=== PATIENT | female | born 1960 | race Caucasian/White ===

== ENCOUNTER → 2016-12-02 | Outpatient (CLI) | payer BC ==
[~2016-12-02] MED LIST: FRS/40 PO; GLC5 PO; INSDGI SC; LEVO100T7 PO; METF-384 PO; SIMV20TA2 PO
--- NOTE | 2016-12-02 16:11 | MAMMOGRAPHY REPORT ---
BILATERAL DIGITAL SCREENING MAMMOGRAM TOMOSYNTHESIS WITH CAD: 12/02/2016 CLINICAL HISTORY: Routine screening. Patient has no complaints. TECHNIQUE: Breast tomosynthesis in addition to standard 2D mammography was performed. Current study was also evaluated with a Computer Aided Detection (CAD) system. COMPARISON: Comparison is made to exams dated: 11/18/2015 mammogram, 10/11/2012 mammogram - [facility], and 01/15/2008. BREAST COMPOSITION: There are scattered areas of fibroglandular density in both breasts. FINDINGS: No suspicious masses, calcifications, or areas of architectural distortion are noted in e ither breast. There has been no significant interval change compared to prior exams. There are stab le post surgical changes from bilateral reduction mammoplasty. Scattered bilateral benign-appearing calcifications are not significantly changed. IMPRESSION: ACR BI-RADS CATEGORY 2: BENIGN There is no mammographic evidence of malignancy. A 1 year screening mammogram is recommended. The p atient will receive written notification of the results. Approximately 10% of breast cancers are not detected with mammography. A negative mammographic repor t should not delay biopsy if a clinically suggestive mass is present. Rhiannon Gabriel M.D. /:12/02/2016 14:45:56 [employer] Helper: Jennifer Hunt, [facility] letter sent: Normal 1/2 BI-RADS Code: ACR BI-RADS Category 2: Benign
== END | disposition home or self-care (01) ==
LOC: C.MAMM 12:57
PROVIDERS: ATTEND Family Medicine
DX: Z12.31 Encounter for screening mammogram for malignant neoplasm of breast (principal)

== ENCOUNTER → 2017-02-11 | Day surgery (SDC) | payer BC ==
[2017-01-04 08:32] VITALS: Ht 160 cm; Wt 127.3 kg
[~2017-02-11] VITALS: Ht 160 cm; Wt 127.3 kg
[~2017-02-11] MED LIST changes: +LIDOCAINE HCL 2% 2 ML VIAL (20MG/ML) ONE; +ONDANSETRON INJ 2 MG/ML 2 ML VIAL ONE; +PROPOFOL IV EMULSION 10 MG/ML 20 ML VIAL IV ONE
--- NOTE | 2017-02-11 13:49 | Endo History and Physical ---
History & Physical Date of Service: Feb 11, 2017. Chief Complaint: screening Referring Physician: Dr. Alvin Londono History of Present Illness For colonoscopy Past Surgical History Hx Cardiac Surgery: No Hx Internal Defibrillator: No Hx Pacemaker: No Hx Abdominal Surgery: Yes (SERGIO) Hx of Implantable Prosthesis: No Hx Post-Op Nausea and Vomiting: No Hx Cancer Surgery: No Hx Thoracic Surgery: No Hx Orthopedic: No Hx Urinary Tract Surgery: No Family History None Social History Smoking Status: Former Smoker Hx Substance Use: No Hx Alcohol Use: No Allergies Coded Allergies: No Known Allergies (Verified , 01/04/17) Current Medications Reported Home Medications Medications Dose Route/Sig Max Daily Dose Days Date Category Lasix (Furosemide) 40 Mg Tab 40 Mg PO DAILY PRN 01/04/17 Reported Lantus (Insulin Glargine) 100 Unit/Ml Inj 50 Units SC BID 01/04/17 Reported Levothyroxine Sodium 100 Mcg Tab 1 Tab PO QAM 01/04/17 Reported Zocor (Simvastatin) 20 Mg Tab 20 Mg PO QPM 01/04/17 Reported Glipizide 5 Mg Tab 1 Tab PO BID 01/04/17 Reported Glucophage (Metformin Hcl) 1,000 Mg Tab 1,000 Mg PO BID 01/04/17 Reported Vital Signs Weight (Kilograms): 127.27 Height (Feet): 5 Height (Inches): 3 Date Time Temp Pulse Resp B/P Pulse Ox O2 Delivery O2 Flow Rate FiO2 02/11/17 13:15 36.8 88 16 173/83 98 Room Air Physical Exam General Appearance: + obese Respiratory/Chest: Respiratory effort: no dyspnea Cardiovascular: Heart Auscultation: RRR Abdomen: Inspection & Palpation: soft Assessment and Plan For screening colonoscopy
--- NOTE | 2017-02-11 14:12 | Discharge Instructions ---
Endoscopy Patient Instructions Date / Procedure(s) Performed Feb 11, 2017. Colonoscopy Allergy Information Coded Allergies: No Known Allergies (Verified , 01/04/17) Discharge Date / Findings Feb 11, 2017. Polyps Medication Instructions Stopped Medication(s): Last dose Metformin Tuesday am Restart Stopped Medication(s): resume meds Reported Home Medications Medications Dose Route/Sig Max Daily Dose Days Date Category Lasix (Furosemide) 40 Mg Tab 40 Mg PO DAILY PRN 01/04/17 Reported Lantus (Insulin Glargine) 100 Unit/Ml Inj 50 Units SC BID 01/04/17 Reported Levothyroxine Sodium 100 Mcg Tab 1 Tab PO QAM 01/04/17 Reported Zocor (Simvastatin) 20 Mg Tab 20 Mg PO QPM 01/04/17 Reported Glipizide 5 Mg Tab 1 Tab PO BID 01/04/17 Reported Glucophage (Metformin Hcl) 1,000 Mg Tab 1,000 Mg PO BID 01/04/17 Reported Provider Instructions Activity Restrictions - No exercising or heavy lifting for 24 hours. - Do not drink alcohol the day of the procedure. - Do not drive a car or operate machinery until the day after the procedure. - Do not make any important decisions or sign important papers in 24 hours after the procedure. Following Day: - Return to full activity which may include returning to work/school. Diet Start your diet with liquids and light foods (jello, soup, juice, toast). Then eat your usual diet if not nauseated. Treatment For Common After Affects For mild abdominal pain, bloating, or excessive gas: - Rest - Eat lightly - Lie on right side Follow-Up Information Follow-up with Dr. Alvin Londono as scheduled Anesthesia Information What You Should Know You have had a procedure that required some medicine to reduce anxiety and discomfort. This treatment is called moderate sedation. After receiving the treatment, you may be sleepy, but you will be able to breathe on your own. The effects of the treatment may last for several hours. Follow these instructions along with Activity/Diet recommendations noted above: * Do NOT do anything where dizziness or clumsiness would be dangerous. * Rest quietly at home today, then you can be up and about tomorrow. * Have a responsible person stay with you the rest of today. * You may have had an I.V. today. If so, you may take the dressing off later today. Recommendations Call your doctor if: * Trouble breathing * Continuous vomiting for more than 24 hours * Temperature above 101 degrees * Severe abdominal pain or bloating * Pain not relieved by pain medicine ordered * There is increased drainage or redness from any incision * A large amount of rectal bleeding greater than 2-3 tablespoons. (If you had a polyp/s removed or have hemorrhoids, a small amount of blood - from the rectum is to be expected.) * You have any unanswered questions or concerns. IN THE EVENT OF A SERIOUS EMERGENCY, GO TO THE NEAREST EMERGENCY ROOM Your discharge instructions were prepared by provider Mauricio Cheatham. Patient Instructions Signature Page Isadora Wells Patient (or Guardian) Signature/Date: I have read and understand the instructions given to me by my caregivers. Caregiver/RN/Doctor Signature/Date: The above-named patient and/or guardian has received patient instructions on this date. + Original Patient Signature Page (only) stays with chart. Please make copy for patient.
--- NOTE | 2017-02-11 14:16 | GI REPORT ---
Procedure Date: 02/11/2017 1:48 PM Procedure: Colonoscopy Indications: Screening for colorectal malignant neoplasm Medicines: Midazolam 2 mg IV, Propofol total dose 300 mg IV, Zofran 4 mg IV, Lidocaine 60 mg IV Complications: No immediate complications. Estimated Blood Loss: Estimated blood loss was minimal. Procedure: Pre-Anesthesia Assessment: - Prior to the procedure, a History and Physical was performed, and patient medications, allergies and sensitivities were reviewed. The patient's tolerance of previous anesthesia was reviewed. - The risks and benefits of the procedure and the sedation options and risks were discussed with the patient. All questions were answered and informed consent was obtained. After I obtained informed consent, the scope was passed under direct vision. Throughout the procedure, the patient's blood pressure, pulse, and oxygen saturations were monitored continuously. The scope was introduced through the anus and advanced to the cecum, identified by appendiceal orifice and ileocecal valve. The colonoscopy was somewhat difficult due to significant looping. Successful completion of the procedure was aided by applying abdominal pressure. The patient tolerated the procedure well. The quality of the bowel preparation was good. Findings: A 6 mm polyp was found in the proximal ascending colon. The polyp was sessile. The polyp was removed with a cold snare. Resection and retrieval were complete. Estimated blood loss was minimal. A 4 mm polyp was found in the cecum. The polyp was sessile. The polyp was removed with a cold snare. Resection and retrieval were complete. Estimated blood loss was minimal. A 3 mm polyp was found at the hepatic flexure. The polyp was sessile. The polyp was removed with a cold snare. Resection and retrieval were complete. Estimated blood loss was minimal. Impression: - One 6 mm polyp in the proximal ascending colon, removed with a cold snare. Resected and retrieved. - One 4 mm polyp in the cecum, removed with a cold snare. Resected and retrieved. - One 3 mm polyp at the hepatic flexure, removed with a cold snare. Resected and retrieved. Recommendation: - Discharge patient to home (ambulatory). - Continue present medications. - Await pathology results. - Return to primary care physician PRN. Mauricio Cheatham M.D. Mauricio Cheatham MD 02/11/2017 2:16:10 PM This report has been signed electronically. Note Initiated On: 02/11/2017 1:48 PM I attest to the content of the Intraoperative Record and orders documented therein, exceptions below
[2017-02-11 14:49] VITALS: BP 120/61; PULSE 77; O2SAT 99
--- NOTE | 2017-02-11 15:08 | Anesthesiology Progress Note ---
Anesthesia Post Op Note Date & Time Feb 11, 2017 at 15:08 Vital Signs Pain Intensity: 0 Vital Signs Past 12 Hours Date Time Temp Pulse Resp B/P Pulse Ox O2 Delivery O2 Flow Rate FiO2 02/11/17 14:49 77 18 120/61 99 Room Air 02/11/17 14:31 81 16 145/80 96 Room Air 02/11/17 14:24 91 16 130/76 98 Room Air 02/11/17 14:19 91 16 130/76 91 Room Air 2 02/11/17 13:15 36.8 88 16 173/83 98 Room Air Notes Mental Status: alert / awake / arousable, participated in evaluation Pt Amnestic to Procedure: Yes Nausea / Vomiting: adequately controlled Pain: adequately controlled Airway Patency, RR, SpO2: stable & adequate BP & HR: stable & adequate Hydration State: stable & adequate Anesthetic Complications: no major complications apparent
== END | disposition home or self-care (01) ==
LOC: C.GI 12:54
PROVIDERS: ATTEND Internal Medicine Gastroenterology
DX: Z12.11 Encounter for screening for malignant neoplasm of colon (principal); D12.0 Benign neoplasm of cecum; D12.2 Benign neoplasm of ascending colon; D12.3 Benign neoplasm of transverse colon; Z98.890 Other specified postprocedural states; Z87.891 Personal history of nicotine dependence; Z79.4 Long term (current) use of insulin

== ENCOUNTER → 2017-12-05 | Outpatient (CLI) | payer BC ==
[~2017-12-05] MED LIST changes: -LIDOCAINE HCL 2% 2 ML VIAL (20MG/ML) ONE; -ONDANSETRON INJ 2 MG/ML 2 ML VIAL ONE; -PROPOFOL IV EMULSION 10 MG/ML 20 ML VIAL IV ONE
--- NOTE | 2017-12-05 14:47 | MAMMOGRAPHY REPORT ---
BILATERAL DIGITAL SCREENING MAMMOGRAM TOMOSYNTHESIS WITH CAD: 12/05/2017 CLINICAL HISTORY: Routine screening. Patient has no complaints. TECHNIQUE: Breast tomosynthesis in addition to standard 2D mammography was performed. Current study was also evaluated with a Computer Aided Detection (CAD) system. COMPARISON: Comparison is made to exams dated: 12/02/2016 mammogram, 11/18/2015 mammogram, 10/11/2012 mammogram - [facility], 01/15/2008, and 01/11/2007. BREAST COMPOSITION: The tissue of both breasts is almost entirely fatty. FINDINGS: There is evidence of prior reduction mammoplasty. Mild to moderate vascular calcifications in the breasts. No suspicious mass, architectural distortion or cluster of suspicious microcalcific ations is seen. IMPRESSION: ACR BI-RADS CATEGORY 1: NEGATIVE There is no mammographic evidence of malignancy. A 1 year screening mammogram is recommended. The pa tient will receive written notification of the results. Approximately 10% of breast cancers are not detected with mammography. A negative mammographic report should not delay biopsy if a clinically suggestive mass is present. Flaca Eden M.D. ay/:12/05/2017 13:42:18 [employer]er Feeder: Jennifer Hunt, [facility] letter sent: Normal 1/2 BI-RADS Code: ACR BI-RADS Category 1: Negative
== END | disposition home or self-care (01) ==
LOC: C.MAMM 12:17
PROVIDERS: ATTEND Family Medicine
DX: Z12.31 Encounter for screening mammogram for malignant neoplasm of breast (principal)

== ENCOUNTER 2022-09-24 10:06 | Inpatient (IN) ==
[2022-09-24] MEDS ORDERED: SODIUM CHLORIDE 0.9% 1000ML 1,000 ML IV ONE (11:08)
[2022-09-24] MEDS ORDERED: ONDANSETRON INJ 2 MG/ML 2 ML VIAL IV STA (11:08)
[2022-09-24] MEDS ORDERED: FAMOTIDINE 20MG IV PUSH 20 MG/5 ML SYR IV STA (11:08)
[2022-09-24 11:27] LABS: Basophils # (auto) 0.12 K/uL (0-0.2); Basophils % (auto) 0.8 %; Eosinophils % (auto) 0.7 %; Hematocrit (blood only) 45.9 % (34.1-44.9); Hemoglobin 15.3 g/dl (12.0-16.0); Immature Granulocytes # (auto) 0.07 K/uL (0.00-0.02); Immature Granulocytes % (auto) 0.5 %; Lymphocytes # (auto) 2.46 K/uL (1.2-3.4); Lymphocytes % (auto) 17.2 %; Mean Corpuscular Hemoglobin 27.6 pg (25.0-34.0); Mean Corpuscular Hgb Conc 33.3 g/dL (32.0-36.0); Mean Corpuscular Volume 82.9 fL (80.0-100.0); Mean Platelet Volume 10.9 fL (9.4-12.3); Monocytes % (auto) 6.3 %; Neutrophils # (auto) 10.67 K/uL (1.4-6.5); Neutrophils % (auto) 74.5 %; Platelet Count 414 K/uL (130-400); RDW Coefficient of Variation 13.6 % (11.5-14.5); RDW Standard Deviation 40.7 fL (36.4-46.3); Red Blood Count 5.54 M/uL (3.93-5.22); White Blood Count 14.32 K/ul (4.8-10.8)
[2022-09-24 11:32] LABS: Appearance Urine Clear (Clear); Bacteria Urine Automated Negative (Negative); Bilirubin Urine Negative (Negative); Blood Urine Negative (Negative); Color Urine Yellow; Epithelial Cell Urine Auto >30 /lpf (0-5); Glucose Urine UA 3+ (Negative); Ketones Urine 1+ (Negative); Leukocyte Esterase Urine Trace (Negative); Nitrite Urine Negative (Negative); Protein Urine 1+ (Negative); RBC Urine Automated 0-4 /hpf (0-4); Specific Gravity Urine 1.022 (1.000-1.030); Urobilinogen Urine Negative (Negative); pH Urine 6.5 (4.5-7.5)
--- NOTE | 2022-09-24 11:52 | XRay Report ---
XR chest 1V portable CLINICAL HISTORY: sob TECHNIQUE: Single frontal radiograph of the chest was obtained. Comparison: None available at the time of this dictation. FINDINGS: No lines and tubes are seen. The cardiomediastinal silhouette is normal. The lungs are clear. No evid ence of pleural effusion or pneumothorax. IMPRESSION: No acute chest disease. ACT 112: Negative or not required by law. Electronically signed by: Luiz Santos M.D. 09/24/2022 11:51 AM
[2022-09-24 11:57] LABS: BUN Creatinine Ratio 7.7 (10-20); Bilirubin,Total 0.8 mg/dl (0.2-1.0); Creatinine Clr Calc Pharmacy 58.1 ml/min; Est GFR (African American) 58.7 ml/min; Est GFR (Non-African American) 50.6 ml/min; Magnesium 1.1 mg/dl (1.7-2.4); Potassium 3.3 mmol/L (3.5-5.1); Troponin I High Sensitivity 11.2 pg/ml (0-14)
--- NOTE | 2022-09-24 11:59 | Emergency Department Note ---
History of Present Illness General Chief complaint: Dehydration Stated complaint: DEHYDRATION; TESTING REQUESTED Time Seen by Provider: 09/24/22 10:52 Source: patient Mode of arrival: ambulatory Limitations: no limitations History of Present Illness Provider complaint: Nausea, vomiting, abdominal pain This is a 62-year-old female presents emergency department due to concern for nausea and vomiting that she states was going on for 1 week. Patient attributed her symptoms to stress that she had recently lost her job. She denies fevers or chills. She states she does have upper abdominal pain that feels like "a knot" in her stomach. She denies any coming diarrhea. She denies noting any blood in the emesis. She denies any history of stomach problems. She states she is a diabetic and has not been eating much due to the nausea and vomiting. She has also not been taking all of her medications as prescribed due to not feeling well. She denies any known sick contacts. Home Medications Medication Instructions Recorded Confirmed Type bupropion HCl 150 mg 24 hr tablet, 150 mg PO DAILY 09/24/22 09/24/22 History extended release glipizide 5 mg tablet 5 mg PO .UNSURE 09/24/22 09/24/22 History levothyroxine 100 mcg tablet 100 mcg PO DAILY 09/24/22 09/24/22 History lisinopril 30 mg tablet 30 mg PO DAILY 09/24/22 09/24/22 History metformin 1,000 mg tablet 1,000 mg PO BID 09/24/22 09/24/22 History simvastatin 20 mg tablet 20 mg PO DAILY 09/24/22 09/24/22 History insulin detemir U-100 100 unit/mL 80 unit subcut BID 09/25/22 09/25/22 History (3 mL) subcutaneous pen (Levemir FlexTouch U-100 Insulin) Allergies Allergy/AdvReac Type Severity Reaction Status Date / Time No Known Allergies Allergy Unknown Verified 09/24/22 16:36 Past Med/Surg History Social History Smoking Status: Never smoker Hx Alcohol Use: No Hx Substance Use: No Preferred Language: Liberian Communication Ability: Effective 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 Required: No Beliefs That Will Affect Care: None Current Living Situation: Alone Other Information That Helps Us Care for You: No Feels Safe at Home: Yes Safety Concerns: Feels Safe At This Time Review of Systems A total of 10 systems reviewed and were otherwise negative All systems reviewed & are unremarkable except as noted in HPI & below Physical Exam Vital Signs Vital Signs - 24 hr 09/24/22 10:14 Temperature 36.7 C Temperature Source Temporal Artery Scan Pulse Rate 98 H Respiratory Rate 18 Respiratory Effort / Characteristics Non-Labored Spontaneous Respiratory Depth Normal Respiratory Pattern Regular Blood Pressure 159/95 H Blood Pressure Mean 116 Blood Pressure Position Sitting Pulse Oximetry 97 Oxygen Delivery Method Room Air Sepsis Recent Fever Within 48 Hours No Sepsis New/Unexplained Change in Mental Status N/A Sepsis Action Taken by Nursing No Action Required GENERAL: alert, unwell appearing, well nourished, mild distress, non-toxic, BMI>39 EYE EXAM: normal conjunctiva, PERRL and EOM's grossly intact OROPHARYNX: no exudate, no erythema, lips, buccal mucosa, and tongue normal and mucous membranes are dry NECK: supple, no nuchal rigidity, no adenopathy, non-tender LUNGS: Clear to auscultation. Normal chest wall mechanics, no w/r/r HEART: no murmurs, S1 normal and S2 normal ABDOMEN: abdomen soft, non-tender, normo-active bowel sounds, no masses, no rebound or guarding. BACK: Back is symmetrical on inspection and there is no deformity, no midline tenderness, no CVA tenderness. SKIN: no rashes and no bruising UPPER EXTREMITIES: upper extremities are grossly normal. FROM, nml pulses b/l. LOWER EXTREMITIES: No pitting edema. FROM, nml pulses b/l. NEURO EXAM: Normal sensorium, cranial nerves II-XII grossly intact, normal speech, no gross weakness of arms, no gross weakness of legs. Gross sensation intact. Course Administered Medications Dextrose (Dextrose 50% 50 Ml Syringe) 25 - 50 ml IV UD PRN; Protocol PRN Reason: Hypoglycemia Protocol Stop: 10/24/22 11:59 Last Admin: 09/24/22 19:17 Dose: 25 ml Documented By: YESI Insulin Aspart (Insulin Aspart Per Unit) 0 units SC ACHS ROLAND Stop: 10/24/22 22:29 Last Admin: 09/25/22 13:24 Dose: 17 units Documented By: DUSTIN Co-signed By: GRISELDA Admin: 09/25/22 08:55 Dose: 6 units Documented By: DUSTIN Co-signed By: GRISELDA Admin: 09/25/22 00:00 Dose: 9 units Documented By: MEREDITH Co-signed By: FLOR Levothyroxine Sodium (Levothyroxine Sodium 100 Mcg Tablet) 100 mcg PO DAILYBB ROLAND Stop: 10/25/22 06:29 Last Admin: 09/25/22 06:19 Dose: 100 mcg Documented By: MEREDITH Discontinued Medications Heparin Sodium (Porcine) (Heparin Sod 5,000 Unit/0.5 Ml Vial) 5,000 units SQ Q12 ROLAND Stop: 10/25/22 08:59 Last Admin: 09/25/22 08:54 Dose: 5,000 units Documented By: DUSTIN Famotidine (Pepcid 20mg Iv Push) 20 mg in 5 mls @ 2.5 mls/min IV NOW STA Stop: 09/24/22 11:09 Last Admin: 09/24/22 11:15 Dose: 2.5 mls/min Documented By: SARITA Sodium Chloride (Nss 1000ml) 1,000 mls @ 999 mls/hr IV .Q1H1M ONE Stop: 09/24/22 12:08 Last Infusion: 09/24/22 12:16 Dose: 0 mls/hr Documented By: Admin: 09/24/22 11:15 Dose: 999 mls/hr Documented By: SARITA Magnesium Sulfate/Dextrose (Magnesium Sulfate / D5w) 1 gm in 100 mls @ 100 mls/hr IV Q1H ROLAND Stop: 09/24/22 13:59 Last Infusion: 09/24/22 14:32 Dose: 0 mls/hr Documented By: Admin: 09/24/22 13:32 Dose: 100 mls/hr Documented By: Infusion: 09/24/22 13:19 Dose: 100 mls/hr Documented By: Admin: 09/24/22 12:19 Dose: 100 mls/hr Documented By: BLAYNE Insulin Human Regular 250 (units/ Sodium Chloride) 250 mls @ 2.3 mls/hr IV .Q24H ROLAND; Protocol Stop: 09/25/22 01:00 Last Titration: 09/25/22 07:02 Dose: 0 units/hr, 0 mls/hr Documented By: DUSTIN Co-signed By: EGS Titration: 09/24/22 22:40 Dose: 2.3 units/hr, 2.3 mls/hr Documented By: MEREDITH Co-signed By: EGS Admin: 09/24/22 22:40 Dose: 2.3 units/hr, 2.3 mls/hr Documented By: MEREDITH Co-signed By: EGS Admin: 09/24/22 21:23 Dose: 2.3 units/hr, 2.3 mls/hr Documented By: MEREDITH Co-signed By: EGS Titration: 09/24/22 21:23 Dose: 2.9 units/hr, 2.9 mls/hr Documented By: MEREDITH Co-signed By: EGS Admin: 09/24/22 20:00 Dose: 2.9 units/hr, 2.9 mls/hr Documented By: MEREDITH Co-signed By: EGS Titration: 09/24/22 20:00 Dose: 0 units/hr, 0 mls/hr Documented By: MEREDITH Co-signed By: EGS Titration: 09/24/22 19:03 Dose: 0 units/hr, 0 mls/hr Documented By: BS Co-signed By: SARITA Titration: 09/24/22 18:00 Dose: 4.8 units/hr, 4.8 mls/hr Documented By: SARITA Co-signed By: HNB Titration: 09/24/22 16:56 Dose: 6 units/hr, 6 mls/hr Documented By: SARITA Co-signed By: SM Titration: 09/24/22 16:10 Dose: 0 units/hr, 0 mls/hr Documented By: SARITA Co-signed By: ES(2) Admin: 09/24/22 14:03 Dose: 10 units/hr, 10 mls/hr Documented By: SARITA Co-signed By: BLAYNE Parenteral Electrolytes (Normosol-R) 1,000 mls @ 999 mls/hr IV .Q1H1M ONE Stop: 09/24/22 13:00 Last Infusion: 09/24/22 13:20 Dose: 0 mls/hr Documented By: Admin: 09/24/22 12:19 Dose: 999 mls/hr Documented By: BLAYNE Potassium Chloride (K Mike / Wtr) 10 meq in 100 mls @ 100 mls/hr IV Q1H ROLAND Stop: 09/24/22 17:44 Last Admin: 09/24/22 15:10 Dose: Not Given Documented By: SARITA Potassium Chloride/Sodium Chloride (Normal Saline W/20 Meq Kcl) 20 meq in 1,000 mls @ 250 mls/hr IV .Q4H ROLAND; Protocol Stop: 10/24/22 13:59 Last Admin: 09/24/22 22:16 Dose: Not Given Documented By: Infusion: 09/24/22 22:14 Dose: 250 mls/hr Documented By: Admin: 09/24/22 15:10 Dose: 250 mls/hr Documented By: SARITA Potassium Chloride/Dextrose/Sod Cl (D5w And 1/2nss + 20meq Kcl) 20 meq in 1,000 mls @ 250 mls/hr IV .Q4H ROLAND; Protocol Stop: 10/24/22 21:14 Last Infusion: 09/25/22 01:31 Dose: 250 mls/hr Documented By: Admin: 09/24/22 21:25 Dose: 250 mls/hr Documented By: MEREDITH Potassium Chloride/Sodium Chloride (1/2 Nss + 20meq Kcl 1000ml) 20 meq in 1,000 mls @ 200 mls/hr IV .Q5H ROLAND; Protocol Stop: 09/25/22 13:59 Last Admin: 09/25/22 10:51 Dose: 200 mls/hr Documented By: Infusion: 09/25/22 10:48 Dose: 200 mls/hr Documented By: Admin: 09/25/22 05:48 Dose: 200 mls/hr Documented By: Infusion: 09/25/22 05:48 Dose: 200 mls/hr Documented By: Admin: 09/25/22 00:52 Dose: 200 mls/hr Documented By: MEREDITH Insulin Aspart (Insulin Aspart Per Unit) 0 units SC ACHS ROLAND Stop: 10/24/22 16:29 Last Admin: 09/25/22 01:30 Dose: Not Given Documented By: Admin: 09/25/22 01:29 Dose: Not Given Documented By: MEREDITH Insulin Aspart (Insulin Aspart Per Unit) 0 units SC TODAY@0200 ONE Stop: 09/25/22 02:01 Last Admin: 09/25/22 02:18 Dose: 3 units Documented By: MEREDITH Co-signed By: EGFloyd Insulin Glargine (Lantus Per Unit Charge) 35 units SQ NOW STA Stop: 09/24/22 22:22 Last Admin: 09/25/22 00:00 Dose: 35 units Documented By: MEREDITH Co-signed By: FLOR Insulin Glargine (Lantus Per Unit Charge) 25 units SQ ONE ONE Stop: 09/25/22 12:16 Last Admin: 09/25/22 13:24 Dose: 25 units Documented By: DUSTIN Co-signed By: GRISELDA Ioversol (Optiray 350 100ml) 94 ml IV ONCE ONE Stop: 09/24/22 12:48 Last Admin: 09/24/22 12:48 Dose: 94 ml Documented By: SAEID Labetalol HCl (Labetalol Hcl Iv 5 Mg/Ml 20ml) 10 mg IV NOW STA Stop: 09/24/22 13:26 Last Admin: 09/24/22 13:36 Dose: 10 mg Documented By: SARITA Co-signed By: NAVDEEP Ybarra (Stat Insulin Drip) 1 each N/A NOW STA Stop: 09/24/22 12:01 Last Admin: 09/24/22 14:04 Dose: 1 each Documented By: SARITA Ybarra (Dka Goal Range 150-250 Mg/Dl) 1 each N/A ONE ONE Stop: 09/24/22 12:01 Last Admin: 09/24/22 14:04 Dose: 1 each Documented By: SARITA Ybarra (Stop Order: Dc Iv Insulin Drip) 1 each N/A NOW ONE Stop: 09/25/22 00:16 Last Admin: 09/25/22 00:52 Dose: 1 each Documented By: MEREDITH Ondansetron HCl (Ondansetron Inj 2 Mg/Ml 2 Ml Vial) 4 mg IV NOW STA Stop: 09/24/22 11:09 Last Admin: 09/24/22 11:15 Dose: 4 mg Documented By: SARITA Potassium Chloride (Potassium Chloride Crtab 20 Meq Tabcr) 40 meq PO NOW STA Stop: 09/24/22 12:25 Last Admin: 09/24/22 12:31 Dose: 40 meq Documented By: BLAYNE Potassium Chloride (Potassium Chloride 10 Meq / 100ml Wtr) 10 meq IV 1500 [facility] Stop: 09/24/22 16:00 Last Admin: 09/24/22 15:40 Dose: 10 meq Documented By: SARITA Potassium Chloride (Potassium Chloride Crtab 20 Meq Tabcr) 40 meq PO TODAY@0850 [facility] Stop: 09/25/22 13:00 Last Admin: 09/25/22 13:25 Dose: 40 meq Documented By: ACP Critical Care Time Critical Care Time: Yes Total Critical Care Time: 39 Critical care of 39 min performed to assess and manage high likelihood of life-threatening DKA, involving labs and imaging performed with assessment to evaluate DKA diagnosis with frequent reassessment. This time includes bedside time, treatment discussions with patient/family/consultants, documentation time and excludes procedure time. Medical Decision Making Differential Diagnosis Differential: Gastroenteritis, Food Borne, Esophageal Perforation, , Electrolyte Abnormality, Dehydration, Intraabdominal Infection, UTI/Pyelonephritis, Bowel Obstruction, Biliary Pathology, amongst other pathology entertained. Medical Records Attestation: I reviewed the patient's medical records. Home Medications Current Medication List: was personally reviewed by me Laboratory Data Attestation: I reviewed the patient's lab results. Result diagrams: 09/24/22 10:48 09/25/22 09:42 Lab Results 09/24/22 09/24/22 09/24/22 Range/Units 10:27 10:28 10:48 WBC 14.32 H (4.8-10.8) K/ul RBC 5.54 H (3.93-5.22) M/uL Hgb 15.3 (12.0-16.0) g/dl Hct 45.9 H (34.1-44.9) % MCV 82.9 (80.0-100.0) fL MCH 27.6 (25.0-34.0) pg MCHC 33.3 (32.0-36.0) g/dL RDW Std Deviation 40.7 (36.4-46.3) fL RDW Coeff of Nanda 13.6 (11.5-14.5) % Plt Count 414 H (130-400) K/uL MPV 10.9 (9.4-12.3) fL Immature Gran % (Auto) 0.5 % Neut % (Auto) 74.5 % Lymph % (Auto) 17.2 % [place] % (Auto) 6.3 % Eos % (Auto) 0.7 % Baso % (Auto) 0.8 % Neut # (Auto) 10.67 H (1.4-6.5) K/uL Lymph # (Auto) 2.46 (1.2-3.4) K/uL [place] # (Auto) 0.90 H (0.24-0.82) K/uL Eos # (Auto) 0.10 (0-0.50) K/uL Baso # (Auto) 0.12 (0-0.2) K/uL Immature Gran # (Auto) 0.07 H (0.00-0.02) K/uL Sodium (136-145) mmol/L Potassium (3.5-5.1) mmol/L Chloride (98-107) mmol/L Carbon Dioxide (21-32) mmol/L Anion Gap (3-11) BUN (6-23) mg/dl Creatinine (0.6-1.2) mg/dl Est Cr Clr Drug Dosing ml/min Est GFR ( Amer) ml/min Est GFR (Non-Af Amer) ml/min BUN/Creatinine Ratio (10-20) Glucose (70-99(Fasting)) mg/dl POC Glucose 448 H* 412 H* (70-99) mg/dl Calcium (8.5-10.1) mg/dl Magnesium (1.7-2.4) mg/dl Total Bilirubin (0.2-1.0) mg/dl AST (13-39) U/L ALT (7-52) U/L Alkaline Phosphatase (34-104) U/L Troponin I High Sens (0-14) pg/ml Total Protein (6.0-8.3) gm/dl Albumin (3.4-5.0) gm/dl Globulin (2.5-4.0) gm/dl Albumin/Globulin Ratio (0.9-2) Lipase (11-82) U/L TSH (0.300-4.500) uIu/ml Urine Color Urine Appearance (Clear) Urine pH (4.5-7.5) Ur Specific [place] (1.000-1.030) Urine Protein (Negative) Urine Glucose (UA) (Negative) Urine Ketones (Negative) Urine Blood (Negative) Urine Nitrite (Negative) Urine Bilirubin (Negative) Urine Urobilinogen (Negative) Ur Leukocyte Esterase (Negative) Urine WBC (Auto) (0-5) /hpf Urine RBC (Auto) (0-4) /hpf U Hyaline Cast (Auto) (0-5) /lpf U Epithel Cells (Auto) (0-5) /lpf Urine Bacteria (Auto) (Negative) Ur Renal Epithelial Cell SARS-CoV-2 (PCR) (Negative) Influenza Type A (PCR) (Neg) Influenza Type B (PCR) (Neg) RSV (RT-PCR) (Neg) 09/24/22 09/24/22 09/24/22 Range/Units 10:48 10:48 10:48 WBC (4.8-10.8) K/ul RBC (3.93-5.22) M/uL Hgb (12.0-16.0) g/dl Hct (34.1-44.9) % MCV (80.0-100.0) fL MCH (25.0-34.0) pg MCHC (32.0-36.0) g/dL RDW Std Deviation (36.4-46.3) fL RDW Coeff of Nanda (11.5-14.5) % Plt Count (130-400) K/uL MPV (9.4-12.3) fL Immature Gran % (Auto) % Neut % (Auto) % Lymph % (Auto) % [place] % (Auto) % Eos % (Auto) % Baso % (Auto) % Neut # (Auto) (1.4-6.5) K/uL Lymph # (Auto) (1.2-3.4) K/uL [place] # (Auto) (0.24-0.82) K/uL Eos # (Auto) (0-0.50) K/uL Baso # (Auto) (0-0.2) K/uL Immature Gran # (Auto) (0.00-0.02) K/uL Sodium 135 L (136-145) mmol/L Potassium 3.3 L (3.5-5.1) mmol/L Chloride 95 L (98-107) mmol/L Carbon Dioxide 23 (21-32) mmol/L Anion Gap 17 H (3-11) BUN 9 (6-23) mg/dl Creatinine 1.17 (0.6-1.2) mg/dl Est Cr Clr Drug Dosing 58.1 ml/min Est GFR ( Amer) 58.7 ml/min Est GFR (Non-Af Amer) 50.6 ml/min BUN/Creatinine Ratio 7.7 L (10-20) Glucose 468 H* (70-99(Fasting)) mg/dl POC Glucose (70-99) mg/dl Calcium 9.0 (8.5-10.1) mg/dl Magnesium 1.1 L (1.7-2.4) mg/dl Total Bilirubin 0.8 (0.2-1.0) mg/dl AST 31 (13-39) U/L ALT 25 (7-52) U/L Alkaline Phosphatase 85 (34-104) U/L Troponin I High Sens 11.2 (0-14) pg/ml Total Protein 8.0 (6.0-8.3) gm/dl Albumin 4.0 (3.4-5.0) gm/dl Globulin 4.0 (2.5-4.0) gm/dl Albumin/Globulin Ratio 1.0 (0.9-2) Lipase 20 (11-82) U/L TSH 1.844 (0.300-4.500) uIu/ml Urine Color Yellow Urine Appearance Clear (Clear) Urine pH 6.5 (4.5-7.5) Ur Specific [place] 1.022 (1.000-1.030) Urine Protein 1+ H (Negative) Urine Glucose (UA) 3+ H (Negative) Urine Ketones 1+ H (Negative) Urine Blood Negative (Negative) Urine Nitrite Negative (Negative) Urine Bilirubin Negative (Negative) Urine Urobilinogen Negative (Negative) Ur Leukocyte Esterase Trace H (Negative) Urine WBC (Auto) 5-10 H (0-5) /hpf Urine RBC (Auto) 0-4 (0-4) /hpf U Hyaline Cast (Auto) 5-10 H (0-5) /lpf U Epithel Cells (Auto) >30 H (0-5) /lpf Urine Bacteria (Auto) Negative (Negative) Ur Renal Epithelial Cell Not Reportable SARS-CoV-2 (PCR) (Negative) Influenza Type A (PCR) (Neg) Influenza Type B (PCR) (Neg) RSV (RT-PCR) (Neg) 09/24/22 09/24/22 Range/Units 12:26 13:30 WBC (4.8-10.8) K/ul RBC (3.93-5.22) M/uL Hgb (12.0-16.0) g/dl Hct (34.1-44.9) % MCV (80.0-100.0) fL MCH (25.0-34.0) pg MCHC (32.0-36.0) g/dL RDW Std Deviation (36.4-46.3) fL RDW Coeff of Nanda (11.5-14.5) % Plt Count (130-400) K/uL MPV (9.4-12.3) fL Immature Gran % (Auto) % Neut % (Auto) % Lymph % (Auto) % [place] % (Auto) % Eos % (Auto) % Baso % (Auto) % Neut # (Auto) (1.4-6.5) K/uL Lymph # (Auto) (1.2-3.4) K/uL [place] # (Auto) (0.24-0.82) K/uL Eos # (Auto) (0-0.50) K/uL Baso # (Auto) (0-0.2) K/uL Immature Gran # (Auto) (0.00-0.02) K/uL Sodium (136-145) mmol/L Potassium (3.5-5.1) mmol/L Chloride (98-107) mmol/L Carbon Dioxide (21-32) mmol/L Anion Gap (3-11) BUN (6-23) mg/dl Creatinine (0.6-1.2) mg/dl Est Cr Clr Drug Dosing ml/min Est GFR ( Amer) ml/min Est GFR (Non-Af Amer) ml/min BUN/Creatinine Ratio (10-20) Glucose (70-99(Fasting)) mg/dl POC Glucose 385 H* (70-99) mg/dl Calcium (8.5-10.1) mg/dl Magnesium (1.7-2.4) mg/dl Total Bilirubin (0.2-1.0) mg/dl AST (13-39) U/L ALT (7-52) U/L Alkaline Phosphatase (34-104) U/L Troponin I High Sens (0-14) pg/ml Total Protein (6.0-8.3) gm/dl Albumin (3.4-5.0) gm/dl Globulin (2.5-4.0) gm/dl Albumin/Globulin Ratio (0.9-2) Lipase (11-82) U/L TSH (0.300-4.500) uIu/ml Urine Color Urine Appearance (Clear) Urine pH (4.5-7.5) Ur Specific [place] (1.000-1.030) Urine Protein (Negative) Urine Glucose (UA) (Negative) Urine Ketones (Negative) Urine Blood (Negative) Urine Nitrite (Negative) Urine Bilirubin (Negative) Urine Urobilinogen (Negative) Ur Leukocyte Esterase (Negative) Urine WBC (Auto) (0-5) /hpf Urine RBC (Auto) (0-4) /hpf U Hyaline Cast (Auto) (0-5) /lpf U Epithel Cells (Auto) (0-5) /lpf Urine Bacteria (Auto) (Negative) Ur Renal Epithelial Cell SARS-CoV-2 (PCR) NEGATIVE (Negative) Influenza Type A (PCR) Negative (Neg) Influenza Type B (PCR) Negative (Neg) RSV (RT-PCR) Negative (Neg) Imaging Data Radiologist's Impression: Chest X-Ray 09/24/22 11:08 XR chest 1V portable CLINICAL HISTORY: sob TECHNIQUE: Single frontal radiograph of the chest was obtained. Comparison: None available at the time of this dictation. FINDINGS: No lines and tubes are seen. The cardiomediastinal silhouette is normal. The lungs are clear. No evidence of pleural effusion or pneumothorax. IMPRESSION: No acute chest disease. ACT 112: Negative or not required by law. Electronically signed by: Luiz Santos M.D. 09/24/2022 11:[address] OF THE ABDOMEN AND PELVIS WITH CONTRAST CLINICAL HISTORY: Epigastric pain, nausea and vomiting. COMPARISON STUDY: CT of the abdomen and pelvis February 12, 2014. KUB February 25, 2014. TECHNIQUE: Following IV administration of 94 mL of Optiray, axial images of the abdomen and pelvis were obtained from the lung bases to the proximal femurs. Images were reviewed in the axial, sagittal, and coronal planes. IV contrast was administered without complication. Automated exposure control was utilized for the study. A dose lowering technique was utilized adhering to the principles of ALARA. CT DOSE: 1291.53 mGy.cm FINDINGS: Lung bases are unremarkable. No pneumatosis, free air or portal venous gas is present. There is hepatic steatosis. Spleen, adrenal glands, left kidney and pancreas are unremarkable. There is moderate right renal atrophy with cortical thinning. Several subcentimeter right renal lesions are too small to characterize. There are no ureteral calculi. There is no hydronephrosis. There is possible urothelial thickening of the right collecting system and right ureter. Caliber and wall thickness of small and large bowel are normal. The appendix is normal. There is no evidence for a bowel obstruction. No ascites or lymphadenopathy is present. There is moderate vascular calcification. Caliber of the abdominal aorta is normal. No acute fracture or suspicious lesion is identified within the visualized skeletal structures. IMPRESSION: 1. No definite acute process within the abdomen or pelvis. No bowel obstruction. No bowel wall thickening. Normal appendix. 2. Possible mild urothelial thickening of the right collecting system and ureter which could be correlated with urinalysis. No hydronephrosis. No ureteral calculi. 3. Moderate right renal atrophy. 4. Hepatic steatosis. ACT 112: Negative or not required by law. Electronically signed by: Zander Mallory M.D. 09/24/2022 1:08 PM ECG Data Attestation: I personally reviewed and interpreted this ECG as follows: Indication: + nausea and + vomiting Rate (beats per minute): 78 Rhythm: + normal sinus ECG Intervals/blocks: + Normal QRS and + Normal QT ECG [place]: + Normal ECG ST segments: + T-wave inversions (II, III, avf) MDM Narrative An order was placed for continuous cardiac monitoring. The monitor shows a rate of _98__ with __normal sinus__ rhythm. This is a 62 yo female who presents with 1 week of n/v, noncompliance with medications, and concern for dehydration. Patient attributes symptoms to stress and not taking her medications correctly due to symptoms. Patient ill appearing although VS stable. Labs drawn and sent and pt started on IVF and given meds for nausea. Labs revealed DKA although I do not suspect other acute pathology, likely her dehydration. CT a/p pelvis reassuring. DKA order set started with additional IVF and insulin drip. Oral potassium given and IV magnesium started for repletion. Patient updated on all results, verbalized understanding, and was in agreement with the plan. Impression & Plan Nausea & vomiting, DKA (diabetic ketoacidosis), Anxiety, HTN (hypertension), Dehydration Discharge Plan Visit Data Chief Complaint: Dehydration Stated Complaint: DEHYDRATION; TESTING REQUESTED ED Provider: Jaelyn Robert Discharge Problem: Nausea & vomiting, DKA (diabetic ketoacidosis), Anxiety, HTN (hypertension), Dehydration Patient Disposition: Admitted As Inpatient Discharge Instructions Interventions: ED Discharge Assessment Last Done: 09/24/22 20:36
[2022-09-24] MEDS ORDERED: GLUCOSE 40% GEL 15 GM TUBE PO PRN (12:00)
[2022-09-24] MEDS ORDERED: CARBOHYDRATES FOR HYPOGLYCEMIA PO PRN (12:00)
[2022-09-24] MEDS ORDERED: GLUCAGON FOR INJ 1 MG VIAL SQ PRN (12:00)
[2022-09-24] MEDS ORDERED: NORMOSOL-R 1,000 ML IV ONE (12:00)
[2022-09-24] MEDS ORDERED: DEXTROSE 50% 50 ML SYRINGE IV PRN (12:00)
[2022-09-24] MEDS ORDERED: DKA GOAL RANGE 150-250 mg/dl ONE ×2 (12:00→13:55)
[2022-09-24] MEDS ORDERED: STAT INSULIN DRIP STA (12:00)
[2022-09-24] MEDS ORDERED: GLUCOSE 10 TAB/TUBE PO PRN (12:00)
[2022-09-24] MEDS: MAGNESIUM SULFATE / D5W 1 GM/100 ML BAG IV SCH ×2 (12:19→13:32)
[2022-09-24] MEDS ORDERED: POTASSIUM CHLORIDE CRTAB 20 MEQ TABCR PO STA (12:24)
[2022-09-24] MEDS ORDERED: OPTIRAY 350 100ml IV ONE (12:47)
--- NOTE | 2022-09-24 13:11 | CT Scan Report ---
CT OF THE ABDOMEN AND PELVIS WITH CONTRAST CLINICAL HISTORY: Epigastric pain, nausea and vomiting. COMPARISON STUDY: CT of the abdomen and pelvis February 12, 2014. KUB February 25, 2014. TECHNIQUE: Following IV administration of 94 mL of Optiray, axial images of the abdomen and pelvis we re obtained from the lung bases to the proximal femurs. Images were reviewed in the axial, sagittal, and coronal planes. IV contrast was administered without complication. Automated exposure control wa s utilized for the study. A dose lowering technique was utilized adhering to the principles of ALARA . CT DOSE: 1291.53 mGy.cm FINDINGS: Lung bases are unremarkable. No pneumatosis, free air or portal venous gas is present. Ther e is hepatic steatosis. Spleen, adrenal glands, left kidney and pancreas are unremarkable. There is m oderate right renal atrophy with cortical thinning. Several subcentimeter right renal lesions are too small to characterize. There are no ureteral calculi. There is no hydronephrosis. There is possible urothelial thickening of the right collecting system and right ureter. Caliber and wall thickness of small and large bowel are normal. The appendix is normal. There is no evidence for a bowel obstructio n. No ascites or lymphadenopathy is present. There is moderate vascular calcification. Caliber of the abdominal aorta is normal. No acute fracture or suspicious lesion is identified within the visualize d skeletal structures. IMPRESSION: 1. No definite acute process within the abdomen or pelvis. No bowel obstruction. No bowel wall thicke torrey. Normal appendix. 2. Possible mild urothelial thickening of the right collecting system and ureter which could be corre lated with urinalysis. No hydronephrosis. No ureteral calculi. 3. Moderate right renal atrophy. 4. Hepatic steatosis. ACT 112: Negative or not required by law. Electronically signed by: Zander Mallory M.D. 09/24/2022 1:08 PM
[2022-09-24] MEDS ORDERED: LABETALOL HCL IV 5 MG/ML 20ML IV STA (13:25)
[2022-09-24] MEDS ORDERED: POTASSIUM CHLORIDE / WTR 10 MEQ/100 ML PLCT IV SCH (13:45)
[2022-09-24] MEDS ORDERED: PHARMACY GLYCEMIC MGMT CONSULT PRN (13:54)
[2022-09-24] MEDS ORDERED: STAT IV Infusion **Titration per Protocol STA (13:55)
[2022-09-24] MEDS ORDERED: INSULIN REGULAR 250 UNITS in SODIUM CHLORIDE 0.9% 247.5 ML IV SCH (14:00)
[2022-09-24] MEDS ORDERED: PENDING D5 1/2NS+20mEq KCL IVF SCH (14:00)
[2022-09-24] MEDS ORDERED: SODIUM CHLORIDE 0.9% 1000ML 1,000 ML IV SCH (14:00)
[2022-09-24] MEDS: INSULIN REGULAR 250 UNITS in SODIUM CHLORIDE 0.9% 247.5 ML IV SCH ×4 (14:03→22:40)
--- NOTE | 2022-09-24 14:14 | History & Physical Report ---
Date of Service September 24, 2022 Assessment & Plan (1) Diabetic ketoacidosis: Plan: DKA in a 62 yo female with hyperglycemia and an elevayed anion gap. DKA protocol started. Placed on IV insulin. monitor electrolytes closely. replenish potassium NPO. will bridge once anion gapcloses. (2) Anxiety: Plan: continue bupropion. (3) Hypothyroidism: Plan: continue levothyroxine History of Present Illness Chief Complaint: nausea Primary Care Provider: MARTI Sweeney 62 [facility], poor appetite. Patient states she recently lost her job on September 17. She has been feeling ill since, and has had poor appetite, nausea, vomiting. She sattes the past 2 days she has not been able to keep anything down. Allergies Allergy/AdvReac Type Severity Reaction Status Date / Time No Known Allergies Allergy Unknown Verified 09/24/22 16:36 Home Medications Medication Instructions Recorded Confirmed Type bupropion HCl 150 mg 24 hr tablet, 150 mg PO DAILY 09/24/22 09/24/22 History extended release glipizide 5 mg tablet 5 mg PO .UNSURE 09/24/22 09/24/22 History levothyroxine 100 mcg tablet 100 mcg PO DAILY 09/24/22 09/24/22 History lisinopril 30 mg tablet 30 mg PO DAILY 09/24/22 09/24/22 History metformin 1,000 mg tablet 1,000 mg PO BID 09/24/22 09/24/22 History simvastatin 20 mg tablet 20 mg PO DAILY 09/24/22 09/24/22 History Past Med/Surg History Social History Smoking Status: Never smoker Hx Alcohol Use: No Hx Substance Use: No Preferred Language: American Communication Ability: Effective [employer] Hand Required: No Beliefs That Will Affect Care: None Current Living Situation: Alone Other Information That Helps Us Care for You: No Feels Safe at Home: Yes Safety Concerns: Feels Safe At This Time Review of Systems Constitutional: no fever and no body aches Eyes: no blind spots Ear, Nose, Mouth, Throat: no ear pain Respiratory: no cough Cardiovascular: no chest pain Gastrointestinal: + abdominal pain Genitourinary: no dysuria Musculoskeletal: no back pain Integumentary: no acne Neurologic: no gait abnormality Psychiatric: no behavioral changes Endocrine: no fatigue Hematologic / Lymphatic: no easy bleeding Allergy / Immunological: no wheezing Physical Exam Constitutional: WD/WN, vitals as above Eyes: PERRL, conjunctivae normal, anicteric sclerae ENMT: external ear and nose normal, oropharynx normal Respiratory: normal respiratory effort, lungs clear to auscultation Cardiovascular: RRR, no murmur, no edema Gastrointestinal (Abdomen): normal bowel sounds, soft, nontender, no hepatosplenomegaly Musculoskeletal: no cyanosis or clubbing, extremities motor strength 5/5 Skin: no rashes, warm and dry Neurologic: PERRL, EOMI, accommodation nl, no face palsy, no dysarthria Psychiatric: A+Ox3, euthymic affect Lymphatic: no cervical or axillary lymphadenopathy Results & Data Results & Data ([facility]) Vital Signs (Past 12 Hours) Vital Signs Temp Pulse Pulse Resp BP BP Pulse Ox 09/24/22 13:03 199/124 H 09/24/22 13:03 83 20 97 09/24/22 12:05 220/118 H 09/24/22 12:05 85 19 95 09/24/22 12:06 76 18 220/118 H 98 09/24/22 10:14 36.7 C 98 H 18 159/95 H 97 O2 Del Method 09/24/22 13:03 09/24/22 13:03 09/24/22 12:05 09/24/22 12:05 09/24/22 12:06 09/24/22 10:14 Room Air Critical Care Time Critical Care Time: Yes Total Critical Care Time: 35 This is a life threatening event. PG Care Time/CCT Total # of Minutes Spent Total Time Spent with Patient: Total time spent is greater than 50% in coordination of care (as documented) at patient's floor/unit and/or counseling patient: Critical Care Time: Yes Total Critical Care Time: 35 Coding Level of Care Code 63070 Initial Inpt Care Lvl 3 (25 - SIGNIFICANT, SEPARATELY IDENTIFIABLE ) Diagnoses Diabetic ketoacidosis E11.10 Anxiety F41.9 Hypothyroidism E03.9 Additional Codes Critical Care Time - Critical Care Time: Yes ([id number])
[2022-09-24 14:20] LABS: Influenza A virus by PCR Negative (Neg); Influenza B virus by PCR Negative (Neg); RSV by PCR Negative (Neg); SARS CoV2 RNA(COVID-19)Cepheid NEGATIVE (Negative)
[2022-09-24] MEDS ORDERED: POTASSIUM CHLORIDE 10 MEQ / 100ML WTR IV SCH (15:00)
--- NOTE | 2022-09-24 15:09 | Electrocardiogram Report ---
Test Reason : Blood Pressure : / mmHG Vent. Rate : 078 BPM Atrial Rate : 078 BPM P-R Int : 128 ms QRS Dur : 096 ms QT Int : 422 ms P-R-T Axes : 026 015 -04 degrees QTc Int : 481 ms Normal sinus rhythm T wave abnormality, consider inferior ischemia Abnormal ECG When compared with ECG of 15-DEC-2015 18:16, T wave inversion now evident in Inferior leads Confirmed by Jim Barba ([id number]) on 09/24/2022 3:08:59 PM Referred By: Confirmed By:Josue Barba
[2022-09-24] MEDS: NSS + 20MEQ KCL 20 MEQ/1,000 ML BAG IV SCH ×2 (15:10→22:16)
--- NOTE | 2022-09-24 15:15 | Pharmacy Report ---
Pharmacy Glycemic Short Note 2 - Date of Service September 24, 2022 - Glycemic Short BSG Results (Last 24 hours): 09/24/22 09/24/22 09/24/22 10:27 10:28 10:48 Glucose 468 H* POC Glucose 448 H* 412 H* 09/24/22 12:26 Glucose POC Glucose 385 H* OUTPATIENT ANTIDIABETIC REGIMEN: * Glipizide 5 mg PO BID * Metformin 1000 mg PO BID * Lantus 50 units SQ BID ASSESSMENT: * 62 y/o F admitted for hyperglycemia, questionable DKA. Patient had been experiencing nausea/vomiting, not eating anything or taking her meds prior to admission. * PO KCL 40 meq was given since K level = 3.3 this morning. Fluids getting repleted. * IV insulin drip was started per DKA protocol. * IV KCL requested and ordered 10 meq IV per provider. * Repeat labs currently pending. PLAN FOR INPATIENT GLYCEMIC CONTROL: * Hold outpatient oral diabetes medications * IV insulin drip started per DKA protocol
[2022-09-24 15:17] LABS: BUN Creatinine Ratio 7.8 (10-20); Calcium 7.9 mg/dl (8.5-10.1); Creatinine Clr Calc Pharmacy 66.7 ml/min; Est GFR (African American) 69.2 ml/min; Est GFR (Non-African American) 59.7 ml/min; Magnesium 1.8 mg/dl (1.7-2.4); Phosphorus 2.5 mg/dl (2.5-4.9)
[2022-09-24] MEDS ORDERED: INSULIN ASPART PER UNIT SC SCH (16:30)
[2022-09-24 19:16] LABS: Potassium 3.6 mmol/L (3.5-5.1)
[2022-09-24 19:23] LABS: BUN Creatinine Ratio 7.8 (10-20); Calcium 8.2 mg/dl (8.5-10.1); Creatinine Clr Calc Pharmacy 75.6 ml/min; Est GFR (African American) 80.5 ml/min; Est GFR (Non-African American) 69.5 ml/min; Magnesium 1.8 mg/dl (1.7-2.4); Phosphorus 1.8 mg/dl (2.5-4.9)
[2022-09-24] MEDS ORDERED: D5W AND 1/2NSS + 20MEQ KCL 20 MEQ/1,000 ML BAG IV SCH (21:15)
[2022-09-24] MEDS ORDERED: LANTUS PER UNIT CHARGE SQ STA (22:21)
[2022-09-24 23:11] LABS: BUN Creatinine Ratio 6.6 (10-20); Calcium 7.8 mg/dl (8.5-10.1); Creatinine Clr Calc Pharmacy 74.7 ml/min; Est GFR (African American) 79.5 ml/min; Est GFR (Non-African American) 68.6 ml/min; Magnesium 1.7 mg/dl (1.7-2.4); Potassium 3.3 mmol/L (3.5-5.1)
[2022-09-25] MEDS ORDERED: [UNRECOGNIZED DRUG - REMARK] ONE (00:15)
[2022-09-25] MEDS: SODIUM CHLOR 0.45% + 20MEQ KCL 20 MEQ/1,000 ML BAG IV SCH ×3 (00:52→10:51)
[2022-09-25] MEDS ORDERED: [UNRECOGNIZED DRUG - REMARK] ONE (01:00)
[2022-09-25] MEDS: INSULIN ASPART PER UNIT SC SCH ×7 (01:29→21:28)
[2022-09-25] MEDS ORDERED: INSULIN ASPART PER UNIT SC ONE (02:00)
[2022-09-25 02:42] LABS: BUN Creatinine Ratio 6.5 (10-20); Calcium 7.9 mg/dl (8.5-10.1); Creatinine Clr Calc Pharmacy 73.9 ml/min; Est GFR (African American) 78.4 ml/min; Est GFR (Non-African American) 67.7 ml/min; Magnesium 1.7 mg/dl (1.7-2.4); Phosphorus 2.9 mg/dl (2.5-4.9); Potassium 3.5 mmol/L (3.5-5.1)
[2022-09-25] MEDS: LEVOTHYROXINE SODIUM 100 MCG TABLET PO SCH (06:19)
[2022-09-25 07:34] LABS: BUN Creatinine Ratio 7.2 (10-20); Calcium 7.8 mg/dl (8.5-10.1); Creatinine Clr Calc Pharmacy 70.1 ml/min; Est GFR (African American) 73.6 ml/min; Est GFR (Non-African American) 63.5 ml/min; Magnesium 1.6 mg/dl (1.7-2.4); Phosphorus 3.3 mg/dl (2.5-4.9); Potassium 3.4 mmol/L (3.5-5.1)
[2022-09-25] MEDS ORDERED: POTASSIUM CHLORIDE CRTAB 20 MEQ TABCR PO STA (08:50)
[2022-09-25] MEDS ORDERED: POTASSIUM CHLORIDE CRTAB 20 MEQ TABCR PO SCH (08:50)
[2022-09-25] MEDS ORDERED: HEPARIN SOD 5,000 UNIT/0.5 ML VIAL SQ SCH (09:00)
[2022-09-25 10:24] LABS: Calcium 8.1 mg/dl (8.5-10.1); Est GFR (African American) 70.9 ml/min; Est GFR (Non-African American) 61.2 ml/min; Magnesium 1.5 mg/dl (1.7-2.4); Phosphorus 3.2 mg/dl (2.5-4.9)
[2022-09-25] MEDS ORDERED: LANTUS PER UNIT CHARGE SQ ONE (12:15)
--- NOTE | 2022-09-25 14:33 | Hospitalist Progress Note ---
Date of Service September 25, 2022 Assessment & Plan (1) Diabetic ketoacidosis: Plan: DKA in a 62 yo female with hyperglycemia and an elevayed anion gap.likely mild viral gastroenteritis- self resolved some days ago. Anion gap is closed blood sugars around 240s, resume home Lantus at half the dose tonight. May need to be discharged on some NovoLog in addition. Metformin home dose resumed (2) HTN (hypertension): Plan: Persistently high blood pressure. Gave lisinopril starting now. On home 30 mg but not resumed on admission. renal function nomal (3) Anxiety: Plan: continue bupropion. (4) Hypothyroidism: Plan: continue levothyroxine Plan Stop heparin, stopped IV fluids. Encourage ambulation and anticipate discharge tomorrow morning Admission and Anticipated Discharge Date Admission Date: September 24, 2022 Subjective Feels well today. Was seen around noon today. Had a knot in her epigastrium for about a week and was not eating well. Had stopped taking her medications and was taking Lantus insulin only intermittently. Had had nausea and vomiting for 2 days but not for the last 5 days. Appetite has been poor. He is recovered this morning. Urine output good per nursing. No shortness of breath breath/chest pain drinks alcohol occasionally and no history of excessive alcohol use. Does not smoke and denies illicit drug use Physical Exam Physical Exam: Pleasant and well looking, good historian, walking back from the bathroom on her own T-max 37.1 Head and neck moist oral mucosa Chest clear to auscultation CVS S1-S2 Abdomen nontender Extremities no edema Psych good insight, normal affect Results & Data Results & Data ([facility]) Vital Signs (Past 12 Hours) Vital Signs Temp Pulse Resp BP Pulse Ox O2 Del Method 09/25/22 08:21 36.8 C 81 18 166/88 H 96 Room Air PG Care Time/CCT Total # of Minutes Spent Total Time Spent with Patient: Total time spent is greater than 50% in coordination of care (as documented) at patient's floor/unit and/or counseling patient: Coding Level of Care Code 80464 Subseq Hosp Care Lvl 2 Diagnoses Diabetic ketoacidosis E11.10 HTN (hypertension) I10 Anxiety F41.9 Hypothyroidism E03.9
--- NOTE | 2022-09-25 14:45 | Pharmacy Report ---
Pharmacy Glycemic Short Note 2 - Date of Service September 25, 2022 - Glycemic Short BSG Results (Last 24 hours): 09/24/22 09/24/22 09/24/22 14:20 15:06 16:06 Glucose 404 H* POC Glucose 316 H* 183 H 09/24/22 09/24/22 09/24/22 18:01 18:35 18:58 Glucose 118 H POC Glucose 122 H 94 09/24/22 09/24/22 09/24/22 19:34 21:04 22:32 Glucose POC Glucose 158 H 130 H 159 H 09/24/22 09/24/22 09/25/22 22:33 23:40 02:11 Glucose 172 H 199 H POC Glucose 153 H 09/25/22 09/25/22 09/25/22 02:12 06:37 08:19 Glucose 160 H POC Glucose 183 H 207 H 09/25/22 09/25/22 09:42 11:53 Glucose 286 H POC Glucose 248 H OUTPATIENT ANTIDIABETIC REGIMEN: * Glipizide 5 mg PO BID * Metformin 1000 mg PO BID * Lantus 50 units SQ BID ASSESSMENT: 09/25 * Patient transitioned off insulin drip overnight - received 35 units of basal * Fasting BSG 207 mg/dL, will titrate up basal for today with stress of 2/3 dosing * Patient likely eating more, therefore BSGs rising, will tighten novolog with lunch 09/24 * 62 y/o F admitted for hyperglycemia, questionable DKA. Patient had been experiencing nausea/vomiting, not eating anything or taking her meds prior to admission. * PO KCL 40 meq was given since K level = 3.3 this morning. Fluids getting repleted. * IV insulin drip was started per DKA protocol. * IV KCL requested and ordered 10 meq IV per provider. * Repeat labs currently pending. PLAN FOR INPATIENT GLYCEMIC CONTROL: * Basal: Lantus 25 units x 1 this AM, then Lantus 20-25 units BID * Novolo-140 ; CF 15 ; CR 5
[2022-09-25] MEDS ORDERED: LEVOTHYROXINE SODIUM 100 MCG TABLET PO SCH (14:46)
[2022-09-25] MEDS: lisinopril 10 MG TAB PO SCH (18:19)
[2022-09-25] MEDS ORDERED: LANTUS PER UNIT CHARGE SQ SCH (21:00)
[2022-09-26] MEDS: INSULIN ASPART PER UNIT SC SCH ×5 (00:04→18:20)
[2022-09-26] MEDS: LEVOTHYROXINE SODIUM 100 MCG TABLET PO SCH (04:14)
[2022-09-26] MEDS: lisinopril 10 MG TAB PO SCH (08:59)
[2022-09-26] MEDS ORDERED: LANTUS PER UNIT CHARGE SQ SCH (09:00)
[2022-09-26] MEDS ORDERED: buPROPion XL 150 MG TABCR PO SCH (09:00)
[2022-09-26] MEDS ORDERED: SIMVASTATIN 20 MG TAB PO SCH (09:00)
--- NOTE | 2022-09-26 15:24 | Discharge Summary ---
Date of Service September 26, 2022 Admission HPI Per Admitting Provider 62 yo female presents to the hospital with nausea vomiting, poor appetite last week pr so. Patient states she recently lost her job on September 17 and is under stress. She has been feeling ill since, and has had poor appetite,also nausea, vomiting but the latter two resolved some days ago. She described a know in her epigastrium Not taking any diabetes meds as not eating much, Admission Exam Per Admitting Provider Constitutional: WD/WN, vitals as above Eyes: PERRL, conjunctivae normal, anicteric sclerae ENMT: external ear and nose normal, oropharynx normal Respiratory: normal respiratory effort, lungs clear to auscultation Cardiovascular: RRR, no murmur, no edema Gastrointestinal (Abdomen): normal bowel sounds, soft, nontender, no hepatosp lenomegaly Musculoskeletal: no cyanosis or clubbing, extremities motor strength 5/5 Skin: no rashes, warm and dry Neurologic: PERRL, EOMI, accommodation nl, no face palsy, no dysarthria Psychiatric: A+Ox3, euthymic affect Lymphatic: no cervical or axillary lymphadenopathy Principal Diagnosis Poorly controlled DM2, depression with poor medical follow ups, poorly controlled blood pressure Discharge Exam Pleasant and well looking, good historian, walking around room T-max 37.1 Head and neck moist oral mucosa Chest clear to auscultation CVS S1-S2 Abdomen nontender Extremities no edema Psych good insight, anxious affect ( when discharge plan explained for today) Discharge Data Allergies Allergy/AdvReac Type Severity Reaction Status Date / Time No Known Allergies Allergy Unknown Verified 09/24/22 16:36 Consultations 09/24/22 13:46 ED Decision to Admit Stat Ordered Studies Abdomen/Pelvis CT 09/24/22 11:08 CT OF THE ABDOMEN AND PELVIS WITH CONTRAST CLINICAL HISTORY: Epigastric pain, nausea and vomiting. COMPARISON STUDY: CT of the abdomen and pelvis February 12, 2014. KUB February 25, 2014. TECHNIQUE: Following IV administration of 94 mL of Optiray, axial images of the abdomen and pelvis were obtained from the lung bases to the proximal femurs. Images were reviewed in the axial, sagittal, and coronal planes. IV contrast was administered without complication. Automated exposure control was utilized for the study. A dose lowering technique was utilized adhering to the principles of ALARA. CT DOSE: 1291.53 mGy.cm FINDINGS: Lung bases are unremarkable. No pneumatosis, free air or portal venous gas is present. There is hepatic steatosis. Spleen, adrenal glands, left kidney and pancreas are unremarkable. There is moderate right renal atrophy with cortical thinning. Several subcentimeter right renal lesions are too small to characterize. There are no ureteral calculi. There is no hydronephrosis. There is possible urothelial thickening of the right collecting system and right ureter. Caliber and wall thickness of small and large bowel are normal. The appendix is normal. There is no evidence for a bowel obstruction. No ascites or lymphadenopathy is present. There is moderate vascular calcification. Caliber of the abdominal aorta is normal. No acute fracture or suspicious lesion is identified within the visualized skeletal structures. IMPRESSION: 1. No definite acute process within the abdomen or pelvis. No bowel obstruction. No bowel wall thickening. Normal appendix. 2. Possible mild urothelial thickening of the right collecting system and ureter which could be correlated with urinalysis. No hydronephrosis. No ureteral calculi. 3. Moderate right renal atrophy. 4. Hepatic steatosis. ACT 112: Negative or not required by law. Electronically signed by: Zander Mallory M.D. 09/24/2022 1:08 PM Chest X-Ray 09/24/22 11:08 XR chest 1V portable CLINICAL HISTORY: sob TECHNIQUE: Single frontal radiograph of the chest was obtained. Comparison: None available at the time of this dictation. FINDINGS: No lines and tubes are seen. The cardiomediastinal silhouette is normal. The lungs are clear. No evidence of pleural effusion or pneumothorax. IMPRESSION: No acute chest disease. ACT 112: Negative or not required by law. Electronically signed by: Luiz Santos M.D. 09/24/2022 11:51 AM Diabetes Follow up Needs to start Levemir 35 units twice a day, not take Glipizide, keep metformin 1000 mg bid, nd take blood sugar log to PCP who she hs been seeing " as needed." I spent several minuets explaining to her a PCP needs to be seen regularly. Her DM 2, depression and Htn all need optmising treatment get Hb a1c as outpatient. Hospital Course (1) Diabetic ketoacidosis: due to not taking diabetic meds: resolved with sc Novolog - switched to home levemir lower dose at discharge- was on 48 units bid at home- began 35 units bid. (2) HTN (hypertension): Persistently high blood pressure. Started metoprolol 25 mg daily at home , lisinopril raised on discharge to 30 mg daily. (3) Anxiety: see depression below (4) Hypothyroidism: continue levothyroxine (5) Depression: treatment w Wellbutrin 150 mg started three months ago by PCP - patient never followed up. Under stress due to recent job loss and loss of health insurance. Denied suicidal ideation on interview day of discharge. Counseled to follow regualrly w PCP starting coming week. Plan discharged. Son to warehouse picker. Total Time Total Time Spent Total Time Spent (In Minutes): 45 Discharge Plan Discharge Items Patient Disposition: Home - Self-Care Reason For Visit: DIABETIC KETOACIDOSIS Discharge Diagnosis: Uncontrolled hypertension, poorly controlled diabetes mellitus, depression Condition on Discharge: Good Activity: Resume your previous activity Bathing: No limitations Sexual Activity: When tolerated Exercise/Sports: As tolerated Exercise Comment: Daily exercise is imperative to reducing cardiovascular risk factors. Non-emergency contact: Primary Care Provider Call non-emergency contact if: you have any medication questions, your symptoms worsen, your pain is concerning for you and you have a fever Follow-up/Referrals: Jamila Wood CRNP [Primary Care Provider] - (within one week with blood sugar log. ) Diet: Carb Consistent or DM2 Addtl Attending Provider Instructions: Please check your blood sugars and maintain a log. Fasting blood sugar every day and rotate mealtimes as explained. Also here depression needs to be treated and you must see your primary care provider frequently. I have raised your Wellbutrin dose to 300 mg daily. Your glipizide has been stopped since it is a very small dose and you are already on insulin and metformin. Your lisinopril has been raised to 40 mg daily. Also metoprolol 25 mg has been added. Your blood pressure control is suboptimal. Pending Studies at Discharge: No Stand-Alone Forms: [facility] Medications and DC Order Prescriptions: New metoprolol succinate 25 mg capsule,sprinkle,ER 24hr 25 mg PO DAILY Qty: 14 0RF Continued levothyroxine 100 mcg tablet 100 mcg PO DAILY simvastatin 20 mg tablet 20 mg PO DAILY metformin 1,000 mg tablet 1,000 mg PO BID Changed bupropion HCl 150 mg tablet extended release 24 hr 300 mg PO DAILY Qty: 10 0RF Levemir FlexTouch U-100 Insuln 100 unit/mL (3 mL) insulin pen 35 unit SUBCUT BID Qty: 3 0RF lisinopril 30 mg tablet 40 mg PO DAILY Qty: 20 0RF Discontinued glipizide 5 mg tablet 5 mg PO .UNSURE Rx Instructions: ON 08/18/22 GOT 180 TABS FILLED FOR 60 DAY SUPPLY. Patient can not remember how she takes it. Discharge Orders: Discharge Order (Routine); Ordered 09/26/22 Ordered By: Pankaj Donato/Other Patient Handouts: High Blood Sugar (Hyperglycemia), Managing Type 2 Diabetes, Diabetes: Sick-Day Plan Admission Data Admit Date/Time: 09/24/22 13:51 Attending Provider: Pankaj Mariano Admit Provider: Neville Osborne Primary Care Provider: Jamila Wood Other Providers: Neville Osborne Other Interventions: Discharge Summary Assessment (RN) Last Done: 09/26/22 17:13 Coding Level of Care Code D/C DAY MANAGEMENT >30 MINS Diagnoses Diabetic ketoacidosis E11.10 HTN (hypertension) I10 Anxiety F41.9 Hypothyroidism E03.9 Depression F32.A
[2022-09-27] MEDS ORDERED: metFORMIN HCL 500 MG TAB PO SCH (08:00)
== END 2022-09-26 19:39 | disposition home or self-care (01) | DRG 639 ==
LOC: ED 10:06 → SUATTDRO 13:51 → 3E 13:51

== ENCOUNTER 2022-10-30 11:06 | Inpatient (IN) ==
--- NOTE | 2022-10-30 11:21 | Emergency Department Note ---
Impression & Plan Ataxia, Recurrent falls, Depression, Hypomagnesemia, Hypokalemia ED Provider Note NAME: BHAVANI CAMPOS AGE: 62 SEX: F : 1960 ARRIVES VIA: Walk-In INFORMANT: Patient, ED PROVIDER(S): Moncho Herrmann MD Chief Complaint: Concern for mental wellness, balance issues HPI: Patient presents with sister at bedside due to concern for mental wellness issues. Per a note written by the sister prior to evaluating the patient states that the patient stated she does not know how long she is going to live and having more apathetic thoughts of "not being around." Patient in the room denies any SI HI or AVH. Patient did have an increase in her antidepressant about a month ago to where it was doubled. The patient did have an inpatient admission several weeks ago due to concern for DKA. The patient states that she has been compliant with her medications and is currently taking her insulin twice a day as well as her oral antihyperglycemic medications. Patient Nuys any chest pains or shortness of breath. The patient has had ongoing balance issues and increasing frequency of falls and states that the symptoms been ongoing for approximate 6 months in duration. The patient states that she did bring it to the attention of her primary care doctor but there is been no further testing. Per review of the patient's most recent inpatient stay there was no testing completed with regard to balance issues at that time. Patient denies any history of autoimmune disease or strokelike symptoms i.e. facial droop slurred speech numbness tingling or focal weakness. The patient states that her legs have felt slightly weak in general. Patient denies any known family history of Parkinson's. ROS: See HPI for pertinent positives and negatives. A total of 10 systems were reviewed and otherwise negative. Past medical history: See below Surgical history: See below Social history: See below Physical Exam: GENERAL: NAD, wearing a mask, non-toxic. EYE EXAM: Normal conjunctiva. PERRL, no anisocoria and EOM's grossly intact w/o pain. NECK: Supple, no nuchal rigidity, no adenopathy, non-tender. No signs of m eningismus. FROM of the neck with good chin to chest and neck extension. No stridor. LUNGS: Clear to auscultation. Normal chest wall mechanics. HEART: NSR, no MRG. ABDOMEN: Abdomen soft, non-tender, normo-active bowel sounds, no masses, no rebound or guarding. BACK: No CVA TTP. SKIN: No rashes and no bruising. UPPER EXTREMITIES: Upper extremities are grossly normal. LOWER EXTREMITIES: Grossly normal, no edema. NEURO EXAM: A&O x3, cranial nerves II-XII grossly intact, normal speech, moves all 4 extremities. Short shuffling gait, no sensory deficits, good [id number], negative Romberg. Psych: Negative SI, HI or AVH. Differential diagnoses: Infection, dehydration, metabolic abnormality, h ypo/hyperglycemia, electrolyte disturbance, anemia, hypoxia, cardiac sources, intracerebral event, toxicologic, neurologic, as well as other pathologies. Course: Patient was seen and evaluated the bedside. Full history physical exam was performed. EKG interpreted by me Normal sinus rhythm, rate of 76, normal intervals normal axis T wave inversion in lead III and aVF not in lead II and no ST elevations. No significant change in comparison EKG September 24, 2022 Imaging Studies: See Below Cardiac monitoring: An order was placed for continuous cardiac monitoring. The monitor shows a rate of 77 with rhythm. MDM: Patient was seen due to concern for ambulatory dysfunction. Blood work was obtained along with an EKG CT head CT angiography of the head and neck. The patient was ordered folic acid and B12 studies. Patient is a normal white count H&H and platelet count. The patient's kidney function is unremarkable. Mild hypokalemia and more significant hypomagnesemia. These were ordered for replacement. The patient's B12 and folate levels are not low. Urinalysis without obvious infection. Negative salicylate Tylenol and alcohol. COVID-negative. CT head shows mild to moderate dilatation of the ventricular system which is likely thought to be due to atrophy. Patient does n ot complain of any incontinence but unsure as well that the patient could have a component of normal pressure hydrocephalus. Patient does have gait and balance. The patient is also had some mental wellness issues. I did speak with the on- call hospitalist and the patient was admitted by Dr. Winslow. 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 Required: No Beliefs That Will Affect Care: None Current Living Situation: Alone Feels Safe at Home: No Is there a partner from a previous relationship who is making you feel unsafe now?: No Allergies Allergies Allergy/AdvReac Type Severity Reaction Status Date / Time No Known Allergies Allergy Unknown Verified 10/30/22 15:05 Home Meds Home Medications Medication Instructions Recorded Confirmed levothyroxine 100 mcg tablet 100 mcg PO DAILY 09/24/22 10/30/22 metformin 1,000 mg tablet 1,000 mg PO BID 09/24/22 10/30/22 simvastatin 20 mg tablet 20 mg PO DAILY 09/24/22 10/30/22 lisinopril 30 mg tablet 0 mg PO DAILY 10/30/22 10/30/22 Previous Rx's Medication Instructions Recorded bupropion HCl 150 mg 24 hr tablet, 300 mg PO DAILY #10 tabs 09/26/22 extended release insulin detemir U-100 100 unit/mL 35 unit (0.35 mL) subcut BID #3 mL 09/26/22 (3 mL) subcutaneous pen (Levemir FlexTouch U-100 Insulin) metoprolol succinate 25 mg capsule 25 mg PO DAILY #14 ea 09/26/22 sprinkle, ext. release 24 hr Results & Data (ED) Vital Signs Vital Signs - 24 hr 10/30/22 11:08 10/30/22 15:03 10/30/22 15:17 Temperature 36.8 C Temperature Source Temporal Artery Scan Pulse Rate 84 Pulse Rate [Apical] 76 Respiratory Rate 18 18 Respiratory Effort / Characteristics Non-Labored Spontaneous Respiratory Depth Normal Blood Pressure 183/81 H Blood Pressure [Left Arm] 202/93 H Blood Pressure Mean 115 Blood Pressure Mean [Left Arm] 129 Pulse Oximetry 98 95 Oxygen Delivery Method Room Air Room Air Room Air Sepsis Recent Fever Within 48 Hours No Sepsis New/Unexplained Change in Mental Status No Sepsis Action Taken by Nursing No Action Required Home Medications Current Medication List: was personally reviewed by me Laboratory Data Attestation: I reviewed the patient's lab results. Result diagrams: 10/30/22 12:04 10/30/22 12:04 Lab Results 10/30/22 10/30/22 10/30/22 Range/Units 12:04 12: 12:04 WBC (4.8-10.8) K/ul RBC (3.93-5.22) M/uL Hgb (12.0-16.0) g/dl Hct (34.1-44.9) % MCV (80.0-100.0) fL MCH (25.0-34.0) pg MCHC (32.0-36.0) g/dL RDW Std Deviation (36.4-46.3) fL RDW Coeff of Nanda (11.5-14.5) % Plt Count (130-400) K/uL MPV (9.4-12.3) fL Immature Gran % (Auto) % Neut % (Auto) % Lymph % (Auto) % Clay % (Auto) % Eos % (Auto) % Baso % (Auto) % Neut # (Auto) (1.4-6.5) K/uL Lymph # (Auto) (1.2-3.4) K/uL Clay # (Auto) (0.24-0.82) K/uL Eos # (Auto) (0-0.50) K/uL Baso # (Auto) (0-0.2) K/uL Immature Gran # (Auto) (0.00-0.02) K/uL PT 10.8 (9.0-12.0) Seconds INR 1.0 (0.9-1.1) Sodium 138 (136-145) mmol/L Potassium 3.3 L (3.5-5.1) mmol/L Chloride 102 (98-107) mmol/L Carbon Dioxide 26 (21-32) mmol/L Anion Gap 10 (3-11) BUN 13 (6-23) mg/dl Creatinine 0.92 (0.6-1.2) mg/dl Est Cr Clr Drug Dosing 77.4 ml/min Est GFR ( Amer) 78.4 ml/min Est GFR (Non-Af Amer) 67.7 ml/min BUN/Creatinine Ratio 14.1 (10-20) Glucose 260 H (70-99(Fasting)) mg/dl Calcium 8.5 (8.5-10.1) mg/dl Magnesium 1.0 L (1.7-2.4) mg/dl Total Bilirubin 0.5 (0.2-1.0) mg/dl AST 15 (13-39) U/L ALT 18 (7-52) U/L Alkaline Phosphatase 70 (34-104) U/L Total Protein 6.5 (6.0-8.3) gm/dl Albumin 3.5 (3.4-5.0) gm/dl Globulin 3.0 (2.5-4.0) gm/dl Albumin/Globulin Ratio 1.2 (0.9-2) Vitamin B12 256 (180-914) pg/ml Folate 6.27 (>5.38) ng/ml TSH (0.300-4.500) uIu/ml Urine Color Urine Appearance (Clear) Urine pH (4.5-7.5) Ur Specific [place] (1.000-1.030) Urine Protein (Negative) Urine Glucose (UA) (Negative) Urine Ketones (Negative) Urine Blood (Negative) Urine Nitrite (Negative) Urine Bilirubin (Negative) Urine Urobilinogen (Negative) Ur Leukocyte Esterase (Negative) Urine WBC (Auto) (0-5) /hpf Urine RBC (Auto) (0-4) /hpf U Hyaline Cast (Auto) (0-5) /lpf U Epithel Cells (Auto) (0-5) /lpf Urine Bacteria (Auto) (Negative) Salicylates (3.0-30) mg/dl Urine Opiates Screen (Neg) Ur Methadone, Qual (Neg) Acetaminophen (10-30) ug/ml Urine Barbiturates (Neg) Ur Phencyclidine (PCP) (Neg) U Amphetamin/Meth Scrn (Neg) MDMA (Ecstasy) Screen (Neg) U Benzodiazepines Scrn (Neg) Ur Cocaine Metabolite (Neg) U Marijuana (THC) Screen (Neg) Ethyl Alcohol mg/dL (<10.0) mg/dl SARS-CoV-2, RNA, NAAT (NEGATIVE) 10/30/22 10/30/22 10/30/22 Range/Units 12:04 12:04 12:04 WBC 9.61 (4.8-10.8) K/ul RBC 4.79 (3.93-5.22) M/uL Hgb 13.4 (12.0-16.0) g/dl Hct 40.8 (34.1-44.9) % MCV 85.2 (80.0-100.0) fL MCH 28.0 (25.0-34.0) pg MCHC 32.8 (32.0-36.0) g/dL RDW Std Deviation 43.8 (36.4-46.3) fL RDW Coeff of Nanda 14.0 (11.5-14.5) % Plt Count 296 (130-400) K/uL MPV 11.1 (9.4-12.3) fL Immature Gran % (Auto) 0.6 % Neut % (Auto) 60.0 % Lymph % (Auto) 29.3 % Clay % (Auto) 6.7 % Eos % (Auto) 2.0 % Baso % (Auto) 1.4 % Neut # (Auto) 5.77 (1.4-6.5) K/uL Lymph # (Auto) 2.82 (1.2-3.4) K/uL Clay # (Auto) 0.64 (0.24-0.82) K/uL Eos # (Auto) 0.19 (0-0.50) K/uL Baso # (Auto) 0.13 (0-0.2) K/uL Immature Gran # (Auto) 0.06 H (0.00-0.02) K/uL PT (9.0-12.0) Seconds INR (0.9-1.1) Sodium (136-145) mmol/L Potassium (3.5-5.1) mmol/L Chloride (98-107) mmol/L Carbon Dioxide (21-32) mmol/L Anion Gap (3-11) BUN (6-23) mg/dl Creatinine (0.6-1.2) mg/dl Est Cr Clr Drug Dosing ml/min Est GFR ( Amer) ml/min Est GFR (Non-Af Amer) ml/min BUN/Creatinine Ratio (10-20) Glucose (70-99(Fasting)) mg/dl Calcium (8.5-10.1) mg/dl Magnesium (1.7-2.4) mg/dl Total Bilirubin (0.2-1.0) mg/dl AST (13-39) U/L ALT (7-52) U/L Alkaline Phosphatase (34-104) U/L Total Protein (6.0-8.3) gm/dl Albumin (3.4-5.0) gm/dl Globulin (2.5-4.0) gm/dl Albumin/Globulin Ratio (0.9-2) Vitamin B12 (180-914) pg/ml Folate (>5.38) ng/ml TSH (0.300-4.500) uIu/ml Urine Color Urine Appearance (Clear) Urine pH (4.5-7.5) Ur Specific [place] (1.000-1.030) Urine Protein (Negative) Urine Glucose (UA) (Negative) Urine Ketones (Negative) Urine Blood (Negative) Urine Nitrite (Negative) Urine Bilirubin (Negative) Urine Urobilinogen (Negative) Ur Leukocyte Esterase (Negative) Urine WBC (Auto) (0-5) /hpf Urine RBC (Auto) (0-4) /hpf U Hyaline Cast (Auto) (0-5) /lpf U Epithel Cells (Auto) (0-5) /lpf Urine Bacteria (Auto) (Negative) Salicylates < 3.0 L (3.0-30) mg/dl Urine Opiates Screen (Neg) Ur Methadone, Qual (Neg) Acetaminophen < 3 L (10-30) ug/ml Urine Barbiturates (Neg) Ur Phencyclidine (PCP) (Neg) U Amphetamin/Meth Scrn (Neg) MDMA (Ecstasy) Screen (Neg) U Benzodiazepines Scrn (Neg) Ur Cocaine Metabolite (Neg) U Marijuana (THC) Screen (Neg) Ethyl Alcohol mg/dL < 10.0 (<10.0) mg/dl SARS-CoV-2, RNA, NAAT (NEGATIVE) 10/30/22 10/30/22 10/30/22 Range/Units 12:04 12:04 12:14 WBC (4.8-10.8) K/ul RBC (3.93-5.22) M/uL Hgb (12.0-16.0) g/dl Hct (34.1-44.9) % MCV (80.0-100.0) fL MCH (25.0-34.0) pg MCHC (32.0-36.0) g/dL RDW Std Deviation (36.4-46.3) fL RDW Coeff of Nanda (11.5-14.5) % Plt Count (130-400) K/uL MPV (9.4-12.3) fL Immature Gran % (Auto) % Neut % (Auto) % Lymph % (Auto) % Clay % (Auto) % Eos % (Auto) % Baso % (Auto) % Neut # (Auto) (1.4-6.5) K/uL Lymph # (Auto) (1.2-3.4) K/uL Clay # (Auto) (0.24-0.82) K/uL Eos # (Auto) (0-0.50) K/uL Baso # (Auto) (0-0.2) K/uL Immature Gran # (Auto) (0.00-0.02) K/uL PT (9.0-12.0) Seconds INR (0.9-1.1) Sodium (136-145) mmol/L Potassium (3.5-5.1) mmol/L Chloride (98-107) mmol/L Carbon Dioxide (21-32) mmol/L Anion Gap (3-11) BUN (6-23) mg/dl Creatinine (0.6-1.2) mg/dl Est Cr Clr Drug Dosing ml/min Est GFR ( Amer) ml/min Est GFR (Non-Af Amer) ml/min BUN/Creatinine Ratio (10-20) Glucose (70-99(Fasting)) mg/dl Calcium (8.5-10.1) mg/dl Magnesium (1.7-2.4) mg/dl Total Bilirubin (0.2-1.0) mg/dl AST (13-39) U/L ALT (7-52) U/L Alkaline Phosphatase (34-104) U/L Total Protein (6.0-8.3) gm/dl Albumin (3.4-5.0) gm/dl Globulin (2.5-4.0) gm/dl Albumin/Globulin Ratio (0.9-2) Vitamin B12 (180-914) pg/ml Folate (>5.38) ng/ml TSH 1.806 (0.300-4.500) uIu/ml Urine Color Yellow Urine Appearance Clear (Clear) Urine pH 5.5 (4.5-7.5) Ur Specific [place] 1.011 (1.000-1.030) Urine Protein Negative (Negative) Urine Glucose (UA) 1+ H (Negative) Urine Ketones Negative (Negative) Urine Blood Negative (Negative) Urine Nitrite Negative (Negative) Urine Bilirubin Negative (Negative) Urine Urobilinogen Negative (Negative) Ur Leukocyte Esterase 1+ H (Negative) Urine WBC (Auto) 1-5 (0-5) /hpf Urine RBC (Auto) 0-4 (0-4) /hpf U Hyaline Cast (Auto) 0 (0-5) /lpf U Epithel Cells (Auto) >30 H (0-5) /lpf Urine Bacteria (Auto) Negative (Negative) Salicylates (3.0-30) mg/dl Urine Opiates Screen (Neg) Ur Methadone, Qual (Neg) Acetaminophen (10-30) ug/ml Urine Barbiturates (Neg) Ur Phencyclidine (PCP) (Neg) U Amphetamin/Meth Scrn (Neg) MDMA (Ecstasy) Screen (Neg) U Benzodiazepines Scrn (Neg) Ur Cocaine Metabolite (Neg) U Marijuana (THC) Screen (Neg) Ethyl Alcohol mg/dL (<10.0) mg/dl SARS-CoV-2, RNA, NAAT NEGATIVE (NEGATIVE) 10/30/22 Range/Units 12:14 WBC (4.8-10.8) K/ul RBC (3.93-5.22) M/uL Hgb (12.0-16.0) g/dl Hct (34.1-44.9) % MCV (80.0-100.0) fL MCH (25.0-34.0) pg MCHC (32.0-36.0) g/dL RDW Std Deviation (36.4-46.3) fL RDW Coeff of Nanda (11.5-14.5) % Plt Count (130-400) K/uL MPV (9.4-12.3) fL Immature Gran % (Auto) % Neut % (Auto) % Lymph % (Auto) % Clay % (Auto) % Eos % (Auto) % Baso % (Auto) % Neut # (Auto) (1.4-6.5) K/uL Lymph # (Auto) (1.2-3.4) K/uL Clay # (Auto) (0.24-0.82) K/uL Eos # (Auto) (0-0.50) K/uL Baso # (Auto) (0-0.2) K/uL Immature Gran # (Auto) (0.00-0.02) K/uL PT (9.0-12.0) Seconds INR (0.9-1.1) Sodium (136-145) mmol/L Potassium (3.5-5.1) mmol/L Chloride (98-107) mmol/L Carbon Dioxide (21-32) mmol/L Anion Gap (3-11) BUN (6-23) mg/dl Creatinine (0.6-1.2) mg/dl Est Cr Clr Drug Dosing ml/min Est GFR ( Amer) ml/min Est GFR (Non-Af Amer) ml/min BUN/Creatinine Ratio (10-20) Glucose (70-99(Fasting)) mg/dl Calcium (8.5-10.1) mg/dl Magnesium (1.7-2.4) mg/dl Total Bilirubin (0.2-1.0) mg/dl AST (13-39) U/L ALT (7-52) U/L Alkaline Phosphatase (34-104) U/L Total Protein (6.0-8.3) gm/dl Albumin (3.4-5.0) gm/dl Globulin (2.5-4.0) gm/dl Albumin/Globulin Ratio (0.9-2) Vitamin B12 (180-914) pg/ml Folate (>5.38) ng/ml TSH (0.300-4.500) uIu/ml Urine Color Urine Appearance (Clear) Urine pH (4.5-7.5) Ur Specific [place] (1.000-1.030) Urine Protein (Negative) Urine Glucose (UA) (Negative) Urine Ketones (Negative) Urine Blood (Negative) Urine Nitrite (Negative) Urine Bilirubin (Negative) Urine Urobilinogen (Negative) Ur Leukocyte Esterase (Negative) Urine WBC (Auto) (0-5) /hpf Urine RBC (Auto) (0-4) /hpf U Hyaline Cast (Auto) (0-5) /lpf U Epithel Cells (Auto) (0-5) /lpf Urine Bacteria (Auto) (Negative) Salicylates (3.0-30) mg/dl Urine Opiates Screen Neg (Neg) Ur Methadone, Qual Neg (Neg) Acetaminophen (10-30) ug/ml Urine Barbiturates Neg (Neg) Ur Phencyclidine (PCP) Neg (Neg) U Amphetamin/Meth Scrn Neg (Neg) MDMA (Ecstasy) Screen Pos H (Neg) U Benzodiazepines Scrn Neg (Neg) Ur Cocaine Metabolite Neg (Neg) U Marijuana (THC) Screen Neg (Neg) Ethyl Alcohol mg/dL (<10.0) mg/dl SARS-CoV-2, RNA, NAAT (NEGATIVE) Administered Medications Magnesium Sulfate/Dextrose (Magnesium Sulfate / D5w) 1 gm in 100 mls @ 50 mls/hr IV Q2H ROLAND Stop: 10/30/22 17:59 Last Admin: 10/30/22 14:40 Dose: 50 mls/hr Documented By: JERSON Discontinued Medications Ioversol (Optiray 320 500ml) 115 ml IV ONCE ONE Stop: 10/30/22 13:14 Last Admin: 10/30/22 13:13 Dose: 115 ml Documented By: MIRIAM Potassium Chloride (Potassium Chloride Crtab 20 Meq Tabcr) 40 meq PO NOW STA Stop: 10/30/22 13:57 Last Admin: 10/30/22 14:39 Dose: 40 meq Documented By: JERSON Imaging Data Radiologist's Impression: Head CT 10/30/22 11:46 CT OF THE HEAD WITHOUT CONTRAST CLINICAL HISTORY: balance issues, shuffling gait, falls COMPARISON STUDY: No previous studies for comparison. TECHNIQUE: Helical axial images of the head were obtained without IV contrast. Automated exposure control was utilized for the study. A dose lowering technique was utilized adhering to the principles of ALARA. FINDINGS: No acute intracranial hemorrhage, midline shift or mass effect is present. There is mild to moderate ventricular dilatation of the ventricular system. This may be slightly out of proportion to sulcal enlargement. Periventricular white matter hypodensities are noted. A hypodensity within the right internal capsule is likely chronic. There are no findings to suggest acute dural sinus thrombosis or acute territorial infarct. There are no significant calvarial abnormalities. There is mild right maxillary sinus mucosal thickening. IMPRESSION: 1. No acute intracranial hemorrhage or mass effect. 2. Mild to moderate dilatation of the ventricular system. This is probably due to atrophy. Although less likely, normal pressure hydrocephalus could appear similar. Periventricular hypodensities favor small vessel disease. Transependymal flow is considered less likely. ACT 112: Negative or not required by law. Electronically signed by: Zander Mallory M.D. 10/30/2022 1:20 PM Head CTA 10/30/22 11:46 CTA ANGIOGRAPHY OF THE HEAD CLINICAL HISTORY: balance issues, shuffling gait, falls COMPARISON STUDY: No previous studies for comparison. TECHNIQUE: Helical axial images of the head were obtained following uneventful intravenous administration of 115 cc of Optiray. Sagittal and coronal sara nstructions were viewed as well as maximal intensity projections on an independent 3-D workstation. Automated exposure control was utilized for the study. A dose lowering technique was utilized adhering to the principles of ALARA FINDINGS: Please note that the head CT will be reported separately. The bilateral M1, M2, A1 and A2 segments are patent. There is moderate plaque within the bilateral cavernous carotids without significant stenosis. There is a large left posterior communicating artery. There is no intracranial aneurysm or central vessel occlusion. There is no dissection within the intracranial vessels. Intracranial portions of the bilateral vertebral arteries are patent. The bilateral posterior inferior cerebellar, anterior-inferior cerebellar and superior cerebellar arteries are patent as are the bilateral posterior cerebral arteries. Mild to moderate ventricular dilatation is noted. IMPRESSION: 1. No central vessel occlusion. No intracranial aneurysm. 2. Moderate calcified plaque within bilateral cavernous carotids without significant stenosis. 3. Mild to moderate ventricular dilatation. This is likely due to central atrophy although normal pressure hydrocephalus could appear similar. ACT 112: Negative or not required by law. Electronically signed by: Zander Mallory M.D. 10/30/2022 1:35 PM Neck CTA 10/30/22 11:46 CT ANGIOGRAPHY OF THE NECK WITH CONTRAST CLINICAL HISTORY: balance issues, shuffling gait, falls COMPARISON STUDY: No previous studies for comparison. Technique: CT angiography of the carotid and vertebral arteries was obtained using Optiray and 3D reconstruction on an independent workstation. NASCET criteria was utilized. Automated exposure control was utilized for the study. A dose lowering technique was utilized adhering to the principles of ALARA. CT DOSE: 1403.08 mGy.cm Findings: Visualized portions of the lung apices are unremarkable. There is no cervical lymphadenopathy or cervical spine fracture. There is mild calcified plaque within the proximal left internal carotid artery without stenosis. There is extensive plaque within the right carotid bifurcation. This results in approximate 70% stenosis of the proximal right external carotid artery. There is mild stenosis of the proximal right internal carotid artery of approximately 30%. Vessel measures 3.4 mm at site of narrowing and 4.4 mm distally. No additional stenoses are identified within the major vessels of the neck. The vertebral arteries are patent. There is no dissection or aneurysm. IMPRESSION: 1. Mild stenosis (30%) of the proximal right internal carotid artery due to calcified plaque. 2. Approximate 70% stenosis of the proximal right external carotid artery. 3. No additional stenoses within neck. No dissection or aneurysm. ACT 112: Negative or not required by law. Electronically signed by: Zander Mallory M.D. 10/30/2022 1:32 PM Chest X-Ray 10/30/22 11:47 XR chest 1V portable CLINICAL HISTORY: weakness COMPARISON STUDY: Chest radiograph September 24, 2022. FINDINGS: Lung volumes are normal. Lungs are clear. There is no pneumothorax or pleural effusion. Cardiac size is normal. Mediastinal contours are normal. There is no evidence for pulmonary edema. IMPRESSION: No acute cardiopulmonary findings. ACT 112: Negative or not required by law. Electronically signed by: Zander Mallory M.D. 10/30/2022 12:44 PM Discharge Plan Visit Data Chief Complaint: Mental Health Evaluation Stated Complaint: MENTAL HEALTH EVAL ED Provider: Moncho Herrmann Discharge Problem: Ataxia, Recurrent falls, Depression, Hypomagnesemia, Hypokalemia Forms Stand Alone Forms: [facility], Suicide Prevention Resources Prescriptions Prescriptions: No Action lisinopril 30 mg tablet 0 mg PO DAILY Rx Instructions: PT UNSURE OF STRENGTH, UNABLE TO VERIFY DOSE. levothyroxine 100 mcg tablet 100 mcg PO DAILY simvastatin 20 mg tablet 20 mg PO DAILY metformin 1,000 mg tablet 1,000 mg PO BID bupropion HCl 150 mg tablet extended release 24 hr 300 mg PO DAILY Qty: 10 0RF Levemir FlexTouch U-100 Insuln 100 unit/mL (3 mL) insulin pen 35 unit SUBCUT BID Qty: 3 0RF metoprolol succinate 25 mg capsule,sprinkle,ER 24hr 25 mg PO DAILY Qty: 14 0RF Referrals Referrals: Jamila Wood CRNP [Primary Care Provider] -
[2022-10-30 12:15] LABS: Basophils # (auto) 0.13 K/uL (0-0.2); Basophils % (auto) 1.4 %; Eosinophils # (auto) 0.19 K/uL (0-0.50); Hematocrit (blood only) 40.8 % (34.1-44.9); Hemoglobin 13.4 g/dl (12.0-16.0); Immature Granulocytes # (auto) 0.06 K/uL (0.00-0.02); Immature Granulocytes % (auto) 0.6 %; Lymphocytes # (auto) 2.82 K/uL (1.2-3.4); Lymphocytes % (auto) 29.3 %; Mean Corpuscular Hgb Conc 32.8 g/dL (32.0-36.0); Mean Corpuscular Volume 85.2 fL (80.0-100.0); Mean Platelet Volume 11.1 fL (9.4-12.3); Monocytes # (auto) 0.64 K/uL (0.24-0.82); Monocytes % (auto) 6.7 %; Neutrophils # (auto) 5.77 K/uL (1.4-6.5); Platelet Count 296 K/uL (130-400); RDW Standard Deviation 43.8 fL (36.4-46.3); Red Blood Count 4.79 M/uL (3.93-5.22); White Blood Count 9.61 K/ul (4.8-10.8)
[2022-10-30 12:27] LABS: Prothrombin Time 10.8 Seconds (9.0-12.0)
[2022-10-30 12:34] LABS: Acetaminophen < 3 ug/ml (10-30); Salicylate < 3.0 mg/dl (3.0-30)
[2022-10-30 12:35] LABS: Appearance Urine Clear (Clear); Bacteria Urine Automated Negative (Negative); Bilirubin Urine Negative (Negative); Blood Urine Negative (Negative); Cast Urine Automated 0 /lpf (0-5); Color Urine Yellow; Epithelial Cell Urine Auto >30 /lpf (0-5); Glucose Urine UA 1+ (Negative); Ketones Urine Negative (Negative); Leukocyte Esterase Urine 1+ (Negative); Nitrite Urine Negative (Negative); Protein Urine Negative (Negative); RBC Urine Automated 0-4 /hpf (0-4); Specific Gravity Urine 1.011 (1.000-1.030); Urobilinogen Urine Negative (Negative); pH Urine 5.5 (4.5-7.5)
[2022-10-30 12:35] LABS: Albumin Globulin Ratio 1.2 (0.9-2); Albumin Level 3.5 gm/dl (3.4-5.0); BUN Creatinine Ratio 14.1 (10-20); Bilirubin,Total 0.5 mg/dl (0.2-1.0); Calcium 8.5 mg/dl (8.5-10.1); Creatinine Clr Calc Pharmacy 77.4 ml/min; Est GFR (African American) 78.4 ml/min; Est GFR (Non-African American) 67.7 ml/min; Potassium 3.3 mmol/L (3.5-5.1); Total Protein 6.5 gm/dl (6.0-8.3)
--- NOTE | 2022-10-30 12:45 | XRay Report ---
XR chest 1V portable CLINICAL HISTORY: weakness COMPARISON STUDY: Chest radiograph September 24, 2022. FINDINGS: Lung volumes are normal. Lungs are clear. There is no pneumothorax or pleural effusion. Car diac size is normal. Mediastinal contours are normal. There is no evidence for pulmonary edema. IMPRESSION: No acute cardiopulmonary findings. ACT 112: Negative or not required by law. Electronically signed by: Zander Mallory M.D. 10/30/2022 12:44 PM
[2022-10-30 13:01] LABS: Amphetamines+Metham, Urine Neg (Neg); Barbiturates, Urine Neg (Neg); Benzodiazepine, Urine Neg (Neg); Cocaine, Urine Neg (Neg); MDMA (Ecstacy), Urine Pos (Neg); Methadone, Urine Neg (Neg); Opiate, Urine Neg (Neg); Phencyclidine, Urine Neg (Neg)
[2022-10-30] MEDS ORDERED: OPTIRAY 320 500ml IV ONE (13:13)
--- NOTE | 2022-10-30 13:22 | CT Scan Report ---
CT OF THE HEAD WITHOUT CONTRAST CLINICAL HISTORY: balance issues, shuffling gait, falls COMPARISON STUDY: No previous studies for comparison. TECHNIQUE: Helical axial images of the head were obtained without IV contrast. Automated exposure con trol was utilized for the study. A dose lowering technique was utilized adhering to the principles o f ALARA. FINDINGS: No acute intracranial hemorrhage, midline shift or mass effect is present. There is mild to moderate ventricular dilatation of the ventricular system. This may be slightly out of proportion to sulcal enlargement. Periventricular white matter hypodensities are noted. A hypodensity within the r ight internal capsule is likely chronic. There are no findings to suggest acute dural sinus thrombosi s or acute territorial infarct. There are no significant calvarial abnormalities. There is mild right maxillary sinus mucosal thickening. IMPRESSION: 1. No acute intracranial hemorrhage or mass effect. 2. Mild to moderate dilatation of the ventricular system. This is probably due to atrophy. Although l ess likely, normal pressure hydrocephalus could appear similar. Periventricular hypodensities favor s mall vessel disease. Transependymal flow is considered less likely. ACT 112: Negative or not required by law. Electronically signed by: Zander Mallory M.D. 10/30/2022 1:20 PM
--- NOTE | 2022-10-30 13:34 | CT Scan Report ---
CT ANGIOGRAPHY OF THE NECK WITH CONTRAST CLINICAL HISTORY: balance issues, shuffling gait, falls COMPARISON STUDY: No previous studies for comparison. Technique: CT angiography of the carotid and vertebral arteries was obtained using Optiray and 3D rec onstruction on an independent workstation. NASCET criteria was utilized. Automated exposure control was utilized for the study. A dose lowering technique was utilized adhering to the principles of ALA RA. CT DOSE: 1403.08 mGy.cm Findings: Visualized portions of the lung apices are unremarkable. There is no cervical lymphadenopat hy or cervical spine fracture. There is mild calcified plaque within the proximal left internal carot id artery without stenosis. There is extensive plaque within the right carotid bifurcation. This resu lts in approximate 70% stenosis of the proximal right external carotid artery. There is mild stenosis of the proximal right internal carotid artery of approximately 30%. Vessel measures 3.4 mm at site o f narrowing and 4.4 mm distally. No additional stenoses are identified within the major vessels of th e neck. The vertebral arteries are patent. There is no dissection or aneurysm. IMPRESSION: 1. Mild stenosis (30%) of the proximal right internal carotid artery due to calcified plaque. 2. Approximate 70% stenosis of the proximal right external carotid artery. 3. No additional stenoses within neck. No dissection or aneurysm. ACT 112: Negative or not required by law. Electronically signed by: Zander Mallory M.D. 10/30/2022 1:32 PM
--- NOTE | 2022-10-30 13:36 | CT Scan Report ---
CTA ANGIOGRAPHY OF THE HEAD CLINICAL HISTORY: balance issues, shuffling gait, falls COMPARISON STUDY: No previous studies for comparison. TECHNIQUE: Helical axial images of the head were obtained following uneventful intravenous administr ation of 115 cc of Optiray. Sagittal and coronal reconstructions were viewed as well as maximal inten sity projections on an independent 3-D workstation. Automated exposure control was utilized for the study. A dose lowering technique was utilized adhering to the principles of ALARA FINDINGS: Please note that the head CT will be reported separately. The bilateral M1, M2, A1 and A2 s egments are patent. There is moderate plaque within the bilateral cavernous carotids without signific ant stenosis. There is a large left posterior communicating artery. There is no intracranial aneurysm or central vessel occlusion. There is no dissection within the intracranial vessels. Intracranial po rtions of the bilateral vertebral arteries are patent. The bilateral posterior inferior cerebellar, a nterior-inferior cerebellar and superior cerebellar arteries are patent as are the bilateral posterio r cerebral arteries. Mild to moderate ventricular dilatation is noted. IMPRESSION: 1. No central vessel occlusion. No intracranial aneurysm. 2. Moderate calcified plaque within bilateral cavernous carotids without significant stenosis. 3. Mild to moderate ventricular dilatation. This is likely due to central atrophy although normal pre ssure hydrocephalus could appear similar. ACT 112: Negative or not required by law. Electronically signed by: Zander Mallory M.D. 10/30/2022 1:35 PM
[2022-10-30] MEDS ORDERED: POTASSIUM CHLORIDE CRTAB 20 MEQ TABCR PO STA (13:56)
--- NOTE | 2022-10-30 14:01 | History & Physical Report ---
Date of Service October 30, 2022 Assessment & Plan (1) Short-term memory loss: Plan: Main concern from her sister. Feels she is not safe at home. Will have PT/OT evals assess and case management. Recommend dementia workup as outpatient B12 level < 400, will replace RPR with AM labs TSH WNL CXR/UA negative for infection Urine toxicology positive for MDMA however suspect this is due to her bupropion, confirmation testing pending (2) Hypomagnesemia: Plan: Mg level 1.0 on admission. 4g IV given today. Repeat level tomorrow and replace as needed. (3) HTN (hypertension): Plan: Reports taking her medication but significantly hypertensive in ER Continue lisinopril 40mg PO daily and metoprolol succinate 25mg PO daily Hydralazine 5mg IV q4h PRN for sBP > 180 (4) Hypothyroidism: Plan: TSH WNL Continue levothyroxine 100 mcg PO daily (5) Anxiety: Plan: Consult psychiatry for mental health eval per sisters request (6) Depression: (7) Type 2 diabetes mellitus: Plan: Hemoglobin A1C with AM labs Hold metformin and home Levemir Lantus 25 units BID (based on last admission) Novolog (based on last admission): --Goal BSG Range: Low 110 mg/dL, High 140 mg/dL --Correction Factor: 15 mg/dL/unit --Carbohydrate ratio = 5 g/unit --BSGs ACHS if eating, q6h if npo (8) Ataxia: Plan: B12 level as above. Consider consulting neurology regarding normal pressure hydrocephalus (9) Recurrent falls: Plan: PT/OT - likely need for rehab (10) Brain fog: Plan VTE Prophylaxis - no acute pathology, low risk, will also avoid SCDs due to risk of falls Diet - T2DM Disposition - admit to med/surg History of Present Illness Chief Complaint: Mental health evaluation Primary Care Provider: MARTI Sweeney Isadora Wells is a 62 year old female who presents to the ER accompanied by her sister for a mental health evaluation. Her sister reports she has a grandson on the way and she made some comments that she might not live till January to see them born. This is on a background of progressively worse brain fog, difficulty focusing, recurrent falls and short term memory loss. Symptoms much worse and progressive over the last 6 months although establishing a time line due to the patients memory loss is difficult She reports taking all her medications although there was some concern she was not taking them before last admission. She reports taking lisinopril this morning however unable to find this on external medication list. She was hospitalized recently hospitalized from September 24 - 2021 due to diabetic ketoacidosis secondary to gastroenteritis and her not taking her insulin correctly. She does report taking her Levemir this morning which is on her external medication list. She reports not being able to get an appointment with Jamila Wood until November and didn't want to follow up with any other [facility] providers therefore was not seen on hospital follow up. In the ER she was noted to have a magnesium level of 1.0 mg/dL. No acute concerns on CT head and head/neck angio. Mild to moderate ventricular dilatation - likely due to central atrophy although normal pressure hydrocephalus could appear similar. Allergies Allergy/AdvReac Type Severity Reaction Status Date / Time No Known Allergies Allergy Unknown Verified 10/30/22 15:05 Home Medications Medication Instructions Recorded Confirmed Type levothyroxine 100 mcg tablet 100 mcg PO DAILY 09/24/22 10/30/22 History metformin 1,000 mg tablet 1,000 mg PO BID 09/24/22 10/30/22 History simvastatin 20 mg tablet 20 mg PO DAILY 09/24/22 10/30/22 History bupropion HCl 150 mg 24 hr tablet, 300 mg PO DAILY #10 tabs 09/26/22 10/30/22 Rx extended release insulin detemir U-100 100 unit/mL 35 unit (0.35 mL) subcut BID #3 mL 09/26/22 10/30/22 Rx (3 mL) subcutaneous pen (Levemir FlexTouch U-100 Insulin) metoprolol succinate 25 mg capsule 25 mg PO DAILY #14 ea 09/26/22 10/30/22 Rx sprinkle, ext. 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 Beliefs That Will Affect Care: None Current Living Situation: Alone Other Information That Helps Us Care for You: No Feels Safe at Home: Yes Safety Concerns: Feels Safe At This Time Assistive Devices: Cane Review of Systems Review of Systems: All systems reviewed & are unremarkable except as noted in Subjective Physical Exam Constitutional: WD/WN, vitals as above Eyes: PERRL, conjunctivae normal, anicteric sclerae Respiratory: normal respiratory effort, lungs clear to auscultation Gastrointestinal (Abdomen): normal bowel sounds, soft, nontender, no hepatosplenomegaly Musculoskeletal: no cyanosis or clubbing, extremities motor strength 5/5 Skin: no rashes, warm and dry Neurologic: awake; not confused Psychiatric: Orientation: alert, oriented to person and oriented to place; + not oriented to time Eye Contact: + fair eye contact Speech: normal rate/rhythm/volume of speech Affect: euthymic affect Suicidal Thoughts: denies suicidal thoughts and denies suicidal plan Homicidal Thoughts: denies homicidal thoughts and denies homicidal plan Results & Data Results & [facility] ([facility]) Vital Signs (Past 12 Hours) Vital Signs Temp Pulse Resp BP Pulse Ox O2 Del Method 10/30/22 11:08 36.8 C 84 18 183/81 H 98 Room Air Laboratory Results Abnormal lab results 10/30/22 10/30/22 10/30/22 Range/Units 12:04 12:04 12:04 Immature Gran # (Auto) 0.06 H (0.00-0.02) K/uL Potassium 3.3 L (3.5-5.1) mmol/L Glucose 260 H (70-99(Fasting)) mg/dl POC Glucose (70-99) mg/dl Magnesium 1.0 L (1.7-2.4) mg/dl Urine Glucose (UA) (Negative) Ur Leukocyte Esterase (Negative) U Epithel Cells (Auto) (0-5) /lpf Salicylates < 3.0 L (3.0-30) mg/dl Acetaminophen < 3 L (10-30) ug/ml MDMA (Ecstasy) Screen (Neg) 10/30/22 10/30/22 10/30/22 Range/Units 12:14 12:14 16:58 Immature Gran # (Auto) (0.00-0.02) K/uL Potassium (3.5-5.1) mmol/L Glucose (70-99(Fasting)) mg/dl POC Glucose 184 H (70-99) mg/dl Magnesium (1.7-2.4) mg/dl Urine Glucose (UA) 1+ H (Negative) Ur Leukocyte Esterase 1+ H (Negative) U Epithel Cells (Auto) >30 H (0-5) /lpf Salicylates (3.0-30) mg/dl Acetaminophen (10-30) ug/ml MDMA (Ecstasy) Screen Pos H (Neg) 10/30/22 Range/Units 20:29 Immature Gran # (Auto) (0.00-0.02) K/uL Potassium (3.5-5.1) mmol/L Glucose (70-99(Fasting)) mg/dl POC Glucose 172 H (70-99) mg/dl Magnesium (1.7-2.4) mg/dl Urine Glucose (UA) (Negative) Ur Leukocyte Esterase (Negative) U Epithel Cells (Auto) (0-5) /lpf Salicylates (3.0-30) mg/dl Acetaminophen (10-30) ug/ml MDMA (Ecstasy) Screen (Neg) Diagnostic Findings XR chest 1V portable CLINICAL HISTORY: weakness COMPARISON STUDY: Chest radiograph September 24, 2022. FINDINGS: Lung volumes are normal. Lungs are clear. There is no pneumothorax or pleural effusion. Cardiac size is normal. Mediastinal contours are normal. There is no evidence for pulmonary edema. IMPRESSION: No acute cardiopulmonary findings. Medications Administered ER Medications Given: Mg sulfate 2g IV KCl 40 meq PO ECG Indication: altered mental status Rate (beats per minute): 76 Rhythm: normal sinus Findings: no acute ischemic change Comparison ECG Date: no prior available (September 24, 2022) Change: no significant change Code Status & VTE Plan Code Status Full VTE Prophylaxis Plan VTE Prophylaxis will be ordered: No Reason for no VTE drug order: Treatment not indicated Reason for no VTE mechanical prophylaxis: Treatment not tolerated PG Care Time/CCT Total # of Minutes Spent Total Time Spent with Patient: Total time spent is greater than 50% in coordination of care (as documented) at patient's floor/unit and/or counseling patient: Coding Level of Care Code 79263 Initial Inpt Care Lvl 3 Diagnoses Short-term memory loss R41.3 Hypomagnesemia E83.42 HTN (hypertension) I10 Hypothyroidism E03.9 Anxiety F41.9 Depression F32.A Type 2 diabetes mellitus E11.9 Ataxia R27.0 Recurrent falls R29.6 Brain fog R41.89
[2022-10-30] MEDS: MAGNESIUM SULFATE / D5W 1 GM/100 ML BAG IV SCH ×4 (14:40→20:17)
[2022-10-30] MEDS ORDERED: hydrALAZINE HCL 20 MG/ML VIAL IV STA (15:28)
[2022-10-30] MEDS ORDERED: GLUCAGON FOR INJ 1 MG VIAL SQ PRN (16:34)
[2022-10-30] MEDS ORDERED: GLUCOSE 40% GEL 15 GM TUBE PO PRN (16:34)
[2022-10-30] MEDS ORDERED: DEXTROSE 50% 50 ML SYRINGE IV PRN (16:34)
[2022-10-30] MEDS ORDERED: ACETAMINOPHEN 325 MG TAB PO PRN (16:34)
[2022-10-30] MEDS ORDERED: CARBOHYDRATES FOR HYPOGLYCEMIA PO PRN (16:34)
[2022-10-30] MEDS ORDERED: GLUCOSE 10 TAB/TUBE PO PRN (16:34)
[2022-10-30] MEDS ORDERED: hydrALAZINE HCL 20 MG/ML VIAL IV PRN (17:08)
[2022-10-30] MEDS: INSULIN ASPART PER UNIT SC SCH ×2 (18:07→21:52)
[2022-10-30] MEDS: LANTUS PER UNIT CHARGE SQ SCH (21:51)
[2022-10-31 07:23] LABS: BUN Creatinine Ratio 12.3 (10-20); Est GFR (African American) 91.5 ml/min; Est GFR (Non-African American) 78.9 ml/min; Magnesium 1.8 mg/dl (1.7-2.4); Potassium 3.4 mmol/L (3.5-5.1)
--- NOTE | 2022-10-31 08:13 | Hospitalist Progress Note ---
Date of Service October 31, 2022 Assessment & Plan (1) Short-term memory loss: Plan: Main concern from her sister. Feels she is not safe at home. Will have PT/OT evals assess and case management. Recommend dementia workup as outpatient B12 level < 400, will replace RPR with AM labs TSH WNL CXR/UA negative for infection Urine toxicology positive for MDMA however suspect this is due to her bupropion, confirmation testing pending Psych consult: No evidence of anxiety or depression to explain pseudodementia from depression. Plan to contact sister for collateral. MRI brain ordered Neurology consulted. Appreciate recs (2) Hypomagnesemia: Plan: Mg level 1.0 on admission. 4g IV given today. Repeat level tomorrow and replace as needed. (3) HTN (hypertension): Plan: Reports taking her medication but significantly hypertensive in ER Continue lisinopril 40mg PO daily and metoprolol succinate 25mg PO daily Hydralazine 5mg IV q4h PRN for sBP > 180 (4) Hypothyroidism: Plan: TSH WNL Continue levothyroxine 100 mcg PO daily (5) Anxiety: Plan: Psych consulted. No evidence of anxiety/depression Continue Wellbutrin 20 mg p.o. daily (6) Depression: (7) Type 2 diabetes mellitus: Plan: Hemoglobin A1C with AM labs Hold metformin and home Levemir Lantus 25 units BID (based on last admission) Novolog (based on last admission): --Goal BSG Range: Low 110 mg/dL, High 140 mg/dL --Correction Factor: 15 mg/dL/unit --Carbohydrate ratio = 5 g/unit --BSGs ACHS if eating, q6h if npo (8) Ataxia: Plan: B12 level as above. Consider consulting neurology regarding normal pressure hydrocephalus (9) Recurrent falls: Plan: PT/OT - likely need for rehab (10) Brain fog: Plan VTE Prophylaxis - no acute pathology, low risk, will also avoid SCDs due to risk of falls Diet - T2DM Disposition - admit to med/surg Admission and Anticipated Discharge Date Admission Date: October 30, 2022 Subjective No acute events overnight. Patient resting bed comfortably on arrival. She is able to corroborate the HPI, detailing 6 months of sudden lower extremity weakness, memory loss, "brain fog." She has no acute complaints at this time. Sister is not at bedside to corroborate. Review of Systems Review of Systems: All systems reviewed & are unremarkable except as noted in HPI & below Physical Exam Physical Exam: General: No acute distress HEENT: PERRLA. Normal conjunctiva, anicteric sclera. Oropharynx normal. Respiratory: Normal respiratory effort, CTA BL. Cardiovascular: RRR without murmurs, gallops, or rubs. No edema. GI: Soft abdomen with normal bowel sounds heard on auscultation. Nontender x4 quadrants Neuro: Alert and oriented x3. Results & Data Results & Data ([facility]) Vital Signs (Past 12 Hours) Vital Signs Temp Pulse Resp BP Pulse Ox O2 Del Method 10/31/22 08:04 36.7 C 75 16 154/80 H 96 Room Air 10/30/22 23:08 36.7 C 82 18 156/79 H 95 Room Air Resident Activity Tracking Resident Involvement: Resident Care Provided Care Provided: Adult Hospital Medicine
[2022-10-31] MEDS: SIMVASTATIN 20 MG TAB PO SCH (08:19)
[2022-10-31] MEDS: buPROPion XL 300 MG TABCR PO SCH (08:19)
[2022-10-31] MEDS: lisinopril 40 MG TAB PO SCH (08:19)
[2022-10-31] MEDS: LEVOTHYROXINE SODIUM 100 MCG TABLET PO SCH (08:20)
[2022-10-31] MEDS: METOPROLOL SUCC 25MG EXT REL TAB PO SCH (08:20)
[2022-10-31] MEDS: CYANOCOBALAMIN 1000 MCG/ML VIAL IM SCH (08:21)
[2022-10-31] MEDS: INSULIN ASPART PER UNIT SC SCH ×4 (09:10→21:35)
[2022-10-31] MEDS: LANTUS PER UNIT CHARGE SQ SCH ×2 (09:11→21:35)
--- NOTE | 2022-10-31 10:51 | Psychiatric Consultation ---
Date of Consultation October 31, 2022 Impression / Recommendations Impression 62 yo woman with recent falls, lower extremity weakness and memory/cognitive difficulties. Diagnostically no evidence from interview or PHQ-9 and CLAUDIA that anxiety or depression are contributing to her memory issues or leading to a pseudo-dementia type presentation. No clear stressors nor history to suggest functional neurological syndrome contributing to weakness though this is a diagnosis of exclusion so would consider head MRI and further muscle strength testing and workup along with memory workup. Would continue Wellbutrin as this can help with concentration and focus and no evidence it's causing any side effects. Dose could be increased to 450mg qd if other causes of memory/concentration are ruled out to further help with dopaminergic effects. (1) Ataxia: (2) Short-term memory loss: (3) Brain fog: Plan -Consider further weakness/cognition workup, agree with B12 supplementation -Continue Wellbutrin -psych liason to get further collateral from pt's sister Psych History Identifying Data 62 yo woman with history of depression admitted medically for weakness, frequent falls and confusion/memory difficulty. Psychiatry consulted for "request of patient's sister for psychiatric evaluation". Chief Complaint "I'm concerned about my recall". History of Present Illness Isadora describes starting to fall intermittently since about March 2022 and in recent months more difficulty with mental clarity and recall. She feels she falls due to her lower body strength "giving out" and not due to weakness nor visual changes. She struggles to identify any particular scenarios that have been impacted by recall or mental clarity challenges but with more specific queries did feel like she was having more concentration difficulties switching between topics/duties when she was working (her job at a local [employer] was eliminated at the end of August) and sometimes can't recall specific memories from the previous week. Denies any issues forgetting to lock her door, forgettin g directions/getting lost driving, leaving the stove or water on, forgetting what she was doing when in the middle of an activity and has been able to focus and remember books or TV shows she watches. Recalls having some stress in March when the weakness started as her son was getting but this was exciting stress. She endorses increased stress during the last two months due to financial pressure from her job being eliminated but feels she is coping with this well. Denies any symptoms of depression nor anxiety. CLAUDIA-7 with score of 0, PHQ-9 with score of 4 and 0 for Q9. She describes history of depression following her mother's in 2018 and was started on Wellbutrin at that time. She's not sure if this helps at all but also doesn't feel she any significant psychiatric symptoms for which additional medication is needed. Reviewed statements she made recently to her sister about not sure if she will live to see her first grandchild's in January. She identifies possibly th inking or making such a statement due to her medical issues lately but adamantly denies any current or past SI and her affect brightens as she discusses the excitement about the of this grandchild. Allergies Allergy/AdvReac Type Severity Reaction Status Date / Time No Known Allergies Allergy Unknown Verified 10/30/22 15:05 Home Medications Medication Instructions Recorded Confirmed Type levothyroxine 100 mcg tablet 100 mcg PO DAILY 09/24/22 10/30/22 History metformin 1,000 mg tablet 1,000 mg PO BID 09/24/22 10/30/22 History simvastatin 20 mg tablet 20 mg PO DAILY 09/24/22 10/30/22 History bupropion HCl 150 mg 24 hr tablet, 300 mg PO DAILY #10 tabs 09/26/22 10/30/22 Rx extended release insulin detemir U-100 100 unit/mL 35 unit (0.35 mL) subcut BID #3 mL 09/26/22 10/30/22 Rx (3 mL) subcutaneous pen (Levemir FlexTouch U-100 Insulin) metoprolol succinate 25 mg capsule 25 mg PO DAILY #14 ea 09/26/22 10/30/22 Rx sprinkle, ext. release 24 hr lisinopril 30 mg tablet 0 mg PO DAILY 10/30/22 10/30/22 History Personal History Living Arrangements: Home Employment Status: Unemployed Number Of Children: 2 sons Beliefs That Will Affect Care: None Patient History Medical History Dehydration Diabetic ketoacidosis DKA (diabetic ketoacidosis) Nausea & vomiting Surgical History No pertinent past surgical history Social History Smoking Status: Former smoker Second Hand Exposure: No; Do You Dip or Chew Tobacco: No; Hx Alcohol Use: Yes Hx Substance Use: No Preferred Language: American Communication Ability: Effective Trimming Cutter Machine Required: No Beliefs That Will Affect Care: None Current Living Situation: Alone Other Information That Helps Us Care for You: No Feels Safe at Home: Yes Safety Concerns: Feels Safe At This Time Assistive Devices: None Physical Exam Psychiatric: Orientation: alert and oriented x 3 Apperance: appropriately dressed and appropriately groomed Eye Contact: good eye contact Motor Behavior: no abnormal motor movements Speech: normal rate/rhythm/volume of speech Affect: euthymic affect Mood: no depressed mood and no anxious mood Thought Process: linear/logical thought process Thought Content: reality based without delusions Suicidal Thoughts: denies suicidal thoughts Homicidal Thoughts: denies homicidal thoughts Hallucinations: no auditory hallucinations and no visual hallucinations Cognition: recent memory grossly intact (based on information shared, not formally assessed), remote memory grossly intact, attention grossly intact and language grossly intact Estimated Intelligence: consistent with education level Insight: + fair insight Judgement: + fair judgement Vital Signs (Past 24 Hours): Last Vital Signs Temp 36.7 C 10/31/22 08:04 Pulse 75 10/31/22 08:04 Resp 16 10/31/22 08:04 BP 154/80 H 10/31/22 08:04 Pulse Ox 96 10/31/22 08:04 O2 Del Method 10/31/22 08:04 Review of Systems All systems reviewed & are unremarkable except as noted in HPI & below Results & Data ([facility]) Medications Administered Bupropion HCl (Bupropion Xl 300 Mg Tabcr) 300 mg PO DAILY [facility] Stop: 11/30/22 08:59 Last Admin: 10/31/22 08:19 Dose: 300 mg Documented By: DUSTIN Cyanocobalamin (Cyanocobalamin 1000 Mcg/Ml Vial) 1,000 mcg IM QAM ROLAND Stop: 11/02/22 09:01 Last Admin: 10/31/22 08:21 Dose: 1,000 mcg Documented By: DUSTIN Insulin Aspart (Insulin Aspart Per Unit) 0 units SC ACHS ROLAND Stop: 11/29/22 16:33 Last Admin: 10/31/22 09:10 Dose: 12 units Documented By: DUSTIN Co-signed By: SHARIFA Admin: 10/30/22 21:52 Dose: 3 units Documented By: LORA Co-signed By: HENRY Admin: 10/30/22 18:07 Dose: 13 units Documented By: GERRI Co-signed By: WALTER Insulin Glargine (Lantus Per Unit Charge) 25 units SQ BID ROLAND Stop: 11/29/22 20:59 Last Admin: 10/31/22 09:11 Dose: 25 units Documented By: DUSTIN Co-signed By: SHARIFA Admin: 10/30/22 21:51 Dose: 25 units Documented By: LORA Co-signed By: HENRY Levothyroxine Sodium (Levothyroxine Sodium 100 Mcg Tablet) 100 mcg PO DAILY ROLAND Stop: 11/30/22 08:59 Last Admin: 10/31/22 08:20 Dose: 100 mcg Documented By: DUSTIN Lisinopril (Lisinopril 40 Mg Tab) 40 mg PO DAILY ROLAND Stop: 11/30/22 08:59 Last Admin: 10/31/22 08:19 Dose: 40 mg Documented By: DUSTIN Metoprolol Succinate (Metoprolol Succ 25mg Ext Rel Tab) 25 mg PO DAILY ROLAND Stop: 11/30/22 08:59 Last Admin: 10/31/22 08:20 Dose: 25 mg Documented By: DUSTIN Simvastatin (Simvastatin 20 Mg Tab) 20 mg PO DAILY ROLAND Stop: 11/30/22 08:59 Last Admin: 10/31/22 08:19 Dose: 20 mg Documented By: DUSTIN Coding Level of Care Code 21918 Inpt Consult Level 3 Diagnoses Ataxia R27.0 Short-term memory loss R41.3 Brain fog R41.89
--- NOTE | 2022-10-31 15:21 | Communication Note ---
Date of Service: October 31, 2022 The patient was seen and examined by me. Case discussed with resident physician. Agree with assessment and plan. Lungs are clear and heart rhythm is regular. We will proceed with brain MRI scan and neurological consultation
[2022-10-31] MEDS ORDERED: GADOBUTROL 65ML VIAL IV ONE (17:49)
--- NOTE | 2022-10-31 18:06 | Magnetic Resonance Report ---
MR brain wo/w con HISTORY: 62 years-old Female unexplained falls, memory loss acute memory loss with fall and imbalanc e COMPARISON: Head CT 10/30/2022 TECHNIQUE: Multiplanar multisequence MRI of the brain was obtained both with and without the use of 1 1 mL Gadavist FINDINGS: Chart fractures appear unremarkable. Study is mildly motion degraded. Degenerative changes of the alex ged cervical spine. No restricted diffusion to suggest acute or subacute infarct. No acute intracrani al hemorrhage, midline shift, abnormal extra-axial collection or intracranial mass. Involutional bolton ges of the brain parenchyma. Moderate confluent T2/FLAIR prolongation is noted throughout the subcort ical, deep and periventricular white matter. There is dilation of the ventricular system with transve rse dimension of the lateral ventricles measuring up to 4.8 cm. Chronic lacunar infarcts of the basal ganglia. Cerebral venous sinuses and major arterial flow voids appear patent. Skull, orbits and soft tissues a re unremarkable. The mastoid air cells are clear. Minimal mucosal thickening of the right maxillary s inus. There is no abnormal enhancement identified. IMPRESSION: 1. No acute intracranial abnormality identified. No abnormal enhancement. 2. No acute or subacute infarct. 3. Involutional changes with mild to moderate dilation of the ventricular system again noted. Finding s may be on an ex vacuo basis or secondary to normal pressure hydrocephalus. 4. White matter hypodensities likely represent chronic microvascular ischemic disease. Transependymal flow considered less likely. 5. Chronic lacunar infarcts of the basal ganglia. ACT 112: Negative or not required by law. The above report was generated using voice recognition software. It may contain grammatical, syntax o r spelling errors. Electronically signed by: Efrain Gant M.D. 10/31/2022 6:03 PM
--- NOTE | 2022-10-31 23:10 | Electrocardiogram Report ---
Test Reason : Blood Pressure : / mmHG Vent. Rate : 076 BPM Atrial Rate : 076 BPM P-R Int : 138 ms QRS Dur : 086 ms QT Int : 394 ms P-R-T Axes : 042 010 -04 degrees QTc Int : 443 ms Poor data quality, interpretation may be adversely affected Normal sinus rhythm Minimal voltage criteria for LVH, may be normal variant Borderline ECG When compared with ECG of 24-SEP-2022 11:42, No significant change was found Confirmed by Mohamud Lopez ([id number]) on 10/31/2022 11:10:40 PM Referred By: REFERRED SELF Confirmed By:Mohamud Lopez
[2022-11-01 06:33] LABS: BUN Creatinine Ratio 10.6 (10-20); Calcium 8.1 mg/dl (8.5-10.1); Creatinine Clr Calc Pharmacy 57.9 ml/min; Est GFR (African American) 55.2 ml/min; Est GFR (Non-African American) 47.6 ml/min; Magnesium 1.5 mg/dl (1.7-2.4); Potassium 3.8 mmol/L (3.5-5.1)
[2022-11-01 07:38] LABS: Estimated Average Glucose 275 mg/dl; Hemoglobin A1C 11.2 % (4.5-5.6)
[2022-11-01] MEDS: lisinopril 40 MG TAB PO SCH (07:48)
[2022-11-01] MEDS: LEVOTHYROXINE SODIUM 100 MCG TABLET PO SCH (07:48)
[2022-11-01] MEDS: METOPROLOL SUCC 25MG EXT REL TAB PO SCH (07:49)
[2022-11-01] MEDS: SIMVASTATIN 20 MG TAB PO SCH (07:49)
[2022-11-01] MEDS: buPROPion XL 300 MG TABCR PO SCH (07:50)
[2022-11-01] MEDS: CYANOCOBALAMIN 1000 MCG/ML VIAL IM SCH (07:52)
[2022-11-01] MEDS: INSULIN ASPART PER UNIT SC SCH ×4 (08:41→21:21)
[2022-11-01] MEDS: LANTUS PER UNIT CHARGE SQ SCH ×2 (08:41→21:21)
[2022-11-01] MEDS: MAGNESIUM SULFATE / D5W 1 GM/100 ML BAG IV SCH ×4 (09:40→16:01)
--- NOTE | 2022-11-01 09:47 | Neurology Consultation ---
Date of Consultation November 01, 2022 Assessment & Plan (1) NPH (normal pressure hydrocephalus): (2) Diabetic peripheral neuropathy: Plan 62-year-old female with probable normal pressure hydrocephalus based on history, examination findings, and MRI findings. However, patient may also have an element of sensory ataxia due to diabetic peripheral neuropathy. Her diabetes mellitus is not well controlled. I would recommend outpatient neurosurgical assessment for suspected normal pressure hydrocephalus. She would need a high-volume lumbar puncture and observation for clinical improvement in gait, and possibly urinary symptoms as well. If patient does exhibit improvement after this procedure, then she would be considered a good candidate for a C WEB DEVELOPER shunt or possibly third ventriculostomy. These assessment should be done by a neurosurgeon, again, expedited outpatient evaluation. Further, this patient also has an element of sensory ataxia likely due to diabetic peripheral neuropathy. Her diabetes mellitus is poorly controlled, recent hemoglobin A1c was 11.2. She will need ongoing management of her diabetes mellitus. However, I do not think the presence of a diabetic peripheral neuropathy and sensory ataxia would preclude the need for the above neurosurgical assessment, especially in the context of the observed hydrocephalus on MRI. Case discussed with attending hospitalist physician. History of Present Illness Reason for Consultation: Gait dysfunction, memory loss Requesting Physician: Bobo Pugh MD Attending Physician: Patricia Hopkins MD History of Present Illness The patient is a 62-year-old female with progressive gait dysfunction, recurrent falls, associated urinary urgency, and mild confusion, memory loss. Patient's family has expressed concern regarding her declining cognitive symptoms recently. Patient does endorse ongoing difficulty with gait and balance and associated falls. She denies headache, vision change, nausea, emesis, dysarthria, hemiparesis, or tremor. A CT of the head was negative for hemorrha ge but did reveal moderate ventricular dilatation as well as an element of atrophy. CT angiography of the head and neck negative for significant vascular lesion. Follow-up brain MRI negative for acute process but does reveal moderate dilatation of the ventricular system consistent with either normal pressure hydrocephalus or hydrocephalus ex vacuo. I did independently review these images and believe the degree of hydrocephalus is out of proportion to the observed generalized atrophy. There is significant associated confluent periventricular white matter hyperintensity on FLAIR sequences as well that may suggest transependymal CSF flow. I do note that she has a history of type 2 diabetes mellitus and hypertension as well. An element of chronic cerebrovascular disease not completely excluded. Allergies Allergy/AdvReac Type Severity Reaction Status Date / Time No Known Allergies Allergy Unknown Verified 10/30/22 15:05 Home Medications Medication Instructions Recorded Confirmed Type levothyroxine 100 mcg tablet 100 mcg PO DAILY 09/24/22 10/30/22 History metformin 1,000 mg tablet 1,000 mg PO BID 09/24/22 10/30/22 History simvastatin 20 mg tablet 20 mg PO DAILY 09/24/22 10/30/22 History bupropion HCl 150 mg 24 hr tablet, 300 mg PO DAILY #10 tabs 09/26/22 10/30/22 Rx extended release insulin detemir U-100 100 unit/mL 35 unit (0.35 mL) subcut BID #3 mL 09/26/22 10/30/22 Rx (3 mL) subcutaneous pen (Levemir FlexTouch U-100 Insulin) metoprolol succinate 25 mg capsule 25 mg PO DAILY #14 ea 09/26/22 10/30/22 Rx sprinkle, ext. release 24 hr lisinopril 30 mg tablet 0 mg PO DAILY 10/30/22 10/30/22 History Patient History Medical History Dehydration Diabetic ketoacidosis DKA (diabetic ketoacidosis) Nausea & vomiting Surgical History No pertinent past surgical history Social History Smoking Status: Former smoker Second Hand Exposure: No; Do You Dip or Chew Tobacco: No; Hx Alcohol Use: Yes Hx Substance Use: No Preferred Language: Kazakh Communication Ability: Effective Front End Java Developer Required: No Beliefs That Will Affect Care: None Current Living Situation: Alone Other Information That Helps Us Care for You: No Feels Safe at Home: Yes Safety Concerns: Feels Safe At This Time Assistive Devices: None Review of Systems Review of Systems: All systems reviewed & are unremarkable except as noted in Subjective Exam (Neuro) Constitutional: well developed and well nourished; no acute distress Eyes: normal visual smith by confrontation, PERRL, normal accommodation and EOM intact bilaterally; no fundoscopic abnormality, no nystagmus and no papilledema Cardiovascular: Vessels: normal carotid upstroke; no carotid bruit Neurologic: Oriented to:: Person, Place and Time Memory: Remote Intact; negative Short Term Intact Attention: Span Intact; negative Concentration Intact Language: Naming Objects and Repeating Phrases Speech Fluency: negative Dysarthria Speech Aphasia: negative Aphasia Fund of Knowledge: Past History and Vocabulary; negative Current Events Cranial Nerves: Normal II (Visual smith full to confrontation, visual acuity normal), III, IV, (Pupils equal round reactive to light and accommodation, eye movements normal), V (Facial sensation intact), VII (There is no facial droop or weakness), VIII (Hearing intact), IX, X (Palate elevates to midline), XI (Shoulder shrug intact) and XII (Tongue protrudes to midline) Motor Strength: Normal Lower Extremities and Normal Upper Extremities; negative Pronator Drift Motor Tone: Normal Lower Extremities and Normal Upper Extremities Muscle Bulk/Involuntary Movements: No Involuntary Movements; negative Muscle Atrophy Sensation: Light Touch Intact and Pain/Temperature Intact; negative Vibration Intact or Proprioception Intact Coordination: Limited Balance; negative Dysdiadochokinesia, Finger-Nose Abnormal or Heel-Reynoso Abnormal Deep Tendon Reflexes: Rt Triceps: 1+, Lt Triceps: 1+, Rt Biceps: 1+, Lt Biceps: 1+, Rt Brachioradialis: 1+, Lt Brachioradialis: 1+, Rt Patellar: 1+, Lt Patellar: 1+, Rt Ankle: 0 and Lt Ankle: 0 Special Tests: negative Babinski Present Gait: Apractic and Ataxic Results & Data ([facility]) Vital Signs (Past 12 Hours) Vital Signs Temp Pulse Pulse Resp BP Pulse Ox O2 Del Method 11/01/22 07:38 36.6 C 68 18 156/80 H 96 Room Air 11/01/22 07:01 36.5 C 69 18 153/78 H 98 Room Air 10/31/22 23:00 37.2 C 71 16 159/80 H 98 Room Air Laboratory Results WBC 9.61, hemoglobin 13.4, hematocrit 40.8, platelet count 296, sodium 139, potassium 3.8, BUN 13, creatinine 1.23, glucose 236, hemoglobin A1c 11.2, magnesium 1.5 Coding Level of Care Code 33574 Initial Inpt Care Lvl 3 Diagnoses NPH (normal pressure hydrocephalus) G91.2 Diabetic peripheral neuropathy E11.42
--- NOTE | 2022-11-01 19:51 | Hospitalist Progress Note ---
Date of Service November 01, 2022 Assessment & Plan (1) Short-term memory loss: Plan: 62-year-old female with history of diabetes with recent history of DKA, as well as a family history of early dementia through paternal lineage, who presented to the emergency room with her sister for mental health evaluation following 6 months of memory loss, episodes of brain fog, sudden lower extremity weakness and falls. Now stable following admission, evaluation with suspected normal pressure hydrocephalus. Currently awaiting placement to personal care facility, outpatient neurosurgery follow-up. Short-term memory loss/NPH -Main concern from her sister. Feels she is not safe at home. Will have PT/OT evals assess and case management. -Notable labs on admission: Magnesium 1.0, vitamin B12 <400, normal folate. UA, CXR negative for acute infectious process. Urine drug screen positive for MDMA, though suspect secondary to bupropion use. Confirmatory tests, RPR labs pending. -Psych consult: No evidence of anxiety or depression to explain pseudodementia from depression. Plan to contact sister for collateral. -Brain MRI: Involutional changes with mild to moderate dilatation of the ventricular system noted. Findings secondary to NPH or an ex vacuo basis. -Neurology consult: Suspect NPH. Recommended urgent (but not emergent) outpatient evaluation by neurosurgery. Patient evaluated by OT (determined that patient cannot be safely discharged home). Patient awaiting placement to personal care facility. Outpatient neurosurgery appointment scheduled through case management. Electrolyte derangement -Magnesium of 1.0 on admission. Now status post repletion. * Trend magnesium. Replete as needed. Hypertension Found to be hypertensive in the ER, despite patient reporting she takes her medication. * Home lisinopril 40 mg p.o. daily, metoprolol succinate 25 mg p.o. daily. IV hydralazine 5 mg every 4 hours as needed for systolic blood pressure >180. Hypothyroidism -TSH normal on admission. * Home levothyroxine Anxiety/depression -Psych consulted: Found no evidence of uncontrolled anxiety or depression. Low suspicion for depression induced dementia * Home Wellbutrin DM2 -Hemoglobin A1C 11.2. Hold metformin and home Levemir * Lantus 25 units BID (based on last admission) * Novolog (based on last admission): --Goal BSG Range: Low 110 mg/dL, High 140 mg/dL --Correction Factor: 15 mg/dL/unit --Carbohydrate ratio = 5 g/unit --BSGs ACHS if eating, q6h if npo Morbid obesity, BMI 43.0 kg/m*m -will need aggressive weight management. to consider outpatient wt mx referral. Code: Full code Dispo: Med-Surg FEN/GI: Diabetic diet DVT Prophylaxis: Heparin 5000 mg every 12 hours PT/OT: Yes Consults: Psych, neurology (2) Hypomagnesemia: (3) HTN (hypertension): (4) Hypothyroidism: (5) Anxiety: (6) Depression: (7) Type 2 diabetes mellitus: (8) Ataxia: (9) Recurrent falls: (10) Brain fog: Admission and Anticipated Discharge Date Admission Date: October 30, 2022 Supervising Physician Co-Signing Physician Notes Resident Physician Supervision Note: I independently interviewed and examined the patient and verified the barraza history and physical, reviewed labs and image studies and agree with resident findings and care plan. Subjective No acute events overnight. Patient standing at bedside on arrival. She has no acute complaints at present. Review of Systems Review of Systems: All systems reviewed & are unremarkable except as noted in HPI & below Physical Exam Physical Exam: General: No acute distress HEENT: PERRLA. Normal conjunctiva, anicteric sclera. Oropharynx normal. Respiratory: Normal respiratory effort, CTA BL. Cardiovascular: RRR without murmurs, gallops, or rubs. No edema. GI: Soft abdomen with normal bowel sounds heard on auscultation. Nontender x4 quadrants Neuro: Alert and oriented x3. Results & Data Results & Data ([facility]) Vital Signs (Past 12 Hours) Vital Signs Temp Pulse Pulse Resp BP Pulse Ox O2 Del Method 11/01/22 14:55 36.6 C 68 18 173/94 H 98 Room Air 11/01/22 11:55 36.5 C 67 16 154/84 H 95 Room Air Resident Activity Tracking Resident Involvement: Resident Care Provided Care Provided: Adult Hospital Medicine
[2022-11-01] MEDS: HEPARIN SOD 5,000 UNIT/0.5 ML VIAL SQ SCH (21:21)
[2022-11-02 07:44] LABS: BUN Creatinine Ratio 12.2 (10-20); Calcium 8.5 mg/dl (8.5-10.1); Est GFR (African American) 59.9 ml/min; Est GFR (Non-African American) 51.7 ml/min; Magnesium 1.9 mg/dl (1.7-2.4); Potassium 4.2 mmol/L (3.5-5.1)
[2022-11-02] MEDS: METOPROLOL SUCC 25MG EXT REL TAB PO SCH (08:10)
[2022-11-02] MEDS: LEVOTHYROXINE SODIUM 100 MCG TABLET PO SCH (08:10)
[2022-11-02] MEDS: SIMVASTATIN 20 MG TAB PO SCH (08:10)
[2022-11-02] MEDS: lisinopril 40 MG TAB PO SCH (08:10)
[2022-11-02] MEDS: CYANOCOBALAMIN 1000 MCG/ML VIAL IM SCH (08:10)
[2022-11-02] MEDS: HEPARIN SOD 5,000 UNIT/0.5 ML VIAL SQ SCH ×2 (08:11→20:27)
[2022-11-02] MEDS: LANTUS PER UNIT CHARGE SQ SCH ×2 (09:17→20:26)
[2022-11-02] MEDS: INSULIN ASPART PER UNIT SC SCH ×4 (09:17→20:26)
[2022-11-02] MEDS: buPROPion XL 300 MG TABCR PO SCH (09:20)
--- NOTE | 2022-11-02 18:51 | Hospitalist Progress Note ---
Date of Service November 02, 2022 Assessment & Plan (1) Short-term memory loss: Plan: 62-year-old female with history of diabetes with recent history of DKA, as well as a family history of early dementia through paternal lineage, who presented to the emergency room with her sister for mental health evaluation following 6 months of memory loss, episodes of brain fog, sudden lower extremity weakness and falls. Now stable following admission, evaluation with suspected normal pressure hydrocephalus. Currently awaiting placement to personal care facility, outpatient neurosurgery follow-up. Short-term memory loss/NPH -Main concern from her sister. Feels she is not safe at home. Will have PT/OT evals assess and case management. -Notable labs on admission: Magnesium 1.0, vitamin B12 <400, normal folate. UA, CXR negative for acute infectious process. Urine drug screen positive for MDMA, though suspect secondary to bupropion use. Confirmatory tests, RPR labs pending. -Psych consult: No evidence of anxiety or depression to explain pseudodementia from depression. Plan to contact sister for collateral. -Brain MRI: Involutional changes with mild to moderate dilatation of the ventricular system noted. Findings secondary to NPH or an ex vacuo basis. -Neurology consult: Suspect NPH. Recommended urgent (but not emergent) outpatient evaluation by neurosurgery. Patient evaluated by OT (determined that patient cannot be safely discharged home). Patient awaiting placement to personal care facility. Outpatient neurosurgery appointment scheduled through case management. Electrolyte derangement -Magnesium of 1.0 on admission. Now status post repletion. * Trend magnesium. Replete as needed. Hypertension Found to be hypertensive in the ER, despite patient reporting she takes her medication. * Home lisinopril 40 mg p.o. daily, metoprolol succinate 25 mg p.o. daily. IV hydralazine 5 mg every 4 hours as needed for systolic blood pressure >180. Hypothyroidism -TSH normal on admission. * Home levothyroxine Anxiety/depression -Psych consulted: Found no evidence of uncontrolled anxiety or depression. Low suspicion for depression induced dementia * Home Wellbutrin DM2 -Hemoglobin A1C 11.2. Hold metformin and home Levemir * Lantus 25 units BID (based on last admission) * Novolog (based on last admission): --Goal BSG Range: Low 110 mg/dL, High 140 mg/dL --Correction Factor: 15 mg/dL/unit --Carbohydrate ratio = 5 g/unit --BSGs ACHS if eating, q6h if npo Morbid obesity, BMI 43.0 kg/m*m -will need aggressive weight management. to consider outpatient wt mx referral. Code: Full code Dispo: Med-Surg FEN/GI: Diabetic diet DVT Prophylaxis: Heparin 5000 mg every 12 hours PT/OT: Yes Consults: Psych, neurology (2) Hypomagnesemia: (3) HTN (hypertension): (4) Hypothyroidism: (5) Anxiety: (6) Depression: (7) Type 2 diabetes mellitus: (8) Ataxia: (9) Recurrent falls: (10) Brain fog: Admission and Anticipated Discharge Date Admission Date: October 30, 2022 Supervising Physician Co-Signing Physician Notes Resident Physician Supervision Note: I independently interviewed and examined the patient and verified the barraza history and physical, reviewed labs and image studies and agree with resident findings and care plan. Subjective No acute events overnight. Patient had no acute complaints. She did, however wanted no of the results of the brain MRI from yesterday, which were relayed. She expressed awareness and understanding of the results. She is ambulating comfortably with a walker. Review of Systems Review of Systems: All systems reviewed & are unremarkable except as noted in HPI & below Physical Exam Physical Exam: General: No acute distress HEENT: PERRLA. Normal conjunctiva, anicteric sclera. Oropharynx normal. Respiratory: Normal respiratory effort, CTABL. Cardiovascular: RRR without murmurs, gallops, or rubs. No edema. GI: Soft abdomen with normal bowel sounds heard on auscultation. Nontender x4 quadrants Neuro: Alert and oriented x3. Results & Data Results & Data ([facility]) Vital Signs (Past 12 Hours) Vital Signs Temp Pulse Resp BP Pulse Ox O2 Del Method 11/02/22 15:30 36.7 C 74 18 129/78 97 Room Air 11/02/22 07:06 36.5 C 69 18 160/84 H 95 Room Air Resident Activity Tracking Resident Involvement: Resident Care Provided Care Provided: Adult Hospital Medicine
[2022-11-03] MEDS: METOPROLOL SUCC 25MG EXT REL TAB PO SCH (08:22)
[2022-11-03] MEDS: SIMVASTATIN 20 MG TAB PO SCH (08:22)
[2022-11-03] MEDS: LEVOTHYROXINE SODIUM 100 MCG TABLET PO SCH (08:22)
[2022-11-03] MEDS: HEPARIN SOD 5,000 UNIT/0.5 ML VIAL SQ SCH (08:22)
[2022-11-03] MEDS: buPROPion XL 300 MG TABCR PO SCH (08:22)
[2022-11-03] MEDS: lisinopril 40 MG TAB PO SCH (08:22)
[2022-11-03] MEDS ORDERED: CYANOCOBALAMIN (B-12) 500 MCG TABLET PO SCH (09:00)
[2022-11-03] MEDS: INSULIN ASPART PER UNIT SC SCH ×2 (09:05→13:12)
[2022-11-03] MEDS: LANTUS PER UNIT CHARGE SQ SCH (09:06)
--- NOTE | 2022-11-03 13:10 | Hospitalist Progress Note ---
Date of Service November 03, 2022 Assessment & Plan (1) Short-term memory loss: Plan: 62-year-old female with history of diabetes with recent history of DKA, as well as a family history of early dementia through paternal lineage, who presented to the emergency room with her sister for mental health evaluation following 6 months of memory loss, episodes of brain fog, sudden lower extremity weakness and falls. Now stable following admission, evaluation with suspected normal pressure hydrocephalus. Currently awaiting placement to personal care facility, outpatient neurosurgery follow-up. Short-term memory loss/NPH -Main concern from her sister. Feels she is not safe at home. Will have PT/OT evals assess and case management. -Notable labs on admission: Magnesium 1.0, vitamin B12 <400, normal folate. UA, CXR negative for acute infectious process. Urine drug screen positive for MDMA, though suspect secondary to bupropion use. Confirmatory tests, RPR labs pending. -Psych consult: No evidence of anxiety or depression to explain pseudodementia from depression. Plan to contact sister for collateral. -Brain MRI: Involutional changes with mild to moderate dilatation of the ventricular system noted. Findings secondary to NPH or an ex vacuo basis. -Neurology consult: Suspect NPH. Recommended urgent (but not emergent) outpatient evaluation by neurosurgery. Patient evaluated by OT (determined that patient cannot be safely discharged home). Patient awaiting placement to personal care facility. Outpatient neurosurgery appointment scheduled through case management. Electrolyte derangement -Magnesium of 1.0 on admission. Now status post repletion. * Trend magnesium. Replete as needed. Hypertension Found to be hypertensive in the ER, despite patient reporting she takes her medication. * Home lisinopril 40 mg p.o. daily, metoprolol succinate 25 mg p.o. daily. IV hydralazine 5 mg every 4 hours as needed for systolic blood pressure >180. Hypothyroidism -TSH normal on admission. * Home levothyroxine Anxiety/depression -Psych consulted: Found no evidence of uncontrolled anxiety or depression. Low suspicion for depression induced dementia * Home Wellbutrin DM2 -Hemoglobin A1C 11.2. Hold metformin and home Levemir * Lantus 25 units BID (based on last admission) * Novolog (based on last admission): --Goal BSG Range: Low 110 mg/dL, High 140 mg/dL --Correction Factor: 15 mg/dL/unit --Carbohydrate ratio = 5 g/unit --BSGs ACHS if eating, q6h if npo Morbid obesity, BMI 43.0 kg/m*m -will need aggressive weight management. to consider outpatient wt mx referral. Code: Full code Dispo: Med-Surg FEN/GI: Diabetic diet DVT Prophylaxis: Heparin 5000 mg every 12 hours PT/OT: Yes Consults: Psych, neurology (2) Hypomagnesemia: (3) HTN (hypertension): (4) Hypothyroidism: (5) Anxiety: (6) Depression: (7) Type 2 diabetes mellitus: (8) Ataxia: (9) Recurrent falls: (10) Brain fog: Admission and Anticipated Discharge Date Admission Date: October 30, 2022 Results & Data Results & Data ([facility]) Vital Signs (Past 12 Hours) Vital Signs Temp Pulse Pulse Resp BP BP Pulse Ox 11/03/22 11:24 36.9 C 71 17 154/82 H 98 11/03/22 07:36 36.6 C 74 16 152/80 H 98 11/03/22 07:24 36.6 C 71 16 145/82 H 97 O2 Del Method 11/03/22 11:24 Room Air 11/03/22 07:36 Room Air 11/03/22 07:24 Room Air
--- NOTE | 2022-11-03 14:27 | Discharge Summary ---
Date of Service November 03, 2022 Admission HPI Per Admitting Provider Isadora Wells is a 62 year old female who presents to the ER accompanied by her sister for a mental health evaluation. Her sister reports she has a grandson on the way and she made some comments that she might not live till January to see them born. This is on a background of progressively worse brain fog, difficulty focusing, recurrent falls and short term memory loss. Symptoms much worse and progressive over the last 6 months although establishing a time line due to the patients memory loss is difficult She reports taking all her medications although there was some concern she was not taking them before last admission. She reports taking lisinopril this morning however unable to find this on external medication list. She was hospitalized recently hospitalized from September 24 - 2021 due to diabetic ketoacidosis secondary to gastroenteritis and her not taking her insulin correctly. She does report taking her Levemir this morning which is on her external medication list. She reports not being able to get an appointment with Jamila Wood until November and didn't want to follow up with any other [facility] providers therefore was not seen on hospital follow up. In the ER she was noted to have a magnesium level of 1.0 mg/dL. No acute concerns on CT head and head/neck angio. Mild to moderate ventricular dilatation - likely due to central atrophy although normal pressure hydrocephalus could appear similar. Principal Diagnosis Normal pressure hydrocephalus Discharge Data Allergies Allergy/AdvReac Type Severity Reaction Status Date / Time No Known Allergies Allergy Unknown Verified 10/30/22 15:05 Consultations 10/30/22 13:44 ED Decision to Admit Stat 10/30/22 23:09 Consult Psychiatry Routine 10/31/22 14:51 Consult Neurology Routine Ordered Studies 10/30/22 11:46 CT angio head w con Stat CT angio neck with con Stat CT head/brain wo con Stat 10/31/22 14:49 MRI Brain [MR brain wo/w con] Routine Hospital Course (1) Short-term memory loss: 62-year-old female with history of diabetes with recent history of DKA, as well as a family history of early dementia through paternal lineage, who presented to the emergency room with her sister for mental health evaluation following 6 months of memory loss, episodes of brain fog, sudden lower extremity weakness and falls. Now stable following admission, evaluation with suspected normal pressure hydrocephalus. Currently awaiting placement to personal care facility, outpatient neurosurgery follow-up. Short-term memory loss/NPH -Main concern from her sister. Feels she is not safe at home. Will have PT/OT evals assess and case management. -Notable labs on admission: Magnesium 1.0, vitamin B12 <400, normal folate. UA, CXR negative for acute infectious process. Urine drug screen positive for MDMA, though suspect secondary to bupropion use. Confirmatory tests, RPR labs pending. -Psych consult: No evidence of anxiety or depression to explain pseudodementia from depression. Plan to contact sister for collateral. -Brain MRI: Involutional changes with mild to moderate dilatation of the ventricular system noted. Findings secondary to NPH or an ex vacuo basis. -Neurology consult: Suspect NPH. Recommended urgent (but not emergent) outpatient evaluation by neurosurgery. Patient evaluated by OT (determined that patient cannot be safely discharged home). Patient awaiting placement to personal care facility. Outpatient neurosurgery appointment scheduled through case management. Electrolyte derangement -Magnesium of 1.0 on admission. Now status post repletion. * Trend magnesium. Replete as needed. Hypertension Found to be hypertensive in the ER, despite patient reporting she takes her medication. * Home lisinopril 40 mg p.o. daily, metoprolol succinate 25 mg p.o. daily. IV hydralazine 5 mg every 4 hours as needed for systolic blood pressure >180. Hypothyroidism -TSH normal on admission. * Home levothyroxine Anxiety/depression -Psych consulted: Found no evidence of uncontrolled anxiety or depression. Low suspicion for depression-induced dementia * Home Wellbutrin DM2 -Hemoglobin A1C 11.2. Hold metformin and home Levemir * Lantus 25 units BID (based on last admission) * Novolog (based on last admission): --Goal BSG Range: Low 110 mg/dL, High 140 mg/dL --Correction Factor: 15 mg/dL/unit --Carbohydrate ratio = 5 g/unit --BSGs ACHS if eating, q6h if npo -- Will likely require tighter glucose control outpatient. Morbid obesity, BMI 43.0 kg/m*m -will need aggressive weight management. to consider outpatient wt mx referral. (2) Hypomagnesemia: (3) HTN (hypertension): (4) Hypothyroidism: (5) Anxiety: (6) Depression: (7) Type 2 diabetes mellitus: (8) Ataxia: (9) Recurrent falls: (10) Brain fog: Total Time Total Time Spent Total Time Spent (In Minutes): See attending attestation Discharge Plan Discharge Items Patient Disposition: Transfer Inpatient Rehab Fac Reason For Visit: Hypomagnesemia Discharge Diagnosis: Normal pressure hydrocephalus Activity: Per Instructions section Non-emergency contact: Primary Care Provider and Specialist Call non-emergency contact if: your symptoms worsen Follow-up/Referrals: Jamila Wood CRNP [Primary Care Provider] - Diet: Regular Addtl Attending Provider Instructions: Dear Isadora, You were brought to the hospital by your sister for a mental health evaluation after months of brain fog, memory problems, and recurring falls. You are admitted for further evaluation and, after assessment by our neurologist as well as an MRI of your brain, it was discovered that you have a condition known as normal pressure hydrocephalus (NPH). This condition is caused by a buildup of cerebrospinal fluid in the ventricles of your brain. Consequently, the increased pressure results in symptoms similar to what you experienced unsteady gait, odd behavior, memory problems. Fortunately, this condition is treatable via a procedure known as a ventriculoperitoneal (FIELD MECHANIC/SITE LEAD) shunt. This should relieve the extra fluid buildup in your brain and relieve the symptoms you have been experiencing. Our caser up have already been at work securing an appointment with neurosurgery at [facility] [place]. In the meantime, you are medically stable enough to be discharged. Our occupational therapist assessed you and felt that you should be discharged to an acute rehab facility, seeing as you live alone and would be at risk of further falls at home by herself. Once again, her caser up were able to locate an inpatient rehab facility at [facility]. Therefore, you are ready to be discharged to their facility. * We made no changes to your medication list. Please continue to take your medicines as instructed, unless otherwise directed by your rehab physician. * An appointment has been made for you with the neurosurgery service at [facility]. Their clinic should be in touch with you to confirm the date and time of your appointment. If you do not hear from them in 2-3 days, you may call their office at [phone]. It has been a pleasure to care for you here at [facility]. If you have any questions or concerns about your stay you may call us at [phone]. We wish you all the best with your recovery. Pending Studies at Discharge: No Stand-Alone Forms: My [facility] Skilled Items Patient informed of condition?: Yes DNR: No Discharge Level of Care: Acute rehab Communicable Disease: No Discharge Prognosis: Stable Lines: None Urinary Catheter: No Medications and DC Order Prescriptions: Continued lisinopril 30 mg tablet 0 mg PO DAILY Rx Instructions: PT UNSURE OF STRENGTH, UNABLE TO VERIFY DOSE. levothyroxine 100 mcg tablet 100 mcg PO DAILY simvastatin 20 mg tablet 20 mg PO DAILY metformin 1,000 mg tablet 1,000 mg PO BID bupropion HCl 150 mg tablet extended release 24 hr 300 mg PO DAILY Qty: 10 0RF Levemir FlexTouch U-100 Insuln 100 unit/mL (3 mL) insulin pen 35 unit SUBCUT BID Qty: 3 0RF metoprolol succinate 25 mg capsule,sprinkle,ER 24hr 25 mg PO DAILY Qty: 14 0RF Discharge Orders: Discharge Order (Routine); Ordered 11/03/22 Ordered By: Bobo Pugh Admission Data Admit Date/Time: 10/30/22 14:23 Attending Provider: Patricia Hopkins Admit Provider: Anderson Winslow Primary Care Provider: Jamila Wood Other Providers: Anderson Winslow ; Ariella Gimenez ; Dilcia Mendes ; Melvin Calvillo ; Terrell Peña ; Leeann Newsome ; Elizabeth Rios ; Jose L Velasco ; Elizabeth Thompson ; Oj Cano ; Laura Hernandez ; Roberto Vasquez ; Klaudia Whittaker ; Iliana Ross ; Jose L Jc ; [facility] ; [place] Other Interventions: Discharge Summary Assessment (RN) Last Done: 11/03/22 14:21 Supervising Physician Co-Signing Physician Notes Resident Physician Supervision Note: I independently interviewed and examined the patient and verified the barraza history and physical, reviewed labs and image studies and agree with resident findings and care plan. Resident Activity Tracking Resident Involvement: Resident Care Provided Care Provided: Adult Hospital Medicine
[2022-11-06 12:41] LABS: MDA negative; MDEA negative; MDMA (Ecstasy) Urine, Confirm negative
== END 2022-11-03 16:06 | DRG 57 ==
LOC: ED 11:06 → 3W 14:23 → SUATTDRO 14:23 → 3W 16:10
DX: E53.8 Deficiency of other specified B group vitamins; E03.9 Hypothyroidism, unspecified; Z68.41 Body mass index [BMI] 40.0-44.9, adult; E83.42 Hypomagnesemia; Z79.899 Other long term (current) drug therapy; F32.9 Major depressive disorder, single episode, unspecified; Z79.84 Long term (current) use of oral hypoglycemic drugs; Z79.4 Long term (current) use of insulin; F41.9 Anxiety disorder, unspecified; Z79.890 Hormone replacement therapy; E66.01 Morbid (severe) obesity due to excess calories; Z87.891 Personal history of nicotine dependence; E11.42 Type 2 diabetes mellitus with diabetic polyneuropathy; I10 Essential (primary) hypertension; G91.2 (Idiopathic) normal pressure hydrocephalus

== ENCOUNTER 2023-05-23 14:10 | Inpatient (IN) ==
--- NOTE | 2023-05-23 14:30 | ED Triage Note ---
Date of Service May 23, 2023 History of Present Illness This patient was briefly evaluated while in triage. An abbreviated physical exam was performed. This patient is a 63-year-old Female who presents to the ED for evaluation of several recent falls, having tailbone pain. Fell a couple weeks ago and again last night. Feels that she is losing her balance. Denies hitting head, LOC. Denies taking blood thinners. Sister made her come today to get checked. Denies chest pain, SOB, dizziness, palpitations, or syncope. Physical Exam CONSTITUTIONAL: No acute distress. Well appearing. HEENT: Atraumatic NECK: No midline tenderness. RESPIRATORY: Clear to auscultation bilaterally. Equal expansion bilaterally. CARDIOVASCULAR: Regular rate and rhythm with no murmurs, rubs or gallops. GASTROINTESTINAL: Soft, nontender. MUSCULOSKELETAL: Midline tenderness in the lumbar and sacral region. No bruising or swelling noted. NEUROLOGIC: Alert and oriented X 4 with normal affect. Initial orders for labs and / or imaging were placed and patient was placed in the waiting area until a bed is available. Please see further documentation for the full ED course.
--- NOTE | 2023-05-23 16:21 | CT Scan Report ---
CT lumbar spine wo con CLINICAL HISTORY: fall, tailbone and lower back pain TECHNIQUE: Multidetector row helical CT of the lumbar spine was performed without administration of i ntravenous contrast. Coronal and sagittal reformations were obtained. Automated dose lowering techniq ues and/or adjustment according to patient size were utilized for this exam. CT DOSE: 1110.82 mGy.cm Comparison: None available at the time of this dictation. FINDINGS: For counting purposes, the last complete intervertebral disc space is considered L5-S1. No acute fractures are identified. Vertebral body heights and disk spaces are well maintained. Verteb ral body alignment is within normal limits. Atherosclerotic calcifications are seen. IMPRESSION: No evidence of acute bony injury. ACT 112: Negative or not required by law. Electronically signed by: Luiz Santos M.D. 05/23/2023 4:20 PM
[2023-05-23 17:08] LABS: Basophils # (auto) 0.12 K/uL (0-0.2); Basophils % (auto) 0.9 %; Eosinophils # (auto) 0.02 K/uL (0-0.50); Eosinophils % (auto) 0.1 %; Hematocrit (blood only) 45.1 % (37.0-47.0); Hemoglobin 15.5 g/dl (12.0-16.0); Immature Granulocytes # (auto) 0.08 K/uL (0.01-0.20); Immature Granulocytes % (auto) 0.6 %; Lymphocytes # (auto) 2.93 K/uL (1.2-3.4); Lymphocytes % (auto) 21.8 %; Mean Corpuscular Hemoglobin 28.5 pg (25.0-34.0); Mean Corpuscular Hgb Conc 34.4 g/dL (32.0-36.0); Mean Corpuscular Volume 83.1 fL (80.0-100.0); Mean Platelet Volume 11.4 fL (9.4-12.4); Monocytes # (auto) 0.79 K/uL (0.11-0.59); Monocytes % (auto) 5.9 %; Neutrophils # (auto) 9.47 K/uL (1.40-6.50); Neutrophils % (auto) 70.7 %; Platelet Count 302 K/uL (130-400); RDW Coefficient of Variation 13.9 % (11.5-14.5); RDW Standard Deviation 41.8 fL (36.4-46.3); Red Blood Count 5.43 M/uL (4.20-5.40); White Blood Count 13.41 K/ul (4.8-10.8)
[2023-05-23] MEDS ORDERED: ACETAMINOPHEN 500 MG TAB PO STA (17:29)
[2023-05-23] MEDS ORDERED: NovoLIN-R INSULIN PER UNIT CHARGE IV STA ×2 (17:32→20:33)
[2023-05-23 17:33] LABS: Alanine Aminotransferase 14 U/L (7-52); Alkaline Phosphatase 94 U/L (34-104); Anion Gap 12 (3-11); Aspartate Aminotransferase 19 U/L (13-39); BUN Creatinine Ratio 15.2 (10-20); Bilirubin,Total 0.8 mg/dl (0.2-1.0); Blood Urea Nitrogen 15 mg/dl (6-23); Calcium 9.8 mg/dl (8.6-10.3); Carbon Dioxide 23 mmol/L (21-32); Chloride 96 mmol/L (98-107); Creatine Kinase 156 U/L (26-192); Est GFR (African American) 71.3 ml/min; Est GFR (Non-African American) 61.5 ml/min; Globulin 4.1 gm/dl (2.5-4.0); Glucose 519 mg/dl (70-99(Fasting)); Potassium 3.6 mmol/L (3.5-5.1); Sodium 131 mmol/L (136-145); Total Protein 8.1 gm/dl (6.0-8.3)
--- NOTE | 2023-05-23 17:36 | Emergency Department Note ---
Impression & Plan Fall, Closed fracture of sacrum, Acute hyperglycemia ED Provider Note NAME: BHAVANI CAMPOS AGE: 63 SEX: F : 1960 ARRIVES VIA: Walk-In INFORMANT: Patient, ED PROVIDER(S): Nathan Frye DO CHIEF COMPLAINT: Weakness HPI: The patient is a 63-year-old female who presented to the emergency department after a fall. The patient has been having frequent falls ever since the beginning of the year. The patient denies having any headache or neck pain. Her friend came with her and give some of the history. Apparently the patient has had problems with weakness and difficulty ambulating. She is also had noncompliance with her medications. She does take insulin for diabetes. There is been no chest pain or difficulty breathing. The patient denies having any nausea or vomiting. The patient is often seen by her family doctor for the symptoms. She was evaluated by the hand stonecutter last evening. She was not transported to the emergency department at that time. ROS: See above HPI for pertinent positives & negatives. A total of 10 systems reviewed and were otherwise negative. PAST MEDICAL HISTORY: See Below PAST SURGICAL HISTORY: See Below FAMILY HISTORY: See Below SOCIAL HISTORY: See Below HOME MEDICATIONS: See Below ALLERGIES: See Below VITALS: See Below PHYSICAL EXAMINATION: GENERAL: Patient is awake alert in no acute distress patient is resting comfortably and showing no signs of anxiety EYES: The conjunctivae are clear. The pupils are round and reactive. EARS, NOSE, MOUTH AND THROAT: The nose is without any evidence of any deformity. Mucous membranes are moist. Tongue is midline. NECK: The neck is nontender and supple. RESPIRATORY: Normal respiratory effort is noted there is no evidence of wheezing rhonchi or rales CARDIOVASCULAR: Regular rate and rhythm noted there no murmurs rubs or gallops normal S1 normal S2. GASTROINTESTINAL: The abdomen is soft. Abdomen is nontender. BACK: No lumbar or thoracic tenderness was noted to palpation. Range of motion appears intact. There is significant coccyx tenderness to palpation.. MUSCULOSKELETAL/EXTREMITIES: There is no evidence of gross deformity full range of motion is noted in the hips and shoulders. SKIN: There is no obvious evidence of any rash. There are no petechiae, pallor or cyanosis noted. NEUROLOGIC: Patient is awake alert and oriented x3. Strength was symmetric but diminished. MEDICAL DECISION MAKING: The patient is a 63-year-old female who presented to the emergency department with family. The patient has had frequent falls recently. She appeared to be confused. Her family member was very concerned because the patient's had frequent falls. She was evaluated by EMS last evening. She was not transported to the emergency department. She presents today now with her family member. The patient was awake and alert but appeared to be somewhat slow answering questions and confused at times. It appears the patient has not been caring for herself. Her house was not well taken care of. It is clear that she has not been compliant with her outpatient medications. She was treated with IV fluids. She was also treated with IV insulin. I discussed the patient's laboratory and radiographic studies with her. I discussed her condition with the on-call [facility] hospitalist. The patient was also evaluated by the emergency department case management coordinator. She was felt to be a good candidate for inpatient treatment given that her outpatient situation is so poor. Triage Nursing notes reviewed. Prior medical records reviewed Vital Signs: reviewed and remarkable for elevated blood pressure. Differential diagnosis: Infection, dehydration, metabolic abnormality, hypo/hyperglycemia, electrolyte disturbance, anemia, hypoxia, cardiac sources, intracerebral event, toxicologic, neurologic, as well as other pathologies. ER treatment provided: See below Diagnostics interpreted by me: ECG: EKG was obtained in the emergency department. My interpretation is normal sinus rhythm at 77 bpm. There was no ectopy. There is no acute ST segment abnormalities noted. This was compared to a tracing from April 25, 2023. No changes were noted. Cardiac Monitoring: An order was placed for continuous cardiac monitoring. The monitor shows a rate of 69 bpm with sinus rhythm. Laboratory studies: As stated above and show below. Imaging studies: See below. Radiographic imaging was reviewed by myself Consultation(s): I discussed this case with Dr. Winslow who is on-call for the [facility] group. Past Med/Surg History Medical History Dehydration Diabetic ketoacidosis DKA (diabetic ketoacidosis) Nausea & vomiting Surgical History No pertinent past surgical history Social History Smoking Status: Former smoker Second Hand Exposure: No; Do You Dip or Chew Tobacco: No; Hx Alcohol Use: Yes Hx Substance Use: No Preferred Language: Portuguese Communication Ability: Effective Talent Engineer Required: No Beliefs That Will Affect Care: None Current Living Situation: Alone Feels Safe at Home: No Is there a partner from a previous relationship who is making you feel unsafe now?: No Assistive Devices: None Allergies Allergies Allergy/AdvReac Type Severity Reaction Status Date / Time No Known Allergies Allergy Unknown Verified 05/23/23 20:51 Home Meds Home Medications Medication Instructions Recorded Confirmed levothyroxine 100 mcg tablet 100 mcg PO DAILYBB 09/24/22 05/23/23 simvastatin 20 mg tablet 20 mg PO HS 09/24/22 05/23/23 citalopram 10 mg tablet 10 mg PO QAM 05/23/23 05/23/23 insulin detemir U-100 100 unit/mL 35 unit subcut BID 05/23/23 05/23/23 (3 mL) subcutaneous pen metformin 500 mg tablet 500 mg PO QDL 05/23/23 05/23/23 tolterodine 2 mg capsule,extended 2 mg PO DAILY 05/23/23 05/23/23 release 24 hr Previous Rx's Medication Instructions Recorded metoprolol succinate 25 mg capsule 25 mg PO DAILY #14 ea 09/26/22 sprinkle, ext. release 24 hr Results & Data (ED) Vital Signs Vital Signs - 24 hr 05/23/23 14:25 05/23/23 17:36 05/23/23 18:43 Temperature 36.7 C Temperature Source Temporal Artery Scan Pulse Rate 97 H 80 Pulse Rate [Apical] 77 Respiratory Rate 18 19 Respiratory Effort / Characteristics Non-Labored Spontaneous Respiratory Depth Normal Blood Pressure 172/106 H Blood Pressure [Right Arm] 225/140 H Blood Pressure Mean 128 Blood Pressure Mean [Right Arm] 168 Blood Pressure Position [Right Arm] Lying Pulse Oximetry 96 98 Oxygen Delivery Method Room Air Room Air Sepsis Recent Fever Within 48 Hours No Sepsis New/Unexplained Change in Mental Status N/A Sepsis Action Taken by Nursing No Action Required Home Medications Current Medication List: was personally reviewed by me Laboratory Data Attestation: I reviewed the patient's lab results. 05/23/23 16:34 05/23/23 16:34 Lab Results 05/23/23 05/23/23 05/23/23 Range/Units 16:34 16:34 16:34 WBC 13.41 H (4.8-10.8) K/ul RBC 5.43 H (4.20-5.40) M/uL Hgb 15.5 (12.0-16.0) g/dl Hct 45.1 (37.0-47.0) % MCV 83.1 (80.0-100.0) fL MCH 28.5 (25.0-34.0) pg MCHC 34.4 (32.0-36.0) g/dL RDW Std Deviation 41.8 (36.4-46.3) fL RDW Coeff of Nanda 13.9 (11.5-14.5) % Plt Count 302 (130-400) K/uL MPV 11.4 (9.4-12.4) fL Immature Gran % (Auto) 0.6 % Neut % (Auto) 70.7 % Lymph % (Auto) 21.8 % [place] % (Auto) 5.9 % Eos % (Auto) 0.1 % Baso % (Auto) 0.9 % Neut # (Auto) 9.47 H (1.40-6.50) K/uL Lymph # (Auto) 2.93 (1.2-3.4) K/uL [place] # (Auto) 0.79 H (0.11-0.59) K/uL Eos # (Auto) 0.02 (0-0.50) K/uL Baso # (Auto) 0.12 (0-0.2) K/uL Immature Gran # (Auto) 0.08 (0.01-0.20) K/uL Sodium 131 L (136-145) mmol/L Potassium 3.6 (3.5-5.1) mmol/L Chloride 96 L (98-107) mmol/L Carbon Dioxide 23 (21-32) mmol/L Anion Gap 12 H (3-11) BUN 15 (6-23) mg/dl Creatinine 0.99 (0.6-1.2) mg/dl Est Cr Clr Drug Dosing Not Reportable Est GFR ( Amer) 71.3 ml/min Est GFR (Non-Af Amer) 61.5 ml/min BUN/Creatinine Ratio 15.2 (10-20) Glucose 519 H* (70-99(Fasting)) mg/dl POC Glucose (70-99) mg/dl Calcium 9.8 (8.6-10.3) mg/dl Magnesium 1.4 L (1.7-2.4) mg/dl Total Bilirubin 0.8 (0.2-1.0) mg/dl AST 19 (13-39) U/L ALT 14 (7-52) U/L Alkaline Phosphatase 94 (34-104) U/L Total Creatine Kinase 156 (26-192) U/L Troponin I High Sens 32.5 H (0-14) pg/ml Total Protein 8.1 (6.0-8.3) gm/dl Albumin 4.0 (3.4-5.0) gm/dl Globulin 4.1 H (2.5-4.0) gm/dl Albumin/Globulin Ratio 1.0 (0.9-2) TSH 4.159 (0.300-4.500) uIu/ml SARS-CoV-2, RNA, NAAT (NEGATIVE) 05/23/23 05/23/23 05/23/23 Range/Units 17:31 18:40 18:40 WBC (4.8-10.8) K/ul RBC (4.20-5.40) M/uL Hgb (12.0-16.0) g/dl Hct (37.0-47.0) % MCV (80.0-100.0) fL MCH (25.0-34.0) pg MCHC (32.0-36.0) g/dL RDW Std Deviation (36.4-46.3) fL RDW Coeff of Nanda (11.5-14.5) % Plt Count (130-400) K/uL MPV (9.4-12.4) fL Immature Gran % (Auto) % Neut % (Auto) % Lymph % (Auto) % [place] % (Auto) % Eos % (Auto) % Baso % (Auto) % Neut # (Auto) (1.40-6.50) K/uL Lymph # (Auto) (1.2-3.4) K/uL [place] # (Auto) (0.11-0.59) K/uL Eos # (Auto) (0-0.50) K/uL Baso # (Auto) (0-0.2) K/uL Immature Gran # (Auto) (0.01-0.20) K/uL Sodium (136-145) mmol/L Potassium (3.5-5.1) mmol/L Chloride (98-107) mmol/L Carbon Dioxide (21-32) mmol/L Anion Gap (3-11) BUN (6-23) mg/dl Creatinine (0.6-1.2) mg/dl Est Cr Clr Drug Dosing Est GFR ( Amer) ml/min Est GFR (Non-Af Amer) ml/min BUN/Creatinine Ratio (10-20) Glucose (70-99(Fasting)) mg/dl POC Glucose 495 H* 343 H* (70-99) mg/dl Calcium (8.6-10.3) mg/dl Magnesium (1.7-2.4) mg/dl Total Bilirubin (0.2-1.0) mg/dl AST (13-39) U/L ALT (7-52) U/L Alkaline Phosphatase (34-104) U/L Total Creatine Kinase (26-192) U/L Troponin I High Sens (0-14) pg/ml Total Protein (6.0-8.3) gm/dl Albumin (3.4-5.0) gm/dl Globulin (2.5-4.0) gm/dl Albumin/Globulin Ratio (0.9-2) TSH (0.300-4.500) uIu/ml SARS-CoV-2, RNA, NAAT NEGATIVE (NEGATIVE) Administered Medications Discontinued Medications Acetaminophen (Acetaminophen 500 Mg Tab) 1,000 mg PO NOW STA Stop: 05/23/23 17:30 Last Admin: 05/23/23 17:49 Dose: 1,000 mg Documented By: FINN Insulin Human Regular (Novolin-R Insulin Per Unit Charge) 6 units IV NOW STA Stop: 05/23/23 17:33 Last Admin: 05/23/23 17:48 Dose: 6 units Documented By: FINN Co-signed By: ALYSE Insulin Human Regular (Novolin-R Insulin Per Unit Charge) 5 units IV NOW STA Stop: 05/23/23 20:34 Last Admin: 05/23/23 20:59 Dose: 5 units Documented By: RON Co-signed By: KIARA Imaging Data Attestation: I personally reviewed and interpreted this imaging study as follows: My Impression: CT of the lumbar spine was obtained in the emergency department. There is no malalignment or fracture, final report below. CT of the brain was obtained in the emergency department. My interpretation is no intracranial hemorrhage or mass effect, final report below. Radiologist's Impression: Lumbar Spine CT 05/23/23 14:31 CT lumbar spine wo con CLINICAL HISTORY: fall, tailbone and lower back pain TECHNIQUE: Multidetector row helical CT of the lumbar spine was performed without administration of intravenous contrast. Coronal and sagittal reformations were obtained. Automated dose lowering techniques and/or adjustment according to patient size were utilized for this exam. CT DOSE: 1110.82 mGy.cm Comparison: None available at the time of this dictation. FINDINGS: For counting purposes, the last complete intervertebral disc space is considered L5-S1. No acute fractures are identified. Vertebral body heights and disk spaces are well maintained. Vertebral body alignment is within normal limits. Ath erosclerotic calcifications are seen. IMPRESSION: No evidence of acute bony injury. ACT 112: Negative or not required by law. Electronically signed by: Luiz Santos M.D. 05/23/2023 4:[address] 05/23/23 17:31 Exam(s): CT C SPINE EXAM: CT Cervical Spine Without Intravenous Contrast CLINICAL HISTORY: Reason for exam: fall. TECHNIQUE: Axial computed tomography images of the cervical spine without intravenous contrast. CTDI is . 25.17 mGy and DLP is 557.09 mGy-cm. Automated exposure control was utilized for the study. A dose lowering technique was utilized adhering to the principles of ALARA. COMPARISON: No relevant prior studies available. FINDINGS: Limitations: Exam slightly limited secondary to patient motion artifact. Vertebrae: Unremarkable. No acute fracture. Discs/spinal canal/neural foramina: No acute findings. No spinal canal stenosis. Soft tissues: Unremarkable. IMPRESSION: No acute findings in the cervical spine. Electronically signed by: Saw Sanchez MD 05/23/23 20:[address] 05/23/23 17:31 Exam(s): CT HEAD Without Contrast EXAM: CT Head Without Intravenous Contrast CLINICAL HISTORY: Reason for exam: fall. TECHNIQUE: Axial computed tomography images of the head/brain without intravenous contrast. CTDI is 38.49 mGy and DLP is 624.41 mGy-cm. Automated exposure control was utilized for the study. A dose lowering technique was utilized adhering to the principles of ALARA. COMPARISON: 04/25/2023 FINDINGS: Brain: Mild cerebral volume loss. The degree of ventricular enlargement is disproportionate to the amount of cerebral parenchymal thinning. No midline shift. No hemorrhage. No significant white matter disease. Ventricles: See above. Bones/joints: Unremarkable. No acute fracture. Soft tissues: Unremarkable. Sinuses: Unremarkable as visualized. No acute sinusitis. Mastoid air cells: Unremarkable as visualized. No mastoid effusion. IMPRESSION: 1. Findings suggestive of normal pressure hydrocephalus in the appropriate clinical setting 2. Head CT negative for acute intracranial abnormality Electronically signed by: Saw Sanchez MD 05/23/23 19:54 PM Discharge Plan Visit Data Chief Complaint: Fall Stated Complaint: FALL, TAILBONE PAIN, CONFUSION ED Provider: Nathan Frye Discharge Problem: Fall, Closed fracture of sacrum, Acute hyperglycemia Patient Disposition: Being Evaluated by Hospitalist Discharge Instructions Interventions: ED Discharge Assessment Last Done: 05/23/23 22:16
[2023-05-23 18:01] LABS: Appearance Urine Clear (Clear); Bacteria Urine Automated Negative (Negative); Bilirubin Urine Negative (Negative); Blood Urine Negative (Negative); Color Urine Yellow; Epithelial Cell Urine Auto >30 /lpf (0-5); Glucose Urine UA 3+ (Negative); Ketones Urine 1+ (Negative); Leukocyte Esterase Urine Negative (Negative); Nitrite Urine Negative (Negative); Protein Urine 1+ (Negative); RBC Urine Automated 0-4 /hpf (0-4); Specific Gravity Urine 1.041 (1.000-1.030); Urobilinogen Urine Negative (Negative); pH Urine 5.5 (4.5-7.5)
--- NOTE | 2023-05-23 18:52 | History & Physical Report ---
Date of Service May 23, 2023 Assessment & Plan (1) Diabetic peripheral neuropathy: (2) NPH (normal pressure hydrocephalus): (3) Hypomagnesemia: (4) Type 2 diabetes mellitus: (5) Depression: (6) HTN (hypertension): (7) Hypothyroidism: (8) Anxiety: Plan Isadora Wells is a 63 year-old female with a past medical history of diabetes mellitus type 2, HTN, hypothyroidism, anxiety, and depression. She presented to the ED after recent falls at home and noncompliance of home medications. Generalized Weakness | Cognitive Decline -CT head: findings suggestive of normal pressure hydrocephalus -Differential includes NPH vs dementia. No signs of current infectious process. -Outpatient workup in progress, Neuro eval in mid May -Given repeated falls and noncompliance with medication, patient likely not safe to return home -Coccyx/Sacrum XR pending, CT c-spine without acute findings. Patient able to move all extremities without pain. -PT/OT, fall precautions -CM consulted Diabetes Mellitus, Type 2 -Home medications: Metformin, Levemir. Will hold during admission. -Blood glucose at admission 519. Received 6u and 5u insulin in ED. -Hemoglobin A1C with AM labs -Lantus 25 units BID (based on last admission) -Novolog (based on last admission): --Goal BSG Range: Low 140 mg/dL, High 180 mg/dL --Correction Factor: 15 mg/dL/unit --Carbohydrate ratio = 5 g/unit --BSGs ACHS if eating, q6h if npo Hypomagnesemia -Mg 1.4 on admission, ordered 2g replacement -Recheck in a.m. Hypertension -Hypertensive since arrival, noncompliant with medications at home -Continue home Lisinopril, Metoprolol Incontinence -Continue home Tolterodine -Recent UTI, no current dysuria but does report increased urinary frequency -UA not indicative of current infection Hypothyroidism -TSH 4.159 -Continue Levothyroxine 100mcg Anxiety, Depression -Continue home Citalopram 10mg Hyperlipidemia -Continue home simvastatin FENa: Heart Healthy, Carb Consistent VTE Prophylaxis: Lovenox Code Status: Full Code Dispo: Med/Surg History of Present Illness Primary Care Provider: MARTI Sweeney Isadora Wells is a 63 year-old female with a past medical history of diabetes mellitus type 2, HTN, hypothyroidism, anxiety, and depression. She presented to the ED with her sister after repeated falls at home. Last night she fell on the ceramic floor of her bathroom (hitting her tailbone) and was unable to stand up- she eventually crawled to the phone and called EMS who helped her stand up but she declined being taken to the ED. She notes that she also had a fall at home about 3 weeks ago and again landed on her tailbone. States that she falls because she loses balance and her legs feel very weak but denies dizziness or lightheadedness. Isadora notes that she was treated for a UTI recently, states that things never fully improved. She is incontinent of urine and has had to urinate more frequently but denies dysuria. She denies chest pain, shortness of breath, fever, body aches, chills, headache, visual changes. Her sister (her POA) is at bedside and provides additional information. She notes that the patient lives alone in a two story house, but primarily lives in her bedroom and her bathroom due to the steps required to reach other rooms/the front door, etc. She previously had Meals on Wheels but cancelled that recently. The patient also notes that she has not taken her medications in the past 3 weeks, primarily because they are in the kitchen. Her sister lives in [place] and she has a son who lives locally but he has not visited her in several weeks. The patient's sister states that in her prior admission there was concern of normal pressure hydrocephalus. She had an outpatient LP which her sister reports that it indicated that "a shunt would not be beneficial." She has a referral to [facility] with an initial appointment scheduled for mid-May. Her sister notes that Isadora has been gradually declining for the past year. She reports that Isadora is cognitively "not there" and also has been getting progressively weaker. Family is concerned that she should not be returning to live by herself. Allergies Allergy/AdvReac Type Severity Reaction Status Date / Time No Known Allergies Allergy Unknown Verified 05/23/23 20:51 Home Medications Medication Instructions Recorded Confirmed Type levothyroxine 100 mcg tablet 100 mcg PO DAILYBB 09/24/22 05/23/23 History simvastatin 20 mg tablet 20 mg PO HS 09/24/22 05/23/23 History metoprolol succinate 25 mg capsule 25 mg PO DAILY #14 ea 09/26/22 05/23/23 Rx sprinkle, ext. release 24 hr citalopram 10 mg tablet 10 mg PO QAM 05/23/23 05/23/23 History insulin detemir U-100 100 unit/mL 35 unit subcut BID 05/23/23 05/23/23 History (3 mL) subcutaneous pen metformin 500 mg tablet 500 mg PO QDL 05/23/23 05/23/23 History tolterodine 2 mg capsule,extended 2 mg PO DAILY 05/23/23 05/23/23 History release 24 hr Past Med/Surg History Medical History Dehydration Diabetic ketoacidosis DKA (diabetic ketoacidosis) Nausea & vomiting Surgical History No pertinent past surgical history Social History Smoking Status: Never smoker Second Hand Exposure: No; Do You Dip or Chew Tobacco: No; Hx Alcohol Use: Yes Hx Substance Use: No Preferred Language: Slovak Communication Ability: Effective 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 Beliefs That Will Affect Care: Taoist Taoist Beliefs: Methedist Current Living Situation: Alone Other Information That Helps Us Care for You: No Feels Safe at Home: Yes Safety Concerns: Feels Safe At This Time Assistive Devices: Walker Review of Systems Review of Systems: As per above Physical Exam Eyes: PERRL, conjunctivae normal, anicteric sclerae ENMT: external ear and nose normal, oropharynx normal Neck: trachea midline, no thyromegaly Respiratory: normal respiratory effort, lungs clear to auscultation Cardiovascular: Rate/Rhythm: regular rate and regular rhythm +1 edema of bilateral lower extremities Gastrointestinal (Abdomen): normal bowel sounds, soft, nontender, no hepatosplenomegaly Skin: no rashes, warm and dry Neurologic: CN's II-XI intact bilaterally and moves all extremities Psychiatric: Orientation: alert, oriented to person, oriented to place and oriented to time Results & Data Results & Data Vital Signs (Past 12 Hours) Vital Signs Temp Pulse Pulse Resp BP BP Pulse Ox 05/23/23 18:43 77 19 225/140 H 98 05/23/23 17:36 80 05/23/23 14:25 36.7 C 97 H 18 172/106 H 96 O2 Del Method 05/23/23 18:43 Room Air 05/23/23 17:36 05/23/23 14:25 Room Air Diagnostic Findings Lumbar Spine CT 05/23/23 14:31 CT lumbar spine wo con CLINICAL HISTORY: fall, tailbone and lower back pain TECHNIQUE: Multidetector row helical CT of the lumbar spine was performed without administration of intravenous contrast. Coronal and sagittal reformations were obtained. Automated dose lowering techniques and/or adjustment according to patient size were utilized for this exam. CT DOSE: 1110.82 mGy.cm Comparison: None available at the time of this dictation. FINDINGS: For counting purposes, the last complete intervertebral disc space is considered L5-S1. No acute fractures are identified. Vertebral body heights and disk spaces are well maintained. Vertebral body alignment is within normal limits. Atherosclerotic calcifications are seen. IMPRESSION: No evidence of acute bony injury. ACT 112: Negative or not required by law. Electronically signed by: Luiz Santos M.D. 05/23/2023 4:[address] 05/23/23 17:31 Exam(s): CT C SPINE EXAM: CT Cervical Spine Without Intravenous Contrast CLINICAL HISTORY: Reason for exam: fall. TECHNIQUE: Axial computed tomography images of the cervical spine without intravenous contrast. CTDI is . 25.17 mGy and DLP is 557.09 mGy-cm. Automated exposure control was utilized for the study. A dose lowering technique was utilized adhering to the principles of ALARA. COMPARISON: No relevant prior studies available. FINDINGS: Limitations: Exam slightly limited secondary to patient motion artifact. Vertebrae: Unremarkable. No acute fracture. Discs/spinal canal/neural foramina: No acute findings. No spinal canal stenosis. Soft tissues: Unremarkable. IMPRESSION: No acute findings in the cervical spine. Electronically signed by: Saw Sanchez MD 05/23/23 20:[address] 05/23/23 17:31 Exam(s): CT HEAD Without Contrast EXAM: CT Head Without Intravenous Contrast CLINICAL HISTORY: Reason for exam: fall. TECHNIQUE: Axial computed tomography images of the head/brain without intravenous contrast. CTDI is 38.49 mGy and DLP is 624.41 mGy-cm. Automated exposure control was utilized for the study. A dose lowering technique was utilized adhering to the principles of ALARA. COMPARISON: 04/25/2023 FINDINGS: Brain: Mild cerebral volume loss. The degree of ventricular enlargement is disproportionate to the amount of cerebral parenchymal thinning. No midline shift. No hemorrhage. No significant white matter disease. Ventricles: See above. Bones/joints: Unremarkable. No acute fracture. Soft tissues: Unremarkable. Sinuses: Unremarkable as visualized. No acute sinusitis. Mastoid air cells: Unremarkable as visualized. No mastoid effusion. IMPRESSION: 1. Findings suggestive of normal pressure hydrocephalus in the appropriate clinical setting 2. Head CT negative for acute intracranial abnormality Electronically signed by: Saw Sanchez MD 05/23/23 19:54 PM Supervising Physician Co-Signing Physician Notes I personally saw and examined the patient. I verified all barraza points and agree with resident physician Dr Mable Spaulding, with the following exceptions and/or additions: 63 year old female presents to the ER with failure to thrive. Multiple admission for similar. Known NPH, T2DM and HTN all of which she is not actively treating. O/E A&Ox3 (to year only), HS RRR, no murmurs, Chest CTAB, Abdo SNT, no focal neurology deficit, CN 2-> 12 intact A/P Recurrent falls - due to untreated chronic medical conditions. No acute concerns but appears to be unsafe to return home a this time. T2DM - restart on insulin dosing from last admission. HbA1C with AM labs. HTN - given one dose of amlodipine, will defer ongoing management to providers tomorrow, previously on ACEi NPH - follow upw ith neurology as outpatient Resident Activity Tracking Resident Involvement: Resident Care Provided Care Provided: Adult [facility]
[2023-05-23 19:30] LABS: Magnesium 1.4 mg/dl (1.7-2.4)
[2023-05-23 19:38] LABS: Troponin I High Sensitivity 32.5 pg/ml (0-14)
--- NOTE | 2023-05-23 19:54 | CT Scan Report ---
Exam(s): CT HEAD Without Contrast EXAM: CT Head Without Intravenous Contrast CLINICAL HISTORY: Reason for exam: fall. TECHNIQUE: Axial computed tomography images of the head/brain without intravenous contrast. CTDI is 38.49 mGy and DLP is 624.41 mGy-cm. Automated exposure control was utilized for the study. A dose lowering technique was utilized adhering to the principles of ALARA. COMPARISON: 04/25/2023 FINDINGS: Brain: Mild cerebral volume loss. The degree of ventricular enlargement is disproportionate to the amount of cerebral parenchymal thinning. No midline shift. No hemorrhage. No significant white matter disease. Ventricles: See above. Bones/joints: Unremarkable. No acute fracture. Soft tissues: Unremarkable. Sinuses: Unremarkable as visualized. No acute sinusitis. Mastoid air cells: Unremarkable as visualized. No mastoid effusion. IMPRESSION: 1. Findings suggestive of normal pressure hydrocephalus in the appropriate clinical setting 2. Head CT negative for acute intracranial abnormality Electronically signed by: Saw Sanchez MD 05/23/23 19:54 PM
--- NOTE | 2023-05-23 20:01 | CT Scan Report ---
Exam(s): CT C SPINE EXAM: CT Cervical Spine Without Intravenous Contrast CLINICAL HISTORY: Reason for exam: fall. TECHNIQUE: Axial computed tomography images of the cervical spine without intravenous contrast. CTDI is . 25.17 mGy and DLP is 557.09 mGy-cm. Automated exposure control was utilized for the study. A dose lowering technique was utilized adhering to the principles of ALARA. COMPARISON: No relevant prior studies available. FINDINGS: Limitations: Exam slightly limited secondary to patient motion artifact. Vertebrae: Unremarkable. No acute fracture. Discs/spinal canal/neural foramina: No acute findings. No spinal canal stenosis. Soft tissues: Unremarkable. IMPRESSION: No acute findings in the cervical spine. Electronically signed by: Saw Sanchez MD 05/23/23 20:00 PM
[2023-05-23] MEDS ORDERED: INSULIN ASPART PER UNIT CHARGE SC ONE (20:34)
[2023-05-23] MEDS ORDERED: CARBOHYDRATES FOR HYPOGLYCEMIA PO PRN ×2 (20:45→23:01)
[2023-05-23] MEDS ORDERED: GLUCAGON FOR INJ 1 MG VIAL IM PRN (20:45)
[2023-05-23] MEDS ORDERED: GLUCOSE 40% GEL 15 GM TUBE PO PRN ×2 (20:45→23:01)
[2023-05-23] MEDS ORDERED: GLUCOSE 10 TAB/TUBE PO PRN ×2 (20:45→23:01)
[2023-05-23] MEDS ORDERED: DEXTROSE 50% 50 ML SYRINGE IV PRN ×2 (20:45→23:01)
[2023-05-23] MEDS ORDERED: Patient's HEIGHT &/or WEIGHT Needed STA (22:55)
[2023-05-23] MEDS ORDERED: GLUCAGON FOR INJ 1 MG VIAL SQ PRN (23:01)
[2023-05-23] MEDS: MAGNESIUM SULFATE / D5W 1 GM/100 ML BAG IV SCH (23:05)
[2023-05-23] MEDS ORDERED: amLODIPine BESYLATE 5 MG TAB PO ONE (23:06)
[2023-05-23 23:34] LABS: BUN Creatinine Ratio 17.4 (10-20); Calcium 9.4 mg/dl (8.6-10.3); Creatinine Clr Calc Pharmacy 73.3 ml/min; Est GFR (African American) 77.9 ml/min; Est GFR (Non-African American) 67.2 ml/min; Potassium 3.1 mmol/L (3.5-5.1)
[2023-05-23] MEDS: INSULIN ASPART PER UNIT CHARGE SC SCH (23:37)
[2023-05-23] MEDS: LANTUS PER UNIT CHARGE SQ SCH (23:39)
[2023-05-23] MEDS: SIMVASTATIN 20 MG TAB PO SCH (23:42)
[2023-05-24] MEDS: MAGNESIUM SULFATE / D5W 1 GM/100 ML BAG IV SCH (01:06)
[2023-05-24] MEDS: ENOXAPARIN INJ 40 MG/0.4 ML SYR SQ SCH ×3 (01:07→23:05)
[2023-05-24] MEDS ORDERED: INSULIN ASPART PER UNIT CHARGE SC ONE (04:00)
[2023-05-24] MEDS: LEVOTHYROXINE SODIUM 100 MCG TABLET PO SCH (05:54)
[2023-05-24 06:00] LABS: Basophils # (auto) 0.12 K/uL (0-0.2); Basophils % (auto) 1.1 %; Eosinophils # (auto) 0.27 K/uL (0-0.50); Eosinophils % (auto) 2.4 %; Hematocrit (blood only) 42.4 % (37.0-47.0); Hemoglobin 14.7 g/dl (12.0-16.0); Immature Granulocytes # (auto) 0.06 K/uL (0.01-0.20); Immature Granulocytes % (auto) 0.5 %; Lymphocytes # (auto) 4.39 K/uL (1.2-3.4); Mean Corpuscular Hemoglobin 28.4 pg (25.0-34.0); Mean Corpuscular Hgb Conc 34.7 g/dL (32.0-36.0); Mean Platelet Volume 11.2 fL (9.4-12.4); Monocytes # (auto) 0.96 K/uL (0.11-0.59); Monocytes % (auto) 8.5 %; Neutrophils # (auto) 5.45 K/uL (1.40-6.50); Neutrophils % (auto) 48.5 %; Platelet Count 288 K/uL (130-400); RDW Coefficient of Variation 13.8 % (11.5-14.5); RDW Standard Deviation 40.9 fL (36.4-46.3); Red Blood Count 5.17 M/uL (4.20-5.40); White Blood Count 11.25 K/ul (4.8-10.8)
[2023-05-24 06:17] LABS: BUN Creatinine Ratio 14.9 (10-20); Calcium 9.4 mg/dl (8.6-10.3); Creatinine Clr Calc Pharmacy 71.7 ml/min; Est GFR (African American) 75.9 ml/min; Est GFR (Non-African American) 65.5 ml/min; Potassium 3.3 mmol/L (3.5-5.1)
--- NOTE | 2023-05-24 07:03 | XRay Report ---
SINGLE VIEW CHEST CLINICAL HISTORY: Fall. FINDINGS: An AP, portable, upright chest radiograph is compared to study dated 04/25/2023. The cardiome diastinal silhouette is unremarkable. There are low lung volumes with bibasilar atelectasis. The lung s and pleural spaces are otherwise clear. No pneumothorax is seen. The bony thorax is grossly intact. IMPRESSION: Low lung volumes with no active disease in the chest. ACT 112: Negative or not required by law. Electronically signed by: Louie Sneed M.D. 05/24/2023 7:02 AM
--- NOTE | 2023-05-24 07:22 | Billing Data ---
Date of Service May 23, 2023 Coding Level of Care Code 34399 INT INP/OBS CARE
--- NOTE | 2023-05-24 07:29 | XRay Report ---
SACRUM AND COCCYX 3 VIEWS CLINICAL HISTORY: Fall. Tailbone pain. FINDINGS: 3 views the sacrum and coccyx are compared to study dated 05/14/2010 and correlated with pel dhruv CT dated 09/24/2022. The skeletal structures are osteopenic. There is a mildly displaced fracture at the sacrococcygeal junction. No additional fracture is seen. Mild degenerative sclerosis is noted in the sacroiliac joints. Vascular calcifications are seen in the pelvis. IMPRESSION: Nondisplaced fracture at the sacrococcygeal junction. Electronically signed by: Louie Sneed M.D. 05/24/2023 7:28 AM
[2023-05-24] MEDS: METOPROLOL SUCC 25MG EXT REL TAB PO SCH (07:50)
[2023-05-24] MEDS: CITALOPRAM 20 MG TAB PO SCH (07:50)
[2023-05-24] MEDS: OXYBUTYNIN CHLORIDE XL 5 MG TABCR PO SCH (07:50)
[2023-05-24] MEDS: INSULIN ASPART PER UNIT CHARGE SC SCH ×4 (08:40→23:05)
[2023-05-24] MEDS: LANTUS PER UNIT CHARGE SQ SCH ×2 (08:40→23:06)
--- NOTE | 2023-05-24 13:28 | Hospitalist Progress Note ---
Date of Service May 24, 2023 Assessment & Plan (1) Fall: Plan: Isadora Wells is a 63 year-old female with a past medical history of diabetes mellitus type 2, HTN, hypothyroidism, anxiety, and depression. She presented to the ED after recent falls at home and noncompliance of home medications. According to the patient, her legs usually give and she falls Denies dizziness Given repeated falls and noncompliance with medication, patient likely not safe to return home Will get PT/OT (2) NPH (normal pressure hydrocephalus): Plan: -CT head: findings suggestive of normal pressure hydrocephalus -Outpatient workup in progress, Neuro eval in mid May (3) Closed fracture of sacrum: Plan: Nondisplaced fracture at the sacrococcygeal junction following a fall conservative mgt continue pain control (4) Type 2 diabetes mellitus: Plan: Diabetes Mellitus, Type 2 -Home medications: Metformin, Levemir. Will hold during admission. -Poorly controlled DM at home, blood glucose was around 500 on admission, no DKA -Hemoglobin A1C still pending -Lantus 25 units BID (based on last admission) -Novolog (based on last admission): --Goal BSG Range: Low 140 mg/dL, High 180 mg/dL --Correction Factor: 15 mg/dL/unit --Carbohydrate ratio = 5 g/unit --BSGs ACHS if eating, q6h if npo (5) HTN (hypertension): Plan: Poorly controlled, due to non compliance with meds at home continue Lisinopril, will add another med if BP still not under good control, (6) Diabetic peripheral neuropathy: Plan: Could be contributing to frequent falls (7) Hypomagnesemia: Plan: replace (8) Depression: Plan: continue home mediactions (9) Hypothyroidism: (10) Anxiety: Plan patient will likely need placement, has been falling frequently at home and not taking her meds PT to evaluate and SW on consult Admission and Anticipated Discharge Date Admission Date: May 23, 2023 Subjective patient seen and examined, still sore on her tail bone Review of Systems Review of Systems: All systems reviewed are negative, apart from the ones contained in the history. Physical Exam Physical Exam: The patient is awake, alert and oriented 3, well developed and well nourished, normocephalic and atraumatic, lying in bed and in no acute distress. HEENT--PERRL, EOMI, mucous membranes and oropharynx mildly dry Neck--supple. No JVD. No bruits. Thyroid normal, trachea midline, no adenopathy. Heart--normal S1 and S2. No murmurs, rubs or gallops. Lungs--clear bilaterally, no respiratory distress, no accessory muscle use. Abdomen--normal bowel sounds and soft. Mild epigastric and left sided abdominal pain Extremities--no cyanosis or clubbing. No edema. Dermatologic--normal skin turgor, normal color, no abnormal lymph nodes, no rash. Neurologic--cranial nerves II through XII grossly intact. Rheumatologic--normal range of motion. Psychiatric--normal affect. Results & Data Results & Data Vital Signs (Past 12 Hours) Vital Signs Temp Pulse Resp BP Pulse Ox O2 Del Method 05/24/23 08:00 Room Air 05/24/23 07:36 97.7 F 78 16 163/78 H 96 Room Air PG Care Time/CCT Total # of Minutes Spent Total Time Spent with Patient: Total time spent is greater than 50% in coordination of care (as documented) at patient's floor/unit and/or counseling patient: Coding Level of Care Code 39609 SUB INP/OBS CARE 2/35MIN Diagnoses Fall W19.XXXA Encounter type: initial encounter NPH (normal pressure hydrocephalus) G91.2 Closed fracture of sacrum S32.10XA Encounter type: initial encounter Zone of sacrum fracture: unspecified portion of sacrum Type 2 diabetes mellitus E11.9 HTN (hypertension) I10 Diabetic peripheral neuropathy E11.42 Hypomagnesemia E83.42 Depression F32.A Hypothyroidism E03.9 Anxiety F41.9 Time Spent (min) 35 (1) Fall Encounter type: initial encounter Qualified Code(s): W19.XXXA - Unspecified fall, initial encounter (3) Closed fracture of sacrum Encounter type: initial encounter Zone of sacrum fracture: unspecified portion of sacrum Qualified Code(s): S32.10XA - Unspecified fracture of sacrum, initial encounter for closed fracture
[2023-05-24] MEDS: LISINOPRIL/HCTZ 20/25MG 1 TAB PO SCH (14:53)
[2023-05-24] MEDS ORDERED: ACETAMINOPHEN 325 MG TAB PO PRN (20:14)
[2023-05-24] MEDS: SIMVASTATIN 20 MG TAB PO SCH (20:36)
[2023-05-25] MEDS: LEVOTHYROXINE SODIUM 100 MCG TABLET PO SCH (05:32)
[2023-05-25 06:57] LABS: Basophils # (auto) 0.12 K/uL (0-0.2); Basophils % (auto) 1.1 %; Eosinophils # (auto) 0.32 K/uL (0-0.50); Eosinophils % (auto) 2.9 %; Hematocrit (blood only) 39.8 % (37.0-47.0); Hemoglobin 13.5 g/dl (12.0-16.0); Immature Granulocytes # (auto) 0.06 K/uL (0.01-0.20); Immature Granulocytes % (auto) 0.6 %; Lymphocytes # (auto) 4.73 K/uL (1.2-3.4); Lymphocytes % (auto) 43.6 %; Mean Corpuscular Hemoglobin 28.5 pg (25.0-34.0); Mean Corpuscular Hgb Conc 33.9 g/dL (32.0-36.0); Mean Platelet Volume 11.3 fL (9.4-12.4); Monocytes % (auto) 7.4 %; Neutrophils # (auto) 4.83 K/uL (1.40-6.50); Neutrophils % (auto) 44.4 %; Platelet Count 265 K/uL (130-400); RDW Coefficient of Variation 13.9 % (11.5-14.5); RDW Standard Deviation 42.7 fL (36.4-46.3); Red Blood Count 4.74 M/uL (4.20-5.40); White Blood Count 10.86 K/ul (4.8-10.8)
[2023-05-25 07:29] LABS: BUN Creatinine Ratio 15.7 (10-20); Calcium 8.6 mg/dl (8.6-10.3); Creatinine Clr Calc Pharmacy 55.7 ml/min; Est GFR (African American) 55.9 ml/min; Est GFR (Non-African American) 48.3 ml/min; Potassium 3.3 mmol/L (3.5-5.1)
[2023-05-25] MEDS: LISINOPRIL/HCTZ 20/25MG 1 TAB PO SCH (07:40)
[2023-05-25] MEDS: OXYBUTYNIN CHLORIDE XL 5 MG TABCR PO SCH (07:40)
[2023-05-25] MEDS: CITALOPRAM 20 MG TAB PO SCH (07:40)
[2023-05-25] MEDS: METOPROLOL SUCC 25MG EXT REL TAB PO SCH (07:40)
[2023-05-25] MEDS: INSULIN ASPART PER UNIT CHARGE SC SCH ×4 (08:29→20:33)
[2023-05-25] MEDS: LANTUS PER UNIT CHARGE SQ SCH ×2 (08:29→20:33)
[2023-05-25 09:41] LABS: Estimated Average Glucose 298 mg/dl
[2023-05-25] MEDS ORDERED: POTASSIUM CHLORIDE CRTAB 20 MEQ TABCR PO STA (10:45)
[2023-05-25] MEDS: ENOXAPARIN INJ 40 MG/0.4 ML SYR SQ SCH ×2 (11:15→22:54)
--- NOTE | 2023-05-25 18:59 | Hospitalist Progress Note ---
Date of Service May 25, 2023 Assessment & Plan (1) Fall: Plan: Isadora Wells is a 63 year-old female with a past medical history of diabetes mellitus type 2, HTN, hypothyroidism, anxiety, and depression. She presented to the ED after recent falls at home and noncompliance of home medications. According to the patient, her legs usually give and she falls. Has a h/o suspected NPH as well as diabetic neuropathy Also with low normal B12 on old labs and not on replacement. Check B12 level in AM and replace as needed Tolterodine can also contribute to falls given its anticholinergic effects Denies dizziness or syncope. ECG normal Given repeated falls and noncompliance with medication, patient not safe to return home PT/OT evals completed and recommend rehab placement-pt agreeable (2) NPH (normal pressure hydrocephalus): Plan: -CT head: findings suggestive of normal pressure hydrocephalus -Outpatient workup in progress, Neuro eval in mid May Apparently had testing which showed shunt would not be beneficial f/u with Neuro (3) Closed fracture of sacrum: Plan: Nondisplaced fracture at the sacrococcygeal junction following a fall conservative mgt continue pain control-make tylenol scheduled so she gets it waffle pillow or donut pillow with sitting (4) Type 2 diabetes mellitus: Plan: Diabetes Mellitus, Type 2 -Home medications: Metformin, Levemir but question compliance -Poorly controlled DM at home, blood glucose was around 500 on admission, no DKA -Hemoglobin A1C very high at 12.0% -continue Lantus 25 units BID (based on last admission) -Novolog --> decrease goal range to 110-140 and continue current CR and CF (5) HTN (hypertension): Plan: BPs now better controlled, suspect previous noncompliance with meds continue lisinopril-HCTZ (6) Diabetic peripheral neuropathy: Plan: Could be contributing to frequent falls also checking B12 (7) Hypomagnesemia: Plan: replaced and will follow in AM (8) Depression: Plan: continue home celexa (9) Hypothyroidism: Plan: TSH her enormal continue home LT4 (10) Hypokalemia: Plan: replace po KCl follow BMP, Mag in AM Plan Dispo-needs rehab placement-medically stable for discharge, awaiting rehab approval DVT porph-Lovenox SQ Admission and Anticipated Discharge Date Admission Date: May 23, 2023 Subjective Pt c/o tailbone pain and asks for something for pain. She has not even taken tylenol today. Otherwise, has some pain in right thorax worse with reaching for things-thinks she strained these muscles while trying to pull herself up after falling. No other pain anywhere else. No nausea, no CP, SOB, constipation. Physical Exam Constitutional: well developed, well nourished and + obese Respiratory: normal respiratory effort, lungs clear to auscultation Cardiovascular: RRR, no murmur, no edema Gastrointestinal (Abdomen): normal bowel sounds, soft, nontender, no hepatosplenomegaly Musculoskeletal: No masses, bruising, or crepitus on right hemithorax Results & Data Results & Data Vital Signs (Past 12 Hours) Vital Signs Temp Pulse Resp BP Pulse Ox O2 Del Method 05/25/23 15:17 36.4 C L 75 16 102/64 94 Room Air 05/25/23 08:00 Room Air 05/25/23 07:48 36.6 C 67 16 111/64 96 Room Air Laboratory Results CBC, BMP, HgbA1C reviewed PG Care Time/CCT Total # of Minutes Spent Total Time Spent with Patient: Total time spent is greater than 50% in coordination of care (as documented) at patient's floor/unit and/or counseling patient: Coding Level of Care Code 61510 SUB INP/OBS CARE 2/35MIN Diagnoses Fall W19.XXXA Encounter type: initial encounter NPH (normal pressure hydrocephalus) G91.2 Closed fracture of sacrum S32.10XA Encounter type: initial encounter Zone of sacrum fracture: unspecified portion of sacrum Type 2 diabetes mellitus E11.9 HTN (hypertension) I10 Diabetic peripheral neuropathy E11.42 Hypomagnesemia E83.42 Depression F32.A Hypothyroidism E03.9 Hypokalemia E87.6 (1) Fall Encounter type: initial encounter Qualified Code(s): W19.XXXA - Unspecified fall, initial encounter (3) Closed fracture of sacrum Encounter type: initial encounter Zone of sacrum fracture: unspecified portion of sacrum Qualified Code(s): S32.10XA - Unspecified fracture of sacrum, initial encounter for closed fracture
[2023-05-25] MEDS: ACETAMINOPHEN 500 MG TAB PO SCH (20:33)
[2023-05-25] MEDS: SIMVASTATIN 20 MG TAB PO SCH (20:33)
[2023-05-26] MEDS: ACETAMINOPHEN 500 MG TAB PO SCH ×3 (03:54→20:53)
[2023-05-26] MEDS: LEVOTHYROXINE SODIUM 100 MCG TABLET PO SCH (05:39)
[2023-05-26 07:59] LABS: Basophils % (auto) 1.1 %; Eosinophils # (auto) 0.25 K/uL (0-0.50); Eosinophils % (auto) 2.6 %; Hematocrit (blood only) 40.6 % (37.0-47.0); Hemoglobin 13.8 g/dl (12.0-16.0); Immature Granulocytes # (auto) 0.06 K/uL (0.01-0.20); Immature Granulocytes % (auto) 0.6 %; Lymphocytes # (auto) 3.78 K/uL (1.2-3.4); Lymphocytes % (auto) 39.8 %; Mean Corpuscular Hemoglobin 28.3 pg (25.0-34.0); Mean Corpuscular Volume 83.4 fL (80.0-100.0); Mean Platelet Volume 11.1 fL (9.4-12.4); Monocytes # (auto) 0.71 K/uL (0.11-0.59); Monocytes % (auto) 7.5 %; Neutrophils % (auto) 48.4 %; Platelet Count 274 K/uL (130-400); RDW Coefficient of Variation 14.1 % (11.5-14.5); RDW Standard Deviation 42.9 fL (36.4-46.3); Red Blood Count 4.87 M/uL (4.20-5.40)
[2023-05-26] MEDS: CITALOPRAM 20 MG TAB PO SCH (08:03)
[2023-05-26] MEDS: OXYBUTYNIN CHLORIDE XL 5 MG TABCR PO SCH (08:03)
[2023-05-26] MEDS: METOPROLOL SUCC 25MG EXT REL TAB PO SCH (08:03)
[2023-05-26] MEDS: LISINOPRIL/HCTZ 20/25MG 1 TAB PO SCH (08:03)
[2023-05-26 08:22] LABS: BUN Creatinine Ratio 22.9 (10-20); Calcium 8.7 mg/dl (8.6-10.3); Creatinine Clr Calc Pharmacy 61.8 ml/min; Est GFR (African American) 63.5 ml/min; Est GFR (Non-African American) 54.7 ml/min; Magnesium 1.5 mg/dl (1.7-2.4); Potassium 3.9 mmol/L (3.5-5.1)
[2023-05-26] MEDS: INSULIN ASPART PER UNIT CHARGE SC SCH ×4 (08:22→20:52)
[2023-05-26] MEDS: LANTUS PER UNIT CHARGE SQ SCH ×2 (08:22→20:52)
[2023-05-26 08:41] LABS: Ferritin 46.2 ng/ml (8-388)
[2023-05-26] MEDS: MAGNESIUM SULFATE / D5W 1 GM/100 ML BAG IV SCH ×2 (10:55→12:28)
[2023-05-26] MEDS: CYANOCOBALAMIN 1000 MCG/ML VIAL IM SCH (11:17)
[2023-05-26] MEDS: ENOXAPARIN INJ 40 MG/0.4 ML SYR SQ SCH (12:26)
--- NOTE | 2023-05-26 20:30 | Hospitalist Progress Note ---
Date of Service May 26, 2023 Assessment & Plan (1) Fall: Plan: Isadora Wells is a 63 year-old female with a past medical history of diabetes mellitus type 2, HTN, hypothyroidism, anxiety, and depression. She presented to the ED after recent falls at home and noncompliance of home medications. According to the patient, her legs usually give and she falls. Has a h/o suspected NPH as well as diabetic neuropathy and now also found to have vitamin B12 deficiency contributing Tolterodine can also contribute to falls given its anticholinergic effects Denies dizziness or syncope. ECG normal Given repeated falls and noncompliance with medication, patient not safe to re turn home PT/OT evals completed and recommend rehab placement-pt agreeable (2) NPH (normal pressure hydrocephalus): Plan: -CT head: findings suggestive of normal pressure hydrocephalus -Outpatient workup in progress, Neuro eval in mid May Apparently had testing which showed shunt would not be beneficial f/u with Neuro (3) Closed fracture of sacrum: Plan: Nondisplaced fracture at the sacrococcygeal junction following a fall conservative mgt continue pain control-continue tylenol scheduled waffle pillow or donut pillow with sitting (4) Type 2 diabetes mellitus: Plan: Diabetes Mellitus, Type 2 -Home medications: Metformin, Levemir but question compliance -Poorly controlled DM at home, blood glucose was around 500 on admission, no DKA -Hemoglobin A1C very high at 12.0% continues with hyperglycemia -Increase Lantus to 35 units BID -Novolog --> continue goal range to 110-140 and continue current CR and CF (5) HTN (hypertension): Plan: BPs now better controlled, suspect previous noncompliance with meds continue lisinopril-HCTZ (6) Diabetic peripheral neuropathy: Plan: Could be contributing to frequent falls Also with B12 deficiency causing neuropathy (7) Hypomagnesemia: Plan: Low again today-we will give 2 g of IV magnesium Follow level in the morning (8) Depression: Plan: continue home celexa (9) Hypothyroidism: Plan: TSH here normal continue home LT4 (10) Vitamin B12 deficiency: Plan: Level is low at 207, with known peripheral neuropathy, could be contributing to her neuropathy and falls Replace with IM B12 1000 mcg daily for the next 3 days if she is here, then convert to p.o. B12 Follow as an outpatient Plan Dispo-needs rehab placement-medically stable for discharge, awaiting rehab approval DVT proph-Lovenox SQ Admission and Anticipated Discharge Date Admission Date: May 23, 2023 Anticipated date of discharge: 05/27/23 Subjective Having some pain in the tailbone that is relieved with Tylenol. She was out of bed to chair for most of the day. Denies any other symptoms. Awaiting placement Physical Exam Constitutional: well developed, well nourished and + obese Respiratory: normal respiratory effort, lungs clear to auscultation Cardiovascular: RRR, no murmur, no edema Gastrointestinal (Abdomen): normal bowel sounds, soft, nontender, no hepatosplenomegaly Results & Data Results & Data Vital Signs (Past 12 Hours) Vital Signs Temp Pulse Resp BP Pulse Ox O2 Del Method 05/26/23 14:46 36.3 C L 64 18 120/75 93 Room Air 05/26/23 08:45 Room Air Laboratory Results CBC, BMP, magnesium, iron studies, B12 level, folate all reviewed PG Care Time/CCT Total # of Minutes Spent Total Time Spent with Patient: Total time spent is greater than 50% in coordination of care (as documented) at patient's floor/unit and/or counseling patient: Coding Level of Care Code 25668 SUB INP/OBS CARE 2/35MIN Diagnoses Fall W19.XXXA Encounter type: initial encounter NPH (normal pressure hydrocephalus) G91.2 Closed fracture of sacrum S32.10XA Encounter type: initial encounter Zone of sacrum fracture: unspecified portion of sacrum Type 2 diabetes mellitus E11.9 HTN (hypertension) I10 Diabetic peripheral neuropathy E11.42 Hypomagnesemia E83.42 Depression F32.A Hypothyroidism E03.9 Vitamin B12 deficiency E53.8 (1) Fall Encounter type: initial encounter Qualified Code(s): W19.XXXA - Unspecified fall, initial encounter (3) Closed fracture of sacrum Encounter type: initial encounter Zone of sacrum fracture: unspecified portion of sacrum Qualified Code(s): S32.10XA - Unspecified fracture of sacrum, initial encounter for closed fracture
[2023-05-26] MEDS: POLYETHYLENE (MIRALAX) 17 GM PACK PO SCH (20:52)
[2023-05-26] MEDS: SIMVASTATIN 20 MG TAB PO SCH (20:53)
--- NOTE | 2023-05-26 21:48 | Electrocardiogram Report ---
Test Reason : Blood Pressure : / mmHG Vent. Rate : 077 BPM Atrial Rate : 077 BPM P-R Int : 126 ms QRS Dur : 082 ms QT Int : 396 ms P-R-T Axes : 021 013 005 degrees QTc Int : 448 ms Normal sinus rhythm Possible Anterior infarct (cited on or before 25-APR-2023) Abnormal ECG When compared with ECG of 25-APR-2023 11:00, Questionable change in initial forces of Septal leads Confirmed by Mohamud Lopez ([id number]) on 05/26/2023 9:48:01 PM Referred By: REFERRED SELF Confirmed By:Mohamud Lopez
[2023-05-27] MEDS: ENOXAPARIN INJ 40 MG/0.4 ML SYR SQ SCH ×3 (00:22→23:05)
[2023-05-27] MEDS: ACETAMINOPHEN 500 MG TAB PO SCH ×3 (04:14→20:52)
[2023-05-27] MEDS: LEVOTHYROXINE SODIUM 100 MCG TABLET PO SCH (06:07)
[2023-05-27 07:53] LABS: BUN Creatinine Ratio 24.3 (10-20); Calcium 8.9 mg/dl (8.6-10.3); Est GFR (African American) 64.9 ml/min; Magnesium 1.8 mg/dl (1.7-2.4); Potassium 4.2 mmol/L (3.5-5.1)
[2023-05-27] MEDS: INSULIN ASPART PER UNIT CHARGE SC SCH ×4 (08:30→20:56)
[2023-05-27] MEDS: LANTUS PER UNIT CHARGE SQ SCH ×2 (08:37→21:00)
[2023-05-27] MEDS: CITALOPRAM 20 MG TAB PO SCH (08:41)
[2023-05-27] MEDS: POLYETHYLENE (MIRALAX) 17 GM PACK PO SCH (08:44)
[2023-05-27] MEDS: METOPROLOL SUCC 25MG EXT REL TAB PO SCH (08:45)
[2023-05-27] MEDS: CYANOCOBALAMIN 1000 MCG/ML VIAL IM SCH (08:45)
[2023-05-27] MEDS: LISINOPRIL/HCTZ 20/25MG 1 TAB PO SCH (08:45)
[2023-05-27] MEDS: OXYBUTYNIN CHLORIDE XL 5 MG TABCR PO SCH (08:45)
[2023-05-27] MEDS ORDERED: POLYETHYLENE (MIRALAX) 17 GM PACK PO ONE (15:20)
--- NOTE | 2023-05-27 17:48 | Hospitalist Progress Note ---
Date of Service May 27, 2023 Assessment & Plan (1) Fall: Plan: Isadora Wells is a 63 year-old female with a past medical history of diabetes mellitus type 2, HTN, hypothyroidism, anxiety, and depression. She presented to the ED after recent falls at home and noncompliance of home medications. According to the patient, her legs usually give and she falls. Has a h/o suspected NPH as well as diabetic neuropathy and now also found to have vitamin B12 deficiency contributing Tolterodine can also contribute to falls given its anticholinergic effects Denies dizziness or syncope. ECG normal Given repeated falls and noncompliance with medication, patient not safe to re turn home PT/OT evals completed and recommend rehab placement-pt agreeable (2) NPH (normal pressure hydrocephalus): Plan: -CT head: findings suggestive of normal pressure hydrocephalus -Outpatient workup in progress, Neuro eval in mid May Apparently had testing which showed shunt would not be beneficial f/u with Neuro (3) Closed fracture of sacrum: Plan: Nondisplaced fracture at the sacrococcygeal junction following a fall conservative mgt continue pain control-continue tylenol scheduled waffle pillow or donut pillow with sitting (4) Type 2 diabetes mellitus: Plan: Diabetes Mellitus, Type 2 -Home medications: Metformin, Levemir but question compliance -Poorly controlled DM at home, blood glucose was around 500 on admission, no DKA -Hemoglobin A1C very high at 12.0% continues with hyperglycemia but improved from yesterday -continue Lantus to 35 units BID -Novolog --> goal range to 110-140 and tighten down CF and CR today (5) HTN (hypertension): Plan: BPs now better controlled, suspect previous noncompliance with meds continue lisinopril-HCTZ (6) Diabetic peripheral neuropathy: Plan: Could be contributing to frequent falls Also with B12 deficiency causing neuropathy (7) Hypomagnesemia: Plan: replaced and now improved (8) Depression: Plan: continue home celexa (9) Hypothyroidism: Plan: TSH here normal continue home LT4 (10) Vitamin B12 deficiency: Plan: Level is low at 207, with known peripheral neuropathy, could be contributing to her neuropathy and falls Replace with IM B12 1000 mcg daily for 3 days, then convert to p.o. B12 1000 mcg otoniel ren 05/29 Follow as an outpatient Plan Dispo-needs rehab placement-medically stable for discharge, awaiting rehab approval DVT proph-Lovenox SQ Admission and Anticipated Discharge Date Admission Date: May 23, 2023 Subjective pain in tailbone but fairly well controlled with tylenol discussed her care with her sister no new issues has not moved her bowels yet] Physical Exam Constitutional: well developed, well nourished and + obese Respiratory: normal respiratory effort, lungs clear to auscultation Cardiovascular: RRR, no murmur, no edema Gastrointestinal (Abdomen): normal bowel sounds, soft, nontender, no hepatosplenomegaly Results & Data Results & Data Vital Signs (Past 12 Hours) Vital Signs Temp Pulse Resp BP Pulse Ox O2 Del Method 05/27/23 15:01 36.4 C L 62 18 110/72 97 Room Air 05/27/23 07:48 36.2 C L 60 18 119/60 95 Room Air PG Care Time/CCT Total # of Minutes Spent Total Time Spent with Patient: Total time spent is greater than 50% in coordination of care (as documented) at patient's floor/unit and/or counseling patient: Coding Level of Care Code 14662 SUB INP/OBS CARE 12/15MIN Diagnoses Fall W19.XXXA Encounter type: initial encounter NPH (normal pressure hydrocephalus) G91.2 Closed fracture of sacrum S32.10XA Encounter type: initial encounter Zone of sacrum fracture: unspecified portion of sacrum Type 2 diabetes mellitus E11.9 HTN (hypertension) I10 Diabetic peripheral neuropathy E11.42 Hypomagnesemia E83.42 Depression F32.A Hypothyroidism E03.9 Vitamin B12 deficiency E53.8 (1) Fall Encounter type: initial encounter Qualified Code(s): W19.XXXA - Unspecified fall, initial encounter (3) Closed fracture of sacrum Encounter type: initial encounter Zone of sacrum fracture: unspecified portion of sacrum Qualified Code(s): S32.10XA - Unspecified fracture of sacrum, initial encounter for closed fracture
[2023-05-27] MEDS: SIMVASTATIN 20 MG TAB PO SCH (20:52)
[2023-05-28] MEDS: ACETAMINOPHEN 500 MG TAB PO SCH ×3 (04:26→20:12)
[2023-05-28] MEDS: LEVOTHYROXINE SODIUM 100 MCG TABLET PO SCH (06:20)
[2023-05-28] MEDS: POLYETHYLENE (MIRALAX) 17 GM PACK PO SCH (08:33)
[2023-05-28] MEDS: CYANOCOBALAMIN 1000 MCG/ML VIAL IM SCH (08:34)
[2023-05-28] MEDS: LISINOPRIL/HCTZ 20/25MG 1 TAB PO SCH (08:34)
[2023-05-28] MEDS: OXYBUTYNIN CHLORIDE XL 5 MG TABCR PO SCH (08:34)
[2023-05-28] MEDS: CITALOPRAM 20 MG TAB PO SCH (08:35)
[2023-05-28] MEDS: METOPROLOL SUCC 25MG EXT REL TAB PO SCH (08:55)
[2023-05-28] MEDS: INSULIN ASPART PER UNIT CHARGE SC SCH ×4 (09:06→21:31)
[2023-05-28] MEDS: LANTUS PER UNIT CHARGE SQ SCH ×2 (09:08→21:59)
[2023-05-28] MEDS: ENOXAPARIN INJ 40 MG/0.4 ML SYR SQ SCH ×2 (11:13→23:30)
--- NOTE | 2023-05-28 17:24 | Hospitalist Progress Note ---
Date of Service May 28, 2023 Assessment & Plan (1) Fall: Plan: Isadora Wells is a 63 year-old female with a past medical history of diabetes mellitus type 2, HTN, hypothyroidism, anxiety, and depression. She presented to the ED after recent falls at home and noncompliance of home medications. According to the patient, her legs usually give and she falls. Has a h/o suspected NPH as well as diabetic neuropathy and now also found to have vitamin B12 deficiency contributing Tolterodine can also contribute to falls given its anticholinergic effects- consider discontinuing Denies dizziness or syncope. ECG normal Given repeated falls and noncompliance with medication, patient not safe to return home PT/OT evals completed and recommend rehab placement-pt agreeable (2) NPH (normal pressure hydrocephalus): Plan: -CT head: findings suggestive of normal pressure hydrocephalus -Outpatient workup in progress, Neuro eval in mid May Apparently had testing which showed shunt would not be beneficial f/u with Neuro as scheduled in 2 weeks at [place] (3) Closed fracture of sacrum: Plan: Nondisplaced fracture at the sacrococcygeal junction following a fall conservative mgt continue pain control-continue tylenol scheduled waffle pillow or donut pillow with sitting (4) Type 2 diabetes mellitus: Plan: Diabetes Mellitus, Type 2 -Home medications: Metformin, Levemir but question compliance -Poorly controlled DM at home, blood glucose was around 500 on admission, no DKA -Hemoglobin A1C very high at 12.0% continues with hyperglycemia but much improved -continue Lantus to 35 units BID -continue current Novolog dosing (5) HTN (hypertension): Plan: BPs now better controlled, suspect previous noncompliance with meds continue lisinopril-HCTZ (6) Diabetic peripheral neuropathy: Plan: Could be contributing to frequent falls Also with B12 deficiency causing neuropathy (7) Hypomagnesemia: Plan: replaced and now improved (8) Depression: Plan: continue home celexa (9) Hypothyroidism: Plan: TSH here normal continue home LT4 (10) Vitamin B12 deficiency: Plan: Level is low at 207, with known peripheral neuropathy, could be contributing to her neuropathy and falls Replaced with IM B12 1000 mcg daily for 3 days, now start p.o. B12 1000 mcg daily Follow as an outpatient Plan Dispo-needs rehab placement-medically stable for discharge, denied [facility], plan for [facility] on Tuesday DVT proph-Lovenox SQ Admission and Anticipated Discharge Date Admission Date: May 23, 2023 Subjective no complaints, still no BM in 3-4 days Physical Exam Constitutional: well developed, well nourished and + obese Respiratory: normal respiratory effort Results & Data Results & Data Vital Signs (Past 12 Hours) Vital Signs Temp Pulse Resp BP Pulse Ox O2 Del Method 05/28/23 15:40 115/72 05/28/23 15:25 36.5 C 59 L 18 106/51 L 95 Room Air 05/28/23 07:35 Room Air 05/28/23 08:54 95 H 20 132/78 05/28/23 07:37 36.6 C 60 18 156/80 H 96 Room Air PG Care Time/CCT Total # of Minutes Spent Total Time Spent with Patient: Total time spent is greater than 50% in coordination of care (as documented) at patient's floor/unit and/or counseling patient: Coding Level of Care Code 13285 SUB INP/OBS CARE 12/15MIN Diagnoses Fall W19.XXXA Encounter type: initial encounter NPH (normal pressure hydrocephalus) G91.2 Closed fracture of sacrum S32.10XA Encounter type: initial encounter Zone of sacrum fracture: unspecified portion of sacrum Type 2 diabetes mellitus E11.9 HTN (hypertension) I10 Diabetic peripheral neuropathy E11.42 Hypomagnesemia E83.42 Depression F32.A Hypothyroidism E03.9 Vitamin B12 deficiency E53.8 (1) Fall Encounter type: initial encounter Qualified Code(s): W19.XXXA - Unspecified fall, initial encounter (3) Closed fracture of sacrum Encounter type: initial encounter Zone of sacrum fracture: unspecified portion of sacrum Qualified Code(s): S32.10XA - Unspecified fracture of sacrum, initial encounter for closed fracture
[2023-05-28] MEDS: DOCUSATE SODIUM/SENNA 50/8.6MG TAB PO SCH (17:38)
[2023-05-28] MEDS: SIMVASTATIN 20 MG TAB PO SCH (20:12)
[2023-05-29] MEDS: ACETAMINOPHEN 500 MG TAB PO SCH ×3 (04:19→21:07)
[2023-05-29] MEDS: LEVOTHYROXINE SODIUM 100 MCG TABLET PO SCH (06:14)
[2023-05-29] MEDS: CITALOPRAM 20 MG TAB PO SCH (08:45)
[2023-05-29] MEDS: LISINOPRIL/HCTZ 20/25MG 1 TAB PO SCH (08:45)
[2023-05-29] MEDS: CYANOCOBALAMIN (B-12) 500 MCG TABLET PO SCH (08:45)
[2023-05-29] MEDS: DOCUSATE SODIUM/SENNA 50/8.6MG TAB PO SCH ×2 (08:46→21:06)
[2023-05-29] MEDS: METOPROLOL SUCC 25MG EXT REL TAB PO SCH (08:49)
[2023-05-29] MEDS: POLYETHYLENE (MIRALAX) 17 GM PACK PO SCH ×3 (08:50→21:03)
[2023-05-29] MEDS: INSULIN ASPART PER UNIT CHARGE SC SCH ×4 (09:01→21:08)
[2023-05-29] MEDS: LANTUS PER UNIT CHARGE SQ SCH ×2 (09:02→21:13)
[2023-05-29] MEDS: OXYBUTYNIN CHLORIDE XL 5 MG TABCR PO SCH (10:12)
--- NOTE | 2023-05-29 12:10 | Discharge Summary ---
Discharge Summary Date of Service May 29, 2023 Admission HPI Per Admitting Provider Isadora Wells is a 63 year-old female with a past medical history of diabetes mellitus type 2, HTN, hypothyroidism, anxiety, and depression. She presented to the ED with her sister after repeated falls at home. Last night she fell on the ceramic floor of her bathroom (hitting her tailbone) and was unable to stand up- she eventually crawled to the phone and called EMS who helped her stand up but she declined being taken to the ED. She notes that she also had a fall at home about 3 weeks ago and again landed on her tailbone. States that she falls because she loses balance and her legs feel very weak but denies dizziness or lightheadedness. Isadora notes that she was treated for a UTI recently, states that things never fully improved. She is incontinent of urine and has had to urinate more frequently but denies dysuria. She denies chest pain, shortness of breath, fever, body aches, chills, headache, visual changes. Her sister (her POA) is at bedside and provides additional information. She notes that the patient lives alone in a two story house, but primarily lives in her bedroom and her bathroom due to the steps required to reach other rooms/the front door, etc. She previously had Meals on Wheels but cancelled that recently. The patient also notes that she has not taken her medications in the past 3 weeks, primarily because they are in the kitchen. Her sister lives in [place] and she has a son who lives locally but he has not visited her in several weeks. The patient's sister states that in her prior admission there was concern of normal pressure hydrocephalus. She had an outpatient LP which her sister reports that it indicated that "a shunt would not be beneficial." She has a referral to [facility] with an initial appointment scheduled for mid-May. Her sister notes that Isadora has been gradually declining for the past year. She reports that Isadora is cognitively "not there" and also has been getting progressively weaker. Family is concerned that she should not be returning to live by herself. Principal Dx & Hospital Course #1 = Principal Diagnosis (1) Fall: Isadora Wells is a 63 year-old female with a past medical history of diabetes mellitus type 2, HTN, hypothyroidism, anxiety, and depression. She presented to the ED after recent falls at home and noncompliance of home medications. According to the patient, her legs usually give and she falls. Has a h/o suspected NPH as well as diabetic neuropathy and now also found to have vitamin B12 deficiency contributing Tolterodine can also contribute to falls given its anticholinergic effects- consider discontinuing Denies dizziness or syncope. ECG normal Given repeated falls and noncompliance with medication, patient not safe to return home PT/OT evals completed and recommend rehab placement-pt agreeable (2) NPH (normal pressure hydrocephalus): -CT head: findings suggestive of normal pressure hydrocephalus -Outpatient workup in progress, Neuro eval in mid May Apparently had testing which showed shunt would not be beneficial f/u with Neuro as scheduled in 2 weeks at [place] (3) Closed fracture of sacrum: Nondisplaced fracture at the sacrococcygeal junction following a fall conservative mgt continue pain control-continue tylenol scheduled waffle pillow or donut pillow with sitting (4) Type 2 diabetes mellitus: Diabetes Mellitus, Type 2 -Home medications: Metformin, Levemir but question compliance -Poorly controlled DM at home, blood glucose was around 500 on admission, no DKA -Hemoglobin A1C very high at 12.0% continues with hyperglycemia but much improved -continue Lantus to 35 units BID -continue current Novolog dosing (5) HTN (hypertension): BPs now better controlled, suspect previous noncompliance with meds continue lisinopril-HCTZ (6) Diabetic peripheral neuropathy: Could be contributing to frequent falls Also with B12 deficiency causing neuropathy (7) Hypomagnesemia: replaced and now improved (8) Depression: continue home celexa (9) Hypothyroidism: TSH here normal continue home LT4 (10) Vitamin B12 deficiency: Level is low at 207, with known peripheral neuropathy, could be contributing to her neuropathy and falls Replaced with IM B12 1000 mcg daily for 3 days, now start p.o. B12 1000 mcg daily Follow as an outpatient Plan Dispo-needs rehab placement-medically stable for discharge, denied [facility], plan for [facility] on Tuesday DVT proph-Lovenox SQ Discharge Exam Constitutional well developed, well nourished and + obese Respiratory normal respiratory effort, lungs clear to auscultation normal respiratory effort Cardiovascular RRR, no murmur, no edema Gastrointestinal (Abdomen) normal bowel sounds, soft, nontender, no hepatosplenomegaly Updated Medication List Medication Instructions Recorded Confirmed Type levothyroxine 100 mcg tablet 100 mcg PO DAILYBB 09/24/22 05/23/23 History simvastatin 20 mg tablet 20 mg PO HS 09/24/22 05/23/23 History metoprolol succinate 25 mg capsule 25 mg PO DAILY #14 ea 09/26/22 05/23/23 Rx sprinkle, ext. release 24 hr citalopram 10 mg tablet 10 mg PO QAM 05/23/23 05/23/23 History insulin detemir U-100 100 unit/mL 35 unit subcut BID 05/23/23 05/23/23 History (3 mL) subcutaneous pen metformin 500 mg tablet 500 mg PO QDL 05/23/23 05/23/23 History tolterodine 2 mg capsule,extended 2 mg PO DAILY 05/23/23 05/23/23 History release 24 hr Hospital Stay Data Consultations 05/23/23 18:52 ED Decision to Admit Stat Diagnostic Imagining Performed 05/23/23 14:31 CT lumbar spine wo con Stat 05/23/23 17:31 CT cervical spine wo con Stat CT head/brain wo con Stat Coding Diagnoses Fall W19.XXXA Encounter type: initial encounter NPH (normal pressure hydrocephalus) G91.2 Closed fracture of sacrum S32.10XA Encounter type: initial encounter Zone of sacrum fracture: unspecified portion of sacrum Type 2 diabetes mellitus E11.9 HTN (hypertension) I10 Diabetic peripheral neuropathy E11.42 Hypomagnesemia E83.42 Depression F32.A Hypothyroidism E03.9 Vitamin B12 deficiency E53.8
--- NOTE | 2023-05-29 12:11 | Hospitalist Progress Note ---
Date of Service May 29, 2023 Assessment & Plan (1) Fall: Plan: Isadora Wells is a 63 year-old female with a past medical history of diabetes mellitus type 2, HTN, hypothyroidism, anxiety, and depression. She presented to the ED after recent falls at home and noncompliance of home medications. According to the patient, her legs usually give and she falls. Has a h/o suspected NPH as well as diabetic neuropathy and now also found to have vitamin B12 deficiency contributing Tolterodine can also contribute to falls given its anticholinergic effects- consider discontinuing Denies dizziness or syncope. ECG normal Given repeated falls and noncompliance with medication, patient not safe to return home PT/OT evals completed and recommend rehab placement-pt agreeable (2) NPH (normal pressure hydrocephalus): Plan: -CT head: findings suggestive of normal pressure hydrocephalus -Outpatient workup in progress, Neuro eval in mid May Apparently had testing which showed shunt would not be beneficial f/u with Neuro as scheduled in 2 weeks at [place] (3) Closed fracture of sacrum: Plan: Nondisplaced fracture at the sacrococcygeal junction following a fall conservative mgt continue pain control-continue tylenol scheduled waffle pillow or donut pillow with sitting (4) Vitamin B12 deficiency: Plan: Level is low at 207, with known peripheral neuropathy, could be contributing to her neuropathy and falls Replaced with IM B12 1000 mcg daily for 3 days, and then started p.o. B12 1000 mcg daily Follow as an outpatient (5) Constipation: Plan: no BM in 4-5 days added Miralax and senna without relief--> increase senna/docusate to bid and increase Miralax to tid add Bisacodyl MA x 1 (6) Type 2 diabetes mellitus: Plan: Diabetes Mellitus, Type 2 -Home medications: Metformin, Levemir but question compliance -Poorly controlled DM at home, blood glucose was around 500 on admission, no DKA -Hemoglobin A1C very high at 12.0% continues with occasional hyperglycemia but overall much improved -continue Lantus to 35 units BID -continue current Novolog dosing (7) HTN (hypertension): Plan: BPs now better controlled, suspect previous noncompliance with meds continue lisinopril-HCTZ (8) Diabetic peripheral neuropathy: Plan: Could be contributing to frequent falls Also with B12 deficiency causing neuropathy (9) Hypomagnesemia: Plan: replaced and now improved (10) Depression: Plan: continue home celexa (11) Hypothyroidism: Plan: TSH here normal continue home LT4 Plan Dispo-needs rehab placement-medically stable for discharge, denied [facility], plan for [facility] on Tuesday DVT proph-Lovenox SQ Admission and Anticipated Discharge Date Admission Date: May 23, 2023 Subjective Still no BM in almost a week she say although there is one documented from 05/25 No abd pain. Pain in tailbone about the same Eating and drinking, OOB to chair and ambulating with a walker no other concerns Physical Exam Constitutional: well developed, well nourished and + obese Respiratory: normal respiratory effort, lungs clear to auscultation normal respiratory effort Cardiovascular: RRR, no murmur, no edema Gastrointestinal (Abdomen): normal bowel sounds, soft, nontender, no hepatosplenomegaly Results & Data Results & Data Vital Signs (Past 12 Hours) Vital Signs Temp Pulse Resp BP BP Pulse Ox O2 Del Method 05/29/23 11:57 Room Air 05/29/23 08:44 62 119/62 05/29/23 08:04 36.6 C 64 18 145/80 H 100 Room Air PG Care Time/CCT Total # of Minutes Spent Total Time Spent with Patient: Total time spent is greater than 50% in coordination of care (as documented) at patient's floor/unit and/or counseling patient: Coding Level of Care Code 58474 SUB INP/OBS CARE 2/35MIN Diagnoses Fall W19.XXXA Encounter type: initial encounter NPH (normal pressure hydrocephalus) G91.2 Closed fracture of sacrum S32.10XA Encounter type: initial encounter Zone of sacrum fracture: unspecified portion of sacrum Vitamin B12 deficiency E53.8 Constipation K59.00 Type 2 diabetes mellitus E11.9 HTN (hypertension) I10 Diabetic peripheral neuropathy E11.42 Hypomagnesemia E83.42 Depression F32.A Hypothyroidism E03.9 (1) Fall Encounter type: initial encounter Qualified Code(s): W19.XXXA - Unspecified fall, initial encounter (3) Closed fracture of sacrum Encounter type: initial encounter Zone of sacrum fracture: unspecified portion of sacrum Qualified Code(s): S32.10XA - Unspecified fracture of sacrum, initial encounter for closed fracture
[2023-05-29] MEDS ORDERED: bisacodyL 10 MG SUPP PR STA (12:15)
[2023-05-29] MEDS: ENOXAPARIN INJ 40 MG/0.4 ML SYR SQ SCH ×2 (12:49→23:34)
[2023-05-29] MEDS: SIMVASTATIN 20 MG TAB PO SCH (21:07)
[2023-05-30] MEDS: LEVOTHYROXINE SODIUM 100 MCG TABLET PO SCH (05:27)
[2023-05-30] MEDS: ACETAMINOPHEN 500 MG TAB PO SCH ×2 (05:27→11:35)
[2023-05-30] MEDS: CITALOPRAM 20 MG TAB PO SCH (08:36)
[2023-05-30] MEDS: DOCUSATE SODIUM/SENNA 50/8.6MG TAB PO SCH (08:36)
[2023-05-30] MEDS: METOPROLOL SUCC 25MG EXT REL TAB PO SCH (08:36)
[2023-05-30] MEDS: OXYBUTYNIN CHLORIDE XL 5 MG TABCR PO SCH (08:37)
[2023-05-30] MEDS: CYANOCOBALAMIN (B-12) 500 MCG TABLET PO SCH (08:37)
[2023-05-30] MEDS: LISINOPRIL/HCTZ 20/25MG 1 TAB PO SCH (08:37)
[2023-05-30] MEDS: INSULIN ASPART PER UNIT CHARGE SC SCH ×2 (09:04→12:25)
[2023-05-30] MEDS: LANTUS PER UNIT CHARGE SQ SCH (09:05)
[2023-05-30] MEDS: POLYETHYLENE (MIRALAX) 17 GM PACK PO SCH (09:07)
[2023-05-30] MEDS: ENOXAPARIN INJ 40 MG/0.4 ML SYR SQ SCH (11:03)
--- NOTE | 2023-05-30 13:30 | Discharge Summary ---
Discharge Summary Date of Service May 30, 2023 Admission HPI Per Admitting Provider Isadora Wells is a 63 year-old female with a past medical history of diabetes mellitus type 2, HTN, hypothyroidism, anxiety, and depression. She presented to the ED with her sister after repeated falls at home. Last night she fell on the ceramic floor of her bathroom (hitting her tailbone) and was unable to stand up- she eventually crawled to the phone and called EMS who helped her stand up but she declined being taken to the ED. She notes that she also had a fall at home about 3 weeks ago and again landed on her tailbone. States that she falls because she loses balance and her legs feel very weak but denies dizziness or lightheadedness. Isadora notes that she was treated for a UTI recently, states that things never fully improved. She is incontinent of urine and has had to urinate more frequently but denies dysuria. She denies chest pain, shortness of breath, fever, body aches, chills, headache, visual changes. Her sister (her POA) is at bedside and provides additional information. She notes that the patient lives alone in a two story house, but primarily lives in her bedroom and her bathroom due to the steps required to reach other rooms/the front door, etc. She previously had Meals on Wheels but cancelled that recently. The patient also notes that she has not taken her medications in the past 3 weeks, primarily because they are in the kitchen. Her sister lives in [place] and she has a son who lives locally but he has not visited her in several weeks. The patient's sister states that in her prior admission there was concern of normal pressure hydrocephalus. She had an outpatient LP which her sister reports that it indicated that "a shunt would not be beneficial." She has a referral to [facility] with an initial appointment scheduled for mid-May. Her sister notes that Isadora has been gradually declining for the past year. She reports that Isadora is cognitively "not there" and also has been getting progressively weaker. Family is concerned that she should not be returning to live by herself. Principal Dx & Hospital Course #1 = Principal Diagnosis (1) Fall: Isadora Wells is a 63 year-old female with a past medical history of diabetes mellitus type 2, HTN, hypothyroidism, anxiety, and depression. She presented to the ED after recent falls at home and noncompliance of home medications. According to the patient, her legs usually give and she falls. Has a h/o suspected NPH as well as diabetic neuropathy and now also found to have vitamin B12 deficiency contributing Tolterodine can also contribute to falls given its anticholinergic effects- consider discontinuing Denies dizziness or syncope. ECG normal Given repeated falls and noncompliance with medication, patient not safe to return home PT/OT evals completed and recommend rehab placement-pt agreeable (2) NPH (normal pressure hydrocephalus): -CT head: findings suggestive of normal pressure hydrocephalus -Outpatient workup in progress, Neuro eval in mid May Apparently had testing which showed shunt would not be beneficial f/u with Neuro as scheduled in 1 week at [facility] (3) Closed fracture of sacrum: Nondisplaced fracture at the sacrococcygeal junction following a fall conservative mgt continue pain control-continue tylenol scheduled waffle pillow or donut pillow with sitting (4) Vitamin B12 deficiency: Level is low at 207, with known peripheral neuropathy, could be contributing to her neuropathy and falls Replaced with IM B12 1000 mcg daily for 3 days, and then started p.o. B12 1000 mcg daily Follow as an outpatient (5) Constipation: no BM in 4-5 days added Miralax and senna without relief--> increase senna/docusate to bid and increase Miralax to tid add Bisacodyl NC x 1 Had large BM on 05/29 continue Miralax once daily and senna/docusate bid on discharge (6) Type 2 diabetes mellitus: Diabetes Mellitus, Type 2 -Home medications: Metformin, Levemir but question compliance -Poorly controlled DM at home, blood glucose was around 500 on admission, no DKA -Hemoglobin A1C very high at 12.0% continues with occasional hyperglycemia but overall much improved -continue Lantus to 35 units BID -continue current Novolog dosing (7) HTN (hypertension): BPs now better controlled, suspect previous noncompliance with meds added lisinopril-HCTZ continue metoprolol (8) Diabetic peripheral neuropathy: Could be contributing to frequent falls Also with B12 deficiency causing neuropathy (9) Hypomagnesemia: replaced and now improved (10) Depression: continue home celexa (11) Hypothyroidism: TSH here normal continue home LT4 Plan Dispo-needs rehab placement-medically stable for discharge, plan for [facility] today DVT proph-Lovenox SQ Discharge Exam Constitutional WD/WN, vitals as above Respiratory normal respiratory effort, lungs clear to auscultation Cardiovascular RRR, no murmur, no edema Updated Medication List Medication Instructions Recorded Confirmed Type acetaminophen 500 mg tablet 1,000 mg PO Q8H PRN pain #60 tabs 05/30/23 Rx (Tylenol Extra Strength) citalopram 10 mg tablet 10 mg PO QAM #30 tabs 05/30/23 Rx cyanocobalamin (vitamin B-12) 500 1,000 mcg PO QAM #60 tabs 05/30/23 Rx mcg tablet insulin aspart U-100 100 unit/mL See Rx Instructions .Route 05/30/23 Rx subcutaneous solution (Novolog .COMPLEX #10 mL U-100 Insulin aspart) insulin detemir U-100 100 unit/mL 35 unit (0.35 mL) subcut BID #15 mL 05/30/23 Rx (3 mL) subcutaneous pen levothyroxine 100 mcg tablet 100 mcg PO DAILYBB #30 tabs 05/30/23 Rx lisinopril 20 1 tab PO QAM #30 tabs 05/30/23 Rx mg-hydrochlorothiazide 25 mg tablet metformin 500 mg tablet 500 mg PO QDL #30 tabs 05/30/23 Rx metoprolol succinate 25 mg capsule 25 mg PO DAILY #30 ea 05/30/23 Rx sprinkle, ext. release 24 hr polyethylene glycol 3350 17 gram 17 g PO QAM #30 ea 05/30/23 Rx oral powder packet (Miralax) sennosides 8.6 mg-docusate sodium 1 tab PO BID #60 tabs 05/30/23 Rx 50 mg tablet (Senokot-S) simvastatin 20 mg tablet 20 mg PO HS #30 tabs 05/30/23 Rx tolterodine 2 mg capsule,extended 2 mg PO DAILY #30 caps 05/30/23 Rx release 24 hr Hospital Stay Data Consultations 05/23/23 18:52 ED Decision to Admit Stat Diagnostic Imagining Performed 05/23/23 14:31 CT lumbar spine wo con Stat 05/23/23 17:31 CT cervical spine wo con Stat CT head/brain wo con Stat Pending Results Patient Have Any Pending Studies at Discharge: No Discharge Instructions Given to Patient (Per Discharging Provider) Please continue on the B12 supplement and continue to work on good blood glucose control. You will need to reschedule your Gem[facility] glucose monitor training for when you get discharged from rehab. Continue on the bowel regimen for constipation. You can continue the waffle or donut cushion when seated and take acetaminophen as needed for pain in your tailbone. Please keep your scheduled appointment with the Neurologist at [facility] for next week. Total Time Total Time Spent Total Time Spent (In Minutes): 35 min Coding Level of Care Code 23595 INP/OBS DISCH >30 MIN Diagnoses Fall W19.XXXA Encounter type: initial encounter NPH (normal pressure hydrocephalus) G91.2 Closed fracture of sacrum S32.10XA Encounter type: initial encounter Zone of sacrum fracture: unspecified portion of sacrum Vitamin B12 deficiency E53.8 Constipation K59.00 Type 2 diabetes mellitus E11.9 HTN (hypertension) I10 Diabetic peripheral neuropathy E11.42 Hypomagnesemia E83.42 Depression F32.A Hypothyroidism E03.9
== END 2023-05-30 15:13 | DRG 92 ==
LOC: ED 14:10 → SUATTDRO 20:37 → 3W 20:37

== ENCOUNTER 2023-10-07 11:01 | Inpatient (IN) ==
--- NOTE | 2023-10-07 11:12 | Emergency Department Note ---
Impression & Plan Stroke-like episode ADMIT ED Provider Note HPI: History obtained from patient and nurse via EMS report. The patient is a 63-year-old female with history of normal pressure hydrocephalus, status post [facility]LL[facility] shunt placement at [facility], presents emergency department from [facility] over concern for transient episode of slurred speech with reported left-sided facial droop. Patient states she does not remember this ever occurring, this was apparently noticed by staff at the nursing facility. On arrival here to the ED her symptoms have resolved. Patient exhibits clear speech, she does not have any focal deficits on exam. Patient denies any current focal complaint of pain, she is alert and oriented x3 on arrival. ROS: - Per HPI Differential Diagnosis: Acute ischemic stroke, TIA, intracranial hemorrhage, STATE COMPTROLLER shunt malfunction, amongst other potential pathologies. *Outpatient medications and allergy history reviewed. 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, no ataxia on [id number]-[id number] testing bilaterally Psychiatric: Cooperative INDEPENDENT INTERPRETATIONS: library monitor: (As interpreted by myself): - An order was placed for continuous cardiac monitoring - Patient was noted to be in sinus rhythm with a rate of 70 EKG: (As interpreted by myself): Rate: 68 Rhythm: Normal sinus rhythm Intervals: Within normal limits ST changes: No ST elevation Time: 1107 Interventions provided in ED: -IV fluid bolus, IV magnesium NIH STROKE SCALE: 1A: Level of consciousness Alert; keenly responsive 0 1B: Ask month and age Both questions right 0 1C: 'Blink eyes' & 'squeeze hands' Performs both tasks 0 2: Horizontal extraocular movements Normal 0 3: Visual smith No visual loss 0 4: Facial palsy Normal symmetry 0 5A: Left arm motor drift No drift for 10 seconds 0 5B: Right arm motor drift No drift for 10 seconds 0 6A: Left leg motor drift No drift for 5 seconds 0 6B: Right leg motor drift No drift for 5 seconds 0 7: Limb Ataxia No ataxia 0 8: Sensation Normal; no sensory loss 0 9: Language/aphasia Normal; no aphasia 0 10: Dysarthria Normal 0 11: Extinction/inattention No abnormality 0 TOTAL NIH SCORE =0 Medical Decision Making: Shortly after the patient arrived IV was established lab work obtained, patient was placed on cardiac monitor technician. Lab work shows mild leukocytosis of 12.43, hemoglobin is normal, platelet count is normal, CMP does not show any evidence of critical findings, magnesium is low at 1.3 which was ordered for IV repletion. Troponin is negative. TSH is within normal limits. CT imaging of the head including CT angiography does not show any evidence of large vessel occlusion or obvious stroke. Ventriculostomy catheter appears to be in place. Patient was not considered a candidate for thrombolysis and stroke alert was not activated as her symptoms were completely resolved by the time she arrived to the emergency room. I did discuss the patient's presentation and the above findings with her sister, Ju, on the phone. She states that she was aware that the patient was here and was told the same information that she had some left-sided facial droop and slurred speech today at the nursing facility. Following our discussion, decision was made to admit the patient for TIA work- up. I discussed the case with the on-call hospitalist, Dr. Winslow, and the patient was placed for admission in stable condition. Consultants/Discussions held with other healthcare providers: -Hospitalist, Dr. Winslow Disposition discussion held by myself with: -Patient and sister on the phone Diagnosis: 1. Strokelike episode, acute 2. Hypomagnesemia, acute 3. History of normal pressure hydrocephalus, status post STATE COMPTROLLER shunt 4. 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 Beliefs That Will Affect Care: None Current Living Situation: Alone Other Information That Helps Us Care for You: No Feels Safe at Home: Yes Safety Concerns: Feels Safe At This Time Assistive Devices: None Allergies Allergies Allergy/AdvReac Type Severity Reaction Status Date / Time No Known Allergies Allergy Unknown Verified 05/23/23 20:51 Home Meds Home Medications Medication Instructions Recorded Confirmed acetaminophen 325 mg tablet 650 mg PO QID PAIN/FEVER 10/07/23 10/07/23 (Tylenol) atorvastatin 10 mg tablet 10 mg PO DAILY 10/07/23 10/07/23 bupropion HCl 100 mg tablet 100 mg PO DAILY 10/07/23 10/07/23 citalopram 20 mg tablet 20 mg PO QAM 10/07/23 10/07/23 cyanocobalamin (vitamin B-12) 1,000 mcg PO QAM 10/07/23 10/07/23 1,000 mcg tablet (Vitamin B-12) gabapentin 300 mg capsule 300 mg PO DAILY 10/07/23 10/07/23 levetiracetam 500 mg tablet 500 mg PO BID 10/07/23 10/07/23 levothyroxine 88 mcg tablet 88 mcg PO DAILY 10/07/23 10/07/23 metformin 1,000 mg tablet 1,000 mg PO BID 10/07/23 10/07/23 metoprolol succinate 25 mg 25 mg PO DAILY 10/07/23 10/07/23 tablet,extended release 24 hr oxycodone 5 mg tablet 5 mg PO Q6H PRN Pain 10/07/23 10/07/23 polyethylene glycol 3350 17 gram 17 g PO QAM PRN Constipation 10/07/23 10/07/23 oral powder packet (Miralax) sennosides 8.6 mg-docusate sodium 1 tab PO BID PRN Constipation 10/07/23 10/07/23 50 mg tablet (Senokot-S) Previous Rx's Medication Instructions Recorded insulin detemir U-100 100 unit/mL 35 unit (0.35 mL) subcut BID #15 mL 05/30/23 (3 mL) subcutaneous pen tolterodine 2 mg capsule,extended 2 mg PO DAILY #30 caps 05/30/23 release 24 hr Results & Data (ED) Vital Signs Vital Signs - 24 hr 10/07/23 10:46 10/07/23 11:00 10/07/23 11:30 Temperature 36.7 C Temperature Source Oral Pulse Rate 66 Pulse Rate [Apical] 66 Pulse Rhythm Regular Pulse Rhythm [Apical] Regular Pulse Strength Normal Pulse Strength [Apical] Normal Respiratory Rate 18 20 Respiratory Effort / Characteristics Non-Labored Spontaneous Non-Labored Spontaneous Respiratory Depth Normal Normal Respiratory Pattern Regular Regular Blood Pressure 145/117 H Blood Pressure [Right Arm] 145/117 H Blood Pressure Mean 126 Blood Pressure Mean [Right Arm] 126 Blood Pressure Position Sitting Blood Pressure Position [Right Arm] Sitting Pulse Oximetry 97 95 99 Oxygen Delivery Method Room Air Room Air Room Air Sepsis Recent Fever Within 48 Hours No Sepsis New/Unexplained Change in Mental Status No Sepsis Action Taken by Nursing No Action Required 10/07/23 11:39 10/07/23 11:40 10/07/23 12:30 Temperature Temperature Source Pulse Rate 64 Pulse Rate [Apical] 65 Pulse Rhythm Pulse Rhythm [Apical] Regular Pulse Strength Pulse Strength [Apical] Normal Respiratory Rate 20 Respiratory Effort / Characteristics Non-Labored Spontaneous Respiratory Depth Normal Respiratory Pattern Regular Blood Pressure Blood Pressure [Right Arm] 152/108 H 157/118 H Blood Pressure Mean Blood Pressure Mean [Right Arm] 122 131 Blood Pressure Position Blood Pressure Position [Right Arm] Sitting Sitting Pulse Oximetry 94 Oxygen Delivery Method Room Air Sepsis Recent Fever Within 48 Hours Sepsis New/Unexplained Change in Mental Status Sepsis Action Taken by Nursing 10/07/23 13:00 Temperature Temperature Source Pulse Rate Pulse Rate [Apical] 68 Pulse Rhythm Pulse Rhythm [Apical] Regular Pulse Strength Pulse Strength [Apical] Normal Respiratory Rate 20 Respiratory Effort / Characteristics Non-Labored Spontaneous Respiratory Depth Normal Respiratory Pattern Regular Blood Pressure Blood Pressure [Right Arm] 174/87 H Blood Pressure Mean Blood Pressure Mean [Right Arm] 116 Blood Pressure Position Blood Pressure Position [Right Arm] Pulse Oximetry 94 Oxygen Delivery Method Room Air Sepsis Recent Fever Within 48 Hours Sepsis New/Unexplained Change in Mental Status Sepsis Action Taken by Nursing Laboratory Data 10/07/23 11:16 10/07/23 11:16 Lab Results 10/07/23 10/07/23 10/07/23 Range/Units 11:16 11:25 14:44 WBC 12.43 H (4.8-10.8) K/ul RBC 4.67 (4.20-5.40) M/uL Hgb 12.7 (12.0-16.0) g/dl Hct 39.1 (37.0-47.0) % MCV 83.7 (80.0-100.0) fL MCH 27.2 (25.0-34.0) pg MCHC 32.5 (32.0-36.0) g/dL RDW Std Deviation 40.7 (36.4-46.3) fL RDW Coeff of Nanda 13.4 (11.5-14.5) % Plt Count 338 (130-400) K/uL MPV 11.3 (9.4-12.4) fL Immature Gran % (Auto) 0.5 % Neut % (Auto) 58.1 % Lymph % (Auto) 27.0 % [place] % (Auto) 5.8 % Eos % (Auto) 7.4 % Baso % (Auto) 1.2 % Neut # (Auto) 7.22 H (1.40-6.50) K/uL Lymph # (Auto) 3.36 (1.20-3.40) K/uL [place] # (Auto) 0.72 H (0.11-0.59) K/uL Eos # (Auto) 0.92 H (0.00-0.50) K/uL Baso # (Auto) 0.15 (0.00-0.20) K/uL Immature Gran # (Auto) 0.06 (0.01-0.20) K/uL PT Cancelled 11.3 INR Cancelled 1.0 APTT Cancelled 29.3 PTT Ratio Cancelled 1.0 Sodium 139 (136-145) mmol/L Potassium 4.3 (3.5-5.1) mmol/L Chloride 104 (98-107) mmol/L Carbon Dioxide 29 (21-32) mmol/L Anion Gap 6 (3-11) BUN 15 (6-23) mg/dl Creatinine 1.00 (0.6-1.2) mg/dl Est Cr Clr Drug Dosing 67.0 ml/min Est GFR ( Amer) 70.4 ml/min Est GFR (Non-Af Amer) 60.8 ml/min BUN/Creatinine Ratio 15.0 (10-20) Glucose 141 H (70-99(Fasting)) mg/dl POC Glucose 132 H (70-99) mg/dl Calcium 9.3 (8.6-10.3) mg/dl Magnesium 1.3 L (1.7-2.4) mg/dl Total Bilirubin 0.3 (0.2-1.0) mg/dl AST 10 L (13-39) U/L ALT 9 (7-52) U/L Alkaline Phosphatase 93 (34-104) U/L Troponin I High Sens 4.4 (0-14) pg/ml Total Protein 7.3 (6.0-8.3) gm/dl Albumin 3.6 (3.4-5.0) gm/dl Globulin 3.7 (2.5-4.0) gm/dl Albumin/Globulin Ratio 1.0 (0.9-2) TSH 0.521 (0.300-4.500) uIu/ml Blood Type O Negative Antibody Screen NEGATIVE Administered Medications Discontinued Medications Sodium Chloride (Nss) 500 mls @ 999 mls/hr IV .Q31M ONE Stop: 10/07/23 15:18 Last Infusion: 10/07/23 16:17 Dose: Infused Documented By: Admin: 10/07/23 15:16 Dose: 999 mls/hr Documented By: BUSTER Magnesium Sulfate/Dextrose (Magnesium Sulfate / D5w) 1 gm in 100 mls @ 200 mls/hr IV Q30M ROLAND Stop: 10/07/23 16:32 Last Admin: 10/07/23 15:43 Dose: 200 mls/hr Documented By: BUSTER Ioversol (Optiray 320 500ml) 110 ml IV ONCE ONE Stop: 10/07/23 13:16 Last Admin: 10/07/23 13:15 Dose: 110 ml Documented By: SAEID Imaging Data Radiologist's Impression: Head CT 10/07/23 11:09 CT OF THE HEAD WITHOUT CONTRAST CLINICAL HISTORY: neuro deficit, acute stroke suspected COMPARISON STUDY: MRI of the brain October 31, 2022. Head CT October 05, 2023. TECHNIQUE: Helical axial images of the head were obtained without IV contrast. Automated exposure control was utilized for the study. A dose lowering technique was utilized adhering to the principles of ALARA. FINDINGS: No acute intracranial hemorrhage, midline shift or mass effect is present. Right frontal ventriculostomy catheter is unchanged in position. The tip is within the body of the right lateral ventricle. Ventricular dilatation is unchanged. Basal cisterns are patent. There are no extra-axial collections. White matter hypodensities are unchanged. There are no findings to suggest acute dural sinus thrombosis or acute territorial infarct. No acute calvarial fracture is present. Trace fluid within the right mastoid air cells is present. IMPRESSION: 1. No acute intracranial findings. 2. No change in appearance of the brain. Stable ventricular size. Right ventriculostomy catheter in place. ACT 112: Negative or not required by law. Electronically signed by: Zander Mallory M.D. 10/07/2023 1:30 PM Head CTA 10/07/23 11:09 CTA ANGIOGRAPHY OF THE HEAD CLINICAL HISTORY: neuro deficit, acute stroke suspected COMPARISON STUDY: CTA of the head October 30, 2022. TECHNIQUE: Helical axial images of the head were obtained following uneventful intravenous administration of 110 cc of Optiray. Sagittal and coronal reconstructions were viewed as well as maximal intensity projections on an independent 3-D workstation. Automated exposure control was utilized for the study. A dose lowering technique was utilized adhering to the principles of ALARA. FINDINGS: No acute intracranial hemorrhage is identified on the head CT which will be reported separately. Ventricular dilatation is unchanged. Right frontal ventricular catheter is unchanged in position. White matter hypodensities are unchanged. There is moderate calcified plaque within the bilateral cavernous carotids without significant stenosis. No large vessel occlusion is present. There is no intracranial aneurysm. There is persistence of the left posterior cerebral artery. IMPRESSION: 1. No large vessel occlusion. No intracranial aneurysm. 2. Moderate plaque within the cavernous carotids without significant stenosis. 3. Stable ventricular dilatation. Right frontal ventriculostomy catheter in place. ACT 112: Negative or not required by law. Electronically signed by: Zander Mallory M.D. 10/07/2023 1:35 PM Neck CTA 10/07/23 11:09 CT angio neck with con CLINICAL HISTORY: neuro deficit, acute stroke suspected TECHNIQUE: CT angiography of the neck was performed following intravenous administration of iodinated contrast. Coronal and sagittal MIPS were obtained from the axial data set and were submitted for review. Automated dose lowering techniques and/or adjustment according to patient size were utilized for this examination. All measurements were calculated based on NASCET criteria. CT DOSE: 1011.12 mGy.cm Comparison: Comparison is made to CT cervical spine 05/23/2023 FINDINGS: Lungs and soft tissues are unremarkable. CTA Neck: The left common carotid artery shares common origin with the innominate artery. Atherosclerotic plaque is present in the aortic arch and at the origin of the great vessels. The common carotid, external carotid, cervical segments of the internal carotid arteries, and the cervical segments of the vertebral arteries are patent without hemodynamically significant stenosis. The left vertebral artery is dominant. IMPRESSION: No occlusion, hemodynamically significant stenosis, or dissection in the major cervical arteries. Assessment of stenosis of the internal carotid arteries is based on NASCET criteria. ACT 112: Negative or not required by law. Electronically signed by: Luiz Santos M.D. 10/07/2023 1:51 PM Discharge Plan Visit Data Chief Complaint: Stroke/CVA Symptoms ED Provider: Les Moreno Discharge Problem: Stroke-like episode Patient Disposition: Admitted As Inpatient Discharge Instructions Interventions: ED Discharge Assessment Last Done: 10/07/23 15:50
[2023-10-07 12:52] LABS: Basophils # (auto) 0.15 K/uL (0.00-0.20); Basophils % (auto) 1.2 %; Eosinophils # (auto) 0.92 K/uL (0.00-0.50); Eosinophils % (auto) 7.4 %; Hematocrit (blood only) 39.1 % (37.0-47.0); Hemoglobin 12.7 g/dl (12.0-16.0); Immature Granulocytes # (auto) 0.06 K/uL (0.01-0.20); Immature Granulocytes % (auto) 0.5 %; Lymphocytes # (auto) 3.36 K/uL (1.20-3.40); Mean Corpuscular Hemoglobin 27.2 pg (25.0-34.0); Mean Corpuscular Hgb Conc 32.5 g/dL (32.0-36.0); Mean Corpuscular Volume 83.7 fL (80.0-100.0); Mean Platelet Volume 11.3 fL (9.4-12.4); Monocytes # (auto) 0.72 K/uL (0.11-0.59); Monocytes % (auto) 5.8 %; Neutrophils # (auto) 7.22 K/uL (1.40-6.50); Neutrophils % (auto) 58.1 %; Platelet Count 338 K/uL (130-400); RDW Coefficient of Variation 13.4 % (11.5-14.5); RDW Standard Deviation 40.7 fL (36.4-46.3); Red Blood Count 4.67 M/uL (4.20-5.40); White Blood Count 12.43 K/ul (4.8-10.8)
[2023-10-07 12:59] LABS: Albumin Level 3.6 gm/dl (3.4-5.0); Bilirubin,Total 0.3 mg/dl (0.2-1.0); Calcium 9.3 mg/dl (8.6-10.3); Est GFR (African American) 70.4 ml/min; Est GFR (Non-African American) 60.8 ml/min; Globulin 3.7 gm/dl (2.5-4.0); Magnesium 1.3 mg/dl (1.7-2.4); Potassium 4.3 mmol/L (3.5-5.1); Total Protein 7.3 gm/dl (6.0-8.3)
[2023-10-07 13:04] LABS: Troponin I High Sensitivity 4.4 pg/ml (0-14)
[2023-10-07] MEDS ORDERED: OPTIRAY 320 500ml IV ONE (13:15)
--- NOTE | 2023-10-07 13:32 | CT Scan Report ---
CT OF THE HEAD WITHOUT CONTRAST CLINICAL HISTORY: neuro deficit, acute stroke suspected COMPARISON STUDY: MRI of the brain October 31, 2022. Head CT October 05, 2023. TECHNIQUE: Helical axial images of the head were obtained without IV contrast. Automated exposure con trol was utilized for the study. A dose lowering technique was utilized adhering to the principles o f ALARA. FINDINGS: No acute intracranial hemorrhage, midline shift or mass effect is present. Right frontal ve ntriculostomy catheter is unchanged in position. The tip is within the body of the right lateral vent ricle. Ventricular dilatation is unchanged. Basal cisterns are patent. There are no extra-axial colle ctions. White matter hypodensities are unchanged. There are no findings to suggest acute dural sinus thrombosis or acute territorial infarct. No acute calvarial fracture is present. Trace fluid within t he right mastoid air cells is present. IMPRESSION: 1. No acute intracranial findings. 2. No change in appearance of the brain. Stable ventricular size. Right ventriculostomy catheter in p lace. ACT 112: Negative or not required by law. Electronically signed by: Zander Mallory M.D. 10/07/2023 1:30 PM
--- NOTE | 2023-10-07 13:37 | CT Scan Report ---
CTA ANGIOGRAPHY OF THE HEAD CLINICAL HISTORY: neuro deficit, acute stroke suspected COMPARISON STUDY: CTA of the head October 30, 2022. TECHNIQUE: Helical axial images of the head were obtained following uneventful intravenous administr ation of 110 cc of Optiray. Sagittal and coronal reconstructions were viewed as well as maximal inten sity projections on an independent 3-D workstation. Automated exposure control was utilized for the study. A dose lowering technique was utilized adhering to the principles of ALARA. FINDINGS: No acute intracranial hemorrhage is identified on the head CT which will be reported separa tely. Ventricular dilatation is unchanged. Right frontal ventricular catheter is unchanged in positio n. White matter hypodensities are unchanged. There is moderate calcified plaque within the bilateral cavernous carotids without significant stenosis. No large vessel occlusion is present. There is no in tracranial aneurysm. There is persistence of the left posterior cerebral artery. IMPRESSION: 1. No large vessel occlusion. No intracranial aneurysm. 2. Moderate plaque within the cavernous carotids without significant stenosis. 3. Stable ventricular dilatation. Right frontal ventriculostomy catheter in place. ACT 112: Negative or not required by law. Electronically signed by: Zander Mallory M.D. 10/07/2023 1:35 PM
--- NOTE | 2023-10-07 13:52 | CT Scan Report ---
CT angio neck with con CLINICAL HISTORY: neuro deficit, acute stroke suspected TECHNIQUE: CT angiography of the neck was performed following intravenous administration of iodinated contrast. Coronal and sagittal MIPS were obtained from the axial data set and were submitted for rev iew. Automated dose lowering techniques and/or adjustment according to patient size were utilized fo r this examination. All measurements were calculated based on NASCET criteria. CT DOSE: 1011.12 mGy.cm Comparison: Comparison is made to CT cervical spine 05/23/2023 FINDINGS: Lungs and soft tissues are unremarkable. CTA Neck: The left common carotid artery shares common origin with the innominate artery. Atheroscle rotic plaque is present in the aortic arch and at the origin of the great vessels. The common carotid , external carotid, cervical segments of the internal carotid arteries, and the cervical segments of the vertebral arteries are patent without hemodynamically significant stenosis. The left vertebral ar barrera is dominant. IMPRESSION: No occlusion, hemodynamically significant stenosis, or dissection in the major cervical arteries. Assessment of stenosis of the internal carotid arteries is based on NASCET criteria. ACT 112: Negative or not required by law. Electronically signed by: Luiz Santos M.D. 10/07/2023 1:51 PM
[2023-10-07] MEDS ORDERED: SODIUM CHLORIDE 0.9% 500 ML IV ONE (14:48)
--- NOTE | 2023-10-07 15:00 | History & Physical Report ---
Date of Service October 07, 2023 Assessment & Plan (1) Stroke-like episode: Plan: NIHSS 0 on admission MRI brain wo IV contrast - defer antiplatelets pending result of this TTE with bubble study PT/OT ordered Consult neurology (2) Hypomagnesemia: Plan: Mg level 1.3, replaced with 2g IV in the ER, repeat with AM labs Hyperreflexia on exam (3) NPH (normal pressure hydrocephalus): Plan: Recently treated with [employer] shunt at [facility] No seizure like activity described to warrant change in her anti-seizure medications - continue Keppra (4) Type 2 diabetes mellitus: Plan: HbA1C 7.6 [09/27/23] Hold metformin due to IV contrast given during CTA Continue basal dosing with Lantus 35 units BID Novolog based on basal dosing: --Goal BSG Range: Low 110 mg/dL, High 140 mg/dL --Correction Factor: 10 mg/dL/unit --Carbohydrate ratio = 4 g/unit --BSGs ACHS if eating, q6h if npo (5) HTN (hypertension): Plan: Continue metoprolol (6) Hypothyroidism: Plan: TSH WNL Continue levothyroxine (7) Depression: Plan: Continue citalopram and buproprion (8) Diabetic peripheral neuropathy: Plan: Continue gabapentin Plan VTE Prophylaxis - deferred given expected short duration of stay Diet - heart healthy, T2DM Disposition - observation med/tele Admission and Anticipated Discharge Date Admission Date: October 07, 2023 History of Present Illness Chief Complaint: Slurred speech, left facial droop, right decreased willower strength Primary Care Provider: MARTI Sweeney Isadora Wells is a 63 year old female with normal pressure hydrocephalus s/p [employer] shunt who presents to the ER with slurred speech and left facial droop. On arrival to the ER she was NIHSS 0. The patient is unable to give any history. She reports remembering walking to breakfast and then back to her room but isn't sure what happened after that (she notably has a history of short term memory loss). On discussion with Jovani Nicholas there has been a change of shift and unfortunately nothing was handed over. History therefore taken from [facility] "While speaking with client, client began slurring speech, speech was unclear and seemed slightly confused. Noticed what appeared to be a left facial droop. Strength (willower) seemed assymmetrical R > L. BP appears WNL/ 138/82. Above symptoms appeared short lived - 304 minutes, Kurhs, PT, [facility] 570, 768, [id number]" Allergies Allergy/AdvReac Type Severity Reaction Status Date / Time No Known Allergies Allergy Unknown Verified 05/23/23 20:51 Home Medications Medication Instructions Recorded Confirmed Type insulin detemir U-100 100 unit/mL 35 unit (0.35 mL) subcut BID #15 mL 05/30/23 10/07/23 Rx (3 mL) subcutaneous pen tolterodine 2 mg capsule,extended 2 mg PO DAILY #30 caps 05/30/23 10/07/23 Rx release 24 hr acetaminophen 325 mg tablet 650 mg PO QID PAIN/FEVER 10/07/23 10/07/23 History (Tylenol) atorvastatin 10 mg tablet 10 mg PO DAILY 10/07/23 10/07/23 History bupropion HCl 100 mg tablet 100 mg PO DAILY 10/07/23 10/07/23 History citalopram 20 mg tablet 20 mg PO QAM 10/07/23 10/07/23 History cyanocobalamin (vitamin B-12) 1,000 mcg PO QAM 10/07/23 10/07/23 History 1,000 mcg tablet (Vitamin B-12) gabapentin 300 mg capsule 300 mg PO DAILY 10/07/23 10/07/23 History levetiracetam 500 mg tablet 500 mg PO BID 10/07/23 10/07/23 History levothyroxine 88 mcg tablet 88 mcg PO DAILY 10/07/23 10/07/23 History metformin 1,000 mg tablet 1,000 mg PO BID 10/07/23 10/07/23 History metoprolol succinate 25 mg 25 mg PO DAILY 10/07/23 10/07/23 History tablet,extended release 24 hr oxycodone 5 mg tablet 5 mg PO Q6H PRN Pain 10/07/23 10/07/23 History polyethylene glycol 3350 17 gram 17 g PO QAM PRN Constipation 10/07/23 10/07/23 History oral powder packet (Miralax) sennosides 8.6 mg-docusate sodium 1 tab PO BID PRN Constipation 10/07/23 10/07/23 History 50 mg tablet (Senokot-S) Past Med/Surg History Medical History (Updated 10/08/23 @ 00:01 by Anderson Winslow MD) Vitamin B12 deficiency Dehydration DKA (diabetic ketoacidosis) Nausea & vomiting Diabetic ketoacidosis Surgical History (Updated 09/18/23 @ 00:08 by Claire Herring) No pertinent past surgical history Social History Smoking Status: Never smoker Second Hand Exposure: No; Do You Dip or Chew Tobacco: No; Hx Alcohol Use: No Hx Substance Use: No Preferred Language: Iranian Communication Ability: Effective Ethanol Operator Required: No Beliefs That Will Affect Care: None Current Living Situation: Alone Other Information That Helps Us Care for You: No Feels Safe at Home: Yes Safety Concerns: Feels Safe At This Time Assistive Devices: None Review of Systems Review of Systems: All systems reviewed & are unremarkable except as noted in HPI & below Physical Exam Constitutional: WD/WN, vitals as above Eyes: PERRL, conjunctivae normal, anicteric sclerae ENMT: external ear and nose normal, oropharynx normal Neck: trachea midline, no thyromegaly Respiratory: normal respiratory effort, lungs clear to auscultation Cardiovascular: RRR, no murmur, no edema Gastrointestinal (Abdomen): normal bowel sounds, soft, nontender, no hepatosplenomegaly Musculoskeletal: no cyanosis or clubbing, extremities motor strength 5/5 Skin: no rashes, warm and dry Neurologic: moves all extremities and awake; + abnormal deep tendon reflexes (hyperreflexia b/l equal), no focal motor deficits and not confused Speech / Cognition: normal speech Motor/Sensory: no tremor and no pronator drift Cranial Nerves: PERRL, EOM intact bilaterally, normal facial strength, tongue midline, able to rotate head bilaterally, able to elevate shoulders bilaterally, no nystagmus and symmetric palate elevation Coordination: normal [id number] test Psychiatric: A+Ox3, euthymic affect Results & Data Results & Data Vital Signs (Past 12 Hours) Vital Signs Temp Pulse Pulse Resp BP BP Pulse Ox 10/07/23 13:00 68 20 174/87 H 94 10/07/23 12:30 65 20 157/118 H 94 10/07/23 11:40 152/108 H 10/07/23 11:39 64 11/17/23 11:30 66 20 145/117 H 99 10/07/23 11:00 95 10/07/23 10:46 36.7 C 66 18 145/117 H 97 O2 Del Method 10/07/23 13:00 Room Air 10/07/23 12:30 Room Air 10/07/23 11:40 10/07/23 11:39 10/07/23 11:30 Room Air 10/07/23 11:00 Room Air 10/07/23 10:46 Room Air Laboratory Results Abnormal lab results 10/07/23 10/07/23 Range/Units 11:16 11:25 WBC 12.43 H (4.8-10.8) K/ul Neut # (Auto) 7.22 H (1.40-6.50) K/uL [place] # (Auto) 0.72 H (0.11-0.59) K/uL Eos # (Auto) 0.92 H (0.00-0.50) K/uL Glucose 141 H (70-99(Fasting)) mg/dl POC Glucose 132 H (70-99) mg/dl Magnesium 1.3 L (1.7-2.4) mg/dl AST 10 L (13-39) U/L Diagnostic Findings CT OF THE HEAD WITHOUT CONTRAST CLINICAL HISTORY: neuro deficit, acute stroke suspected COMPARISON STUDY: MRI of the brain October 31, 2022. Head CT October 05, 2023. TECHNIQUE: Helical axial images of the head were obtained without IV contrast. Automated exposure control was utilized for the study. A dose lowering molly hnique was utilized adhering to the principles of ALARA. FINDINGS: No acute intracranial hemorrhage, midline shift or mass effect is present. Right frontal ventriculostomy catheter is unchanged in position. The tip is within the body of the right lateral ventricle. Ventricular dilatation is unchanged. Basal cisterns are patent. There are no extra-axial collections. White matter hypodensities are unchanged. There are no findings to suggest acute dural sinus thrombosis or acute territorial infarct. No acute calvarial fracture is present. Trace fluid within the right mastoid air cells is present. IMPRESSION: 1. No acute intracranial findings. 2. No change in appearance of the brain. Stable ventricular size. Right ventriculostomy catheter in place. CTA ANGIOGRAPHY OF THE HEAD CLINICAL HISTORY: neuro deficit, acute stroke suspected COMPARISON STUDY: CTA of the head October 30, 2022. TECHNIQUE: Helical axial images of the head were obtained following uneventful intravenous administration of 110 cc of Optiray. Sagittal and coronal reconstructions were viewed as well as maximal intensity projections on an independent 3-D workstation. Automated exposure control was utilized for the study. A dose lowering technique was utilized adhering to the principles of ALARA. FINDINGS: No acute intracranial hemorrhage is identified on the head CT which will be reported separately. Ventricular dilatation is unchanged. Right frontal ventricular catheter is unchanged in position. White matter hypodensities are unchanged. There is moderate calcified plaque within the bilateral cavernous carotids without significant stenosis. No large vessel occlusion is present. There is no intracranial aneurysm. There is persistence of the left posterior cerebral artery. IMPRESSION: 1. No large vessel occlusion. No intracranial aneurysm. 2. Moderate plaque within the cavernous carotids without significant stenosis. 3. Stable ventricular dilatation. Right frontal ventriculostomy catheter in place. CT angio neck with con CLINICAL HISTORY: neuro deficit, acute stroke suspected TECHNIQUE: CT angiography of the neck was performed following intravenous administration of iodinated contrast. Coronal and sagittal MIPS were obtained from the axial data set and were submitted for review. Automated dose lowering techniques and/or adjustment according to patient size were utilized for this examination. All measurements were calculated based on NASCET criteria. CT DOSE: 1011.12 mGy.cm Comparison: Comparison is made to CT cervical spine 05/23/2023 FINDINGS: Lungs and soft tissues are unremarkable. CTA Neck: The left common carotid artery shares common origin with the innominate artery. Atherosclerotic plaque is present in the aortic arch and at the origin of the great vessels. The common carotid, external carotid, cervical segments of the internal carotid arteries, and the cervical segments of the vertebral arteries are patent without hemodynamically significant stenosis. The left vertebral artery is dominant. IMPRESSION: No occlusion, hemodynamically significant stenosis, or dissection in the major cervical arteries. Medications Administered ER Medications Given: NSS 500ml bolus Magnesium sulfate 2g IV Code Status & VTE Plan Code Status Full VTE Prophylaxis Plan VTE Prophylaxis will be ordered: No PG Care Time/CCT Total # of Minutes Spent Total Time Spent with Patient: Total time spent is greater than 50% in coordination of care (as documented) at patient's floor/unit and/or counseling patient: Coding Level of Care Code 77316 INT INP/OBS CARE 3/75MIN Diagnoses Stroke-like episode R29.90 Hypomagnesemia E83.42 NPH (normal pressure hydrocephalus) G91.2 Type 2 diabetes mellitus E11.9 HTN (hypertension) I10 Hypothyroidism E03.9 Depression F32.A Diabetic peripheral neuropathy E11.42
[2023-10-07 15:21] LABS: Partial Thromboplastin Time 29.3 Seconds (21.0-31.0); Prothrombin Time 11.3 Seconds (9.0-12.0)
--- NOTE | 2023-10-07 15:28 | Electrocardiogram Report ---
Test Reason : Blood Pressure : / mmHG Vent. Rate : 068 BPM Atrial Rate : 068 BPM P-R Int : 138 ms QRS Dur : 074 ms QT Int : 410 ms P-R-T Axes : 028 040 043 degrees QTc Int : 435 ms Normal sinus rhythm Normal ECG When compared with ECG of 03-SEP-2023 07:41, No significant change was found Confirmed by Caleb Mcgrath ([id number]) on 10/07/2023 3:28:31 PM Referred By: REFERRED SELF Confirmed By:Caleb Mcgrath
--- NOTE | 2023-10-07 15:38 | XRay Report ---
XR chest 1V portable CLINICAL HISTORY: acute confused episode COMPARISON STUDY: Chest radiograph September 03, 2023. FINDINGS: Lung volumes are normal. Lungs are clear. There is no pneumothorax or pleural effusion. Car diac size is normal. Mediastinal contours are normal. There is no evidence for pulmonary edema. Visua lized portions of the CPA TAX shunt catheter are intact. IMPRESSION: No acute cardiopulmonary findings. ACT 112: Negative or not required by law. Electronically signed by: Zander Mallory M.D. 10/07/2023 3:35 PM
[2023-10-07] MEDS: MAGNESIUM SULFATE / D5W 1 GM/100 ML BAG IV SCH ×2 (15:43→17:52)
[2023-10-07] MEDS ORDERED: ACETAMINOPHEN 325 MG TAB PO PRN (16:50)
[2023-10-07] MEDS ORDERED: POLYETHYLENE (MIRALAX) 17 GM PACK PO PRN (17:32)
[2023-10-07] MEDS ORDERED: PHARMACIST DISCHARGE MED REC CONSULT PRN (17:34)
[2023-10-07] MEDS ORDERED: GLUCOSE 10 TAB/TUBE PO PRN (17:34)
[2023-10-07] MEDS ORDERED: GLUCAGON FOR INJ 1 MG VIAL SQ PRN (17:34)
[2023-10-07] MEDS ORDERED: GLUCOSE 40% GEL 15 GM TUBE PO PRN (17:34)
[2023-10-07] MEDS ORDERED: DEXTROSE 50% 50 ML SYRINGE IV PRN (17:34)
[2023-10-07] MEDS: INSULIN ASPART PER UNIT CHARGE SC SCH (21:06)
[2023-10-07] MEDS: LANTUS PER UNIT CHARGE SQ SCH (21:06)
[2023-10-07] MEDS: levETIRAcetam 500 MG TAB PO SCH (22:10)
[2023-10-08 06:19] LABS: Basophils # (auto) 0.11 K/uL (0.00-0.20); Eosinophils # (auto) 0.85 K/uL (0.00-0.50); Eosinophils % (auto) 7.8 %; Hematocrit (blood only) 36.1 % (37.0-47.0); Hemoglobin 11.8 g/dl (12.0-16.0); Immature Granulocytes # (auto) 0.05 K/uL (0.01-0.20); Immature Granulocytes % (auto) 0.5 %; Lymphocytes # (auto) 3.15 K/uL (1.20-3.40); Mean Corpuscular Hemoglobin 27.3 pg (25.0-34.0); Mean Corpuscular Hgb Conc 32.7 g/dL (32.0-36.0); Mean Corpuscular Volume 83.4 fL (80.0-100.0); Mean Platelet Volume 10.6 fL (9.4-12.4); Monocytes # (auto) 0.62 K/uL (0.11-0.59); Monocytes % (auto) 5.7 %; Platelet Count 307 K/uL (130-400); RDW Coefficient of Variation 13.5 % (11.5-14.5); RDW Standard Deviation 41.1 fL (36.4-46.3); Red Blood Count 4.33 M/uL (4.20-5.40); White Blood Count 10.88 K/ul (4.8-10.8)
[2023-10-08] MEDS: LEVOTHYROXINE SODIUM 88 MCG TABLET PO SCH (06:23)
[2023-10-08 07:21] LABS: Magnesium 1.6 mg/dl (1.7-2.4); Potassium 4.4 mmol/L (3.5-5.1)
[2023-10-08 07:27] LABS: BUN Creatinine Ratio 12.5 (10-20); Creatinine Clr Calc Pharmacy 64.4 ml/min; Est GFR (African American) 61.4 ml/min
--- NOTE | 2023-10-08 08:49 | Neurology Consultation ---
Date of Consultation October 08, 2023 Assessment & Plan (1) Stroke-like symptoms: (2) NPH (normal pressure hydrocephalus): Plan 63-year-old female longterm resident with a history of normal pressure hydrocephalus, diagnosed last October, status postplacement of a CITY MAINTENANCE MANAGER shunt at [facility] 5 weeks ago, evaluated in the emergency department yesterday for acute strokelike symptoms that apparently resolved. However, this morning, this patient does exhibit weakness of the right upper and lower facial musculature, slowed and dysarthric speech. She does not have an obvious hemiparesis although does have bilateral lower extremity weakness and hyperreflexia. She may have an evolving ischemic pontine infarct on her most recent CT of the head, as compared with her previous 2 head CTs done on October 05 and September 04 respectively. The finding could be artifactual, however, given limitations of CT technique. Would recommend brain MRI as ordered to further assess for possible acute ischemic infarct as above. Patient's current examination findings could be consistent with a brainstem or pontine stroke. Would recommend starting aspirin 81 mg/day. Consider increasing patient's dosage of atorvastatin, goal LDL 70 or less (calculated LDL from September 27 was 89). Continue management of hypertension, may allow for permissive hypertension, current blood pressure appropriate. Follow-up with results of transthoracic echocardiogram. Continue with Keppra 500 mg twice daily. However, no signs or symptoms suggestive of seizure activity. Does not require an EEG at this time. Consultations with PT/OT/speech therapy. History of Present Illness Reason for Consultation: Stroke symptoms Requesting Physician: Nayla Attending Physician: Carlos Reyes MD History of Present Illness The patient is a 63-year-old female longterm resident who was evaluated in the emergency department yesterday for strokelike symptoms. I had seen her in consultation during a hospitalization in October 2022 for progressive gait dysfunction, recurrent falls, urinary incontinence, confusion, memory loss in the context of suspected normal pressure hydrocephalus. She was subsequently evaluated at [facility] and underwent placement of a CITY MAINTENANCE MANAGER shunt 5 weeks ago. She had subsequently been seen at the [facility] emergency department on September 03, 2 days after shunt placement, for an episode of confusion. She was started on levetiracetam at that time, empiric treatment for possible occult seizure activity. She was sent from the longterm yesterday, to the emergency department for further assessment of facial droop and slurred speech. These symptoms were apparently not evident during her ED assessment, however. A CT of the head was negative for hemorrhage or acute process. A right frontal ventriculostomy catheter was then placed and unchanged compared with the previous study. Ventricular dilatation stable. A CT angiogram of the head and neck revealed moderate plaque within the cavernous carotids. I indep endently reviewed these images. See below for further description. She has not been on any blood thinners. She is prescribed atorvastatin, metoprolol, metformin, insulin, and levetiracetam 500 mg twice daily. Currently, patient speech seems modestly slow, slightly dysarthric, she has apparent weakness of the right upper and lower facial musculature. She seems to be somewhat unaware of any particular neurologic deficit. She informs me that she has been able to ambulate with a walker. She is uncertain if her CITY MAINTENANCE MANAGER shunt has conferred much benefit with her gait or urinary incontinence. Allergies Allergy/AdvReac Type Severity Reaction Status Date / Time No Known Allergies Allergy Unknown Verified 05/23/23 20:51 Home Medications Medication Instructions Recorded Confirmed Type insulin detemir U-100 100 unit/mL 35 unit (0.35 mL) subcut BID #15 mL 05/30/23 1 12/07/22 Rx (3 mL) subcutaneous pen tolterodine 2 mg capsule,extended 2 mg PO DAILY #30 caps 05/30/23 10/07/23 Rx release 24 hr acetaminophen 325 mg tablet 650 mg PO QID PAIN/FEVER 10/07/23 10/07/23 History (Tylenol) atorvastatin 10 mg tablet 10 mg PO DAILY 10/07/23 10/07/23 History bupropion HCl 100 mg tablet 100 mg PO DAILY 10/07/23 10/07/23 History citalopram 20 mg tablet 20 mg PO QAM 10/07/23 10/07/23 History cyanocobalamin (vitamin B-12) 1,000 mcg PO QAM 10/07/23 10/07/23 History 1,000 mcg tablet (Vitamin B-12) gabapentin 300 mg capsule 300 mg PO DAILY 10/07/23 10/07/23 History levetiracetam 500 mg tablet 500 mg PO BID 10/07/23 10/07/23 History levothyroxine 88 mcg tablet 88 mcg PO DAILY 10/07/23 10/07/23 History metformin 1,000 mg tablet 1,000 mg PO BID 10/07/23 10/07/23 History metoprolol succinate 25 mg 25 mg PO DAILY 10/07/23 10/07/23 History tablet,extended release 24 hr oxycodone 5 mg tablet 5 mg PO Q6H PRN Pain 10/07/23 10/07/23 History polyethylene glycol 3350 17 gram 17 g PO QAM PRN Constipation 10/07/23 10/07/23 History oral powder packet (Miralax) sennosides 8.6 mg-docusate sodium 1 tab PO BID PRN Constipation 10/07/23 10/07/23 History 50 mg tablet (Senokot-S) Patient History Medical History (Updated 10/08/23 @ 08:43 by Melvin Calvillo MD) Vitamin B12 deficiency Dehydration DKA (diabetic ketoacidosis) Nausea & vomiting Diabetic ketoacidosis Surgical History (Updated 09/18/23 @ 00:08 by Claire Herring) No pertinent past surgical history Social History Smoking Status: Never smoker Second Hand Exposure: No; Do You Dip or Chew Tobacco: No; Hx Alcohol Use: No Hx Substance Use: No Preferred Language: Yi Communication Ability: Effective Drop Clipper Required: No Beliefs That Will Affect Care: None Current Living Situation: Alone Other Information That Helps Us Care for You: No Feels Safe at Home: Yes Safety Concerns: Feels Safe At This Time Assistive Devices: None Review of Systems Constitutional: no fever and no chills Eyes: no blind spots and no diplopia Ear, Nose, Mouth, Throat: no hearing loss Respiratory: no cough and no dyspnea Cardiovascular: no chest pain and no palpitations Gastrointestinal: no nausea and no vomiting Genitourinary: + urinary incontinence Musculoskeletal: no neck pain and no myalgia Integumentary: no rash and no lesions Neurologic: as per Subjective / HPI, + gait abnormality, + abnormal speech, + confusion and + memory loss; no tremor(s), no seizure-like activity, no syncope and no headache(s) Psychiatric: no depression and no anxiety Hematologic / Lymphatic: no easy bleeding and no easy bruising Exam (Neuro) 2 Constitutional: well developed and well nourished; no acute distress Eyes: normal visual smith by confrontation, PERRL and EOM intact bilaterally; no nystagmus Neurologic: Oriented to:: Person and Place; negative Time Memory: Remote Intact; negative Short Term Intact Attention: Span Intact; negative Concentration Intact Speech Fluency: Dysarthria and Dysfluency Speech Aphasia: negative Aphasia Fund of Knowledge: Past History and Vocabulary Cranial Nerves: Normal II, III, IV, , V, VIII, IX, X, XI and XII; Abnorm VII ( There is weakness of the right upper and lower facial musculature, able to close both eyes) Motor Strength: Normal Upper Extremities; negative Normal Lower Extremities (Mild weakness for both legs noted but able to raise out of the bed against gravity and against modest resistance) Motor Tone: Normal Lower Extremities and Normal Upper Extremities Muscle Bulk/Involuntary Movements: No Involuntary Movements; negative Muscle Atrophy Sensation: Light Touch Intact, Pain/Temperature Intact and Proprioception Intact Coordination: Heel- Reynoso Abnormal; negative Dysdiadochokinesia or Finger-Nose Abnormal Deep Tendon Reflexes: Rt Triceps: 2+, Lt Triceps: 2+, Rt Biceps: 2+, Lt Biceps: 2+, Rt Brachioradialis: 2+, Lt Brachioradialis: 2+, Rt Patellar: 3+, Lt Patellar: 3+, Rt Ankle: 2+ and Lt Ankle: 2+ Special Tests: Babinski Present Results & Data Vital Signs (Past 12 Hours) Vital Signs Temp Pulse Pulse Resp BP Pulse Ox O2 Del Method 10/08/23 07:45 36.7 C 66 18 152/84 H 96 Room Air 10/07/23 23:48 36.7 C 65 18 129/71 97 Room Air 10/07/23 22:05 65 Laboratory Results WBC 10.88, hemoglobin 11.8, hematocrit 36.1, platelet count 307, sodium 139, potassium 4.4, BUN 14, creatinine 1.12, glucose 134, magnesium 1.6, AST 10, ALT 9, TSH 0.521. Lipid panel from September 27, 2023 reviewed, triglycerides 120, cholesterol 159, LDL 89, HDL [address] of the head including CTA of the head and neck are as described in the HPI, I independently reviewed these images. I did compare her most recent CT of the head done yesterday with her 2 previous head CTs done on October 05 and September 03 respectively. There may be some evolving hypodensity or radiolucency within the central yobani that could indicate an evolving ischemic infarct. However, this apparent finding could be artifactual given limitations of CT technique. An electrocardiogram revealed a normal sinus rhythm, 68 bpm. Coding Level of Care Code 06467 INT INP/OBS CARE 3/75MIN Diagnoses Stroke-like symptoms R29.90 NPH (normal pressure hydrocephalus) G91.2 Time Spent (min) 80
[2023-10-08] MEDS ORDERED: ATORVASTATIN 10 MG TAB PO SCH (09:00)
[2023-10-08] MEDS: MAGNESIUM SULFATE / D5W 1 GM/100 ML BAG IV SCH ×2 (09:09→13:29)
[2023-10-08] MEDS: INSULIN ASPART PER UNIT CHARGE SC SCH ×4 (09:09→21:44)
[2023-10-08] MEDS: levETIRAcetam 500 MG TAB PO SCH ×2 (09:09→21:56)
[2023-10-08] MEDS: LANTUS PER UNIT CHARGE SQ SCH ×2 (09:10→21:44)
[2023-10-08] MEDS: ASPIRIN 81 MG ECTAB PO SCH (10:01)
[2023-10-08] MEDS: METOPROLOL SUCC 25MG EXT REL TAB PO SCH (10:01)
[2023-10-08] MEDS: GABAPENTIN 300 MG CAP PO SCH (10:01)
[2023-10-08] MEDS: OXYBUTYNIN CHLORIDE XL 5 MG TABCR PO SCH (10:02)
[2023-10-08] MEDS: buPROPion HCl 100 MG TABLET PO SCH (10:02)
[2023-10-08] MEDS: CITALOPRAM 20 MG TAB PO SCH (10:02)
[2023-10-08] MEDS: CYANOCOBALAMIN (B-12) 500 MCG TABLET PO SCH (10:02)
--- NOTE | 2023-10-08 10:37 | CT Scan Report ---
CT SCAN OF THE BRAIN WITHOUT IV CONTRAST CLINICAL HISTORY: Strokelike symptoms. Change in mental status. COMPARISON STUDY: CT of the brain dated 10/07/2023. TECHNIQUE: Unenhanced axial CT scan of the brain is performed from the vertex to the skull base. A do se lowering technique was utilized adhering to the principles of ALARA. CT DOSE: 703.85 mGy.cm FINDINGS: Brain parenchyma: A right frontal approach ventriculostomy catheter is unchanged in position. The tip terminates in the right lateral ventricle. There is age-related involutional change noting moderate confluent subcortical and periventricular microangiopathic disease. There is no hemorrhage, mass effe ct, or evidence of acute territorial ischemia by CT criteria. A chronic lacunar infarct is again seen in the left caudate head. Garcia-white matter differentiation is preserved. No extra-axial fluid colle ction is seen. Ventricles, sulci, cisterns: Ventriculomegaly is unchanged. See above. Intracranial vasculature: There is atherosclerotic calcification of the cavernous carotid arteries. Calvarium: There is a right frontal ngoc hole. No destructive calvarial lesion is seen. Sinuses and mastoids: The visualized paranasal sinuses are clear. The mastoid air cells are well pneu matized. Orbits: The bony orbits are grossly intact. IMPRESSION: 1. There is no hemorrhage, mass effect, or evidence of acute territorial ischemia by CT criteria. No significant change from yesterday. 2. Ventriculomegaly is unchanged, with a ventricular shunt catheter in place. ACT 112: Negative or not required by law. Electronically signed by: Louie Sneed M.D. 10/08/2023 10:34 AM
--- NOTE | 2023-10-08 12:21 | Hospitalist Progress Note ---
Date of Service October 08, 2023 Assessment & Plan (1) Stroke-like episode: Plan: Suspected acute ischemic CVA, possibly pontine. Neurology consultation and recommendations appreciated. She is now on low-dose aspirin and atorvastatin has been uptitrated. We will check lipid profile tomorrow, October 09. Second head CT scan is pending. She cannot undergo MRI scanning unfortunately due to presence of recent ventriculoperitoneal shunt placed for treatment of normal pressure hydrocephalus. Cardiac echo pending. OT, speech, PT consultations requested. (2) Hypomagnesemia: Plan: Parenteral replacement underway. Serial labs (3) NPH (normal pressure hydrocephalus): Plan: Recently treated with CHURCH WARDEN shunt placement at [facility]. Currently stable seizure disorder on Keppra (4) Type 2 diabetes mellitus: Plan: HbA1C 7.6 [09/27/23]. Metformin currently on hold. Continue basal insulin therapy. ADA diet. Sliding scale coverage as needed (5) HTN (hypertension): Plan: Stable. Continue metoprolol (6) Hypothyroidism: Plan: Stable. Continue levothyroxine (7) Depression: Plan: Stable. Continue citalopram and buproprion (8) Diabetic peripheral neuropathy: Plan: Stable. Continue gabapentin Plan To be determined. She may need IPR placement at discharge. Admission and Anticipated Discharge Date Admission Date: October 08, 2023 Subjective She continues to have dysarthria and a right facial droop. Case discussed with neurology. Brain MRI scan cannot be done due to presence of CHURCH WARDEN shunt. A second head CT scan will be obtained. She is now on low-dose aspirin therapy and atorvastatin has been uptitrated. I spoke to her sister by phone. She is admitted from observation. She appears to have experienced an ischemic CVA, possibly pontine. OT, PT, speech therapies are consulted. Parenteral magnesium replacement continues. Will check fasting lipid profile tomorrow, October 09. Review of Systems 2 Review of Systems: Constitutional-no fever or chills ENT-no blurred vision, no double vision, no epistaxis, no sore throat Respiratory-no cough, no wheezing, no shortness of breath Cardiac-no palpitations, no chest pain, no syncope GI-no nausea, vomiting, diarrhea, melena, hematochezia -no urinary retention, no urinary incontinence, no dysuria, no hematuria Musculoskeletal-no joint pain, no muscle tenderness Skin-no bruising, no rashes, no pruritus Neuro-dysarthria and expressive dysphasia. No isolated weakness, no paresthesia, no weakness Psych-no depression, no anxiety Physical Exam 2 Physical Exam: General-alert and oriented x3, no fevers, no chills HEENT-head atraumatic and normocephalic, pupils equal and reactive to light, extraocular muscles intact Neck-no lymphadenopathy or thyromegaly, trachea midline Chest-clear to auscultation percussion. No rales wheezing or rhonchi Cardiac-regular rate and rhythm, normal S1 and S2, no murmurs Abdomen-normal bowel sounds, nontender, no hepatosplenomegaly Extremities-no cyanosis, clubbing, or edema Neuro-mild right facial droop. Expressive dysphasia. Dysarthria. Strength symmetrical Psych-normal affect, normal mood Results & Data Results & Data Vital Signs (Past 12 Hours) Vital Signs Temp Pulse Resp BP Pulse Ox O2 Del Method 10/08/23 11:35 36.6 C 84 17 138/81 96 Room Air 10/08/23 07:45 36.7 C 66 18 152/84 H 96 Room Air Laboratory Results 10/08/23 05:32 10/08/23 05:32 PG Care Time/CCT Total # of Minutes Spent Total Time Spent with Patient: Total time spent is greater than 50% in coordination of care (as documented) at patient's floor/unit and/or counseling patient: Coding Level of Care Code 02540 SUB INP/OBS CARE 3/50MIN Diagnoses Stroke-like episode R29.90 Hypomagnesemia E83.42 NPH (normal pressure hydrocephalus) G91.2 Type 2 diabetes mellitus E11.9 HTN (hypertension) I10 Hypothyroidism E03.9 Depression F32.A Diabetic peripheral neuropathy E11.42
--- NOTE | 2023-10-08 22:26 | XCELERA ---
[id number]
--- OUTSIDE RECORDS SUMMARY | 2023-10-08 23:55 | External Medical Summary | Summary of Care ---
Author Name Unknown Organization [facility] Address [address] [place] [address] Phone [phone] Care Team Providers Care Child Protective Investigator Name Role Phone Alvin Londono Primary Care Provider Reason for Visit * Reason Onset Date Comments [facility] Care Coordination Services 10/06/2023 Encounter Details Date Type Department Care Team (Late st Contact Info) Description 10/06/2023 Telephone Care Coordination and Integration [address], [place] [id number] Christen Salazar [facility] Pediatric Neurologist [address] [place] [address] [facility] Care Coordination Services Allergies No known active allergiesdocumented as of this encounter (statuses as of 10/06/2023) Medications Medication Sig Dispensed Refills Start Date End Date Status GLIPIZIDE 10 MG PO TABS patient unsure of dosage 0 Active MetFORMIN (GLUCOPHAGE) 1000 MG Tablet Take 1,000 mg by mouth 2 times a day with morning and evening meals. 0 Active simvastatin (ZOCOR) 5 MG Tablet Take 5 mg by mouth daily. 0 Active insulin glargine (LANTUS) 100 UNIT/ML SOPN Inject under the skin. 0 Active documented as of this encounter (statuses as of 10/06/2023) Active Problems Problem Noted Date Diagnosed Date Mixed hearing loss, bilateral 02/17/2009 OTITIS MEDIA,CHRONIC 02/17/2009 RECURRENT ACUTE SINUSITIS 09/17/2008 Allergic rhinitis 09/17/2008 Dysfunction of eustachian tube 09/17/2008 documented as of this encounter (statuses as of 10/06/2023) Social History Tobacco Use Types Packs/Day Years Used Date Smoking Tobacco: Never Alcohol Use Standard Drinks/Week Comments No 0 (1 standard drink = 0.6 oz pur e alcohol) Sex and Gender Information Value Date Recorded Sex Assigned at Not on file Gender Identity Not on file Sexual Orientation Not on file documented as of this encounter Plan of Treatment Health Maintenance Due Date Last Done Comments Lipid Panel 1962 Depression Screening 1974 HIV Screening 1977 Hepatitis C Screening 1980 DTaP,Tdap,and Td Vaccines (1 - Tdap) 1981 Pap Smear 1983 Cervical Cancer Screening 1992 HPV/Co-Test 1992 Mammogram 2002 Cologuard 2007 Colonoscopy 2007 Colorectal Cancer Screening 2007 Fecal Occult Blood Test 2007 Sigmoidoscopy 2007 Zoster Vaccines (1 of 2) 2012 COVID-19 Vaccine (2 - 2022-2 4 season) 2023 11/17/2021 Influenza Vaccine (FLU shot) (#1) 2023 08/30/2020, 09/04/2012 Pneumococcal Vaccine: Pediatrics (0 to 5 Years) and At-Risk Patients (6 to 64 Years) Aged Out 11/23/2006 No longer eligible b ased on patient's age to complete this topic GARDASIL-HPV IMMUNIZATION SERIES Aged Out No longer eligible b ased on patient's age to complete this topic Hepatitis B Aged Out No longer eligi ble based on patient's age to complete this topic MENINGOCOCCAL (MENACTRA/MENVEO) Aged Out No longer eligible b ased on patient's age to complete this topic documented as of this encounter Medical Devices Not on filedocumented as of this encounter Care Teams Child Protective Investigator Relationship Specialty Start Date End Date Alvin Londono DO [address] [place] [address] PCP - General Family Medicine 11/06/15 documented as of this encounter
[2023-10-09] MEDS: LEVOTHYROXINE SODIUM 88 MCG TABLET PO SCH (05:53)
[2023-10-09 07:31] LABS: Basophils # (auto) 0.13 K/uL (0.00-0.20); Basophils % (auto) 1.2 %; Eosinophils # (auto) 0.75 K/uL (0.00-0.50); Hematocrit (blood only) 37.2 % (37.0-47.0); Hemoglobin 12.1 g/dl (12.0-16.0); Immature Granulocytes # (auto) 0.04 K/uL (0.01-0.20); Immature Granulocytes % (auto) 0.4 %; Lymphocytes # (auto) 2.62 K/uL (1.20-3.40); Lymphocytes % (auto) 24.3 %; Mean Corpuscular Hemoglobin 26.9 pg (25.0-34.0); Mean Corpuscular Hgb Conc 32.5 g/dL (32.0-36.0); Mean Corpuscular Volume 82.9 fL (80.0-100.0); Mean Platelet Volume 10.3 fL (9.4-12.4); Monocytes # (auto) 0.71 K/uL (0.11-0.59); Monocytes % (auto) 6.6 %; Neutrophils # (auto) 6.54 K/uL (1.40-6.50); Neutrophils % (auto) 60.5 %; Platelet Count 323 K/uL (130-400); RDW Coefficient of Variation 13.6 % (11.5-14.5); RDW Standard Deviation 40.7 fL (36.4-46.3); Red Blood Count 4.49 M/uL (4.20-5.40); White Blood Count 10.79 K/ul (4.8-10.8)
[2023-10-09 08:02] LABS: BUN Creatinine Ratio 15.1 (10-20); Chol HDL Ratio 3.5 (0-5); Creatinine Clr Calc Pharmacy 67.7 ml/min; Est GFR (African American) 65.6 ml/min; Est GFR (Non-African American) 56.6 ml/min; Magnesium 1.8 mg/dl (1.7-2.4); Potassium 4.4 mmol/L (3.5-5.1)
[2023-10-09] MEDS: LANTUS PER UNIT CHARGE SQ SCH ×2 (09:07→20:40)
[2023-10-09] MEDS: CITALOPRAM 20 MG TAB PO SCH (09:08)
[2023-10-09] MEDS: buPROPion HCl 100 MG TABLET PO SCH (09:08)
[2023-10-09] MEDS: levETIRAcetam 500 MG TAB PO SCH ×2 (09:08→20:39)
[2023-10-09] MEDS: CYANOCOBALAMIN (B-12) 500 MCG TABLET PO SCH (09:09)
[2023-10-09] MEDS: OXYBUTYNIN CHLORIDE XL 5 MG TABCR PO SCH (09:09)
[2023-10-09] MEDS: GABAPENTIN 300 MG CAP PO SCH (09:09)
[2023-10-09] MEDS: METOPROLOL SUCC 25MG EXT REL TAB PO SCH (09:09)
[2023-10-09] MEDS: ATORVASTATIN 40 MG TAB PO SCH (09:09)
[2023-10-09] MEDS: ASPIRIN 81 MG ECTAB PO SCH (09:09)
[2023-10-09] MEDS: INSULIN ASPART PER UNIT CHARGE SC SCH ×4 (09:14→20:40)
--- NOTE | 2023-10-09 11:33 | Neurology Progress Note ---
Date of Service October 09, 2023 Assessment & Plan (1) Stroke-like symptoms: (2) NPH (normal pressure hydrocephalus): (3) S/P AIRPLANE COVER MAKER shunt: Plan 63-year-old female with a history of NPH, status postplacement of a AIRPLANE COVER MAKER shunt 5 weeks ago at [facility], admitted with strokelike symptoms, slowed dysarthric speech, right upper and lower facial weakness. No obvious evolving acute/subacute infarct on serial CT's of the head, no significant occlusive disease or vascular lesion on CT angiography of the head and neck although does have moderate plaque within the cavernous carotids. Patient's neurological examination is modestly improved this morning although she still considerable slow dysarthric speech and subtle right facial weakness. An acute to subacute infarct, possibly involving the brainstem/yobani, cannot be excluded. She has been started on aspirin, her atorvastatin dosage has been increased, goal LDL 70 or less going forward. I note the patient's transthoracic echocardiogram revealed focal calcifications on a sclerotic aortic valve with some concern for mass/vegetation, with consideration given to potentially obtaining a transesophageal echocardiogram. Given concern for stroke in this patient, now with the possibility of endocarditis, I think pursuing a transesophageal echocardiogram is reasonable. Would also consider obtaining blood cultures. Continue with levetiracetam 500 mg twice daily as ordered. Patient does not require an EEG at this time. Dr. Peña will be covering the neurology service starting tomorrow morning. Admission and Anticipated Discharge Date Admission Date: October 08, 2023 Subjective Follow-up regarding suspected stroke 63-year-old female with a history of normal pressure hydrocephalus, status postplacement of a AIRPLANE COVER MAKER shunt at [facility] 5 weeks ago, presented to the emergency department on October 07 for facial droop and slurred speech. She did have evidence of weakness of the right upper and lower facial musculature yesterday as well as slow dysarthric speech. CT of the head including CTA of the head and neck were negative for obvious acute process although I had considered the possibility of an evolving pontine infarct. She is unable to have brain MRI acutely in light of her AIRPLANE COVER MAKER shunt. (MRI will need to be coordinated with neurosurgery at [facility] and can be done as an outpatient, likely at [place].) Patient did have a repeat noncontrast CT of the head completed yesterday. I independently reviewed these images. As before, no evidence of hemorrhage or obvious acute process. Unchanged ventriculomegaly with in place shunt catheter. The previously observed hypodensity within the yobani is not as conspicuous as it was on her previous head CT, and again, is of limited sensitivity and specificity. The patient continues to exhibit fairly prominent slowed and dysarthric speech, see examination below. She denies headache or weakness of the limbs. She apparently did well with swallowing. Review of Systems Constitutional: no fever Eyes: no blind spots and no diplopia Neurologic: + abnormal speech; no localized weakness , no tremor(s) and no headache(s) Results & Data Vital Signs (Past 12 Hours) Vital Signs Temp Pulse Resp BP BP Pulse Ox O2 Del Method 10/09/23 07:54 36.8 C 63 17 156/83 H 96 Room Air 10/09/23 04:06 36.6 C 70 20 167/83 H 97 Room Air Laboratory Results WBC 10.79, hemoglobin 12.1, hematocrit 37.2, platelet count 323, sodium 141, potassium 4.4, BUN 16, creatinine 1.06, glucose 138, magnesium 1.8, triglycerides 77, cholesterol 162, LDL 101, HDL [address] of the head is as described above, I independently reviewed the images. Echocardiogram completed yesterday revealed normal left ventricular size and systolic function, EF 60 to 65%, no regional wall motion abnormalities, moderate concentric LVH, sclerotic aortic valve with focal calcifications noted, possible mass/vegetation (consider [facility]LI for further evaluation). No right to left interatrial shunt noted although image quality suboptimal. Exam (Neuro) Neurologic: Oriented to:: Person, Place and Time Memory: Short Term Intact and Remote Intact Attention: Span Intact and Concentration Intact Speech Fluency: Dysarthria and Dysfluency Speech Aphasia: negative Aphasia Fund of Knowledge: Vocabulary Cranial Nerves: Normal II and III, IV, ; Abnorm VII (Mild weakness for the right upper and lower facial musculature, improved compared with yesterday.) Motor Strength: Normal Lower Extremities and Normal Upper Extremities; negative Pronator Drift or Hemiparesis Sensation: Light Touch Intact and Proprioception Intact Coding Level of Care Code 09030 SUB INP/OBS CARE 3/50MIN Diagnoses Stroke-like symptoms R29.90 NPH (normal pressure hydrocephalus) G91.2 S/P AIRPLANE COVER MAKER shunt Z98.2 Time Spent (min) 50
--- NOTE | 2023-10-09 13:42 | Hospitalist Progress Note ---
Date of Service October 09, 2023 Assessment & Plan (1) Stroke-like episode: Plan: Suspected acute ischemic CVA, possibly pontine. Neurology consultation and recommendations appreciated. She is now on low-dose aspirin and atorvastatin has been uptitrated. Lipid profile noted. Second head CT scan again reveals no evidence of acute CVA but clinically she has had a CVA. She cannot undergo MRI scanning unfortunately due to presence of recent ventriculoperitoneal shunt placed for treatment of normal pressure hydrocephalus. Transthoracic cardiac echo suggest the possibility of an aortic vegetation. ARELI has been ordered. OT, speech, PT consultations requested. (2) Hypomagnesemia: Plan: Corrected with parenteral replacement. Serial labs (3) NPH (normal pressure hydrocephalus): Plan: Recently treated with BLOCK CHOPPER HAND shunt placement at [place]. Currently stable seizure disorder on Keppra (4) Type 2 diabetes mellitus: Plan: HbA1C 7.6 [09/27/23]. Metformin currently on hold. Continue basal insulin therapy. ADA diet. Sliding scale coverage as needed (5) HTN (hypertension): Plan: Stable. Continue metoprolol (6) Hypothyroidism: Plan: Stable. Continue levothyroxine (7) Depression: Plan: Stable. Continue citalopram and buproprion (8) Diabetic peripheral neuropathy: Plan: Stable. Continue gabapentin Plan Anticipate IPR placement at discharge. Hopefully Tuesday if the ARELI can be completed tomorrow. Admission and Anticipated Discharge Date Admission Date: October 08, 2023 Subjective The patient looks better today. Cardiac echo TTE suggest the possibility of an aortic vegetation. ARELI has been requested. Hypomagnesemia has been corrected. Probable eventual IPR placement at discharge. Review of Systems 2 Review of Systems: Constitutional-no fever or chills ENT-no blurred vision, no double vision, no epistaxis, no sore throat Respiratory-no cough, no wheezing, no shortness of breath Cardiac-no palpitations, no chest pain, no syncope GI-no nausea, vomiting, diarrhea, melena, hematochezia -no urinary retention, no urinary incontinence, no dysuria, no hematuria Musculoskeletal-no joint pain, no muscle tenderness Skin-no bruising, no rashes, no pruritus Neuro-dysarthria and expressive dysphasia. No isolated weakness, no paresthesia, no weakness Psych-no depression, no anxiety Physical Exam 2 Physical Exam: General-alert and oriented x3, no fevers, no chills HEENT-head atraumatic and normocephalic, pupils equal and reactive to light, extraocular muscles intact Neck-no lymphadenopathy or thyromegaly, trachea midline Chest-clear to auscultation percussion. No rales wheezing or rhonchi Cardiac-regular rate and rhythm, normal S1 and S2, no murmurs Abdomen-normal bowel sounds, nontender, no hepatosplenomegaly Extremities-no cyanosis, clubbing, or edema Neuro-mild right facial droop. Expressive dysphasia. Dysarthria. Strength symmetrical Psych-normal affect, normal mood Results & Data Results & Data Vital Signs (Past 12 Hours) Vital Signs Temp Pulse Pulse Resp BP BP Pulse Ox 10/09/23 11:31 36.8 C 67 17 135/67 94 10/09/23 08:00 61 10/09/23 07:54 36.8 C 63 17 156/83 H 96 10/09/23 04:06 36.6 C 70 20 167/83 H 97 O2 Del Method 10/09/23 11:31 Room Air 10/09/23 08:00 10/09/23 07:54 Room Air 10/09/23 04:06 Room Air Laboratory Results 10/09/23 06:46 10/09/23 06:46 PG Care Time/CCT Total # of Minutes Spent Total Time Spent with Patient: Total time spent is greater than 50% in coordination of care (as documented) at patient's floor/unit and/or counseling patient: Coding Level of Care Code 04818 SUB INP/OBS CARE 3/50MIN Diagnoses Stroke-like episode R29.90 Hypomagnesemia E83.42 NPH (normal pressure hydrocephalus) G91.2 Type 2 diabetes mellitus E11.9 HTN (hypertension) I10 Hypothyroidism E03.9 Depression F32.A Diabetic peripheral neuropathy E11.42
[2023-10-10] MEDS: LEVOTHYROXINE SODIUM 88 MCG TABLET PO SCH (05:47)
[2023-10-10 06:13] LABS: BUN Creatinine Ratio 15.3 (10-20); Calcium 8.8 mg/dl (8.6-10.3); Creatinine Clr Calc Pharmacy 49.9 ml/min; Est GFR (African American) 45.3 ml/min; Est GFR (Non-African American) 39.1 ml/min; Magnesium 1.6 mg/dl (1.7-2.4)
[2023-10-10 06:20] LABS: Basophils # (auto) 0.13 K/uL (0.00-0.20); Basophils % (auto) 1.1 %; Eosinophils # (auto) 0.65 K/uL (0.00-0.50); Eosinophils % (auto) 5.3 %; Hematocrit (blood only) 36.9 % (37.0-47.0); Hemoglobin 11.7 g/dl (12.0-16.0); Immature Granulocytes # (auto) 0.08 K/uL (0.01-0.20); Immature Granulocytes % (auto) 0.7 %; Lymphocytes # (auto) 3.68 K/uL (1.20-3.40); Lymphocytes % (auto) 30.1 %; Mean Corpuscular Hemoglobin 26.7 pg (25.0-34.0); Mean Corpuscular Hgb Conc 31.7 g/dL (32.0-36.0); Mean Corpuscular Volume 84.1 fL (80.0-100.0); Mean Platelet Volume 10.1 fL (9.4-12.4); Monocytes # (auto) 0.88 K/uL (0.11-0.59); Monocytes % (auto) 7.2 %; Neutrophils # (auto) 6.79 K/uL (1.40-6.50); Neutrophils % (auto) 55.6 %; Platelet Count 328 K/uL (130-400); RDW Coefficient of Variation 13.5 % (11.5-14.5); RDW Standard Deviation 41.6 fL (36.4-46.3); Red Blood Count 4.39 M/uL (4.20-5.40); White Blood Count 12.21 K/ul (4.8-10.8)
[2023-10-10] MEDS: INSULIN ASPART PER UNIT CHARGE SC SCH ×4 (09:36→21:36)
[2023-10-10] MEDS: GABAPENTIN 300 MG CAP PO SCH ×2 (09:40→09:44)
[2023-10-10] MEDS: buPROPion HCl 100 MG TABLET PO SCH (09:40)
[2023-10-10] MEDS: levETIRAcetam 500 MG TAB PO SCH ×2 (09:40→21:36)
[2023-10-10] MEDS: CITALOPRAM 20 MG TAB PO SCH (09:40)
[2023-10-10] MEDS: ASPIRIN 81 MG ECTAB PO SCH (09:40)
[2023-10-10] MEDS: OXYBUTYNIN CHLORIDE XL 5 MG TABCR PO SCH (09:40)
[2023-10-10] MEDS: ATORVASTATIN 40 MG TAB PO SCH (09:41)
[2023-10-10] MEDS: METOPROLOL SUCC 25MG EXT REL TAB PO SCH (09:41)
[2023-10-10] MEDS: CYANOCOBALAMIN (B-12) 500 MCG TABLET PO SCH (09:41)
[2023-10-10] MEDS: LANTUS PER UNIT CHARGE SQ SCH ×2 (09:47→21:36)
[2023-10-10] MEDS: MAGNESIUM OXIDE 400 MG TAB PO SCH ×2 (10:46→21:36)
--- NOTE | 2023-10-10 11:18 | Pharmacy Report ---
- Date of Service October 10, 2023 - Pharmacy CVA/TIA Medication Review Medications to Prevent Stroke handout has been added to the patients discharge packet. Antiplatelet(s) * aspirin 81 mg daily Cholesterol * High intensity statin: atorvastatin 40 mg daily Therapeutic Anticoagulation * No history of Afib/Aflutter noted Type 2 Diabetes * Patient has T2DM, A1c 7.6% - Patient on Levemir and metformin at home * A diabetes medication with proven CVD benefit, such as a GLP-1 agonist or SGLT2 inhibitor could be considered. It is reasonable to defer to their outpatient provider due to familiarity with risks/benefits of such therapies. "Medications to prevent stroke" handout has already been added to the patient's discharge packet, which instructs the patient to follow up with their outpatient provider to evaluate which diabetes medication with proven CVD benefit is best for them
--- NOTE | 2023-10-10 15:39 | Hospitalist Progress Note ---
Date of Service October 10, 2023 Assessment & Plan (1) Stroke-like episode: Plan: Suspected acute ischemic CVA, possibly pontine. Neurology consultation and recommendations appreciated. She is now on low-dose aspirin and atorvastatin has been uptitrated. Lipid profile noted. Second head CT scan again reveals no evidence of acute CVA but clinically she has had a CVA. She cannot undergo MRI scanning unfortunately due to presence of recent ventriculoperitoneal shunt placed for treatment of normal pressure hydrocephalus. Transthoracic cardiac echo suggest the possibility of an aortic vegetation. ARELI has been ordered but cardiology informs me that the patient has refused. Blood cultures ordered and pending. Physical therapy recommends rehab placement. (2) Hypomagnesemia: Plan: Corrected with parenteral replacement then low levels again today, October 10. Oral magnesium oxide ordered. Serial labs (3) NPH (normal pressure hydrocephalus): Plan: Recently treated with RESEARCH AFFILIATE shunt placement at [place]. Currently stable seizure disorder on Keppra (4) Type 2 diabetes mellitus: Plan: HbA1C 7.6 [09/27/23]. Metformin currently on hold. Continue basal insulin therapy. ADA diet. Sliding scale coverage as needed (5) HTN (hypertension): Plan: Stable. Continue metoprolol (6) Hypothyroidism: Plan: Stable. Continue levothyroxine (7) Depression: Plan: Stable. Continue citalopram and buproprion (8) Diabetic peripheral neuropathy: Plan: Stable. Continue gabapentin Plan Anticipate IPR placement at discharge when arrangements are finalized. Admission and Anticipated Discharge Date Admission Date: October 08, 2023 Subjective Alert and oriented. No new problems. Cardiology informed me that the patient refused ARELI evaluation. There is a possible aortic valve vegetation seen on ARELI. Blood cultures are pending. If blood cultures are positive, then she should definitely have a ARELI procedure. Cholesterol is 162 and LDL 101. Triglyceride level 77. PT recommends rehab placement. Magnesium is down again slightly to 1.6. Oral replacement ordered. Review of Systems 2 Review of Systems: Constitutional-no fever or chills ENT-no blurred vision, no double vision, no epistaxis, no sore throat Respiratory-no cough, no wheezing, no shortness of breath Cardiac-no palpitations, no chest pain, no syncope GI-no nausea, vomiting, diarrhea, melena, hematochezia -no urinary retention, no urinary incontinence, no dysuria, no hematuria Musculoskeletal-no joint pain, no muscle tenderness Skin-no bruising, no rashes, no pruritus Neuro-dysarthria and expressive dysphasia. No isolated weakness, no paresthesia, no weakness Psych-no depression, no anxiety Physical Exam 2 Physical Exam: General-alert and oriented x3, no fevers, no chills HEENT-head atraumatic and normocephalic, pupils equal and reactive to light, extraocular muscles intact Neck-no lymphadenopathy or thyromegaly, trachea midline Chest-clear to auscultation percussion. No rales wheezing or rhonchi Cardiac-regular rate and rhythm, normal S1 and S2, no murmurs Abdomen-normal bowel sounds, nontender, no hepatosplenomegaly Extremities-no cyanosis, clubbing, or edema Neuro-mild right facial droop. Expressive dysphasia. Dysarthria. Strength symmetrical Psych-normal affect, normal mood Results & Data Results & Data Vital Signs (Past 12 Hours) Vital Signs Temp Pulse Pulse Resp BP BP Pulse Ox 10/10/23 14:29 10/10/23 12:26 36.9 C 64 18 124/80 93 10/10/23 07:55 36.9 C 63 18 130/76 98 10/10/23 04:00 36.6 C 63 18 124/78 96 O2 Del Method 10/10/23 14:29 Room Air 10/10/23 12:26 Room Air 10/10/23 07:55 Room Air 10/10/23 04:00 Room Air Laboratory Results 10/10/23 05:34 10/10/23 05:34 PG Care Time/CCT Total # of Minutes Spent Total Time Spent with Patient: Total time spent is greater than 50% in coordination of care (as documented) at patient's floor/unit and/or counseling patient: Coding Level of Care Code 78783 SUB INP/OBS CARE 3/50MIN Diagnoses Stroke-like episode R29.90 Hypomagnesemia E83.42 NPH (normal pressure hydrocephalus) G91.2 Type 2 diabetes mellitus E11.9 HTN (hypertension) I10 Hypothyroidism E03.9 Depression F32.A Diabetic peripheral neuropathy E11.42
[2023-10-10] MEDS: CARBOHYDRATES FOR HYPOGLYCEMIA PO PRN (17:28)
[2023-10-11] MEDS: LEVOTHYROXINE SODIUM 88 MCG TABLET PO SCH (05:08)
[2023-10-11 07:32] LABS: Basophils # (auto) 0.13 K/uL (0.00-0.20); Basophils % (auto) 1.1 %; Hematocrit (blood only) 37.3 % (37.0-47.0); Hemoglobin 12.3 g/dl (12.0-16.0); Immature Granulocytes # (auto) 0.08 K/uL (0.01-0.20); Immature Granulocytes % (auto) 0.7 %; Lymphocytes # (auto) 3.35 K/uL (1.20-3.40); Lymphocytes % (auto) 27.9 %; Mean Corpuscular Hemoglobin 27.4 pg (25.0-34.0); Mean Corpuscular Volume 83.1 fL (80.0-100.0); Mean Platelet Volume 10.3 fL (9.4-12.4); Monocytes # (auto) 0.83 K/uL (0.11-0.59); Monocytes % (auto) 6.9 %; Neutrophils % (auto) 58.4 %; Platelet Count 326 K/uL (130-400); RDW Coefficient of Variation 13.6 % (11.5-14.5); RDW Standard Deviation 40.6 fL (36.4-46.3); Red Blood Count 4.49 M/uL (4.20-5.40); White Blood Count 11.99 K/ul (4.8-10.8)
[2023-10-11] MEDS: levETIRAcetam 500 MG TAB PO SCH ×2 (08:38→20:46)
[2023-10-11] MEDS: MAGNESIUM OXIDE 400 MG TAB PO SCH ×2 (08:38→20:45)
[2023-10-11] MEDS: ASPIRIN 81 MG ECTAB PO SCH (08:38)
[2023-10-11] MEDS: OXYBUTYNIN CHLORIDE XL 5 MG TABCR PO SCH (08:38)
[2023-10-11] MEDS: METOPROLOL SUCC 25MG EXT REL TAB PO SCH (08:38)
[2023-10-11] MEDS: CYANOCOBALAMIN (B-12) 500 MCG TABLET PO SCH (08:39)
[2023-10-11] MEDS: GABAPENTIN 300 MG CAP PO SCH (08:39)
[2023-10-11] MEDS: ATORVASTATIN 40 MG TAB PO SCH (08:39)
[2023-10-11] MEDS: buPROPion HCl 100 MG TABLET PO SCH (08:39)
[2023-10-11] MEDS: CITALOPRAM 20 MG TAB PO SCH (08:39)
[2023-10-11 08:45] LABS: Calcium 9.1 mg/dl (8.6-10.3); Magnesium 1.7 mg/dl (1.7-2.4); Potassium 4.5 mmol/L (3.5-5.1)
[2023-10-11 08:51] LABS: BUN Creatinine Ratio 19.3 (10-20); Creatinine Clr Calc Pharmacy 59.4 ml/min; Est GFR (African American) 57.1 ml/min; Est GFR (Non-African American) 49.2 ml/min
[2023-10-11] MEDS: LANTUS PER UNIT CHARGE SQ SCH ×2 (08:54→20:46)
[2023-10-11] MEDS: INSULIN ASPART PER UNIT CHARGE SC SCH ×4 (08:55→20:46)
--- NOTE | 2023-10-11 14:17 | Hospitalist Progress Note ---
Date of Service October 11, 2023 Assessment & Plan (1) Stroke-like episode: Plan: Suspected acute ischemic CVA, possibly pontine. Neurology consultation and recommendations appreciated. She is now on low-dose aspirin and atorvastatin has been uptitrated. Lipid profile noted. Second head CT scan again reveals no evidence of acute CVA but clinically she has had a CVA. MRI could not be completed due to patient's CAREER DEVELOPMENT DIRECTOR shunt so a repeat CT of the head was done which did not show any evidence of stroke. Neurology assessment appreciated. They recommend eventual outpatient MRI at [facility] for shunt management Continue Keppra 500 mg twice daily, no need for EEG at this time. Of note, patient refused transesophageal echo Blood cultures ordered and pending. Physical therapy recommends rehab placement. (2) Hypomagnesemia: Plan: Corrected with parenteral replacement then low levels again today, October 10. Oral magnesium oxide ordered. Serial labs (3) NPH (normal pressure hydrocephalus): Plan: Recently treated with CAREER DEVELOPMENT DIRECTOR shunt placement at [place]. Currently stable seizure disorder on Keppra (4) Type 2 diabetes mellitus: Plan: HbA1C 7.6 [09/27/23]. Metformin currently on hold. Continue basal insulin therapy. ADA diet. Sliding scale coverage as needed (5) HTN (hypertension): Plan: Stable. Continue metoprolol (6) Hypothyroidism: Plan: Stable. Continue levothyroxine (7) Depression: Plan: Stable. Continue citalopram and buproprion (8) Diabetic peripheral neuropathy: Plan: Stable. Continue gabapentin Plan Anticipate IPR placement at discharge when arrangements are finalized. Admission and Anticipated Discharge Date Admission Date: October 08, 2023 Subjective Patient seen and examined today, says she does not want transesophageal echo because she did not think it was necessary. However denies any new complaints. Review of Systems Review of Systems: All systems reviewed are negative, apart from the ones contained in the history. Physical Exam Physical Exam: The patient is awake, alert and oriented 3, well developed and well nourished, normocephalic and atraumatic, lying in bed and in no acute distress. HEENT--PERRL, EOMI, mucous membranes and oropharynx mildly dry Neck--supple. No JVD. No bruits. Thyroid normal, trachea midline, no adenopathy. Heart--normal S1 and S2. No murmurs, rubs or gallops. Lungs--clear bilaterally, no respiratory distress, no accessory muscle use. Abdomen--normal bowel sounds and soft. Mild epigastric and left sided abdominal pain Extremities--no cyanosis or clubbing. No edema. Dermatologic--normal skin turgor, normal color, no abnormal lymph nodes, no rash. Neurologic--cranial nerves II through XII grossly intact. Rheumatologic--normal range of motion. Psychiatric--normal affect. Results & Data Results & Data Vital Signs (Past 12 Hours) Vital Signs Temp Pulse Pulse Resp BP Pulse Ox O2 Del Method 10/11/23 11:57 97.9 F 70 18 137/85 96 Room Air 10/11/23 10:19 55 L 10/11/23 08:01 98.2 F 60 18 127/81 97 Room Air 10/11/23 03:46 97.9 F 60 18 142/83 H 97 Room Air PG Care Time/CCT Total # of Minutes Spent Total Time Spent with Patient: Total time spent is greater than 50% in coordination of care (as documented) at patient's floor/unit and/or counseling patient: Coding Level of Care Code 42325 SUB INP/OBS CARE 2/35MIN Diagnoses Stroke-like episode R29.90 Hypomagnesemia E83.42 NPH (normal pressure hydrocephalus) G91.2 Type 2 diabetes mellitus E11.9 HTN (hypertension) I10 Hypothyroidism E03.9 Depression F32.A Diabetic peripheral neuropathy E11.42 Time Spent (min) 35
[2023-10-12] MEDS: LEVOTHYROXINE SODIUM 88 MCG TABLET PO SCH (05:54)
[2023-10-12 07:32] LABS: Basophils # (auto) 0.14 K/uL (0.00-0.20); Eosinophils # (auto) 0.59 K/uL (0.00-0.50); Eosinophils % (auto) 4.2 %; Hematocrit (blood only) 38.4 % (37.0-47.0); Hemoglobin 12.5 g/dl (12.0-16.0); Immature Granulocytes # (auto) 0.09 K/uL (0.01-0.20); Immature Granulocytes % (auto) 0.6 %; Lymphocytes # (auto) 3.66 K/uL (1.20-3.40); Lymphocytes % (auto) 26.3 %; Mean Corpuscular Hemoglobin 27.1 pg (25.0-34.0); Mean Corpuscular Hgb Conc 32.6 g/dL (32.0-36.0); Mean Corpuscular Volume 83.1 fL (80.0-100.0); Mean Platelet Volume 10.6 fL (9.4-12.4); Monocytes # (auto) 1.08 K/uL (0.11-0.59); Monocytes % (auto) 7.8 %; Neutrophils # (auto) 8.33 K/uL (1.40-6.50); Neutrophils % (auto) 60.1 %; Platelet Count 364 K/uL (130-400); RDW Coefficient of Variation 13.8 % (11.5-14.5); RDW Standard Deviation 41.9 fL (36.4-46.3); Red Blood Count 4.62 M/uL (4.20-5.40); White Blood Count 13.89 K/ul (4.8-10.8)
[2023-10-12 07:42] LABS: BUN Creatinine Ratio 21.5 (10-20); Calcium 9.3 mg/dl (8.6-10.3); Creatinine Clr Calc Pharmacy 58.8 ml/min; Est GFR (African American) 55.9 ml/min; Est GFR (Non-African American) 48.3 ml/min; Potassium 4.1 mmol/L (3.5-5.1)
[2023-10-12] MEDS: CARBOHYDRATES FOR HYPOGLYCEMIA PO PRN (07:55)
[2023-10-12] MEDS: ATORVASTATIN 40 MG TAB PO SCH (08:09)
[2023-10-12] MEDS: ASPIRIN 81 MG ECTAB PO SCH (08:09)
[2023-10-12] MEDS: CYANOCOBALAMIN (B-12) 500 MCG TABLET PO SCH (08:09)
[2023-10-12] MEDS: GABAPENTIN 300 MG CAP PO SCH (08:10)
[2023-10-12] MEDS: buPROPion HCl 100 MG TABLET PO SCH (08:10)
[2023-10-12] MEDS: CITALOPRAM 20 MG TAB PO SCH (08:10)
[2023-10-12] MEDS: levETIRAcetam 500 MG TAB PO SCH (08:10)
[2023-10-12] MEDS: MAGNESIUM OXIDE 400 MG TAB PO SCH (08:11)
[2023-10-12] MEDS: METOPROLOL SUCC 25MG EXT REL TAB PO SCH (08:11)
[2023-10-12] MEDS: OXYBUTYNIN CHLORIDE XL 5 MG TABCR PO SCH (08:12)
[2023-10-12] MEDS: INSULIN ASPART PER UNIT CHARGE SC SCH ×2 (10:35→12:40)
[2023-10-12] MEDS: LANTUS PER UNIT CHARGE SQ SCH (10:36)
[2023-10-12 11:21] VITALS: RESP 17; TEMP 97.7; O2SAT 97
--- NOTE | 2023-10-12 12:24 | Discharge Summary ---
Date of Service October 12, 2023 Admission HPI Per Admitting Provider Isadora Wells is a 63 year old female with normal pressure hydrocephalus s/p EDGE CUTTING MACHINE OPERATOR shunt who presents to the ER with slurred speech and left facial droop. On arrival to the ER she was NIHSS 0. The patient is unable to give any history. She reports remembering walking to breakfast and then back to her room but isn't sure what happened after that (she notably has a history of short term memory loss). On discussion with Jovani Nicholas there has been a change of shift and unfortunately nothing was handed over. History therefore taken from written yellow sheet from physical therapist at [facility]. "While speaking with client, client began slurring speech, speech was unclear and seemed slightly confused. Noticed what appeared to be a left facial droop. 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 BP appears WNL/ 138/82. Above symptoms appeared short lived - 304 minutes, Kurhs, PT, [facility] 570, 768, [id number]" Principal Diagnosis acute stroke Discharge Exam The patient is awake, alert and oriented 3, well developed and well nourished, normocephalic and atraumatic, lying in bed and in no acute distress. HEENT--PERRL, EOMI, mucous membranes and oropharynx mildly dry Neck--supple. No JVD. No bruits. Thyroid normal, trachea midline, no adenopathy. Heart--normal S1 and S2. No murmurs, rubs or gallops. Lungs--clear bilaterally, no respiratory distress, no accessory muscle use. Abdomen--normal bowel sounds and soft. Mild epigastric and left sided abdominal pain Extremities--no cyanosis or clubbing. No edema. Dermatologic--normal skin turgor, normal color, no abnormal lymph nodes, no rash. Neurologic--cranial nerves II through XII grossly intact. Rheumatologic--normal range of motion. Psychiatric--normal affect. Discharge Data Allergies Allergy/AdvReac Type Severity Reaction Status Date / Time No Known Allergies Allergy Unknown Verified 05/23/23 20:51 Consultations 10/07/23 14:47 ED Decision to Admit Stat 10/07/23 16:50 Consult Neurology Routine Ordered Studies 10/07/23 11:09 CT angio head w con Stat CT angio neck with con Stat CT head/brain wo con Stat 10/08/23 09:28 CT head/brain wo con Urgent Hospital Course (1) Stroke-like episode: Suspected acute ischemic CVA, possibly pontine. Neurology consultation and recommendations appreciated. She is now on low-dose aspirin and atorvastatin has been uptitrated. Lipid profile noted. Second head CT scan again reveals no evidence of acute CVA but clinically she has had a CVA. MRI could not be completed due to patient's EDGE CUTTING MACHINE OPERATOR shunt so a repeat CT of the head was done which did not show any evidence of stroke. Neurology assessment appreciated. They recommend eventual outpatient MRI at [facility] for shunt management Continue Keppra 500 mg twice daily, no need for EEG at this time. Of note, patient refused transesophageal echo Blood cultures negative after 48 hours. Physical therapy recommends rehab placement. (2) Hypomagnesemia: Corrected with parenteral replacement then low levels again today, October 10. Oral magnesium oxide ordered. Serial labs (3) NPH (normal pressure hydrocephalus): Recently treated with EDGE CUTTING MACHINE OPERATOR shunt placement at [place]. Currently stable seizure disorder on Keppra (4) Type 2 diabetes mellitus: HbA1C 7.6 [09/27/23]. Metformin currently on hold. Continue basal insulin therapy. ADA diet. Sliding scale coverage as needed (5) HTN (hypertension): Stable. Continue metoprolol (6) Hypothyroidism: Stable. Continue levothyroxine (7) Depression: Stable. Continue citalopram and buproprion (8) Diabetic peripheral neuropathy: Stable. Continue gabapentin Plan d/c to [facility] Total Time Total Time Spent Total Time Spent (In Minutes): 35 Discharge Plan Discharge Items Patient Disposition: Transfer Residential Fac Reason For Visit: STROKE LIKE SYMPTOMS Discharge Diagnosis: acute stroke Activity: Resume your previous activity Non-emergency contact: Primary Care Provider and Neurologist Call non-emergency contact if: you have any medication questions Follow-up/Referrals: Jamila Wood CRNP [Primary Care Provider] - Diet: Regular Addtl Attending Provider Instructions: please follow up with your regular PCP and neurologist Pending Studies at Discharge: No Stand-Alone Forms: My [employer], Medications to Prevent Stroke Skilled Items Patient informed of condition?: Yes DNR: No Discharge Level of Care: Skilled Communicable Disease: No Discharge Prognosis: Stable Lines: None Urinary Catheter: No Medications and DC Order Prescriptions: New aspirin 81 mg Tablet,Delayed Release (Dr/Ec) 81 mg PO QAM 30 Days Qty: 30 0RF atorvastatin 40 mg Tablet 40 mg PO DAILY 30 Days Qty: 30 0RF Continued tolterodine 2 mg capsule,extended release 24hr 2 mg PO DAILY Qty: 30 0RF insulin detemir U-100 100 unit/mL (3 mL) insulin pen 35 unit SUBCUT BID Qty: 15 0RF levetiracetam 500 mg tablet 500 mg PO BID bupropion HCl 100 mg tablet 100 mg PO DAILY levothyroxine 88 mcg tablet 88 mcg PO DAILY citalopram 20 mg tablet 20 mg PO QAM metformin 1,000 mg tablet 1,000 mg PO BID gabapentin 300 mg capsule 300 mg PO DAILY metoprolol succinate 25 mg tablet extended release 24 hr 25 mg PO DAILY acetaminophen [Tylenol] 325 mg Tablet 650 mg PO QID cyanocobalamin (vitamin B-12) [Vitamin B-12] 1,000 mcg Tablet 1,000 mcg PO QAM polyethylene glycol 3350 [Miralax] 17 gram powder in packet 17 g PO QAM PRN (Reason: Constipation) sennosides-docusate sodium [Senokot-S] 8.6-50 mg tablet 1 tab PO BID PRN (Reason: Constipation) oxycodone 5 mg tablet 5 mg PO Q6H PRN (Reason: Pain) Discontinued atorvastatin 10 mg tablet 10 mg PO DAILY Discharge Orders: Discharge Order (Routine); Ordered 10/12/23 Ordered By: Connie Almeida Admission Data Admit Date/Time: 10/08/23 09:11 Attending Provider: Connie Almeida Admit Provider: Anderson Winslow Primary Care Provider: Jamila Wood Other Providers: Anderson Winslow; Melvin Calvillo Coding Level of Care Code 73977 INP/OBS DISCH >30 MIN Diagnoses Stroke-like episode R29.90 Hypomagnesemia E83.42 NPH (normal pressure hydrocephalus) G91.2 Type 2 diabetes mellitus E11.9 HTN (hypertension) I10 Hypothyroidism E03.9 Depression F32.A Diabetic peripheral neuropathy E11.42 Time Spent (min) 35
[2023-10-12 13:09] VITALS: BP 126/81; PULSE 64
[2023-10-12] MEDS ORDERED: LANTUS PER UNIT CHARGE SQ SCH (21:00)
== END 2023-10-12 14:55 | disposition home or self-care (01) | DRG 65 ==
LOC: 2N 11:01 → ED 11:01 → SUATTDRO 14:52 → 2N 15:50 → SUATTDRO 10-08 09:11
DX: R47.1 Dysarthria and anarthria; I63.89 Other cerebral infarction; R29.700 NIHSS score 0; R47.81 Slurred speech; E11.42 Type 2 diabetes mellitus with diabetic polyneuropathy; Z98.2 Presence of cerebrospinal fluid drainage device; G83.14 Monoplegia of lower limb affecting left nondominant side; R29.810 Facial weakness; E83.42 Hypomagnesemia; Z79.84 Long term (current) use of oral hypoglycemic drugs; F32.A Depression, unspecified; G83.13 Monoplegia of lower limb affecting right nondominant side; G91.2 (Idiopathic) normal pressure hydrocephalus

== ENCOUNTER 2023-10-17 16:12 | Inpatient (IN) ==
[2023-10-17] MEDS ORDERED: SODIUM CHLORIDE 0.9% 500 ML IV SCH (16:45)
--- NOTE | 2023-10-17 16:47 | Emergency Department Note ---
Impression & Plan Fever, Hypomagnesemia, AMS (altered mental status), Acute CVA (cerebrovascular accident), COVID-19, Elevated lactic acid level ED Provider Note HISTORY OF PRESENT ILLNESS: Patient is a 63-year-old female presenting with confusion and recurrent falls. Patient presents from [facility] where she apparently slipped out of bed twice today. No reported striking of her head or loss of consciousness. Patient is alert to self only on arrival and is unable to provide any meaningful history. No reported fevers. Patient has no complaints on arrival to the ER. ROS: as above PHYSICAL EXAM: Constitutional: Patient appears in no acute distress. HENT: Head: Normocephalic and atraumatic. Eyes: EOMI, PERRL Mouth/Throat: Mucous membranes moist. Neck: Trachea midline. Neck supple. Cardiovascular: RRR, No murmurs, rubs or gallops. Intact distal pulses. Pulmonary/Chest: No respiratory distress. Breath sounds clear and equal bilaterally. No wheezes or rales. Abdominal: Abdomen soft, no tenderness, rebound or guarding. Musculoskeletal: No edema, tenderness or deformity noted. Patient is able to straight leg raise bilaterally. No tenderness palpation of the hip. Skin: Warm and dry. No rash, erythema, pallor or cyanosis Neurological: Alert to self only. CN II-XII grossly intact, moving all extremities equally and fully. MDM: - Vitals signs showed fever - History obtained via EMS, given patient's confusion. Patient presents with confusion and recurrent falls. Patient presents from her care facility where she reportedly slipped out of bed twice today. No reported striking of her head or loss of consciousness. Patient is alert to only herself. She was afebrile at her facility per reports. Patient has no complaints on arrival to the ER. - Chronic conditions affecting care: normal pressure hydrocephalus (s/p OCCUPATIONAL NURSE shunt); DM-2; hypothyroidism; depression - Differential diagnoses include, but are not limited to: UTI; pneumonia; CVA; electrolyte abnormality; viral syndrome; ACS - Order placed for continuous cardiac monitoring. At this time, monitor showed rate of 78 bpm with normal sinus rhythm, per my interpretation. - External medical records reviewed. Discharge summary dated 10/12/2023 was reviewed. Patient had been admitted for an acute stroke secondary to her slurred speech and left facial droop. - EKG reviewed by myself showed normal sinus rhythm. Rate 83 bpm. QTc 430. No acute ischemic changes. - Laboratory workup interpreted by myself showed leukocytosis (WBC 13.17); stable electrolytes other than hypomagnesemia (Mg 1.5); normal creatinine; elevated lactate (2.1); normal procalcitonin - Blood cultures obtained. - Patient given 2.5L NS. Patient's sepsis fluid volume resuscitation based on her ideal body weight is 1636.2 mL. Given 1g IV tylenol for fever. - Patient given 2g IV rocephin, given her fever and confusion. - UA negative for infection - VBG grossly unremarkable - CXR negative for pneumonia, per my interpretation - Respiratory viral panel positive for COVID - CT head wo contrast showed hyperdense focus within the left basal ganglia which is new since her previous CT scan, which suggests a an acute case of acute infarct. - Given 1g IV magnesium replacement - Discussion was had with family day care worker about patient's case and need for admission - Hospitalist consulted for admission - Patient admitted to [facility] for further evaluation and management. ASSESSMENT AND PLAN: Diagnosis: fever; altered mental status; COVID-19 infection; hypomagnesemia; CVA Plan: admit Past Med/Surg History Medical History (Updated 10/17/23 @ 19:14 by Destiny Peterson MD) Vitamin B12 deficiency Dehydration DKA (diabetic ketoacidosis) Nausea & vomiting Diabetic ketoacidosis Surgical History (Updated 09/18/23 @ 00:08 by Claire Herring) No pertinent past surgical history Social History Smoking Status: Unknown if ever smoked Second Hand Exposure: No; Do You Dip or Chew Tobacco: No; Hx Alcohol Use: No Hx Substance Use: No Preferred Language: Guatemalan Communication Ability: Effective Director Of Customer Service Required: No Beliefs That Will Affect Care: None Current Living Situation: Alone Feels Safe at Home: Yes Assistive Devices: Walker Allergies Allergies Allergy/AdvReac Type Severity Reaction Status Date / Time No Known Allergies Allergy Unknown Verified 05/23/23 20:51 Home Meds Home Medications Medication Instructions Recorded Confirmed acetaminophen 325 mg tablet 650 mg PO Q6 PRN PAIN/FEVER 10/07/23 10/17/23 (Tylenol) bupropion HCl 100 mg tablet 100 mg PO DAILY 10/07/23 10/17/23 citalopram 20 mg tablet 20 mg PO QAM 10/07/23 10/17/23 cyanocobalamin (vitamin B-12) 1,000 mcg PO QAM 10/07/23 10/17/23 1,000 mcg tablet (Vitamin B-12) gabapentin 300 mg capsule 300 mg PO HS 10/07/23 10/17/23 levetiracetam 500 mg tablet 500 mg PO BID 10/07/23 10/17/23 levothyroxine 88 mcg tablet 88 mcg PO DAILY 10/07/23 10/17/23 metformin 1,000 mg tablet 1,000 mg PO BID 10/07/23 10/17/23 metoprolol succinate 25 mg 25 mg PO DAILY 10/07/23 10/17/23 tablet,extended release 24 hr oxycodone 5 mg tablet 5 mg PO Q6H PRN Pain, Severe 10/07/23 10/17/23 polyethylene glycol 3350 17 gram 17 g PO DAILY PRN Constipation 10/07/23 10/17/23 oral powder packet (Miralax) insulin detemir U-100 100 unit/mL 30 unit subcut Q12 10/17/23 10/17/23 (3 mL) subcutaneous pen (Levemir FlexPen) Previous Rx's Medication Instructions Recorded tolterodine 2 mg capsule,extended 2 mg PO DAILY #30 caps 05/30/23 release 24 hr aspirin 81 mg tablet,delayed 81 mg PO QAM 30 days #30 tabs 10/12/23 release atorvastatin 40 mg tablet 40 mg PO DAILY 30 days #30 tabs 10/12/23 Results & Data (ED) Vital Signs Vital Signs - 24 hr 10/17/23 16:34 10/17/23 16:47 10/17/23 16:47 Temperature 38.5 C H Temperature Source Oral Pulse Rate 87 83 Pulse Rate [Apical] 85 Respiratory Rate 20 Respiratory Effort / Characteristics Respiratory Depth Normal Blood Pressure 193/91 H Blood Pressure [Right Arm] Blood Pressure Mean 125 Blood Pressure Mean [Right Arm] Blood Pressure Position Sitting Pulse Oximetry 95 Oxygen Delivery Method Room Air Sepsis Recent Fever Within 48 Hours Yes Sepsis New/Unexplained Change in Mental Status Yes Sepsis Action Taken by Nursing Physician Notified 10/17/23 16:47 10/17/23 17:35 10/17/23 18:38 Temperature 37.4 C Temperature Source Oral Pulse Rate Pulse Rate [Apical] 78 78 Respiratory Rate 18 18 Respiratory Effort / Characteristics Non-Labored Respiratory Depth Normal Blood Pressure Blood Pressure [Right Arm] 153/70 H 141/74 H Blood Pressure Mean Blood Pressure Mean [Right Arm] 97 96 Blood Pressure Position Pulse Oximetry 95 95 96 Oxygen Delivery Method Room Air Room Air Room Air Sepsis Recent Fever Within 48 Hours Sepsis New/Unexplained Change in Mental Status Sepsis Action Taken by Nursing 10/17/23 19:16 Temperature Temperature Source Pulse Rate Pulse Rate [Apical] 79 Respiratory Rate 20 Respiratory Effort / Characteristics Respiratory Depth Normal Blood Pressure Blood Pressure [Right Arm] 140/65 Blood Pressure Mean Blood Pressure Mean [Right Arm] 90 Blood Pressure Position Pulse Oximetry 97 Oxygen Delivery Method Room Air Sepsis Recent Fever Within 48 Hours Sepsis New/Unexplained Change in Mental Status Sepsis Action Taken by Nursing Laboratory Data 10/17/23 16:36 10/17/23 16:36 Lab Results 10/17/23 10/17/23 10/17/23 Range/Units 16:36 16:53 17:44 WBC 13.17 H (4.8-10.8) K/ul RBC 4.99 (4.20-5.40) M/uL Hgb 13.8 (12.0-16.0) g/dl Hct 41.3 (37.0-47.0) % MCV 82.8 (80.0-100.0) fL MCH 27.7 (25.0-34.0) pg MCHC 33.4 (32.0-36.0) g/dL RDW Std Deviation 42.3 (36.4-46.3) fL RDW Coeff of Nanda 14.1 (11.5-14.5) % Plt Count 305 (130-400) K/uL MPV 10.5 (9.4-12.4) fL Immature Gran % (Auto) 0.5 % Neut % (Auto) 74.1 % Lymph % (Auto) 14.9 % [place] % (Auto) 9.1 % Eos % (Auto) 0.6 % Baso % (Auto) 0.8 % Neut # (Auto) 9.75 H (1.40-6.50) K/uL Lymph # (Auto) 1.96 (1.20-3.40) K/uL [place] # (Auto) 1.20 H (0.11-0.59) K/uL Eos # (Auto) 0.08 (0.00-0.50) K/uL Baso # (Auto) 0.11 (0.00-0.20) K/uL Immature Gran # (Auto) 0.07 (0.01-0.20) K/uL VBG pH 7.38 (7.36-7.41) VBG pCO2 45 (38-50) mmHg VBG pO2 20 mmHg VBG HCO3 27 mmol/L VBG O2 Saturation < 60.0 % VBG Base Excess 1.0 mEq/L Sodium 136 (136-145) mmol/L Potassium 4.2 (3.5-5.1) mmol/L Chloride 100 (98-107) mmol/L Carbon Dioxide 27 (21-32) mmol/L Anion Gap 9 (3-11) BUN 18 (6-23) mg/dl Creatinine 1.10 (0.6-1.2) mg/dl Est Cr Clr Drug Dosing 66.9 ml/min Est GFR ( Amer) 62.8 ml/min Est GFR (Non-Af Amer) 54.1 ml/min BUN/Creatinine Ratio 16.4 (10-20) Glucose 157 H (70-99(Fasting)) mg/dl Lactate 2.1 H* (0.4-2.0) mmol/L Calcium 9.1 (8.6-10.3) mg/dl Magnesium 1.5 L (1.7-2.4) mg/dl Total Bilirubin 0.3 (0.2-1.0) mg/dl Direct Bilirubin 0.1 (0-0.2) mg/dl AST 15 (13-39) U/L ALT 12 (7-52) U/L Alkaline Phosphatase 94 (34-104) U/L Total Protein 8.0 (6.0-8.3) gm/dl Albumin 3.9 (3.4-5.0) gm/dl Procalcitonin 0.12 (0-0.5) ng/ml Urine Color Urine Appearance (Clear) Urine pH (4.5-7.5) Ur Specific [place] (1.000-1.030) Urine Protein (Negative) Urine Glucose (UA) (Negative) Urine Ketones (Negative) Urine Blood (Negative) Urine Nitrite (Negative) Urine Bilirubin (Negative) Urine Urobilinogen (Negative) Ur Leukocyte Esterase (Negative) Adenovirus (PCR) Not Detected (NotDetected) B. pertussis DNA (PCR) Not Detected (NotDetected) B.parapertussis DNA PCR Not Detected (NotDetected) C. pneumoniae DNA (PCR) Not Detected (NotDetected) Coronavirus OC43 (PCR) Not Detected (NotDetected) Coronavirus HKU1 (PCR) Not Detected (NotDetected) Coronavirus 229E (PCR) Not Detected (NotDetected) SARS-CoV-2 (PCR) DETECTED A* (NotDetected) Coronavirus NL63 (PCR) Not Detected (NotDetected) Human Metapneumovir PCR Not Detected (NotDetected) Influenza Type A (PCR) Not Detected (NotDetected) Influenza Type B (PCR) Not Detected (NotDetected) M. pneumoniae (PCR) Not Detected (NotDetected) Parainfluenza 1 (PCR) Not Detected (NotDetected) Parainfluenza 2 (PCR) Not Detected (NotDetected) Parainfluenza 3 (PCR) Not Detected (NotDetected) Parainfluenza 4 (PCR) Not Detected (NotDetected) RSV (PCR) Not Detected (NotDetected) Entero/Rhino (PCR) Not Detected (NotDetected) 10/17/23 10/17/23 Range/Units 18:30 18:48 WBC (4.8-10.8) K/ul RBC (4.20-5.40) M/uL Hgb (12.0-16.0) g/dl Hct (37.0-47.0) % MCV (80.0-100.0) fL MCH (25.0-34.0) pg MCHC (32.0-36.0) g/dL RDW Std Deviation (36.4-46.3) fL RDW Coeff of Nanda (11.5-14.5) % Plt Count (130-400) K/uL MPV (9.4-12.4) fL Immature Gran % (Auto) % Neut % (Auto) % Lymph % (Auto) % [place] % (Auto) % Eos % (Auto) % Baso % (Auto) % Neut # (Auto) (1.40-6.50) K/uL Lymph # (Auto) (1.20-3.40) K/uL [place] # (Auto) (0.11-0.59) K/uL Eos # (Auto) (0.00-0.50) K/uL Baso # (Auto) (0.00-0.20) K/uL Immature Gran # (Auto) (0.01-0.20) K/uL VBG pH (7.36-7.41) VBG pCO2 (38-50) mmHg VBG pO2 mmHg VBG HCO3 mmol/L VBG O2 Saturation % VBG Base Excess mEq/L Sodium (136-145) mmol/L Potassium (3.5-5.1) mmol/L Chloride (98-107) mmol/L Carbon Dioxide (21-32) mmol/L Anion Gap (3-11) BUN (6-23) mg/dl Creatinine (0.6-1.2) mg/dl Est Cr Clr Drug Dosing ml/min Est GFR ( Amer) ml/min Est GFR (Non-Af Amer) ml/min BUN/Creatinine Ratio (10-20) Glucose (70-99(Fasting)) mg/dl Lactate 2.3 H* (0.4-2.0) mmol/L Calcium (8.6-10.3) mg/dl Magnesium (1.7-2.4) mg/dl Total Bilirubin (0.2-1.0) mg/dl Direct Bilirubin (0-0.2) mg/dl AST (13-39) U/L ALT (7-52) U/L Alkaline Phosphatase (34-104) U/L Total Protein (6.0-8.3) gm/dl Albumin (3.4-5.0) gm/dl Procalcitonin (0-0.5) ng/ml Urine Color Yellow Urine Appearance Clear (Clear) Urine pH 5.5 (4.5-7.5) Ur Specific [place] 1.021 (1.000-1.030) Urine Protein Negative (Negative) Urine Glucose (UA) Negative (Negative) Urine Ketones Negative (Negative) Urine Blood Negative (Negative) Urine Nitrite Negative (Negative) Urine Bilirubin Negative (Negative) Urine Urobilinogen Negative (Negative) Ur Leukocyte Esterase Negative (Negative) Adenovirus (PCR) (NotDetected) B. pertussis DNA (PCR) (NotDetected) B.parapertussis DNA PCR (NotDetected) C. pneumoniae DNA (PCR) (NotDetected) Coronavirus OC43 (PCR) (NotDetected) Coronavirus HKU1 (PCR) (NotDetected) Coronavirus 229E (PCR) (NotDetected) SARS-CoV-2 (PCR) (NotDetected) Coronavirus NL63 (PCR) (NotDetected) Human Metapneumovir PCR (NotDetected) Influenza Type A (PCR) (NotDetected) Influenza Type B (PCR) (NotDetected) M. pneumoniae (PCR) (NotDetected) Parainfluenza 1 (PCR) (NotDetected) Parainfluenza 2 (PCR) (NotDetected) Parainfluenza 3 (PCR) (NotDetected) Parainfluenza 4 (PCR) (NotDetected) RSV (PCR) (NotDetected) Entero/Rhino (PCR) (NotDetected) Administered Medications Magnesium Sulfate/Dextrose (Magnesium Sulfate / D5w) 1 gm in 100 mls @ 100 mls/hr IV NOW STA Stop: 10/17/23 20:05 Last Admin: 10/17/23 19:12 Dose: 100 mls/hr Documented By: SHARLA Discontinued Medications Sodium Chloride (Nss) 500 mls @ 999 mls/hr IV .Q31M [facility] Stop: 10/17/23 17:15 Last Infusion: 10/17/23 18:33 Dose: Infused Documented By: Admin: 10/17/23 17:27 Dose: 999 mls/hr Documented By: SHARLA Sodium Chloride (Nss) 1,000 mls @ 999 mls/hr IV .Q1H1M [facility] Stop: 10/17/23 18:45 Last Admin: 10/17/23 18:33 Dose: 999 mls/hr Documented By: Infusion: 10/17/23 18:33 Dose: Infused Documented By: Admin: 10/17/23 17:28 Dose: 999 mls/hr Documented By: SHARLA Acetaminophen (Ofirmev) 1,000 mg in 100 mls @ 400 mls/hr IV NOW STA Stop: 10/17/23 17:12 Last Infusion: 10/17/23 17:43 Dose: Infused Documented By: Admin: 10/17/23 17:28 Dose: 400 mls/hr Documented By: SHARLA Ceftriaxone Sodium (Rocephin) 2,000 mg in 50 mls @ 100 mls/hr IV NOW STA Stop: 10/17/23 17:28 Last Infusion: 10/17/23 18:33 Dose: Infused Documented By: Admin: 10/17/23 17:28 Dose: 100 mls/hr Documented By: SHARLA Imaging Data Radiologist's Impression: Chest X-Ray 10/17/23 16:44 XR chest 1V portable CLINICAL HISTORY: Sepsis. COMPARISON STUDY: Chest radiograph October 07, 2023. FINDINGS: Visualized portions of the OCCUPATIONAL NURSE shunt catheter are intact. Lung volumes are normal. Lungs are clear. There is no pneumothorax or pleural effusion. Cardiac size is normal. Mediastinal contours are normal. There is no evidence for pulmonary edema. IMPRESSION: No acute cardiopulmonary findings. ACT 112: Negative or not required by law. Electronically signed by: Zander Mallory M.D. 10/17/2023 4:[address] 10/17/23 16:44 CT OF THE HEAD WITHOUT CONTRAST CLINICAL HISTORY: confusion; fall COMPARISON STUDY: Head CT October 08, 2023. CT DOSE: 547.75 mGy.cm TECHNIQUE: Helical axial images of the head were obtained without IV contrast. Automated exposure control was utilized for the study. A dose lowering technique was utilized adhering to the principles of ALARA. FINDINGS: Right ventriculostomy catheter is unchanged in position. Ventricular dilatation is unchanged. Basal cisterns are patent. There are no extra-axial collections. White matter hypodensities are similar to prior exam. A 1.1 cm hypodensity within the left basal ganglia on axial image is new since prior CT. Otherwise, the appearance of the brain is unchanged. No acute calvarial fracture is present. IMPRESSION: 1. No acute intracranial hemorrhage. 2. 1.1 cm hypodense focus within left basal ganglia which is new since prior head CT. This suggests a subacute to acute infarct. No mass effect. 3. Right frontal ventriculostomy catheter in place. Stable ventricular dilatation. ACT 112: Negative or not required by law. Electronically signed by: Zander Mallory M.D. 10/17/2023 5:17 PM Discharge Plan Visit Data Chief Complaint: Fall ED Provider: Destiny Peterson Discharge Problem: Fever, Hypomagnesemia, AMS (altered mental status), Acute CVA (cerebrovascular accident), COVID-19, Elevated lactic acid level Forms Stand Alone Forms: My [facility] Prescriptions Prescriptions: No Action Levemir FlexPen 100 unit/mL (3 mL) Insulin Pen 30 unit SUBCUT Q12 Rx Instructions: take at 8am and 8pm tolterodine 2 mg capsule,extended release 24hr 2 mg PO DAILY Qty: 30 0RF levetiracetam 500 mg tablet 500 mg PO BID bupropion HCl 100 mg tablet 100 mg PO DAILY levothyroxine 88 mcg tablet 88 mcg PO DAILY citalopram 20 mg tablet 20 mg PO QAM metformin 1,000 mg tablet 1,000 mg PO BID gabapentin 300 mg capsule 300 mg PO HS metoprolol succinate 25 mg tablet extended release 24 hr 25 mg PO DAILY acetaminophen [Tylenol] 325 mg Tablet 650 mg PO Q6 PRN (Reason: PAIN/FEVER) cyanocobalamin (vitamin B-12) [Vitamin B-12] 1,000 mcg Tablet 1,000 mcg PO QAM polyethylene glycol 3350 [Miralax] 17 gram powder in packet 17 g PO DAILY PRN (Reason: Constipation) oxycodone 5 mg tablet 5 mg PO Q6H PRN (Reason: Pain, Severe) aspirin 81 mg Tablet,Delayed Release (Dr/Ec) 81 mg PO QAM 30 Days Qty: 30 0RF atorvastatin 40 mg Tablet 40 mg PO DAILY 30 Days Qty: 30 0RF Referrals Referrals: Jamila Wood CRNP [Primary Care Provider] -
[2023-10-17] MEDS ORDERED: ACETAMINOPHEN 1,000 MG/100 ML VIAL IV STA (16:58)
[2023-10-17 16:59] LABS: HCO3 VBG 27 mmol/L; Oxygen Saturation VBG < 60.0 %; PCO2 VBG 45 mmHg (38-50); PO2 VBG 20 mmHg; pH VBG 7.38 (7.36-7.41)
[2023-10-17] MEDS ORDERED: cefTRIAXone SODIUM 2,000 MG/50 ML BAG IV STA (16:59)
--- NOTE | 2023-10-17 17:00 | XRay Report ---
XR chest 1V portable CLINICAL HISTORY: Sepsis. COMPARISON STUDY: Chest radiograph October 07, 2023. 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 Lung volumes are normal. Lungs are clear. There is no pneumothorax or pleural effusion. Cardiac size is normal. Mediastinal contours ar e normal. There is no evidence for pulmonary edema. IMPRESSION: No acute cardiopulmonary findings. ACT 112: Negative or not required by law. Electronically signed by: Zander Mallory M.D. 10/17/2023 4:59 PM
[2023-10-17 17:01] LABS: Basophils # (auto) 0.11 K/uL (0.00-0.20); Basophils % (auto) 0.8 %; Eosinophils # (auto) 0.08 K/uL (0.00-0.50); Eosinophils % (auto) 0.6 %; Hematocrit (blood only) 41.3 % (37.0-47.0); Hemoglobin 13.8 g/dl (12.0-16.0); Immature Granulocytes # (auto) 0.07 K/uL (0.01-0.20); Immature Granulocytes % (auto) 0.5 %; Lymphocytes # (auto) 1.96 K/uL (1.20-3.40); Lymphocytes % (auto) 14.9 %; Mean Corpuscular Hemoglobin 27.7 pg (25.0-34.0); Mean Corpuscular Hgb Conc 33.4 g/dL (32.0-36.0); Mean Corpuscular Volume 82.8 fL (80.0-100.0); Mean Platelet Volume 10.5 fL (9.4-12.4); Monocytes % (auto) 9.1 %; Neutrophils # (auto) 9.75 K/uL (1.40-6.50); Neutrophils % (auto) 74.1 %; Platelet Count 305 K/uL (130-400); RDW Coefficient of Variation 14.1 % (11.5-14.5); RDW Standard Deviation 42.3 fL (36.4-46.3); Red Blood Count 4.99 M/uL (4.20-5.40); White Blood Count 13.17 K/ul (4.8-10.8)
--- NOTE | 2023-10-17 17:18 | CT Scan Report ---
CT OF THE HEAD WITHOUT CONTRAST CLINICAL HISTORY: confusion; fall COMPARISON STUDY: Head CT October 08, 2023. CT DOSE: 547.75 mGy.cm TECHNIQUE: Helical axial images of the head were obtained without IV contrast. Automated exposure con trol was utilized for the study. A dose lowering technique was utilized adhering to the principles o f ALARA. FINDINGS: Right ventriculostomy catheter is unchanged in position. Ventricular dilatation is unchange d. Basal cisterns are patent. There are no extra-axial collections. White matter hypodensities are si milar to prior exam. A 1.1 cm hypodensity within the left basal ganglia on axial image 11 of 28 is ne w since prior CT. Otherwise, the appearance of the brain is unchanged. No acute calvarial fracture is present. IMPRESSION: 1. No acute intracranial hemorrhage. 2. 1.1 cm hypodense focus within left basal ganglia which is new since prior head CT. This suggests a subacute to acute infarct. No mass effect. 3. Right frontal ventriculostomy catheter in place. Stable ventricular dilatation. ACT 112: Negative or not required by law. Electronically signed by: Zander Mallory M.D. 10/17/2023 5:17 PM
[2023-10-17 17:23] LABS: Albumin Level 3.9 gm/dl (3.4-5.0); BUN Creatinine Ratio 16.4 (10-20); Bilirubin Direct 0.1 mg/dl (0-0.2); Bilirubin,Total 0.3 mg/dl (0.2-1.0); Calcium 9.1 mg/dl (8.6-10.3); Creatinine Clr Calc Pharmacy 66.9 ml/min; Est GFR (African American) 62.8 ml/min; Est GFR (Non-African American) 54.1 ml/min; Magnesium 1.5 mg/dl (1.7-2.4); Potassium 4.2 mmol/L (3.5-5.1)
[2023-10-17] MEDS: SODIUM CHLORIDE 0.9% 1,000 ML IV SCH ×2 (17:28→18:33)
[2023-10-17 18:46] LABS: Adenovirus PCR Not Detected (NotDetected); Bordetella parapertussis PCR Not Detected (NotDetected); Bordetella pertussis PCR Not Detected (NotDetected); Chlamydia pneumoniae PCR Not Detected (NotDetected); Coronavirus 229E PCR Not Detected (NotDetected); Coronavirus HKU1 PCR Not Detected (NotDetected); Coronavirus NL63 PCR Not Detected (NotDetected); Coronavirus OC43PCR Not Detected (NotDetected); Human Metapneumovirus PCR Not Detected (NotDetected); Influenza A PCR Not Detected (NotDetected); Influenza B PCR Not Detected (NotDetected); Mycoplasma pneumoniae PCR Not Detected (NotDetected); Parainfluenza Virus 1 PCR Not Detected (NotDetected); Parainfluenza Virus 2 PCR Not Detected (NotDetected); Parainfluenza Virus 3 PCR Not Detected (NotDetected); Parainfluenza Virus 4 PCR Not Detected (NotDetected); Respiratory Syncytial VirusPCR Not Detected (NotDetected); Rhinovirus/Enterovirus PCR Not Detected (NotDetected)
[2023-10-17 18:50] LABS: Appearance Urine Clear (Clear); Bilirubin Urine Negative (Negative); Blood Urine Negative (Negative); Color Urine Yellow; Glucose Urine UA Negative (Negative); Ketones Urine Negative (Negative); Leukocyte Esterase Urine Negative (Negative); Nitrite Urine Negative (Negative); Protein Urine Negative (Negative); Specific Gravity Urine 1.021 (1.000-1.030); Urobilinogen Urine Negative (Negative); pH Urine 5.5 (4.5-7.5)
[2023-10-17 18:52] LABS: Coronavirus CoV-2 (COVID19)PCR DETECTED (NotDetected)
[2023-10-17] MEDS ORDERED: SODIUM CHLORIDE 0.9% 1,000 ML IV ONE (19:06)
[2023-10-17] MEDS ORDERED: MAGNESIUM SULFATE / D5W 1 GM/100 ML BAG IV STA (19:06)
--- NOTE | 2023-10-17 19:36 | History & Physical Report ---
Date of Service October 17, 2023 Assessment & Plan (1) AMS (altered mental status): Plan: -Admit to med/tele on continuous pulse oximetry -Patient was sent to the ED from [facility] for fever, increased confusion, and multiple falls over the past 48 hours -At this time the patient's acute AMS is most consistent with encephalopathy from Covid 19 infection and dehydration -Chest xray and UA are negative for infection, CT head is stable, no focal neuro defects on exam, no seizure-like activity -CT of the head wo con today does show "1.1 cm hypodense focus within left basal ganglia which is new since prior head CT. This suggests a subacute to acute infarct.". >This is likely signs of her suspected left-sided CVA last admission -Will consult neurology to evaluate tomorrow -Cannot have MRI of the brain here with her [employer] shunt -Continue aspirin and statin -Will continue IV fluid hydration and supportive care at this time -Will continue home Keppra -Fall/aspiration precautions -Hold chemical DVT PPX for now with multiple recent falls, BL DIANN's to start -DMII diet if she passes bedside dysphagia screen -AM CBC, CMP, Mag, PT/INR (2) COVID-19: Plan: -Positive today -Stable on RA with clear CXR -Supportive care for now with incentive spirometry, flutter therapy, and prn tylenol (3) Elevated lactic acid level: Plan: -Initial lactate at 2.1, repeat up to 2.3 -Likely due to acute illness and dehydration -No other signs of infection besides Covid 19 at this time -Appears dehydrated on exam -S/P 1.5L NSS in the ED, will start LR at 100 mL/hr x 1 bag for now -Will repeat lactate later tonight, if still elevated can continue IV fluids (4) Fall: Plan: -Fell out of bed twice and lost her balance causing her to fall backwards while standing earlier today at [facility] -Likely due to acute illness and deconditioning -No acute trauma -Fall precautions ordered (5) NPH (normal pressure hydrocephalus): Plan: -S/P [employer] shunt placement at [facility] approximately 6 weeks ago -Stable on CT head today -Continue to monitor (6) Acute CVA (cerebrovascular accident): Plan: -Suspected on last admission earlier this month -Unsure if CT head findings today are from her suspected CVA last admission or new from discharge -Not a candidate for TNK due to timing of symptoms 48 hours prior -Neurology consult place -Continue aspirin and statin for now (7) Hypomagnesemia: Plan: -1.5 today -Likely from recent poor oral intake -S/P 1gm IV mag sulfate in the ED -Follow am mag level and monitor on tele (8) Type 2 diabetes mellitus: Plan: -Hold metformin -Monitor BSG q6h overnight, goal is 110-160 -Normally takes 30 units Detemir q12h, will start with 10 units lantus BID to avoid hypoglycemia with poor oral intake -Start CF of 50 -DMII diet if she passes dysphagia screen -Adjust regimen as needed (9) HTN (hypertension): Plan: -Stable -Continue metoprolol (10) Hypothyroidism: Plan: -Continue levothyroxine (11) Anxiety: Plan: -Continue Wellbutrin and citalopram Plan The patient was discussed with Dr. Cox at the time of the admission History of Present Illness Chief Complaint: AMS, multiple falls, fever Primary Care Provider: MARTI Sweeney Isaodra is a 63 year old female with a PMH significant for normal pressure hydrocephalus s/p [employer] shunt at [facility] approximately 6 weeks ago, short-term memory loss, hypothyroidism, DMII, HTN, and recent admission to [facility] for possible CVA who presented to the [facility] ED via EMS from [facility] for increased confusion, fever, and multiple falls today. She was initially noted to be febrile at 38.5C and hypertensive at 193/91 but otherwise stable. Labs were significant for a leukocytosis of 13 with neutrophil predominance of 9.75, initial lactate of 2.1 with repeat of 2.3, mag of 1.5, negative procal, negative UA, and Covid 19 positive. Prior to admission the patient was given 1.5L NSS, ordered an additional 1L NSS, 1gm IV tylenol, 1gm IV mag-sulfate, and a dose of ceftriaxone. At the time of the exam the patient was sitting in bed and tearful but in no acute distress. She states that she is emotional due to the significant amount of medical issues she has been dealing with recently. She remembers her fall earlier today and is currently oriented to person, place, month, and year. When asked, she states that she lost her balance and fell backwards when staring up from her recliner. She denies felling lightheaded or dizzy, changes in vision, hearing, taste, and smell, chest pain, heart palpitations, SOB before or after the fall. She denies hitting her head or losing losing consciousness. She denies any pain after the fall. We discussed code status, she is a full code. I called and spoke to the [facility] in [place]. Staff confirms that she slid out of bed twice today and had one fall while trying to stand. They sent her to the ED as she was febrile and was more confused than normal. They state she was having difficulty remembering what procedure she had performed at [facility] recently, which is why they sent her to be evaluated. They state that she has not been eating or drinking well over the past 48 hours. The patient was recently admitted to [facility] from 10/07-10/12 for strokelike symptoms, slowed dysarthric speech, right upper and lower facial weakness. The patient had no acute findings on initial CT head and CTA Head/neck and could not undergo brain MRI due to her [employer] shunt. Neurology was consulted and believed the patient most likely had an acute/sub-acute infarct based on clinical findings. The patient was started on aspirin, her dose of Atorvastatin was increased, and she was started on BID Keppra. The patient underwent TTE during her admission, Neurology recommended ARELI after TTE revealed sclerotic aortic valve with focal calcifications on the left coronary cusp, vegetation/mass could not be excluded. Per the DC summary, the patient refused a ARELI as she did not believe that she needed one at that time. Please refer to Dr. Cox's attestation for any changes to the treatment plan Allergies Allergy/AdvReac Type Severity Reaction Status Date / Time No Known Allergies Allergy Unknown Verified 05/23/23 20:51 Home Medications Medication Instructions Recorded Confirmed Type tolterodine 2 mg capsule,extended 2 mg PO DAILY #30 caps 05/30/23 10/17/23 Rx release 24 hr acetaminophen 325 mg tablet 650 mg PO Q6 PRN PAIN/FEVER 10/07/23 10/17/23 History (Tylenol) bupropion HCl 100 mg tablet 100 mg PO DAILY 10/07/23 10/17/23 History citalopram 20 mg tablet 20 mg PO QAM 10/07/23 10/17/23 History cyanocobalamin (vitamin B-12) 1,000 mcg PO QAM 10/07/23 10/17/23 History 1,000 mcg tablet (Vitamin B-12) gabapentin 300 mg capsule 300 mg PO HS 10/07/23 10/17/23 History levetiracetam 500 mg tablet 500 mg PO BID 10/07/23 10/17/23 History levothyroxine 88 mcg tablet 88 mcg PO DAILY 10/07/23 10/17/23 History metformin 1,000 mg tablet 1,000 mg PO BID 10/07/23 10/17/23 History metoprolol succinate 25 mg 25 mg PO DAILY 10/07/23 10/17/23 History tablet,extended release 24 hr oxycodone 5 mg tablet 5 mg PO Q6H PRN Pain, Severe 10/07/23 10/17/23 History polyethylene glycol 3350 17 gram 17 g PO DAILY PRN Constipation 10/07/23 History oral powder packet (Miralax) aspirin 81 mg tablet,delayed 81 mg PO QAM 30 days #30 tabs 10/12/23 10/17/23 Rx release atorvastatin 40 mg tablet 40 mg PO DAILY 30 days #30 tabs 10/12/23 10/17/23 Rx insulin detemir U-100 100 unit/mL 30 unit subcut Q12 10/17/23 10/17/23 History (3 mL) subcutaneous pen (Levemir FlexPen) Past Med/Surg History Medical History (Updated 10/17/23 @ 19:14 by Destiny Peterson MD) Vitamin B12 deficiency Dehydration DKA (diabetic ketoacidosis) Nausea & vomiting Diabetic ketoacidosis Surgical History (Updated 09/18/23 @ 00:08 by Claire Herring) No pertinent past surgical history Social History Smoking Status: Unknown if ever smoked Second Hand Exposure: No; Do You Dip or Chew Tobacco: No; Hx Alcohol Use: No Hx Substance Use: No Preferred Language: Maltese Communication Ability: Effective Summer Analyst Required: No Beliefs That Will Affect Care: None Current Living Situation: Alone Feels Safe at Home: Yes Assistive Devices: Walker Physical Exam Physical Exam: Physical Exam: General: In mild distress, stated age, non-toxic appearing HEENT: Patient with previous [employer] shunt site on the right scalp which appears intact and well-healed, no scleral icterus, pupils around round, symmetrical, and reactive to light, dry mucus membranes, trachea midline, no thyromegaly Chest/Pulm: No respiratory distress, symmetrical chest expansion, clear breath sounds throughout Cardiac: RRR, no murmurs noted Abdomen: Negative for ascites and bruising, normoactive bowel sounds, soft, non-tender to palpation throughout Musculoskeletal: Symmetrical and without signs of acute trauma, upper and lower extremities with full ROM, no atrophy, spasticity, or flaccidity Extremities: Radial, dorsalis pedis, and posterior tibial pulses are intact and symmetrical, no edema noted in the BL LE's Skin: Warm, dry, no rashes , lesions, or scars noted Neuro: Alert and oriented to person, place, month, year, no focal defects, CN II-XII tested and intact, no tremors noted Psych: mild distress, but polite and cooperative during the exam, answers questions appropriately Results & Data Results & Data Vital Signs (Past 12 Hours) Vital Signs Temp Pulse Pulse Resp BP BP Pulse Ox 10/17/23 19:16 79 20 140/65 97 10/17/23 18:38 37.4 C 78 18 141/74 H 96 10/17/23 17:35 78 18 153/70 H 95 10/17/23 16:47 95 10/17/23 16:47 85 10/17/23 16:47 38.5 C H 83 20 193/91 H 95 10/17/23 16:34 87 O2 Del Method 10/17/23 19:16 Room Air 10/17/23 18:38 Room Air 10/17/23 17:35 Room Air 10/17/23 16:47 Room Air 10/17/23 16:47 10/17/23 16:47 Room Air 10/17/23 16:34 Laboratory Results Abnormal lab results 10/17/23 10/17/23 10/17/23 Range/Units 16:36 17:44 18:48 WBC 13.17 H (4.8-10.8) K/ul Neut # (Auto) 9.75 H (1.40-6.50) K/uL Evangeline # (Auto) 1.20 H (0.11-0.59) K/uL Glucose 157 H (70-99(Fasting)) mg/dl Lactate 2.1 H* 2.3 H* (0.4-2.0) mmol/L Magnesium 1.5 L (1.7-2.4) mg/dl SARS-CoV-2 (PCR) DETECTED A* (NotDetected) Diagnostic Findings Chest X-Ray 10/17/23 16:44 XR chest 1V portable CLINICAL HISTORY: Sepsis. COMPARISON STUDY: Chest radiograph October 07, 2023. FINDINGS: Visualized portions of the [employer] shunt catheter are intact. Lung volumes are normal. Lungs are clear. There is no pneumothorax or pleural effusion. Cardiac size is normal. Mediastinal contours are normal. There is no evidence for pulmonary edema. IMPRESSION: No acute cardiopulmonary findings. ACT 112: Negative or not required by law. Electronically signed by: Zander Mallory M.D. 10/17/2023 4:[address] 10/17/23 16:44 CT OF THE HEAD WITHOUT CONTRAST CLINICAL HISTORY: confusion; fall COMPARISON STUDY: Head CT October 08, 2023. CT DOSE: 547.75 mGy.cm TECHNIQUE: Helical axial images of the head were obtained without IV contrast. Automated exposure control was utilized for the study. A dose lowering technique was utilized adhering to the principles of ALARA. FINDINGS: Right ventriculostomy catheter is unchanged in position. Ventricular dilatation is unchanged. Basal cisterns are patent. There are no extra-axial collections. White matter hypodensities are similar to prior exam. A 1.1 cm hypodensity within the left basal ganglia on axial image of is new since prior CT. Otherwise, the appearance of the brain is unchanged. No acute calvarial fracture is present. IMPRESSION: 1. No acute intracranial hemorrhage. 2. 1.1 cm hypodense focus within left basal ganglia which is new since prior head CT. This suggests a subacute to acute infarct. No mass effect. 3. Right frontal ventriculostomy catheter in place. Stable ventricular dilatation. ACT 112: Negative or not required by law. Electronically signed by: Zander Mallory M.D. 10/17/2023 5:17 PM ECG Additional Comments: Normal sinus rhythm Minimal voltage criteria for LVH, may be normal variant ( Alex product ) Borderline ECG When compared with ECG of 07-OCT-2023 11:07, No significant change was found Code Status & VTE Plan Code Status Full code VTE Prophylaxis Plan VTE Prophylaxis will be ordered: Yes Supervising Physician Co-Signing Physician Notes Patient seen and examined, chart reviewed, case discussed with MADAN Baeza and I agree with the assessment and plan as above. In brief, patient is a 63yo female with history of NPH s/p [employer] shunt performed at [facility] 6 weeks ago, DM, HTN and recent admission to [facility] for possible CVA presenting from [facility] for increased confusion, falling from bed x 2. Febrile at 38.5. Found to be POSITIVE for Covid-19 infection. On exam she is febrile, hypertensive, adequate oxygenation on room air Patient sleeping, arousable, answering questions in one word answers Skin - intact ,no rash HEENT - NC/AT, PERRL, dry mucus membranes Lungs - CTA, no rales/rhonchi/wheezes Abd - +BS, soft, NT/ND Ext- warm, 2+ pulses Labs and images reviewed. WBC=13.17 Covid-19 POSITIVE Repeat lactate = 1.6 Assessment/Plan: Covid-19 - likely cause for patient's confusion. Adequate oxygenation on room air - no indication for treatment with steroids or Remdesivir at this time. CT findings as above with new hypodense lesion, possibly subacute infarct. Patient is unable to get an MRI due to presence of a [employer] shunt. Imaging performed at last visit to [facility] did not show acute CVA - possibly now appearing on imaging? She was recommended to go to [facility] to get an MRI performed. Continue ASA and Statin Continue Keppra Neuro evaluation appreciated Remainder of plan as above. PG Care Time/CCT Total # of Minutes Spent Total Time Spent with Patient: Total time spent is greater than 50% in coordination of care (as documented) at patient's floor/unit and/or counseling patient: [place] [address] INT INP/OBS CARE 2/55MIN Patient Type Established Medical Decision Making Moderate Complexity Diagnoses AMS (altered mental status) R41.82 COVID-19 U07.1 Elevated lactic acid level R79.89 Fall W19.XXXA Encounter type: initial encounter NPH (normal pressure hydrocephalus) G91.2 Acute CVA (cerebrovascular accident) I63.9 Hypomagnesemia E83.42 Type 2 diabetes mellitus E11.9 HTN (hypertension) I10 Hypothyroidism E03.9 Anxiety F41.9 (4) Fall Encounter type: initial encounter Qualified Code(s): W19.XXXA - Unspecified fall, initial encounter
[2023-10-17] MEDS ORDERED: DEXTROSE 50% 50 ML SYRINGE IV PRN (21:07)
[2023-10-17] MEDS ORDERED: GLUCOSE 40% GEL 15 GM TUBE PO PRN (21:07)
[2023-10-17] MEDS ORDERED: GLUCOSE 10 TAB/TUBE PO PRN (21:07)
[2023-10-17] MEDS ORDERED: CARBOHYDRATES FOR HYPOGLYCEMIA PO PRN (21:07)
[2023-10-17] MEDS ORDERED: GLUCAGON FOR INJ 1 MG VIAL SQ PRN (21:07)
[2023-10-17] MEDS ORDERED: LACTATED RINGER'S 1,000 ML IV SCH (21:15)
[2023-10-17] MEDS ORDERED: ACETAMINOPHEN 325 MG TAB PO PRN (21:19)
[2023-10-17] MEDS: LANTUS PER UNIT CHARGE SQ SCH (21:35)
[2023-10-17] MEDS ORDERED: GABAPENTIN 300 MG CAP PO SCH (21:42)
[2023-10-17] MEDS: levETIRAcetam 500 MG TAB PO SCH (23:06)
--- OUTSIDE RECORDS SUMMARY | 2023-10-17 23:11 | External Medical Summary | Summary of Care ---
Author Name Unknown Organization [facility] Address [address] [place] [address] Phone [phone] Care Team Providers Care Filling Operator Name Role Phone Spring Alvin Randy SANDOVAL Primary Care Provider Encounter Details Date Type Department Care Team (Late st Contact Info) Description 10/12/2023 Population Health External Data Unspecified Department Allergies No known active allergiesdocumented as of this encounter (statuses as of 10/12/2023) Medications Medication Sig Dispensed Refills Start Date [...] as of this encounter (statuses as of 10/12/2023) Active Problems Problem Noted Date Diagnosed Date Mixed hearing loss, bilateral 02/17/2009 OTITIS MEDIA,CHRONIC 02/17/2009 RECURRENT ACUTE SINUSITIS 09/17/2008 Allergic rhinitis 09/17/2008 Dysfunction of eustachian tube 09/17/2008 documented as of this encounter (statuses as of 10/12/2023) Social History Tobacco Use Types Packs/Day Years [...] filedocumented as of this encounter Care Teams Filling Operator Relationship Specialty Start Date End Date Alvin Londono DO [address] [address] PCP - General Family Medicine 11/06/15 documented as of this encounter
[2023-10-18 04:43] LABS: Basophils # (auto) 0.08 K/uL (0.00-0.20); Basophils % (auto) 0.5 %; Eosinophils # (auto) 0.05 K/uL (0.00-0.50); Eosinophils % (auto) 0.3 %; Hematocrit (blood only) 38.6 % (37.0-47.0); Hemoglobin 12.3 g/dl (12.0-16.0); Immature Granulocytes % (auto) 0.7 %; Lymphocytes # (auto) 1.23 K/uL (1.20-3.40); Lymphocytes % (auto) 8.1 %; Mean Corpuscular Hgb Conc 31.9 g/dL (32.0-36.0); Mean Corpuscular Volume 84.6 fL (80.0-100.0); Mean Platelet Volume 10.3 fL (9.4-12.4); Monocytes # (auto) 1.18 K/uL (0.11-0.59); Monocytes % (auto) 7.8 %; Neutrophils # (auto) 12.49 K/uL (1.40-6.50); Neutrophils % (auto) 82.6 %; Platelet Count 264 K/uL (130-400); RDW Coefficient of Variation 13.7 % (11.5-14.5); RDW Standard Deviation 42.9 fL (36.4-46.3); Red Blood Count 4.56 M/uL (4.20-5.40); White Blood Count 15.13 K/ul (4.8-10.8)
[2023-10-18 04:52] LABS: Albumin Globulin Ratio 0.9 (0.9-2); Albumin Level 3.5 gm/dl (3.4-5.0); BUN Creatinine Ratio 15.8 (10-20); Bilirubin,Total 0.3 mg/dl (0.2-1.0); Calcium 8.4 mg/dl (8.6-10.3); Creatinine Clr Calc Pharmacy 77.4 ml/min; Est GFR (African American) 74.9 ml/min; Est GFR (Non-African American) 64.6 ml/min; Globulin 3.7 gm/dl (2.5-4.0); Magnesium 1.5 mg/dl (1.7-2.4); Total Protein 7.2 gm/dl (6.0-8.3)
[2023-10-18 05:13] LABS: INR 1.1 (0.9-1.1); Prothrombin Time 11.5 Seconds (9.0-12.0)
[2023-10-18] MEDS: LEVOTHYROXINE SODIUM 88 MCG TABLET PO SCH (06:11)
--- NOTE | 2023-10-18 08:43 | Neurology Consultation ---
Date of Consultation October 18, 2023 Assessment & Plan (1) AMS (altered mental status): History of Present Illness Attending Physician: Yogi Bloom MD History of Present Illness HPI: pt with known NPH and recent discharge from hospital after TIA like symptoms. pt came in again due to covid infection and dehydration and confusion. she was seen by Dr. Calvillo early this month for TIA like symptoms and she had CT head on this admission showing hypodensity on left basal ganglia. she is this morning alert and follows simple command very well. she does occasionally appeared to be confused. her CXR and U/A is negative. chart reviewed. admission H/P: Isadora is a 63 year old female with a PMH significant for normal pressure hydrocephalus s/p SAMPLER TESTER shunt at [facility] approximately 6 weeks ago, short-term memory loss, hypothyroidism, DMII, HTN, and recent admission to [facility] for possible CVA who presented to the [facility] ED via EMS from [facility] for increased confusion, fever, and multiple falls today. She was initially noted to be febrile at 38.5C and hypertensive at 193/91 but otherwise stable. Labs were significant for a leukocytosis of 13 with neutrophil predominance of 9.75, initial lactate of 2.1 with repeat of 2.3, mag of 1.5, negative procal, negative UA, and Covid 19 positive. Prior to admission the patient was given 1.5L NSS, ordered an additional 1L NSS, 1gm IV tylenol, 1gm IV mag-sulfate, and a dose of ceftriaxone. At the time of the exam the patient was sitting in bed and tearful but in no acute distress. She states that she is emotional due to the significant amount of medical issues she has been dealing with recently. She remembers her fall earlier today and is currently oriented to person, place, month, and year. When asked, she states that she lost her balance and fell backwards when staring up from her recliner. She denies felling lightheaded or dizzy, changes in vision, hearing, taste, and smell, chest pain, heart palpitations, SOB before or after the fall. She denies hitting her head or losing losing consciousness. She denies any pain after the fall. We discussed code status, she is a full code. I called and spoke to the [facility] in [place]. Staff confirms that she slid out of bed twice today and had one fall while trying to stand. They sent her to the ED as she was febrile and was more confused than normal. They state she was having difficulty remembering what procedure she had performed at [facility] recently, which is why they sent her to be evaluated. They state that she has not been eating or drinking well over the past 48 hours. The patient was recently admitted to [facility] from 10/07-10/12 for strokelike symptoms, slowed dysarthric speech, right upper and lower facial weakness. The patient had no acute findings on initial CT head and CTA Head/neck and could not undergo brain MRI due to her SAMPLER TESTER shunt. Neurology was consulted and believed the patient most likely had an acute/sub-acute infarct based on clinical findings. The patient was started on aspirin, her dose of Atorvastatin was increased, and she was started on BID Keppra. The patient underwent TTE during her admission, Neurology recommended ARELI after TTE revealed sclerotic aortic valve with focal calcifications on the left coronary cusp, vegetation/mass could not be excluded. Per the DC summary, the patient refused a ARELI as she did not believe that she needed one at that time. Allergies Allergy/AdvReac Type Severity Reaction Status Date / Time No Known Allergies Allergy Unknown Verified 05/23/23 20:51 Home Medications Medication Instructions Recorded Confirmed Type tolterodine 2 mg capsule,extended 2 mg PO DAILY #30 caps 05/30/23 10/17/23 Rx release 24 hr acetaminophen 325 mg tablet 650 mg PO Q6 PRN PAIN/FEVER 10/07/23 10/17/23 History (Tylenol) bupropion HCl 100 mg tablet 100 mg PO DAILY 10/07/23 10/17/23 History citalopram 20 mg tablet 20 mg PO QAM 10/07/23 10/17/23 History cyanocobalamin (vitamin B-12) 1,000 mcg PO QAM 10/07/23 10/17/23 History 1,000 mcg tablet (Vitamin B-12) gabapentin 300 mg capsule 300 mg PO HS 10/07/23 10/17/23 History levetiracetam 500 mg tablet 500 mg PO BID 10/07/23 10/17/23 History levothyroxine 88 mcg tablet 88 mcg PO DAILY 10/07/23 10/17/23 History metformin 1,000 mg tablet 1,000 mg PO BID 10/07/23 10/17/23 History metoprolol succinate 25 mg 25 mg PO DAILY 10/07/23 10/17/23 History tablet,extended release 24 hr oxycodone 5 mg tablet 5 mg PO Q6H PRN Pain, Severe 10/07/23 10/17/23 History polyethylene glycol 3350 17 gram 17 g PO DAILY PRN Constipation 10/07/23 10/17/23 History oral powder packet (Miralax) aspirin 81 mg tablet,delayed 81 mg PO QAM 30 days #30 tabs 10/12/23 10/17/23 Rx release atorvastatin 40 mg tablet 40 mg PO DAILY 30 days #30 tabs 10/12/23 10/17/23 Rx insulin detemir U-100 100 unit/mL 30 unit subcut Q12 10/17/23 10/17/23 History (3 mL) subcutaneous pen (Levemir FlexPen) Patient History Medical History (Updated 10/17/23 @ 19:14 by Destiny Peterson MD) Vitamin B12 deficiency Dehydration DKA (diabetic ketoacidosis) Nausea & vomiting Diabetic ketoacidosis Surgical History (Updated 09/18/23 @ 00:08 by Claire Herring) No pertinent past surgical history Social History Smoking Status: Unknown if ever smoked Second Hand Exposure: No; Do You Dip or Chew Tobacco: No; Hx Alcohol Use: No Hx Substance Use: No Preferred Language: Citizen Of [place] Communication Ability: Impaired Admission Specialist Required: No Beliefs That Will Affect Care: None Current Living Situation: [facility] Current Living Situation Comment: [facility] Other Information That Helps Us Care for You: No Feels Safe at Home: Yes Assistive Devices: Walker Exam (Neuro) Physical Exam: HEENT: normocephalic Neuro: Mental: Alert, follows simple command well, knew her name. not able to tell me hospital name or location, occasional fluent speech, no apraxia, no neglect CN: PERRL, Full EOM, symmetric face, intact sensation t/o face, Motor: No abnormal movements, normal tone and bulk, 5/5 t/o bilaterally grossly. moving all limbs well. Sens: intact grossly. Coord: deferred. DTR: 2+ sym b/l Gait: deferred. Impression: 63 yo female with known NPH and recent TIA event presenting with confusional state. her CT head finding is expected finding of her prior ischemic stroke as it was seen on prior CT head faintly. Also her stroke is subacute in nature and the location of stroke is not going to cause confusion/encephalopathy. her confusion is likely due to metabolic disorder, dehydration, fever, covid infection. Recommendations: no need for new stroke work up at this point. continue supportive care and tx for covid and dehydration, metabolic disorders. continue ASA and keppra as now. not much to offer at this point from neurology. please call again if new question. Chart reviewed I have spent more than 50% coordinating care with patient's treatment team. Total time spent (including chart review and coordination of care): 60 min (this includes chart review). Results & Data Vital Signs (Past 12 Hours) Vital Signs Temp Pulse Pulse Resp BP BP Pulse Ox 10/18/23 06:00 92 H 19 145/79 H 94 10/18/23 03:53 10/18/23 03:00 84 18 169/89 H 95 10/18/23 02:41 36.9 C 79 17 167/74 H 96 10/17/23 21:42 74 16 149/68 H 95 10/17/23 21:30 75 18 141/64 H 10/17/23 20:45 75 O2 Del Method O2 Flow Rate 10/18/23 06:00 Nasal Cannula 4 10/18/23 03:53 Nasal Cannula 4 10/18/23 03:00 Nasal Cannula 4 10/18/23 02:41 Nasal Cannula 3 10/17/23 21:42 Nasal Cannula 3 10/17/23 21:30 Room Air 10/17/23 20:45 PG Care Time/CCT Total # of Minutes Spent Total Time Spent with Patient: Total time spent is greater than 50% in coordination of care (as documented) at patient's floor/unit and/or counseling patient: Coding Level of Care Code 96171 IN/OBS CONSULT LVL 4,60M Diagnoses AMS (altered mental status) R41.82
[2023-10-18] MEDS ORDERED: OXYBUTYNIN CHLORIDE XL 5 MG TABCR PO SCH (09:00)
[2023-10-18] MEDS ORDERED: buPROPion HCl 100 MG TABLET PO SCH (09:00)
[2023-10-18] MEDS: INSULIN ASPART PER UNIT CHARGE SC SCH ×4 (09:46→19:44)
[2023-10-18] MEDS: ASPIRIN 81 MG ECTAB PO SCH (09:47)
[2023-10-18] MEDS: ATORVASTATIN 40 MG TAB PO SCH (09:47)
[2023-10-18] MEDS: CITALOPRAM 20 MG TAB PO SCH (09:47)
[2023-10-18] MEDS: levETIRAcetam 500 MG TAB PO SCH (09:50)
[2023-10-18] MEDS: METOPROLOL SUCC 25MG EXT REL TAB PO SCH (09:50)
[2023-10-18] MEDS: MAGNESIUM SULFATE / D5W 1 GM/100 ML BAG IV SCH ×2 (12:08→14:01)
[2023-10-18] MEDS: LANTUS PER UNIT CHARGE SQ SCH ×2 (12:09→19:44)
--- NOTE | 2023-10-18 13:46 | Electrocardiogram Report ---
Test Reason : Blood Pressure : / mmHG Vent. Rate : 083 BPM Atrial Rate : 083 BPM P-R Int : 124 ms QRS Dur : 090 ms QT Int : 366 ms P-R-T Axes : 032 003 036 degrees QTc Int : 430 ms Normal sinus rhythm Minimal voltage criteria for LVH, may be normal variant Borderline ECG When compared with ECG of 07-OCT-2023 11:07, No significant change was found Confirmed by Jim Barba ([id number]) on 10/18/2023 1:45:46 PM Referred By: REFERRED SELF Confirmed By:Josue Barba
[2023-10-18] MEDS ORDERED: FUROSEMIDE INJ 20 MG/2 ML VIAL IV ONE (14:00)
[2023-10-18] MEDS: dexAMETHasone 6 MG in SYRINGE 0 ML IV SCH (14:01)
[2023-10-18] MEDS ORDERED: ACETAMINOPHEN 1,000 MG/100 ML VIAL IV PRN (14:27)
[2023-10-18] MEDS ORDERED: ACETAMINOPHEN 1000 MG/100 ML IV IV ONE (14:30)
[2023-10-18] MEDS ORDERED: VANCOMYCIN CONSULT ACTIVE PRN (14:33)
[2023-10-18] MEDS ORDERED: REMDESIVIR 200 MG in SODIUM CHLORIDE 0.9% 210 ML IV STA (14:55)
[2023-10-18 15:00] LABS: C Reactive Protein 8.81 mg/dl (0-0.5)
--- NOTE | 2023-10-18 15:00 | Critical Care Consultation ---
Date of Consultation October 18, 2023 Assessment & Plan (1) COVID-19: (2) Acute CVA (cerebrovascular accident): (3) AMS (altered mental status): (4) Metabolic encephalopathy: (5) NPH (normal pressure hydrocephalus): (6) Hypothyroidism: (7) HTN (hypertension): (8) Type 2 diabetes mellitus: (9) Short-term memory loss: Plan Reason Critically Ill: 63-year-old female past medical history of normal pressure hydrocephalus status post KEYBOARDING CLERK shunt approximately 6 weeks ago, hypothyroidism, diabetes, hypertension admitted to the hospital with fever and confusion. 2D echo 10/08/2023: EF 60-65%, moderate concentric LVH, focal calcification noted on the left coronary cusp questionable mass/vegetation, RV normal in size and function Neuro - [facility] ICU: Positive --Metabolic encephalopathy Multifactorial Recent CVA Sepsis cannot be ruled out especially with recent KEYBOARDING CLERK shunt Calcium, sodium, glucose within normal limit TSH 3.7 VBG shows pH of 7.38 with pCO2 of [address] head 10/10/2020 did not show any significant change compared to CT head done 10/17/2023 --Subacute stroke 1.1 cm hypodense focus in the left basal ganglia appreciated on CT head 10/17/2023 --History of normal pressure hydrocephalus S/p KEYBOARDING CLERK shunt at --Anxiety/depression On bupropion and citalopram at home Cardiac - --History of hypertension and dyslipidemia On atorvastatin at home along with metoprolol EKG 10/17/2023: Normal sinus rhythm, normal axis, no ST-T wave changes appreciated 2D echo 10/08/2023: EF 60-65%, moderate concentric LVH, focal calcification noted on the left coronary cusp questionable mass/vegetation, RV normal in size and function Respiratory - -- Acute hypoxic respiratory failure Etiology is not clear Chest x-ray does not show any clear infiltrate Patient is COVID-19 positive, negative for everything else on the respiratory bio fire GI - -- No acute issues RENAL/LYTES - -- Monitor BUNs/creatinine ENDO - --Hypothyroidism On levothyroxine 88 mcg at home -- Diabetes type 2 Continue with ICU hypoglycemia protocol HEME - -- Monitor H&H ID - --Sepsis Source could be meningitis especially given the KEYBOARDING CLERK shunt Will give pseudomonal coverage with broad-spectrum antibiotic I will also add ampicillin --COVID-19 Patient does have dense consolidative process appreciated on the CT chest CRP 8.81 Mild patchy opacities as well Continue with dexamethasone --Questionable vegetation on 2D echo done 10/10/2023 Patient refused ARELI at that time Will repeat 2D echo Blood cultures from 10/10/2023 were negative --Prophylaxis VTE: Heparin drip GI: Pantoprazole Lines: Peripheral Diet: N.p.o. Plan: Chest x-ray from last night did not show any significant opacity. Sudden increase in oxygen requirement, will need to rule out pulmonary emboli. Can start heparin drip while we have CT chest done Given the increased oxygen requirement it is better to monitor patient in the ICU. There is high likelihood that she might get intubated Broad-spectrum antibiotics including vancomycin and cefepime as well as ampicillin for Listeria coverage Will try to get CSF sample for the KEYBOARDING CLERK shunt and send to the lab Try to find out with the patient's KEYBOARDING CLERK shunt is compatible with MRI, if so we will order an MRI I have personally spent 65 minutes of critical care time in the direct management of this patient. This is a life/limb threatening event. This includes time spent evaluating patient, direct bedside care, chart review, placing orders, interpretation of diagnostic studies, discussion with consultants, patient, and family members, as well as other required patient management activities. This time is exclusive of all separately billable procedures, and teaching time and separate from and in addition to any other critical care service time. Please note the above document was generated using voice recognition software. It may contain grammatical, syntax or spelling errors. History of Present Illness Attending Physician: Yogi Bloom MD History of Present Illness 63-year-old female admitted to the hospital because of altered mental status, fever and multiple falls Past medical history: Normal pressure hydrocephalus s/p KEYBOARDING CLERK shunt at approximately 6 weeks ago, hypothyroidism, diabetes, hypertension Patient was still in the ED when there was clinical deterioration and increasing need for oxygen. Dr. Bloom called regarding the deteriorating clinical status and discussed the case with me. At the time of examination patient was on BiPAP % FiO2 saturating 98% She was not in any respiratory distress. She was breathing in the high teens to low 20s Heart rate was in the 70s. MAP 80s. She was somnolent but easily arousable. She was following the commands. Denied any headache, no blurry vision, no nausea or vomiting No abdominal pain. Denies cough. No dysuria, no diarrhea Social history: Lifetime non-smoker Allergies Allergy/AdvReac Type Severity Reaction Status Date / Time No Known Allergies Allergy Unknown Verified 05/23/23 20:51 Home Medications Medication Instructions Recorded Confirmed Type tolterodine 2 mg capsule,extended 2 mg PO DAILY #30 caps 05/30/23 10/17/23 Rx release 24 hr acetaminophen 325 mg tablet 650 mg PO Q6 PRN PAIN/FEVER 10/07/23 10/17/23 History (Tylenol) bupropion HCl 100 mg tablet 100 mg PO DAILY 10/07/23 10/17/23 History citalopram 20 mg tablet 20 mg PO QAM 10/07/23 10/17/23 History cyanocobalamin (vitamin B-12) 1,000 mcg PO QAM 10/07/23 10/17/23 History 1,000 mcg tablet (Vitamin B-12) gabapentin 300 mg capsule 300 mg PO HS 10/07/23 10/17/23 History levetiracetam 500 mg tablet 500 mg PO BID 10/07/23 10/17/23 History levothyroxine 88 mcg tablet 88 mcg PO DAILY 10/07/23 10/17/23 History metformin 1,000 mg tablet 1,000 mg PO BID 10/07/23 10/17/23 History metoprolol succinate 25 mg 25 mg PO DAILY 10/07/23 10/17/23 History tablet,extended release 24 hr oxycodone 5 mg tablet 5 mg PO Q6H PRN Pain, Severe 10/07/23 10/17/23 History polyethylene glycol 3350 17 gram 17 g PO DAILY PRN Constipation 10/07/23 10/17/23 History oral powder packet (Miralax) aspirin 81 mg tablet,delayed 81 mg PO QAM 30 days #30 tabs 10/12/23 10/17/23 Rx release atorvastatin 40 mg tablet 40 mg PO DAILY 30 days #30 tabs 10/12/23 10/17/23 Rx insulin detemir U-100 100 unit/mL 30 unit subcut Q12 10/17/23 10/17/23 History (3 mL) subcutaneous pen (Levemir FlexPen) Patient History Medical History (Updated 10/18/23 @ 19:10 by [facility] Vitamin B12 deficiency Dehydration DKA (diabetic ketoacidosis) Nausea & vomiting Diabetic ketoacidosis Surgical History (Updated 09/18/23 @ 00:08 by Claire Herring) No pertinent past surgical history Social History Smoking Status: Unknown if ever smoked Second Hand Exposure: No; Do You Dip or Chew Tobacco: No; Hx Alcohol Use: No Hx Substance Use: No Preferred Language: Greek Communication Ability: Effective Lvn Required: No Beliefs That Will Affect Care: None Current Living Situation: [facility] Current Living Situation Comment: [facility] Other Information That Helps Us Care for You: No Feels Safe at Home: Yes Assistive Devices: Walker and Wheelchair Review of Systems 2 Review of Systems: Unobtainable due to mental health condition Physical Exam 2 Physical Exam: Constitutional: No acute distress HEENT: EOMI, PERRLA Respiratory system: Decreased air entry bilaterally, no wheeze, rhonchi, positive crackles bilateral lower lobes CVS: S1-S2 positive, no murmurs or gallops Abdomen: Soft, nontender, nondistended, positive bowel sounds x4, obese Extremities: +2 pulses bilaterally radialis/ dorsalis pedis, no cyanosis, no edema Neuro: Somnolent but easily arousable, oriented to self, moving all extremities on command Psych: Flat mood and affect G/U: Positive Nash Skin: no rashes, warm and dry Lymphatic: no cervical or axillary lymphadenopathy Results & Data Results & Data Vital Signs (Past 12 Hours) Vital Signs Temp Pulse Pulse Resp BP BP Pulse Ox 10/18/23 14:31 98 H 18 90 10/18/23 12:00 10/18/23 08:58 97 H 10/18/23 06:00 92 H 19 145/79 H 94 10/18/23 03:53 10/18/23 03:00 84 18 169/89 H 95 10/18/23 02:41 36.9 C 79 17 167/74 H 96 O2 Del Method O2 Flow Rate FiO2 10/18/23 14:31 High Flow Nasal Cannula 60 95 10/18/23 12:00 Non-rebreather 10 10/18/23 08:58 10/18/23 06:00 Nasal Cannula 4 10/18/23 03:53 Nasal Cannula 4 10/18/23 03:00 Nasal Cannula 4 10/18/23 02:41 Nasal Cannula 3 Laboratory Results 10/18/23 04:20 10/18/23 04:20 Coding Level of Care Code 60277 CRITICAL CARE 1ST 30-74M Diagnoses COVID-19 U07.1 Acute CVA (cerebrovascular accident) I63.9 AMS (altered mental status) R41.82 Metabolic encephalopathy G93.41 NPH (normal pressure hydrocephalus) G91.2 Hypothyroidism E03.9 HTN (hypertension) I10 Type 2 diabetes mellitus E11.9 Short-term memory loss R41.3
--- NOTE | 2023-10-18 15:06 | XRay Report ---
SINGLE VIEW CHEST CLINICAL HISTORY: Covid. FINDINGS: An AP, portable, upright chest radiograph is compared to study dated 10/17/2023. A shunt ca theter traverses the right chest wall. The cardiomediastinal silhouette is top normal for projection noting atherosclerotic calcification of the thoracic aorta. There are small pleural effusions with de pendent consolidation. No pneumothorax is seen. The skeletal structures are osteopenic. The bony thor ax is grossly intact. IMPRESSION: There are small pleural effusions with dependent consolidation. This likely represents at electasis and clinical correlation will be required. ACT 112: Negative or not required by law. Electronically signed by: Louie Sneed M.D. 10/18/2023 3:04 PM
[2023-10-18] MEDS ORDERED: VANCOMYCIN HCL 2,500 MG in SODIUM CHLORIDE 0.9% 500 ML IV STA (15:20)
--- NOTE | 2023-10-18 15:51 | Pharmacy Report ---
Pharmacy PK ABX Note - Date of Service October 18, 2023 - Assessment and Plan Assessment 63 year old F receiving Vancomycin and cefepime empirically for possible RELATIONSHIP SPECIALIST source or endocarditis. Patient does have a GLASS WASHER shunt. Pertinent microbiologic data includes: Blood and urine cxs pending. Given possible RELATIONSHIP SPECIALIST source will dose more aggressively to start, but will obtain an early random level to help further guide dosing given concerns for toxicity with BMI. Day # 1 of antimicrobial therapy. Plan Vancomycin * Loading dose: 2500 mg IV x 1 * Maintenance dose: 1000 mg IV every 12 hours * Regimen is predicted to achieve target AUC/PRATIK of ~400-650 mg/L.hr * Random level ordered for: 10/19/23 @ 1200 Pharmacy will continue to follow and will adjust dose/frequency as necessary. Thank you. Pharmacy has transitioned to AUC monitoring for vancomycin. AUC/PRATIK is the preferred PK/PD target and is associated with decreased risk of nephrotoxicity compared to traditional trough targets.
[2023-10-18 16:07] LABS: Thyroid Stimulating Hormone 3.709 uIu/ml (0.300-4.500)
[2023-10-18] MEDS ORDERED: HEPARIN SODIUM/DEXTROSE 25,000 UNITS/500 ML BAG IV SCH (16:19)
[2023-10-18] MEDS ORDERED: CEFEPIME 2,000 MG in SYRINGE 0 ML IV SCH (16:19)
[2023-10-18] MEDS: CEFEPIME 2,000 MG in SYRINGE 0 ML IV SCH ×2 (16:32→22:49)
--- NOTE | 2023-10-18 16:43 | Hospitalist Progress Note ---
Date of Service October 18, 2023 Assessment & Plan (1) AMS (altered mental status): Plan: Encephalopathy with the presence of fever concern for metabolic encephalopathy from infection COVID-positive status. Patient with recent ZOOLOGY TEACHER shunt placed approximately 7 weeks ago at [facility], patient will have 4 blood cultures obtained to be changed to vancomycin and cefepime. -Initial and subsequent chest xray without significant abnormality and UA are negative for infection, -CT of the head wo con on presentation does show "1.1 cm hypodense focus within left basal ganglia which is new since prior head CT. This suggests a subacute to acute infarct.". -Cannot have MRI of the brain here with her ZOOLOGY TEACHER shunt -Continue aspirin and statin -Will continue home Keppra - With decline in increased acute hypoxic respiratory failure with fever etiologies will be covered for possible ZOOLOGY TEACHER shunt infection. Echocardiogram from 1118 suggest possible abnormality of aortic valvular leaflet raising possibility of endocarditis. Appropriate coverage will be the vancomycin and cefepime at this time additional cultures will be obtained perhaps once patient stabilizes with her respiratory status a ARELI could be considered. Elevated lactic acid on presentation was attributed to dehydration this could be a sign of early sepsis. With hypoxic respiratory failure POB ruled out she will be empirically started on heparin weight-based with bolus and CT angiography is pending. Hypoxic respiratory failure is supported with BiPAP (2) COVID-19: Plan: -Positive on presentation with fever and progressive hypoxic respiratory distress patient initiated on remdesivir and dexamethasone. Supportive care with BiPAP and high levels of oxygen repletion with Lasix already administered 20 mg IV x 1 (3) Fall: Plan: -Fell out of bed twice and lost her balance causing her to fall backwards while standing earlier today at [facility] -Likely due to acute illness and deconditioning -No acute trauma -Fall precautions ordered (4) NPH (normal pressure hydrocephalus): Plan: -S/P ZOOLOGY TEACHER shunt placement at [facility] approximately 6 weeks ago -Stable on CT head upon presentation repeat CT head pending 10/18/2023 -Continue to monitor (5) Acute CVA (cerebrovascular accident): Plan: -Suspected on last admission earlier this month -Unsure if CT head findings today are from her suspected CVA last admission or new from discharge -Not a candidate for TNK due to timing of symptoms 48 hours prior -Neurology consult place -Continue aspirin and statin for now (6) Type 2 diabetes mellitus: Plan: -Hold metformin -Monitor BSG q6h overnight, goal is 110-160 -Normally takes 30 units Detemir q12h, will start with 10 units lantus BID to avoid hypoglycemia with poor oral intake -Start CF of 50 -DMII diet if she passes dysphagia screen -Adjust regimen as needed (7) Hypothyroidism: Plan: Typically on levothyroxine (8) Anxiety: Plan: -Typically on Wellbutrin and citalopram Plan As patient declined the afternoon Case discussed with Dr. Bajwa status elevated to ICU. Approximately 1 hour and 15 minutes ICU time was spent with the patient in the afternoon after initial visit in the morning. This was subsequent separate from initial visit. Admission and Anticipated Discharge Date Admission Date: October 17, 2023 Subjective Patient pleasantly confused follows commands but is not oriented Throughout the late morning early afternoon patient developed profound asymptomatic hypoxia with her O2 sats in the 80s requiring massive amounts of oxygen supplementation very reminiscent of previous COVID hypoxemia Patient developed profound elevation of blood pressure and hypoxia could be from beginnings of sepsis. ICU consulted. Additional blood cultures obtained. Antibiotics changed to vancomycin and cefepime. Heparin instituted for possibility of pulmonary embolism and patient sent for CT angiography while her hypoxia supported by BiPAP. Physical Exam Physical Exam: Patient is awake and follows commands. She is not significantly dyspneic but is confused. Cardiac exam was regular lungs are with relatively little abnormalities except for decreased breath sounds at the bases. Abdomen NABS soft and nontender. Her shunt tract along her right neck is without discomfort. Spine echocardiogram showing some aortic valvular abnormalities I cannot hear a significant systolic murmur. There is no peripheral stigmata of endocarditis such as splinter hemorrhages of her nails etc. Patient required substantial oxygen supplementation to support hypoxia noted on pulse oximetry. VBG does support the fact that her oxygenation is low she however does not have significant hypercarbia to explain any encephalopathy. Results & Data Results & Data Vital Signs (Past 12 Hours) Vital Signs Temp Pulse Pulse Resp BP BP Pulse Ox 10/18/23 15:38 102.4 F H 94 H 28 H 129/85 97 10/18/23 15:15 96 H 10/18/23 15:02 97 H 26 H 95 10/18/23 14:31 98 H 18 90 10/18/23 12:00 10/18/23 08:58 97 H 10/18/23 06:00 92 H 19 145/79 H 94 O2 Del Method O2 Flow Rate FiO2 10/18/23 15:38 BiPAP 10/18/23 15:15 10/18/23 15:02 90 10/18/23 14:31 High Flow Nasal Cannula 60 95 10/18/23 12:00 Non-rebreather 10 10/18/23 08:58 10/18/23 06:00 Nasal Cannula 4 Laboratory Results Reviewed CBC reviewed chemistry reviewed be VBG reviewed stat chest x-ray PG Care Time/CCT Total # of Minutes Spent Total Time Spent with Patient: Total time spent is greater than 50% in coordination of care (as documented) at patient's floor/unit and/or counseling patient: Coding Level of Care Code 92227 SUB INP/OBS CARE 3/50MIN Diagnoses AMS (altered mental status) R41.82 COVID-19 U07.1 Fall W19.XXXA Encounter type: initial encounter NPH (normal pressure hydrocephalus) G91.2 Acute CVA (cerebrovascular accident) I63.9 Type 2 diabetes mellitus E11.9 Hypothyroidism E03.9 Anxiety F41.9 Time Spent (min) 75 Comment 75 additional minutes of cc time at the bedside (3) Fall Encounter type: initial encounter Qualified Code(s): W19.XXXA - Unspecified fall, initial encounter
[2023-10-18] MEDS ORDERED: OPTIRAY 320 125ml IV ONE (17:48)
[2023-10-18] MEDS: levETIRAcetam 500 MG in SODIUM CHLOR 0.9% MINI-B 100 ML IV SCH (18:10)
--- NOTE | 2023-10-18 18:10 | CT Scan Report ---
CT head/brain wo con CLINICAL HISTORY: 63 years-old Female with mental status change recent cva and vp treasurer shunt. Acutely alt ered mental status TECHNIQUE: Multiple axial CT images of the head were obtained without contrast. A dose lowering tech nique was utilized adhering to the principles of ALARA. COMPARISON: 10/08/2023, 10/17/2023. FINDINGS: No acute intracranial hemorrhage, midline shift, intracranial mass, acute territorial ischemia or abn ormal extra-axial collection. Periventricular white matter hypodensities are again noted. Unchanged 1 .1 m hyperdense focus in the left basal ganglia. A right frontal approach ventriculostomy catheter is again noted in stable positioning. Dilation of the periventricular system is again seen. Transverse dimension of the lateral ventricles measures 5.0 cm, previously 5.3 cm. The calvarium is intact. The paranasal sinuses, mastoid air cells, and middle ear cavities are clear. IMPRESSION: 1. No acute intracranial abnormality. 2. Unchanged appearance of the hypodense focus in the left caudate nucleus suggestive of a subacute i nfarct. ACT 112: Negative or not required by law. The above report was generated using voice recognition software. It may contain grammatical, syntax o r spelling errors. Electronically signed by: Efrain Gant M.D. 10/18/2023 6:07 PM
[2023-10-18] MEDS: FAMOTIDINE 20 MG in SYRINGE 3 ML IV SCH (18:11)
[2023-10-18] MEDS ORDERED: HEPARIN SOD (PORCINE) 1000 UNIT/ML IV ONE (19:06)
--- NOTE | 2023-10-18 19:07 | CT Scan Report ---
CT angio chest PE protocol CT DOSE: 1576.63 mGy.cm HISTORY: 63 years-old Female with PE. Acute shortness of breath TECHNIQUE: Multiple CTA images of the chest were obtained after the intravenous administration of 119 ml Optiray. Coronal and sagittal MIPS were obtained from the axial data set and were submitted for review. All measurements were obtained according to NASCET criteria. A dose lowering technique was u tilized adhering to the principles of ALARA. COMPARISON: Chest radiograph of same day FINDINGS: CTA: Mild cardiomegaly. Extensive coronary artery calcifications. No pericardial effusion. No thoracic aor tic aneurysm. No pulmonary emboli identified, however evaluation is limited secondary to respiratory motion artifact. CT CHEST: No thyroid nodule. There are a few borderline-enlarged mediastinal and hilar lymph nodes measuring up to 1.2 cm. No pneumothorax. Patchy bilateral lower lobe predominant airspace opacities are noted wit h air bronchograms. There is poor motion artifact limits evaluation of the lungs. Central airways are patent. No acute process of the imaged upper abdomen. The visualized shunt catheter appears intact. No acute fracture. IMPRESSION: 1. No pulmonary emboli identified. 2. Multifocal lower lobe predominant pneumonia versus aspiration pneumonitis. 3. Mild likely reactive mediastinal and hilar lymphadenopathy. ACT 112: Negative or not required by law. The above report was generated using voice recognition software. It may contain grammatical, syntax o r spelling errors. Electronically signed by: Efrain Gant M.D. 10/18/2023 7:05 PM
[2023-10-18] MEDS: ICU Protocol for HYPERglycemia SCH ×2 (19:46→19:47)
[2023-10-18] MEDS: Heparin IV Adult Wt-Based Standard w/ INITIAL Bolus Protocol IV SCH ×2 (19:47→19:48)
[2023-10-18] MEDS: UNASYN 3000MG / NS q6h IV SCH (21:31)
[2023-10-18] MEDS ORDERED: AMPICILLIN SOD/SULBACTAM SOD 3 GM VIAL IV SCH (22:00)
[2023-10-19] MEDS: UNASYN 3000MG / NS q6h IV SCH ×2 (03:37→11:19)
[2023-10-19] MEDS: FAMOTIDINE 20 MG in SYRINGE 3 ML IV SCH ×2 (03:38→16:42)
[2023-10-19] MEDS: Heparin IV Adult Wt-Based Standard w/ INITIAL Bolus Protocol IV SCH ×5 (03:43→19:25)
[2023-10-19] MEDS: levETIRAcetam 500 MG in SODIUM CHLOR 0.9% MINI-B 100 ML IV SCH ×2 (04:14→16:45)
[2023-10-19] MEDS ORDERED: VANCOMYCIN HCL 1,000 MG in SODIUM CHLORIDE 0.9% 250 ML IV SCH (05:00)
[2023-10-19 05:05] LABS: Basophils # (auto) 0.05 K/uL (0.00-0.20); Basophils % (auto) 0.3 %; Hematocrit (blood only) 34.9 % (37.0-47.0); Hemoglobin 11.4 g/dl (12.0-16.0); Immature Granulocytes # (auto) 0.11 K/uL (0.01-0.20); Immature Granulocytes % (auto) 0.6 %; Lymphocytes # (auto) 1.33 K/uL (1.20-3.40); Lymphocytes % (auto) 7.7 %; Mean Corpuscular Hemoglobin 27.2 pg (25.0-34.0); Mean Corpuscular Hgb Conc 32.7 g/dL (32.0-36.0); Mean Corpuscular Volume 83.3 fL (80.0-100.0); Mean Platelet Volume 10.3 fL (9.4-12.4); Monocytes # (auto) 1.07 K/uL (0.11-0.59); Monocytes % (auto) 6.2 %; Neutrophils # (auto) 14.66 K/uL (1.40-6.50); Neutrophils % (auto) 85.2 %; Platelet Count 222 K/uL (130-400); RDW Coefficient of Variation 14.1 % (11.5-14.5); RDW Standard Deviation 42.5 fL (36.4-46.3); Red Blood Count 4.19 M/uL (4.20-5.40); White Blood Count 17.22 K/ul (4.8-10.8)
[2023-10-19 05:10] LABS: Albumin Globulin Ratio 0.8 (0.9-2); Albumin Level 2.9 gm/dl (3.4-5.0); BUN Creatinine Ratio 24.3 (10-20); Bilirubin,Total 0.4 mg/dl (0.2-1.0); Calcium 8.3 mg/dl (8.6-10.3); Creatinine Clr Calc Pharmacy 71.4 ml/min; Est GFR (African American) 67.9 ml/min; Est GFR (Non-African American) 58.6 ml/min; Globulin 3.6 gm/dl (2.5-4.0); Potassium 3.9 mmol/L (3.5-5.1); Total Protein 6.5 gm/dl (6.0-8.3)
[2023-10-19 05:45] LABS: C Reactive Protein 33.16 mg/dl (0-0.5)
[2023-10-19 05:53] LABS: INR 1.2 (0.9-1.1); Prothrombin Time 12.9 Seconds (9.0-12.0)
[2023-10-19] MEDS: LEVOTHYROXINE SODIUM 88 MCG TABLET PO SCH (06:04)
[2023-10-19] MEDS ORDERED: POTASSIUM CHLORIDE CRTAB 20 MEQ TABCR PO STA (06:43)
--- NOTE | 2023-10-19 07:56 | Critical Care Progress Note ---
Date of Service October 19, 2023 Assessment & Plan (1) COVID-19: (2) Acute CVA (cerebrovascular accident): (3) AMS (altered mental status): (4) Metabolic encephalopathy: (5) NPH (normal pressure hydrocephalus): (6) Hypothyroidism: (7) HTN (hypertension): (8) Type 2 diabetes mellitus: (9) Short-term memory loss: Plan Reason Critically Ill: 63-year-old female past medical history of normal pressure hydrocephalus status post COOK TORTILLA shunt approximately 6 weeks ago, hypothyroidism, diabetes, hypertension admitted to the hospital with fever and confusion. 2D echo 10/08/2023: EF 60-65%, moderate concentric LVH, focal calcification noted on the left coronary cusp questionable mass/vegetation, RV normal in size and function Neuro - [facility] ICU: Positive --Metabolic encephalopathy --> improved Multifactorial Recent CVA Sepsis cannot be ruled out especially with recent COOK TORTILLA shunt Calcium, sodium, glucose within normal limit TSH 3.7 VBG shows pH of 7.38 with pCO2 of [address] head 10/10/2020 did not show any significant change compared to CT head done 10/17/2023 --Subacute stroke 1.1 cm hypodense focus in the left basal ganglia appreciated on CT head 10/17/2023 --History of normal pressure hydrocephalus S/p COOK TORTILLA shunt at [facility] --Anxiety/depression On bupropion and citalopram at home Cardiac - --History of hypertension and dyslipidemia On atorvastatin at home along with metoprolol EKG 10/17/2023: Normal sinus rhythm, normal axis, no ST-T wave changes appreciated 2D echo 10/08/2023: EF 60-65%, moderate concentric LVH, focal calcification noted on the left coronary cusp questionable mass/vegetation, RV normal in size and function Respiratory - -- Acute hypoxic respiratory failure Multifactorial COVID-19 and likely from aspiration pneumonia with VQ mismatch from lower lobe atelectasis Patient is COVID-19 positive, negative for everything else on the respiratory bio fire GI - -- No acute issues RENAL/LYTES - -- Monitor BUNs/creatinine ENDO - --Hypothyroidism On levothyroxine 88 mcg at home -- Diabetes type 2 Continue with ICU hypoglycemia protocol HEME - -- Monitor H&H ID - --Sepsis Source could be meningitis especially given the COOK TORTILLA shunt Will give pseudomonal coverage with broad-spectrum antibiotic And ampicillin --COVID-19 Patient does have dense consolidative process appreciated on the CT chest CRP 8.81 --> 33.16 Mild patchy opacities as well Continue with dexamethasone --Questionable vegetation on 2D echo done 10/10/2023 Patient refused ARELI at that time Will repeat 2D echo Blood cultures from 10/10/2023 were negative --Prophylaxis VTE: Heparin drip GI: Pantoprazole Lines: Peripheral Diet: Cardiac Plan: In/out: +2.8 L, urine output 3275 There has been significant improvement in the patient's oxygen saturations. She is requiring only 1 L oxygen right now Continue with BiPAP nightly and as needed shortness of breath Continue with broad-spectrum antibiotics We will get lumbar puncture to be done today. We did get in touch with neurology to see if they will be able to access the COOK TORTILLA shunt but they recommended to do lumbar puncture instead. IR consult placed Patient hemodynamically stable to be downgrade to medical floor Was discussed with Dr Bloom Please note the above document was generated using voice recognition software. It may contain grammatical, syntax or spelling errors.Any formal questions or concerns about the content, text or information contained within the body of this dictation should be directly addressed to the provider for clarification. Admission and Anticipated Discharge Date Admission Date: October 17, 2023 Subjective Patient seen and examined at bedside. No acute distress, no adverse events overnight Patient was saturating 97-98% liters nasal cannula. I went down to 1 L She was awake alert oriented answering all questions appropriately Has been afebrile in the last 8 hours. Did have a breakfast today Denied any dizziness, no nausea, no vomiting No blurry vision. Patient's son and sister were in the room at the time of examination Review of Systems 2 Review of Systems: All systems reviewed & are unremarkable except as noted in Subjective Physical Exam 2 Physical Exam: Constitutional: No acute distress HEENT: EOMI, PERRLA, right temporal COOK TORTILLA shunt appreciated Respiratory system: Decreased air entry bilaterally, no wheeze, rhonchi, positive crackles bilateral lower lobes CVS: S1-S2 positive, no murmurs or gallops Abdomen: Soft, nontender, nondistended, positive bowel sounds x4, obese Extremities: +2 pulses bilaterally radialis/ dorsalis pedis, no cyanosis, no edema Neuro: Awake alert oriented x3, cranial nerves II to XII grossly intact Psych: Normal mood and affect G/U: Positive Nash Skin: no rashes, warm and dry Lymphatic: no cervical or axillary lymphadenopathy Results & Data Results & Data Vital Signs (Past 12 Hours) Vital Signs Temp Pulse Resp BP Pulse Ox O2 Del Method O2 Flow Rate 10/19/23 06:00 35.8 C L 56 L 19 134/61 96 Nasal Cannula 3 10/19/23 05:00 35.7 C L 56 L 16 124/65 96 BiPAP 10/19/23 04:21 35.5 C L 61 18 105/70 93 BiPAP 10/19/23 03:21 35.6 C L 56 L 20 132/61 96 BiPAP 10/19/23 03:00 59 L 15 96 10/19/23 02:00 35.5 C L 56 L 17 132/71 97 10/19/23 01:00 35.4 C L 55 L 15 97 10/19/23 00:21 35.3 C L 56 L 34 H 110/61 96 BiPAP 10/18/23 23:42 59 L 10/18/23 23:37 72 10/18/23 23:21 35.7 C L 62 18 128/63 94 BiPAP 10/18/23 23:00 35.8 C L 70 20 94 10/18/23 22:21 35.8 C L 65 17 139/66 96 10/18/23 22:18 62 15 95 10/18/23 21:51 BiPAP 10/18/23 21:21 36.0 C L 65 16 112/60 96 10/18/23 20:21 36.4 C L 65 16 102/60 96 FiO2 10/19/23 06:00 10/19/23 05:00 40 10/19/23 04:21 40 10/19/23 03:21 40 10/19/23 03:00 40 10/19/23 02:00 10/19/23 01:00 10/19/23 00:21 10/18/23 23:42 10/18/23 23:37 10/18/23 23:21 10/18/23 23:00 10/18/23 22:21 10/18/23 22:18 40 10/18/23 21:51 40 10/18/23 21:21 10/18/23 20:21 Laboratory Results 10/19/23 04:27 10/19/23 04:27 Coding Level of Care Code 25107 SUB INP/OBS CARE 350MIN Diagnoses COVID-19 U07.1 Acute CVA (cerebrovascular accident) I63.9 AMS (altered mental status) R41.82 Metabolic encephalopathy G93.41 NPH (normal pressure hydrocephalus) G91.2 Hypothyroidism E03.9 HTN (hypertension) I10 Type 2 diabetes mellitus E11.9 Short-term memory loss R41.3
[2023-10-19] MEDS: ICU Protocol for HYPERglycemia SCH ×4 (08:28→19:25)
[2023-10-19] MEDS: LANTUS PER UNIT CHARGE SQ SCH ×2 (08:39→21:19)
[2023-10-19] MEDS: CEFEPIME 2,000 MG in SYRINGE 0 ML IV SCH ×3 (08:40→22:50)
[2023-10-19] MEDS: INSULIN ASPART PER UNIT CHARGE SC SCH ×4 (08:40→21:19)
[2023-10-19] MEDS: ATORVASTATIN 40 MG TAB PO SCH (08:41)
[2023-10-19] MEDS: METOPROLOL SUCC 25MG EXT REL TAB PO SCH ×2 (08:41→10:43)
[2023-10-19] MEDS: CITALOPRAM 20 MG TAB PO SCH (08:41)
[2023-10-19] MEDS: ASPIRIN 81 MG ECTAB PO SCH (08:41)
[2023-10-19] MEDS: dexAMETHasone 6 MG in SYRINGE 0 ML IV SCH (11:20)
[2023-10-19] MEDS: REMDESIVIR 100 MG in SODIUM CHLORIDE 0.9% 230 ML IV SCH (11:22)
--- NOTE | 2023-10-19 13:25 | Pharmacy Report ---
Pharmacy PK ABX Note - Date of Service October 19, 2023 - Assessment and Plan Assessment 10/19: Plans to get lumbar puncture today. "calcification noted on the left coronary cusp questionable mass/vegetation" from ECHO 10/08. Blood cultures are negative at 24 hours. Repeat pending. Random level today 21.4 mcg/mL, predicts AUC/PRATIK just under 600 with next 3 doses, will continue current dosing and obtain trough tomorrow to further assist with dosing. 10/18 63 year old F receiving Vancomycin and cefepime empirically for possible JOB SITE SUPERINTENDENT source or endocarditis. 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 Pertinent microbiologic data includes: Blood and urine cxs pending. Given possible JOB SITE SUPERINTENDENT source will dose more aggressively to start, but will obtain an early random level to help further guide dosing given concerns for toxicity with BMI. Day # 1 of antimicrobial therapy. Plan Vancomycin * Loading dose: 2500 mg IV x 1 * Random level 21.4 mcg/mL * Maintenance dose: 1000 mg IV every 12 hours * Regimen is predicted to achieve target AUC/PRATIK of ~400-650 mg/L.hr * Random level ordered for: 10/20 @ 0444 Pharmacy will continue to follow and will adjust dose/frequency as necessary. Thank you. Pharmacy has transitioned to AUC monitoring for vancomycin. AUC/PRATIK is the preferred PK/PD target and is associated with decreased risk of nephrotoxicity compared to traditional trough targets.
--- NOTE | 2023-10-19 14:05 | Fluoroscopy Report ---
Lumbar puncture under fluoroscopy INDICATION: Altered mental status; recent placement of CLOTH WEAVER shunt PROCEDURE: Procedure and risks were explained. Informed consent was obtained. A final timeout was com pleted. The patient was placed prone on the fluoroscopic examination table. The lower lumbar region w as prepped and draped in sterile fashion. 1% lidocaine was utilized for skin anesthesia. Utilizing fluoroscopic guidance, a 22-gauge spinal needle was advanced into the intrathecal space at the L 3-4 disc space level. 3 permanent spot images were obtained. Approximately 6 mL of clear CSF fl uid was removed and sent to lab for analysis. The needle was removed and Band-Aid applied. The patien t tolerated the procedure well. Total fluoroscopy time 0.39 minutes. DAP is 16.8 mcGy/m2. IMPRESSION: Lumbar puncture as above. Performed, dictated, and signed by Toro Peralta PA-C; to be co-signed by Dr. Efrain Gant. Electronically signed by: Efrain Gant M.D. 10/19/2023 2:13 PM
[2023-10-19 14:20] LABS: Appearance CSF Clear; CSF Count Tube # 3; CSF Xanthrochromic No xanthochromia; Color CSF Colorless; Red Blood Cell CSF Auto 10 /uL (0-); White Blood Cell CSF Manual 16.6 (0-5)
[2023-10-19 14:21] LABS: Red Blood Cell CSF Manual 6.6 (0-)
[2023-10-19 14:22] LABS: White Blood Cell CSF Auto 17 /uL (0-5)
[2023-10-19 14:23] LABS: Total Protein CSF 33.3 mg/dl (15-45)
[2023-10-19 14:44] LABS: Mononuclear WBC CSF Manual 100 %; Polynuclear WBC CSF Manual 0 %
[2023-10-19 15:23] LABS: Cryptococcus neoformans/ga PCR Not Detected (NotDetected); Cytomegalovirus PCR Not Detected (NotDetected); Enterovirus PCR Not Detected (NotDetected); Escherichia coli K1 PCR Not Detected (NotDetected); Haemophilius influenzae PCR Not Detected (NotDetected); Herpes Simplex Virus 1 PCR Not Detected (NotDetected); Herpes Simplex Virus 2 PCR Not Detected (NotDetected); Human Herpes Virus 6 PCR Not Detected (NotDetected); Human Parechovirus PCR Not Detected (NotDetected); Listeria monocytogenes PCR Not Detected (NotDetected); Neisseria meningitidis PCR Not Detected (NotDetected); Streptococcus agalactiae PCR Not Detected (NotDetected); Streptococcus pneumoniae PCR Not Detected (NotDetected); Varicella Zoster Virus PCR Not Detected (NotDetected)
[2023-10-19] MEDS ORDERED: CEFEPIME 2,000 MG in SYRINGE 0 ML IV SCH (16:00)
[2023-10-19] MEDS: metroNIDAZOLE 500 MG/100 ML BAG IV SCH ×2 (17:27→22:50)
[2023-10-19] MEDS ORDERED: AMPICILLIN SOD 1 GM VIAL IV SCH (17:45)
--- NOTE | 2023-10-19 17:47 | Hospitalist Progress Note ---
Date of Service October 19, 2023 Assessment & Plan (1) AMS (altered mental status): Plan: Encephalopathy with the presence of fever concern for metabolic encephalopathy from infection COVID-positive status, possible gram negaitve or aspiration pnx, and recent HOME MANAGER shunt with 16 wbc on LP(PCR pending). REmdesivir/Dexamethasone, vanco, cefepime,ampicillin 4 blood cultures , csf cultures and pcr pending, ID consult pending cannot image mri of shunt here due to non compatable mri magent previous echocardiogram did show abnormality of aortic valve leaflet ARELI was refused by patient this could be completed if required part of her workup during this stay subacute CVA-CT of the head wo con on presentation does show "1.1 cm hypodense focus within left basal ganglia which is new since prior head CT. This suggests a subacute to acute infarct.". -no residual deficit -Continue aspirin and statin -Will continue home Keppra (2) COVID-19: Plan: -Positive on presentation with fever and progressive hypoxic respiratory distress patient initiated on remdesivir and dexamethasone. respiratory distress improved/resolved (3) Fall: Plan: -Fell out of bed twice and lost her balance causing her to fall backwards while standing earlier today at [facility] -Likely due to metabolic encephalopathy poa -No acute trauma -Fall precautions ordered (4) NPH (normal pressure hydrocephalus): Plan: -S/P HOME MANAGER shunt placement at [facility] approximately 6 weeks ago -Stable on CT head upon presentation, cannot tap shunt here, LP performed 10/19/23 (5) Acute CVA (cerebrovascular accident): Plan: -Suspected on last admission earlier this month -Unsure if CT head findings today are from her suspected CVA last admission or new from discharge -Not a candidate for TNK due to timing of symptoms 48 hours prior -Neurology consult -Continue aspirin and statin for now (6) Type 2 diabetes mellitus: Plan: -Hold metformin -Monitor BSG q6h overnight, goal is 110-160 -Normally takes 30 units Detemir q12h, will start with 10 units lantus BID to avoid hypoglycemia with poor oral intake -Start CF of 50 -DMII diet if she passes dysphagia screen -Adjust regimen as needed (7) Hypothyroidism: Plan: Typically on levothyroxine (8) Anxiety: Plan: -Typically on Wellbutrin and citalopram Admission and Anticipated Discharge Date Admission Date: October 17, 2023 Subjective pt with dramatic improvement, no recollection of events of 10/18, is not on 3 L nc, concerns for pneumonia concerns for destination specialist issue with recent vp care management shunt Physical Exam Physical Exam: pt is awake and alert, oriented x3 cardiac exam is regular, no easy to hear murmur despite aoritic valve abnormality on echo lungs diminished at bases abd is soft and non tender ext without edema neuro, moves all extremity to command Results & Data Results & Data Vital Signs (Past 12 Hours) Vital Signs Temp Pulse Pulse Resp BP BP Pulse Ox 10/19/23 16:00 66 18 92 10/19/23 16:00 10/19/23 15:45 64 21 10/19/23 15:40 97.7 F 65 21 141/68 H 94 10/19/23 15:34 141/68 H 10/19/23 15:34 65 22 93 10/19/23 15:30 66 22 93 10/19/23 15:16 66 23 91 10/19/23 15:16 135/63 10/19/23 15:15 66 24 93 10/19/23 15:03 145/62 H 10/19/23 15:03 63 21 92 10/19/23 15:00 67 12 92 10/19/23 14:46 64 13 91 10/19/23 14:46 164/80 H 10/19/23 14:45 71 27 H 89 L 10/19/23 14:32 70 20 90 10/19/23 14:32 113/72 10/19/23 14:16 135/68 10/19/23 14:16 62 21 94 10/19/23 14:01 139/71 10/19/23 14:01 64 22 96 10/19/23 14:00 67 18 95 10/19/23 13:30 68 27 H 97 10/19/23 13:30 144/78 H 10/19/23 12:00 97.7 F 66 21 96 10/19/23 11:21 98.1 F 64 20 10/19/23 11:21 121/58 L 10/19/23 11:00 97.9 F 71 20 95 10/19/23 10:21 116/55 L 10/19/23 10:21 97.5 F L 67 14 95 10/19/23 10:17 137/64 10/19/23 10:17 97.5 F L 70 19 94 10/19/23 10:00 97.5 F L 60 20 94 10/19/23 09:20 123/57 L 10/19/23 09:20 97.3 F L 59 L 22 95 10/19/23 09:00 97.2 F L 59 L 16 96 10/19/23 08:21 103/80 10/19/23 08:21 96.8 F L 57 L 20 95 10/19/23 08:00 96.6 F L 60 18 94 10/19/23 08:00 10/19/23 07:00 96.6 F L 58 L 14 92 10/19/23 06:21 96.4 F L 58 L 19 94 10/19/23 06:21 134/61 10/19/23 06:00 96.4 F L 56 L 19 134/61 96 Pulse Ox O2 Del Method O2 Del Method O2 Flow Rate FiO2 10/19/23 16:00 10/19/23 16:00 94 Nasal Cannula 10/19/23 15:45 10/19/23 15:40 Nasal Cannula 1 10/19/23 15:34 10/19/23 15:34 10/19/23 15:30 10/19/23 15:16 Nasal Cannula 1 10/19/23 15:16 10/19/23 15:15 10/19/23 15:03 10/19/23 15:03 10/19/23 15:00 10/19/23 14:46 10/19/23 14:46 10/19/23 14:45 10/19/23 14:32 10/19/23 14:32 10/19/23 14:16 10/19/23 14:16 Nasal Cannula 1 10/19/23 14:01 10/19/23 14:01 10/19/23 14:00 10/19/23 13:30 Nasal Cannula 1 10/19/23 13:30 10/19/23 12:00 10/19/23 11:21 10/19/23 11:21 10/19/23 11:00 10/19/23 10:21 10/19/23 10:21 10/19/23 10:17 10/19/23 10:17 10/19/23 10:00 Nasal Cannula 3 10/19/23 09:20 10/19/23 09:20 10/19/23 09:00 10/19/23 08:21 10/19/23 08:21 10/19/23 08:00 10/19/23 08:00 Nasal Cannula 3 10/19/23 07:00 10/19/23 06:21 10/19/23 06:21 10/19/23 06:00 Nasal Cannula 3 Laboratory Results reviewed CBC reviewed chemistry reviewed lumbar puncture personally spoke to infectious disease on-call. Recommended treatment for meningitis until ruled out PG Care Time/CCT Total # of Minutes Spent Total Time Spent with Patient: Total time spent is greater than 50% in coordination of care (as documented) at patient's floor/unit and/or counseling patient: Coding Level of Care Code 55917 SUB INP/OBS CARE 3/50MIN Diagnoses AMS (altered mental status) R41.82 COVID-19 U07.1 Fall W19.XXXA Encounter type: initial encounter NPH (normal pressure hydrocephalus) G91.2 Acute CVA (cerebrovascular accident) I63.9 Type 2 diabetes mellitus E11.9 Hypothyroidism E03.9 Anxiety F41.9 (3) Fall Encounter type: initial encounter Qualified Code(s): W19.XXXA - Unspecified fall, initial encounter
[2023-10-19] MEDS: AMPICILLIN 2,000 MG in SODIUM CHLOR 0.9% MINI-B 100 ML IV SCH ×2 (18:36→21:20)
[2023-10-20] MEDS: AMPICILLIN 2,000 MG in SODIUM CHLOR 0.9% MINI-B 100 ML IV SCH ×6 (00:58→21:27)
[2023-10-20] MEDS: FAMOTIDINE 20 MG in SYRINGE 3 ML IV SCH ×2 (03:18→15:53)
[2023-10-20] MEDS: levETIRAcetam 500 MG in SODIUM CHLOR 0.9% MINI-B 100 ML IV SCH (04:04)
[2023-10-20] MEDS ORDERED: VANCOMYCIN LEVEL ONE (04:44)
[2023-10-20 04:49] LABS: Basophils # (auto) 0.03 K/uL (0.00-0.20); Basophils % (auto) 0.2 %; Hematocrit (blood only) 32.8 % (37.0-47.0); Hemoglobin 10.7 g/dl (12.0-16.0); Immature Granulocytes # (auto) 0.11 K/uL (0.01-0.20); Immature Granulocytes % (auto) 0.7 %; Lymphocytes # (auto) 1.34 K/uL (1.20-3.40); Lymphocytes % (auto) 8.1 %; Mean Corpuscular Hemoglobin 26.8 pg (25.0-34.0); Mean Corpuscular Hgb Conc 32.6 g/dL (32.0-36.0); Mean Platelet Volume 10.8 fL (9.4-12.4); Monocytes # (auto) 0.53 K/uL (0.11-0.59); Monocytes % (auto) 3.2 %; Neutrophils # (auto) 14.58 K/uL (1.40-6.50); Neutrophils % (auto) 87.8 %; Platelet Count 253 K/uL (130-400); RDW Standard Deviation 41.9 fL (36.4-46.3); White Blood Count 16.59 K/ul (4.8-10.8)
[2023-10-20 04:57] LABS: Albumin Globulin Ratio 0.8 (0.9-2); Albumin Level 2.8 gm/dl (3.4-5.0); BUN Creatinine Ratio 27.5 (10-20); Bilirubin,Total 0.3 mg/dl (0.2-1.0); Calcium 8.1 mg/dl (8.6-10.3); Creatinine Clr Calc Pharmacy 76.8 ml/min; Est GFR (African American) 78.9 ml/min; Est GFR (Non-African American) 68.1 ml/min; Globulin 3.3 gm/dl (2.5-4.0); Magnesium 1.8 mg/dl (1.7-2.4); Potassium 4.3 mmol/L (3.5-5.1); Total Protein 6.1 gm/dl (6.0-8.3)
[2023-10-20 05:05] LABS: INR 1.1 (0.9-1.1)
[2023-10-20] MEDS: LEVOTHYROXINE SODIUM 88 MCG TABLET PO SCH (05:49)
[2023-10-20] MEDS ORDERED: Nursing to Pharmacy Communication SCH (07:15)
[2023-10-20] MEDS: CEFEPIME 2,000 MG in SYRINGE 0 ML IV SCH ×3 (08:15→23:06)
[2023-10-20] MEDS: metroNIDAZOLE 500 MG/100 ML BAG IV SCH ×3 (08:16→23:06)
[2023-10-20] MEDS: ASPIRIN 81 MG ECTAB PO SCH (08:16)
[2023-10-20] MEDS: ATORVASTATIN 40 MG TAB PO SCH (08:16)
[2023-10-20] MEDS: CITALOPRAM 20 MG TAB PO SCH (08:16)
[2023-10-20] MEDS: METOPROLOL SUCC 25MG EXT REL TAB PO SCH (08:17)
[2023-10-20] MEDS: INSULIN ASPART PER UNIT CHARGE SC SCH ×4 (08:50→21:27)
[2023-10-20] MEDS: LANTUS PER UNIT CHARGE SQ SCH ×2 (08:51→21:27)
--- NOTE | 2023-10-20 11:08 | Pulmonology Progress Note ---
Date of Service October 20, 2023 Assessment & Plan (1) COVID-19: (2) Acute CVA (cerebrovascular accident): (3) Short-term memory loss: (4) Multifocal pneumonia: (5) Acute respiratory failure with hypoxia: Plan Reason: 63-year-old female past medical history of normal pressure hydrocephalus status post MANAGER COMMUN[employer] shunt approximately 6 weeks ago, hypothyroidism, diabetes, hypertension admitted to the hospital with fever and confusion. 2D echo 10/08/2023: EF 60-65%, moderate concentric LVH, focal calcification noted on the left coronary cusp questionable mass/vegetation, RV normal in size and function Neuro - [facility]: Positive 2D echo 10/08/2023: EF 60-65%, moderate concentric LVH, focal calcification noted on the left coronary cusp questionable mass/vegetation, RV normal in size and function Respiratory - -- Acute hypoxic respiratory failure Multifactorial COVID-19 and likely from aspiration pneumonia with VQ mismatch from lower lobe atelectasis COVID-19 positive, negative for everything else on the respiratory bio fire --COVID-19 Patient does have dense consolidative process appreciated on the CT chest CRP 8.81 --> 33.16 Mild patchy opacities as well Continue with dexamethasone -- Obesity with probable JOSE ANGEL c/w BiPAP while in the hospital Plan: In/out: -250 Continue with BiPAP nightly and as needed shortness of breath Keep O2 saturation between 90-92% Complete course of dexamethasone for total of 10 days. Continue with antibiotics for 7 days No further recommendation from pulmonary perspective, will sign off Please call directly with any questions Was discussed with Dr Osborne Please note the above document was generated using voice recognition software. It may contain grammatical, syntax or spelling errors.Any formal questions or concerns about the content, text or information contained within the body of this dictation should be directly addressed to the provider for clarification. Admission and Anticipated Discharge Date Admission Date: October 17, 2023 Subjective Patient seen and examined at bedside. No acute distress, no adverse events overnight. She was on 1 L oxygen saturating 96-97%. I turned it off Overall she says she is feeling much better Denies any chest pain, no headache, no nausea, no vomiting She was laying in the bed. On asking whether she would like to sit in the chair she refused. Denies any blurry vision, no headache. No abdominal pain Tolerating diet well Review of Systems 2 Review of Systems: All systems reviewed & are unremarkable except as noted in Subjective Physical Exam 2 Physical Exam: Constitutional: No acute distress HEENT: EOMI, PERRLA, right temporal MANAGER [employer] shunt appreciated Respiratory system: Decreased air entry bilaterally, no wheeze, no rhonchi, positive crackles bilateral lower lobes CVS: S1-S2 positive, no murmurs or gallops Abdomen: Soft, nontender, nondistended, positive bowel sounds x4, obese Extremities: +2 pulses bilaterally radialis/ dorsalis pedis, no cyanosis, no edema Neuro: Awake alert oriented x3, cranial nerves II to XII grossly intact Psych: Normal mood and affect G/U: Positive Nash Skin: no rashes, warm and dry Lymphatic: no cervical or axillary lymphadenopathy Results & Data Results & Data Vital Signs (Past 12 Hours) Vital Signs Temp Pulse Resp BP Pulse Ox O2 Del Method O2 Flow Rate 10/20/23 10:00 36.3 C L 58 L 18 95 10/20/23 09:09 Nasal Cannula 1 10/20/23 09:00 36.3 C L 58 L 17 96 10/20/23 08:22 36.2 C L 61 18 95 10/20/23 08:22 148/69 H 10/20/23 08:16 36.2 C L 61 16 95 10/20/23 08:16 141/65 H 10/20/23 08:00 36.1 C L 54 L 18 91 10/20/23 07:16 123/73 10/20/23 07:16 36.1 C L 58 L 14 90 10/20/23 07:00 36.1 C L 55 L 19 93 10/20/23 03:16 36.2 C L 69 13 141/67 H 95 BiPAP 10/20/23 03:05 55 L 16 94 10/20/23 02:16 36.2 C L 56 L 16 130/67 98 BiPAP 10/20/23 01:16 36.2 C L 65 13 130/68 93 Nasal Cannula 2 10/20/23 00:16 35.9 C L 54 L 15 126/73 98 BiPAP 10/19/23 23:44 60 10/19/23 23:30 BiPAP 10/19/23 23:16 36.1 C L 55 L 14 133/99 95 BiPAP 10/19/23 23:12 53 L 16 98 FiO2 10/20/23 10:00 10/20/23 09:09 10/20/23 09:00 10/20/23 08:22 10/20/23 08:22 10/20/23 08:16 10/20/23 08:16 10/20/23 08:00 10/20/23 07:16 10/20/23 07:16 10/20/23 07:00 10/20/23 03:16 40 10/20/23 03:05 40 10/20/23 02:16 40 10/20/23 01:16 10/20/23 00:16 10/19/23 23:44 10/19/23 23:30 10/19/23 23:16 10/19/23 23:12 40 Laboratory Results 10/20/23 04:06 10/20/23 04:06 PG Care Time/CCT Total # of Minutes Spent Total Time Spent with Patient: Total time spent is greater than 50% in coordination of care (as documented) at patient's floor/unit and/or counseling patient: Coding Level of Care Code 21026 SUB INP/OBS CARE 3/50MIN Diagnoses COVID-19 U07.1 Acute CVA (cerebrovascular accident) I63.9 Short-term memory loss R41.3 Multifocal pneumonia J18.9 Acute respiratory failure with hypoxia J96.01
[2023-10-20] MEDS: dexAMETHasone 6 MG in SYRINGE 0 ML IV SCH (11:54)
[2023-10-20] MEDS: REMDESIVIR 100 MG in SODIUM CHLORIDE 0.9% 230 ML IV SCH (12:22)
--- NOTE | 2023-10-20 17:05 | Infectious Disease Consult ---
Date of Consultation October 20, 2023 Assessment & Plan (1) Acute respiratory failure with hypoxia: (2) COVID-19: (3) Multifocal pneumonia: (4) AMS (altered mental status): (5) Aspiration pneumonia: (6) CSF pleocytosis: Plan Isadora Wells is a 63-year-old woman with history of NPH s/p CHIEF MINISTER shunt at 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 She developed fevers, altered mental status, hypoxemia requiring BiPAP, and leukocytosis on 10/18 that rapidly improved. LP with WBC of 17. ID is consulted to evaluate for fevers, hypoxemia, Covid-19 infection, and the possibility of CHIEF MINISTER shunt-associated meningitis/ventriculitis. Her acute hypoxemic respiratory failure improved rapidly <12h. This is in the setting of Covid-19 infection, though her rapid improvement and radiographic findings are also suggestive of aspiration pneumonitis/aspiration pneumonia. Would continue remdesivir and dexamethasone as you are. Covering for HAP as well with abx as below. MRSA nares neg. Pts CSF with WBC of 17 which could be c/f a shunt-associated meningiti s/ventriculitis. However, a meningitis/ventriculitis seems less consistent with her clinical picture given her rapid improvement in <12h. Pt denies ongoing headache or neck pain. Furthermore, pts CSF WBCs were 100% monos rather than polys, and with normal protein/glucose, so less c/w a bacterial infection. Also considered the possibilities of inflammation related to recent shunt placement, or even an aseptic meningitis in the setting of Covid-19. That being said, pts CHIEF MINISTER shunt is not MRI-compatible and was not able to do a shunt tap. CSF pathogen PCR panel negative. BCx and CSF cx NGTD Out of an abundance of caution, can continue antibiotics (vancomycin and cefepime) and follow cultures. Can continue ampicillin for now (CSF panel neg for Listeria, but CTH with basal ganglia focus c/f subacute infarct; MRI unable to be performed). While an empiric course of antibiotics can be considered, it must be noted that if there is ongoing concern for CHIEF MINISTER shunt infection, that further studies should be performed (MRI brain and CHIEF MINISTER shunt tap) and that management would include consideration for shunt exchange. If recurrence of fevers, altered mental status, or clinical worsening, would consider MRI brain and CHIEF MINISTER shunt tap (which may require transfer). ID Problem List: 1.Fever, leukocytosis 2.Altered mental status/encephalopathy 3.Acute hypoxemic respiratory failure 4.Aspiration pneumonia 5.Covid-19 pneumonia 6.CSF pleocytosis, concern for shunt-associated meningitis 7.CHIEF MINISTER shunt in place Recommendations: - Continue vancomycin - Continue cefepime 2g IV Q8H - Can continue ampicillin 2g IV Q4H for now - Can stop metronidazole - Continue remdesivir and dexamethasone for Covid-19 as you are - F/u 10/18 BCx, 10/19 CSF cx and studies until finalized - If recurrence of fevers, altered mental status, or clinical worsening, would consider MRI brain and CHIEF MINISTER shunt tap (which may require transfer) ID will continue to follow. Clover Cazares MD, [facility] direct line: [phone] Consultation Information Consultation was provided via telemedicine using two-way real-time interactive telecommunication between the patient and the telemedicine provider. For the duration of the visit, the provider was performing the assessment from a different facility than the patient. This includesuse of bluetooth stethoscope forauscultationperformed by the telepresenter that the telemedicine provider can hear if described in the physical exam. Corset Maker contact information: Please call [facility] Call Center [phone]. 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 She developed fevers, altered mental status, hypoxemia requiring BiPAP, and leukocytosis on 10/18 that rapidly improved. LP with WBC of 17. ID is consulted to evaluate for fevers, hypoxemia, Covid-19 infection, and the possibility of CHIEF MINISTER shunt-associated meningitis/ventriculitis. The patient was recently admitted to [facility] from 10/07-10/12 for stroke-like symptoms, slowed dysarthric speech, right upper and lower facial weakness. The patient had no acute findings on initial CT head and CTA Head/neck and could not undergo brain MRI due to her CHIEF MINISTER shunt. Neurology was consulted and believed the patient most likely had an acute/sub-acute infarct based on clinical findings. The patient was started on aspirin, her dose of Atorvastatin was increased, and she was started on BID Keppra. The patient underwent TTE during her admission, Neurology recommended ARELI after TTE revealed sclerotic aortic valve with focal calcifications on the left coronary cusp, vegetation/mass could not be excluded. Per the DC summary, the patient refused a ARELI as she did not believe that she needed one at that time. On this recent presentation, the patient developed increasing fevers, confusion, and falls while at [facility]. The primary team reached out to the [facility] to confirm history. She reportedly slid out of bed twice on 10/17 and had one fall while trying to stand. They sent her to the ED as she was febrile and was more confused than normal. They state she was having difficulty remembering what procedure she had performed at [facility] recently, which is why they sent her to be evaluated. They state that she has not been eating or drinking well over the past 48 hours. In the ED, T38.5C and hypertensive 193/91. WBC 13 with neutrophil predominance of 9.75, initial lactate of 2.1 with repeat of 2.3, negative procal, negative UA, and Covid-19 positive. The patient was started on ceftriaxone. Her mental status improved and she was subsequently noted on the day of admission 10/17 to be alert and oriented. CTH suggestive of subacute to acute infarct of basal ganglia. On 10/18 she developed a fever to 39.1 leukocytosis to 17, and hypoxemia requiring BiPAP and ICU transfer. Vancomycin and cefepime were started. She was placed on remdesivir and dexamethasone Overnight, she was weaned back to nasal cannula. CTA chest negative for PE but showed infiltrates predominant in lower lobes, c/f multifocal pna vs. aspiration pneumonitis. Due to her recent AMS, an LP was performed on 10/19 which showed CSF WBC 17, RBC 6, glucose 143 protein 33. CRP 8.8 on 10/18 to 33 on 10/19. At the time of evaluation, the patient was not able to recall much about her prior symptoms. She says that right now she feels good and denies any pain. She denies headaches, chest pain, coughing, shortness of breath. She has now been weaned to 1L nasal cannula. Allergies Allergy/AdvReac Type Severity Reaction Status Date / Time No Known Allergies Allergy Unknown Verified 05/23/23 20:51 Home Medications Medication Instructions Recorded Confirmed Type tolterodine 2 mg capsule,extended 2 mg PO DAILY #30 caps 05/30/23 10/17/23 Rx release 24 hr acetaminophen 325 mg tablet 650 mg PO Q6 PRN PAIN/FEVER 10/07/23 10/17/23 History (Tylenol) bupropion HCl 100 mg tablet 100 mg PO DAILY 10/07/23 10/17/23 History citalopram 20 mg tablet 20 mg PO QAM 10/07/23 10/17/23 History cyanocobalamin (vitamin B-12) 1,000 mcg PO QAM 10/07/23 10/17/23 History 1,000 mcg tablet (Vitamin B-12) gabapentin 300 mg capsule 300 mg PO HS 10/07/23 10/17/23 History levetiracetam 500 mg tablet 500 mg PO BID 10/07/23 10/17/23 History levothyroxine 88 mcg tablet 88 mcg PO DAILY 10/07/23 10/17/23 History metformin 1,000 mg tablet 1,000 mg PO BID 10/07/23 10/17/23 History metoprolol succinate 25 mg 25 mg PO DAILY 10/07/23 10/17/23 History tablet,extended release 24 hr oxycodone 5 mg tablet 5 mg PO Q6H PRN Pain, Severe 10/07/23 10/17/23 History polyethylene glycol 3350 17 gram 17 g PO DAILY PRN Constipation 10/07/23 10/17/23 History oral powder packet (Miralax) aspirin 81 mg tablet,delayed 81 mg PO QAM 30 days #30 tabs 10/12/23 10/17/23 Rx release atorvastatin 40 mg tablet 40 mg PO DAILY 30 days #30 tabs 10/12/23 10/17/23 Rx insulin detemir U-100 100 unit/mL 30 unit subcut Q12 10/17/23 10/17/23 History (3 mL) subcutaneous pen (Levemir FlexPen) Patient History Medical History (Updated 10/20/23 @ 17:02 by Clover Cazares MD) Vitamin B12 deficiency Dehydration DKA (diabetic ketoacidosis) Nausea & vomiting Diabetic ketoacidosis Surgical History (Updated 09/18/23 @ 00:08 by Claire Herring) No pertinent past surgical history Social History Smoking Status: Unknown if ever smoked Second Hand Exposure: No; Do You Dip or Chew Tobacco: No; Hx Alcohol Use: No Hx Substance Use: No Preferred Language: Wallisian Communication Ability: Effective Riveter Required: No Beliefs That Will Affect Care: None Current Living Situation: Group Home Current Living Situation Comment: [place] Feels Safe at Home: Yes Assistive Devices: Walker and Wheelchair Physical Exam Physical Exam: Exam obtained with aid of in-person telepresenter. General: Well-appearing, no acute distress. On 1L nasal cannula HEENT: Conjunctivae non-injected, sclerae anicteric, MMM, OP clear. CHIEF MINISTER shunt site well-healed Neck: No LAD CV: Unable to tele-auscultate due to technical difficulties; per telepresenter: RRR, normal S1/S2; no murmurs, rubs, or gallops. Resp: Unable to tele-auscultate due to technical difficulties; per telepre koko: CTAB; no wheezes, rales, or rhonchi. Respirations nonlabored. Abd: Soft, nontender, nondistended. Ext: Warm and well-perfused, BLE +1 pitting edema. No joint warmth or effusions noted. Skin: No rashes or lesions. Neuro: Alert & interactive. Grossly non-focal. Psych: Pleasant, appropriate. Results & Data Vital Signs (Past 12 Hours) Vital Signs Temp Pulse Pulse Resp BP BP Pulse Ox 10/20/23 12:42 36.5 C 57 L 16 149/65 H 96 10/20/23 10:00 36.3 C L 58 L 18 95 10/20/23 09:09 10/20/23 09:00 36.3 C L 58 L 17 96 10/20/23 08:22 36.2 C L 61 18 95 10/20/23 08:22 148/69 H 10/20/23 08:16 36.2 C L 61 16 95 10/20/23 08:16 141/65 H 10/20/23 08:00 36.1 C L 54 L 18 91 10/20/23 07:16 123/73 10/20/23 07:16 36.1 C L 58 L 14 90 10/20/23 07:00 36.1 C L 55 L 19 93 O2 Del Method O2 Flow Rate 10/20/23 12:42 Nasal Cannula 1 10/20/23 10:00 10/20/23 09:09 Nasal Cannula 1 10/20/23 09:00 10/20/23 08:22 10/20/23 08:22 10/20/23 08:16 10/20/23 08:16 10/20/23 08:00 10/20/23 07:16 10/20/23 07:16 10/20/23 07:00 Diagnostic Findings Diagnostics: 10/18 CTA Chest 1. No pulmonary emboli identified. 2. Multifocal lower lobe predominant pneumonia versus aspiration pneumonitis. 3. Mild likely reactive mediastinal and hilar lymphadenopathy. 10/18 CT Head 1. No acute intracranial abnormality. 2. Unchanged appearance of the hypodense focus in the left caudate nucleus suggestive of a subacute infarct. 10/17 CT Head 1. No acute intracranial hemorrhage. 2. 1.1 cm hypodense focus within left basal ganglia which is new since prior head CT. This suggests a subacute to acute infarct. No mass effect. 3. Right frontal ventriculostomy catheter in place. Stable ventricular dilatation. Micro Summary: 10/19 CSF: clear/colorless, no xanthochromia WBC 17 (auto)/WBC 16.6, RBC 10/RBC 6.6, 100% monos 0% polys, LDH pending, protein 33 glu 143 10/19 CSF Lyme PCR pending, VDRL pending 10/19 CSF pathogen panel neg (neg Cryptococcus, CMV, EBV, Enterovirus, E. coli K1, H. flu, HSV-1/2, HHV-6, Listeria, N. meningitides, parechovirus, S. agalactiae, S. pneumo, VZV) 10/19 CSF g/s few WBCs; cx NGTD. Fungal cx pending 10/18 MRSA nares neg 10/18 BCx x2 NGTD 10/17 BCx x2 NGTD 10/10 BCx x2 NG Antibiotic Summary: Cefepime (10/18-present) Metronidazole (10/19-present) Ampicillin (10/19) Unasyn (10/18-10/19) Vancomycin (10/18) Cefazolin (10/17) remdesivir and dexamethasone
--- NOTE | 2023-10-20 18:55 | Hospitalist Progress Note ---
Date of Service October 20, 2023 Assessment & Plan (1) AMS (altered mental status): Plan: Encephalopathy with the presence of fever concern for metabolic encephalopathy from infection COVID-positive status, possible gram negaitve or aspiration pnx, and recent TROLLEY WORKER shunt with 16 wbc on LP(PCR: negative) culture pending. REmdesivir/Dexamethasone, vanco, cefepime,ampicillin 4 blood cultures , csf cultures and pcr pending, ID consult pending cannot image mri of shunt here due to non compatable mri magent previous echocardiogram did show abnormality of aortic valve leaflet ARELI was refused by patient this could be completed if required part of her workup during this stay subacute CVA-CT of the head wo con on presentation does show "1.1 cm hypodense focus within left basal ganglia which is new since prior head CT. This suggests a subacute to acute infarct.". -no residual deficit -Continue aspirin and statin -Will continue home Keppra (2) COVID-19: Plan: -Positive on presentation with fever and progressive hypoxic respiratory distress patient initiated on remdesivir and dexamethasone. respiratory distress improved/resolved (3) Fall: Plan: -Fell out of bed twice and lost her balance causing her to fall backwards while standing earlier today at [facility] -Likely due to metabolic encephalopathy poa -No acute trauma -Fall precautions ordered (4) NPH (normal pressure hydrocephalus): Plan: -S/P TROLLEY WORKER shunt placement at [facility] approximately 6 weeks ago -Stable on CT head upon presentation, cannot tap shunt here, LP performed 10/19/23 (5) Acute CVA (cerebrovascular accident): Plan: -Suspected on last admission earlier this month -Unsure if CT head findings today are from her suspected CVA last admission or new from discharge -Not a candidate for TNK due to timing of symptoms 48 hours prior -Neurology consult -Continue aspirin and statin for now (6) Type 2 diabetes mellitus: Plan: -Hold metformin -Monitor BSG q6h overnight, goal is 110-160 -Normally takes 30 units Detemir q12h, will start with 10 units lantus BID to avoid hypoglycemia with poor oral intake -Start CF of 50 -DMII diet if she passes dysphagia screen -Adjust regimen as needed (7) Hypothyroidism: Plan: Typically on levothyroxine (8) Anxiety: Plan: -Typically on Wellbutrin and citalopram Admission and Anticipated Discharge Date Admission Date: October 17, 2023 Subjective Patient reports breathing better. SHe has no new complaints. Review of Systems Review of Systems: All systems reviewed & are unremarkable except as noted in Subjective Physical Exam Physical Exam: pt is awake and alert, oriented x3 cardiac exam is regular, no easy to hear murmur despite aoritic valve abnormality on echo lungs diminished at bases abd is soft and non tender ext without edema neuro, moves all extremity to command Results & Data Results & Data Vital Signs (Past 12 Hours) Vital Signs Temp Pulse Pulse Resp BP BP Pulse Ox 10/20/23 16:53 36.7 C 61 22 151/69 H 92 10/20/23 12:42 36.5 C 57 L 16 149/65 H 96 10/20/23 10:00 36.3 C L 58 L 18 95 10/20/23 09:09 10/20/23 09:00 36.3 C L 58 L 17 96 10/20/23 08:22 36.2 C L 61 18 95 10/20/23 08:22 148/69 H 10/20/23 08:16 36.2 C L 61 16 95 10/20/23 08:16 141/65 H 10/20/23 08:00 36.1 C L 54 L 18 91 10/20/23 07:16 123/73 10/20/23 07:16 36.1 C L 58 L 14 90 10/20/23 07:00 36.1 C L 55 L 19 93 O2 Del Method O2 Flow Rate 10/20/23 16:53 Room Air 10/20/23 12:42 Nasal Cannula 1 10/20/23 10:00 10/20/23 09:09 Nasal Cannula 1 10/20/23 09:00 10/20/23 08:22 10/20/23 08:22 10/20/23 08:16 10/20/23 08:16 10/20/23 08:00 10/20/23 07:16 10/20/23 07:16 10/20/23 07:00 PG Care Time/CCT Total # of Minutes Spent Total Time Spent with Patient: Total time spent is greater than 50% in coordination of care (as documented) at patient's floor/unit and/or counseling patient: Coding Level of Care Code 56006 SUB INP/OBS CARE 2/35MIN Diagnoses AMS (altered mental status) R41.82 COVID-19 U07.1 Fall W19.XXXA Encounter type: initial encounter NPH (normal pressure hydrocephalus) G91.2 Acute CVA (cerebrovascular accident) I63.9 Type 2 diabetes mellitus E11.9 Hypothyroidism E03.9 Anxiety F41.9 (3) Fall Encounter type: initial encounter Qualified Code(s): W19.XXXA - Unspecified fall, initial encounter
[2023-10-20] MEDS: levETIRAcetam 500 MG TAB PO SCH (21:28)
[2023-10-21] MEDS: AMPICILLIN 2,000 MG in SODIUM CHLOR 0.9% MINI-B 100 ML IV SCH ×3 (01:45→09:29)
[2023-10-21 04:18] LABS: Mean Corpuscular Hgb Conc 33.3 g/dL (32.0-36.0); Mean Corpuscular Volume 80.9 fL (80.0-100.0); Mean Platelet Volume 10.4 fL (9.4-12.4); Platelet Count 298 K/uL (130-400); RDW Coefficient of Variation 13.8 % (11.5-14.5); RDW Standard Deviation 40.4 fL (36.4-46.3); Red Blood Count 4.08 M/uL (4.20-5.40); White Blood Count 15.13 K/ul (4.8-10.8)
[2023-10-21] MEDS: FAMOTIDINE 20 MG in SYRINGE 3 ML IV SCH ×2 (04:26→17:01)
[2023-10-21 04:34] LABS: BUN Creatinine Ratio 24.5 (10-20); Calcium 8.4 mg/dl (8.6-10.3); Creatinine Clr Calc Pharmacy 76.1 ml/min; Est GFR (African American) 75.9 ml/min; Est GFR (Non-African American) 65.5 ml/min; Potassium 3.8 mmol/L (3.5-5.1)
[2023-10-21] MEDS: LEVOTHYROXINE SODIUM 88 MCG TABLET PO SCH (05:17)
[2023-10-21] MEDS: metroNIDAZOLE 500 MG/100 ML BAG IV SCH (08:34)
[2023-10-21] MEDS: CEFEPIME 2,000 MG in SYRINGE 0 ML IV SCH ×3 (08:34→23:52)
--- NOTE | 2023-10-21 09:23 | Infectious Disease Progress Nt ---
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 She developed fevers, altered mental status, hypoxemia requiring BiPAP, and leukocytosis on 10/18 that rapidly improved in <12 hours c/f aspiration pna and Covid-19 pna. 10/19 LP with WBC of 17 (100% monos, 0 polys). ID is consulted to evaluate for fevers, hypoxemia, Covid-19 infection, and CSF pleocytosis. Her acute hypoxemic respiratory failure, fevers, and mental status improved rapidly <12h. She has been weaned to room air. This is in the setting of known Covid-19 infection, though her rapid improvement and radiographic findings are also suggestive of aspiration pneumonitis/aspiration pneumonia. Would continue remdesivir and dexamethasone as you are. Can continue cefepime to finish a 5-day course for HAP/aspiration pna. MRSA nares neg. Pts CSF with WBC of 17. Considered the possibility of a PCB DESIGN ENGINEER shunt-associated meningitis/ventriculitis however the diff 100% monos, and normal protein/glucose (elevated glu), are reassuring against bacterial infection. Even more reassuring is her rapid clinical improvement. Pt denies headache or neck pain. Consider the possibility of mild residual inflammation from recent shunt placement causing pleocytosis; additionally, in the setting of a viral infection (known Covid-19) it is possible to have a component of aseptic meningitis. The hospitalist discussed the case with Dr. Melendez ([place] neurosurgery) who also felt that the clinical picture and CSF findings were reassuring against a shunt infection. At this time, would not treat specifically targeting meningitis, and thus can stop ampicillin and vancomycin. CSF cx NGTD, would follow CSF cultures until finalized. However, if recurrence of fevers, altered mental status, or clinical worsening, would strongly consider MRI brain and PCB DESIGN ENGINEER shunt tap (which may require transfer), and restarting abx (vancomycin and cefepime). ID Problem List: 1.Fever, leukocytosis 2.Altered mental status/encephalopathy 3.Acute hypoxemic respiratory failure 4.Aspiration pneumonia 5.Covid-19 pneumonia 6.CSF pleocytosis, concern for shunt-associated meningitis 7.PCB DESIGN ENGINEER shunt in place Recommendations: - Continue cefepime 2g IV Q8H to complete a 5-day course for HAP/aspiration - Continue remdesivir and dexamethasone for Covid-19 as you are - Can stop vancomycin, ampicillin, metronidazole - F/u 10/18 BCx, 10/19 CSF cx and studies until finalized - Neurosurgery (Dr. Melendez at [facility]) is aware of CSF findings. If recurrence of fevers, altered mental status, or clinical worsening, would consider MRI brain and PCB DESIGN ENGINEER shunt tap (which may require transfer) and restart abx Plan discussed with hospitalist. Thank you for letting ID participate in the care of this patient. ID will sign off at this time. If questions, please contact the [facility] call center at [phone]. Clover Cazares MD, MHS Infectious Diseases [facility] direct line: [phone] Admission and Anticipated Discharge Date Admission Date: October 17, 2023 Subjective Subsequent visit was provided via telemedicine using two-way real-time interactive telecommunication between the patient and the telemedicine provider. For the duration of the visit, the provider was performing the assessment from a different facility than the patient. This includesuse of bluetooth stethoscope forauscultationperformed by the telepresenter that the telemedicine provider can hear if described in the physical exam. Press Officer contact information: Please call [facility] Call Center . (Phone Number For Physician Use Only) After establishing a telemedicine visit, patient was: Patient was verified with two unique identifiers, Patient/authorized rep acknowledged consent and understanding and Gave permission to continue telehealth session Time Spent with Patient: Subsequent => 55 min - Afebrile, WBC 15 - No pain, no headache. Says shes feeling good. - Weaned to room air since last night. Denies cough or shortness of breath. - One episode of loose bowel movement today Physical Exam Physical Exam: Exam obtained with aid of in-person telepresenter. General: Well-appearing, no acute distress. On room air HEENT: Conjunctivae non-injected, sclerae anicteric, MMM, OP clear. PCB DESIGN ENGINEER shunt site well-healed CV: Unable to tele-auscultate due to technical difficulties; per telepresenter: RRR, normal S1/S2; no murmurs, rubs, or gallops. Resp: Unable to tele-auscultate due to technical difficulties; per telepresenter: CTAB; no wheezes, rales, or rhonchi. Respirations nonlabored. Abd: Soft, nontender, nondistended. Ext: Warm and well-perfused, BLE +1 edema. Skin: No rashes or lesions. Neuro: Alert & interactive. Grossly non-focal. Psych: Pleasant, appropriate. Results & Data Vital Signs (Past 12 Hours) Vital Signs Temp Pulse Pulse Resp BP BP Pulse Ox 10/21/23 07:18 57 L 10/21/23 04:30 36.3 C L 54 L 15 158/77 H 93 10/21/23 00:00 57 L 10/20/23 23:30 36.9 C 58 L 17 140/84 93 O2 Del Method 10/21/23 07:18 10/21/23 04:30 10/21/23 00:00 10/20/23 23:30 Room Air Diagnostic Findings Diagnostics: 10/18 CTA Chest 1. No pulmonary emboli identified. 2. Multifocal lower lobe predominant pneumonia versus aspiration pneumonitis. 3. Mild likely reactive mediastinal and hilar lymphadenopathy. 10/18 CT Head 1. No acute intracranial abnormality. 2. Unchanged appearance of the hypodense focus in the left caudate nucleus suggestive of a subacute infarct. 10/17 CT Head 1. No acute intracranial hemorrhage. 2. 1.1 cm hypodense focus within left basal ganglia which is new since prior head CT. This suggests a subacute to acute infarct. No mass effect. 3. Right frontal ventriculostomy catheter in place. Stable ventricular dilatation. Micro Summary: 10/19 CSF: clear/colorless, no xanthochromia WBC 17 (auto)/WBC 16.6, RBC 10/RBC 6.6, 100% monos 0% polys, LDH pending, protein 33 glu 143 11/29 CSF Lyme PCR pending, VDRL pending 10/19 CSF pathogen panel neg (neg Cryptococcus, CMV, EBV, Enterovirus, E. coli K1, H. flu, HSV-1/2, HHV-6, Listeria, N. meningitides, parechovirus, S. agalactiae, S. pneumo, VZV) 10/19 CSF g/s few WBCs; cx NGTD. Fungal cx pending 10/18 MRSA nares neg 10/18 BCx x2 NGTD 10/17 BCx x2 NGTD 10/10 BCx x2 NG Antibiotic Summary: Cefepime (10/18-present) Metronidazole (10/19-present) Ampicillin (10/19-present) remdesivir and dexamethasone (10/18-p) Prior Unasyn (10/18-10/19) Vancomycin (10/18) Cefazolin (10/17)
[2023-10-21] MEDS: INSULIN ASPART PER UNIT CHARGE SC SCH ×4 (09:29→21:07)
[2023-10-21] MEDS: ASPIRIN 81 MG ECTAB PO SCH (09:30)
[2023-10-21] MEDS: CITALOPRAM 20 MG TAB PO SCH (09:30)
[2023-10-21] MEDS: levETIRAcetam 500 MG TAB PO SCH ×2 (09:30→20:54)
[2023-10-21] MEDS: METOPROLOL SUCC 25MG EXT REL TAB PO SCH (09:30)
[2023-10-21] MEDS: ATORVASTATIN 40 MG TAB PO SCH (09:30)
[2023-10-21] MEDS: LANTUS PER UNIT CHARGE SQ SCH ×2 (09:32→21:07)
[2023-10-21] MEDS: dexAMETHasone 6 MG in SYRINGE 0 ML IV SCH (12:07)
[2023-10-21] MEDS: REMDESIVIR 100 MG in SODIUM CHLORIDE 0.9% 230 ML IV SCH (12:07)
--- NOTE | 2023-10-21 18:50 | Pulmonology Progress Note ---
Date of Service October 21, 2023 Assessment & Plan (1) COVID-19: (2) Acute CVA (cerebrovascular accident): (3) Short-term memory loss: (4) Multifocal pneumonia: (5) Acute respiratory failure with hypoxia: Plan Reason: 63-year-old female past medical history of normal pressure hydrocephalus status post LOAD OUT SUPERVISOR shunt approximately 6 weeks ago, hypothyroidism, diabetes, hypertension admitted to the hospital with fever and confusion. 2D echo 10/08/2023: EF 60-65%, moderate concentric LVH, focal calcification noted on the left coronary cusp questionable mass/vegetation, RV normal in size and function Neuro - [facility]: Positive 2D echo 10/08/2023: EF 60-65%, moderate concentric LVH, focal calcification noted on the left coronary cusp questionable mass/vegetation, RV normal in size and function Respiratory - -- Acute hypoxic respiratory failure Multifactorial COVID-19 and likely from aspiration pneumonia with VQ mismatch from lower lobe atelectasis COVID-19 positive, negative for everything else on the respiratory bio fire --COVID-19 Patient does have dense consolidative process appreciated on the CT chest CRP 8.81 --> 33.16 Mild patchy opacities as well Continue with dexamethasone -- Obesity with probable JOSE ANGEL c/w BiPAP while in the hospital Plan: In/out: - 1650 Continue with BiPAP nightly and as needed shortness of breath Keep O2 saturation between 90-92% Complete course of dexamethasone for total of 10 days. Continue with antibiotics for 7 days No further recommendation from pulmonary perspective, will sign off Please call directly with any questions Was discussed with Dr Osborne Please note the above document was generated using voice recognition software. It may contain grammatical, syntax or spelling errors.Any formal questions or concerns about the content, text or information contained within the body of this dictation should be directly addressed to the provider for clarification. Admission and Anticipated Discharge Date Admission Date: October 17, 2023 Subjective Patient seen and examined at bedside. No acute distress, vital signs overnight Here she was saturating 96% on room air Has been using BiPAP overnight as much as she can Denies any headache, no blurry vision, no nausea vomiting Fair appetite No abdominal pain Review of Systems 2 Review of Systems: All systems reviewed & are unremarkable except as noted in Subjective Physical Exam 2 Physical Exam: Constitutional: No acute distress HEENT: EOMI, PERRLA, right temporal LOAD OUT SUPERVISOR shunt appreciated Respiratory system: Decreased air entry bilaterally, no wheeze, no rhonchi, positive crackles bilateral lower lobes CVS: S1-S2 positive, no murmurs or gallops Abdomen: Soft, nontender, nondistended, positive bowel sounds x4, obese Extremities: +2 pulses bilaterally radialis/ dorsalis pedis, no cyanosis, no edema Neuro: Awake alert oriented to self, cranial nerves II to XII grossly intact Psych: Normal mood and affect G/U: Positive Nash Skin: no rashes, warm and dry Lymphatic: no cervical or axillary lymphadenopathy Results & Data Results & Data Vital Signs (Past 12 Hours) Vital Signs Temp Pulse Resp BP Pulse Ox O2 Del Method 10/21/23 17:42 61 10/21/23 17:08 36.8 C 63 15 95 10/21/23 17:08 142/83 H 10/21/23 16:00 36.7 C 60 19 92 10/21/23 14:59 169/84 H 10/21/23 14:59 36.6 C 61 18 93 Room Air 10/21/23 14:25 36.6 C 58 L 18 10/21/23 14:25 167/85 H 10/21/23 14:00 36.6 C 53 L 17 10/21/23 12:59 36.5 C 53 L 18 10/21/23 12:59 153/76 H 10/21/23 12:00 36.6 C 58 L 18 93 Room Air 10/21/23 10:58 166/59 H 10/21/23 10:58 36.4 C L 50 L 19 93 Room Air 10/21/23 10:53 Room Air 10/21/23 08:59 36.6 C 56 L 20 94 Room Air 10/21/23 08:59 158/77 H 10/21/23 08:00 36.5 C 55 L 16 92 Room Air 10/21/23 07:18 57 L Laboratory Results 10/21/23 03:49 10/21/23 03:49 PG Care Time/CCT Total # of Minutes Spent Total Time Spent with Patient: Total time spent is greater than 50% in coordination of care (as documented) at patient's floor/unit and/or counseling patient: Coding Level of Care Code 90237 SUB INP/OBS CARE 2/35MIN Diagnoses COVID-19 U07.1 Acute CVA (cerebrovascular accident) I63.9 Short-term memory loss R41.3 Multifocal pneumonia J18.9 Acute respiratory failure with hypoxia J96.01
--- NOTE | 2023-10-21 22:33 | Hospitalist Progress Note ---
Date of Service October 21, 2023 Assessment & Plan (1) AMS (altered mental status): Plan: Encephalopathy with the presence of fever concern for metabolic encephalopathy from infection COVID-positive status, possible gram negaitve or aspiration pnx, and recent OIL GAUGER shunt with 16 wbc on LP(PCR: negative) culture pending. REmdesivir/Dexamethasone, stop vanco and flagyl continue cefepime for 5 days. 4 blood cultures , doubt meningitis. appreciate inout from [place] and [facility]. WIll only treat for pneumonia. cannot image mri of shunt here due to non compatable mri magent previous echocardiogram did show abnormality of aortic valve leaflet ARELI was refused by patient this could be completed if required part of her workup during this stay subacute CVA-CT of the head wo con on presentation does show "1.1 cm hypodense focus within left basal ganglia which is new since prior head CT. This suggests a subacute to acute infarct.". -no residual deficit -Continue aspirin and statin -Will continue home Pedro (2) COVID-19: Plan: -Positive on presentation with fever and progressive hypoxic respiratory distress patient initiated on remdesivir and dexamethasone. respiratory distress improved/resolved (3) Fall: Plan: -Fell out of bed twice and lost her balance causing her to fall backwards while standing earlier today at [facility] -Likely due to metabolic encephalopathy poa -No acute trauma -Fall precautions ordered (4) NPH (normal pressure hydrocephalus): Plan: -S/P OIL GAUGER [place] [facility] [place] -Stable on CT head upon presentation, cannot tap shunt here, LP performed 10/19/23 (5) Acute CVA (cerebrovascular accident): Plan: -Suspected on last admission earlier this month -Unsure if CT head findings today are from her suspected CVA last admission or new from discharge -Not a candidate for TNK due to timing of symptoms 48 hours prior -Neurology consult -Continue aspirin and statin for now (6) Type 2 diabetes mellitus: Plan: -Hold metformin -Monitor BSG q6h overnight, goal is 110-160 -Normally takes 30 units Detemir q12h, will start with 10 units lantus BID to avoid hypoglycemia with poor oral intake -Start CF of 50 -DMII diet if she passes dysphagia screen -Adjust regimen as needed (7) Hypothyroidism: Plan: Typically on levothyroxine (8) Anxiety: Plan: -Typically on Wellbutrin and citalopram Admission and Anticipated Discharge Date Admission Date: October 17, 2023 Subjective Patient reports no new symptoms except for loose stools. Review of Systems Review of Systems: All systems reviewed & are unremarkable except as noted in HPI & below Physical Exam Physical Exam: pt is awake and alert, oriented x3 cardiac exam is regular, no easy to hear murmur despite aoritic valve abnormality on echo lungs diminished at bases abd is soft and non tender ext without edema neuro, moves all extremity to command Results & Data Results & Data Vital Signs (Past 12 Hours) Vital Signs Temp Pulse Resp BP Pulse Ox O2 Del Method 10/21/23 20:00 Room Air 10/21/23 17:42 61 10/21/23 17:08 36.8 C 63 15 95 10/21/23 17:08 142/83 H 10/21/23 16:00 36.7 C 60 19 92 10/21/23 14:59 169/84 H 10/21/23 14:59 36.6 C 61 18 93 Room Air 10/21/23 14:25 36.6 C 58 L 18 10/21/23 14:25 167/85 H 10/21/23 14:00 36.6 C 53 L 17 10/21/23 12:59 36.5 C 53 L 18 10/21/23 12:59 153/76 H 10/21/23 12:00 36.6 C 58 L 18 93 Room Air 10/21/23 10:58 166/59 H 10/21/23 10:58 36.4 C L 50 L 19 93 Room Air 10/21/23 10:53 Room Air PG Care Time/CCT Total # of Minutes Spent Total Time Spent with Patient: Total time spent is greater than 50% in coordination of care (as documented) at patient's floor/unit and/or counseling patient: Coding Level of Care Code 43787 SUB INP/OBS CARE 2/35MIN Diagnoses AMS (altered mental status) R41.82 COVID-19 U07.1 Fall W19.XXXA Encounter type: initial encounter NPH (normal pressure hydrocephalus) G91.2 Acute CVA (cerebrovascular accident) I63.9 Type 2 diabetes mellitus E11.9 Hypothyroidism E03.9 Anxiety F41.9 (3) Fall Encounter type: initial encounter Qualified Code(s): W19.XXXA - Unspecified fall, initial encounter
[2023-10-22] MEDS: FAMOTIDINE 20 MG in SYRINGE 3 ML IV SCH ×2 (03:54→15:10)
[2023-10-22 04:53] LABS: Hematocrit (blood only) 34.5 % (37.0-47.0); Hemoglobin 11.4 g/dl (12.0-16.0); Mean Corpuscular Hemoglobin 26.7 pg (25.0-34.0); Mean Corpuscular Volume 80.8 fL (80.0-100.0); Mean Platelet Volume 10.7 fL (9.4-12.4); Platelet Count 355 K/uL (130-400); RDW Coefficient of Variation 14.1 % (11.5-14.5); Red Blood Count 4.27 M/uL (4.20-5.40); White Blood Count 14.76 K/ul (4.8-10.8)
[2023-10-22 05:05] LABS: BUN Creatinine Ratio 27.3 (10-20); Calcium 8.5 mg/dl (8.6-10.3); Creatinine Clr Calc Pharmacy 79.1 ml/min; Est GFR (African American) 82.2 ml/min; Est GFR (Non-African American) 70.9 ml/min; Potassium 3.5 mmol/L (3.5-5.1)
[2023-10-22] MEDS: LEVOTHYROXINE SODIUM 88 MCG TABLET PO SCH (05:29)
[2023-10-22] MEDS: CEFEPIME 2,000 MG in SYRINGE 0 ML IV SCH ×2 (07:21→15:10)
[2023-10-22] MEDS: INSULIN ASPART PER UNIT CHARGE SC SCH ×4 (09:50→22:07)
[2023-10-22] MEDS: ATORVASTATIN 40 MG TAB PO SCH (10:03)
[2023-10-22] MEDS: levETIRAcetam 500 MG TAB PO SCH ×2 (10:03→21:54)
[2023-10-22] MEDS: CITALOPRAM 20 MG TAB PO SCH (10:03)
[2023-10-22] MEDS: ADVANCED PROBIOTIC 1250 MG CAPSULE PO SCH (10:03)
[2023-10-22] MEDS: METOPROLOL SUCC 25MG EXT REL TAB PO SCH (10:03)
[2023-10-22] MEDS: ASPIRIN 81 MG ECTAB PO SCH (10:04)
[2023-10-22] MEDS: LANTUS PER UNIT CHARGE SQ SCH ×2 (10:06→22:07)
[2023-10-22] MEDS: REMDESIVIR 100 MG in SODIUM CHLORIDE 0.9% 230 ML IV SCH (13:23)
[2023-10-22] MEDS: dexAMETHasone 6 MG in SYRINGE 0 ML IV SCH (13:23)
--- NOTE | 2023-10-22 15:20 | Hospitalist Progress Note ---
Date of Service October 22, 2023 Assessment & Plan (1) AMS (altered mental status): Plan: Encephalopathy with the presence of fever concern for metabolic encephalopathy from infection COVID-positive status, possible gram negaitve or aspiration pnx, and recent TEMPERING KILN TENDER shunt with 16 wbc on LP(PCR: negative) culture pending. REmdesivir/Dexamethasone, stop vanco and flagyl as TEMPERING KILN TENDER shunt/ meningitis appears less likely. continue cefepime for 5 days. 4 blood cultures , doubt meningitis. appreciate inout from [place] and [facility]. WIll only treat for pneumonia. cannot image mri of shunt here due to non compatable mri magent previous echocardiogram did show abnormality of aortic valve leaflet ARELI was refused by patient this could be completed if required part of her workup during this stay subacute CVA-CT of the head wo con on presentation does show "1.1 cm hypodense focus within left basal ganglia which is new since prior head CT. This suggests a subacute to acute infarct.". -no residual deficit -Continue aspirin and statin -Will continue home Stuartra (2) COVID-19: Plan: -Positive on presentation with fever and progressive hypoxic respiratory distress patient initiated on remdesivir and dexamethasone. respiratory distress improved/resolved (3) Fall: Plan: -Fell out of bed twice and lost her balance causing her to fall backwards while standing earlier today at [facility] -Likely due to metabolic encephalopathy poa -No acute trauma -Fall precautions ordered (4) NPH (normal pressure hydrocephalus): Plan: -S/P TEMPERING KILN TENDER shunt placement at [facility] approximately 6 weeks ago -Stable on CT head upon presentation, cannot tap shunt here, LP performed 10/19/23 (5) Acute CVA (cerebrovascular accident): Plan: -Suspected on last admission earlier this month -Unsure if CT head findings today are from her suspected CVA last admission or new from discharge -Not a candidate for TNK due to timing of symptoms 48 hours prior -Neurology consult -Continue aspirin and statin for now (6) Type 2 diabetes mellitus: Plan: -Hold metformin -Monitor BSG q6h overnight, goal is 110-160 -Normally takes 30 units Detemir q12h, will start with 10 units lantus BID to avoid hypoglycemia with poor oral intake -Start CF of 50 -DMII diet if she passes dysphagia screen -Adjust regimen as needed (7) Hypothyroidism: Plan: Typically on levothyroxine (8) Anxiety: Plan: -Typically on Wellbutrin and citalopram Admission and Anticipated Discharge Date Admission Date: October 17, 2023 Subjective 63 yo female reports no new symptoms. Diarrhea has improved. Review of Systems Review of Systems: All systems reviewed & are unremarkable except as noted in HPI & below Physical Exam Physical Exam: pt is awake and alert, oriented x3 cardiac exam is regular, no easy to hear murmur despite aoritic valve abnormality on echo lungs diminished at bases abd is soft and non tender ext without edema neuro, moves all extremity to command Results & Data Results & Data Vital Signs (Past 12 Hours) Vital Signs Temp Pulse Resp BP Pulse Ox O2 Del Method 10/22/23 14:00 36.5 C 53 L 18 94 Room Air 10/22/23 13:51 164/69 H 10/22/23 13:51 36.5 C 55 L 15 95 Room Air 10/22/23 13:21 143/69 H 10/22/23 13:21 36.5 C 51 L 17 92 Room Air 10/22/23 13:00 36.5 C 51 L 17 92 Room Air 10/22/23 12:51 149/85 H 10/22/23 12:51 36.5 C 51 L 18 91 Room Air 10/22/23 12:21 148/82 H 10/22/23 12:21 36.5 C 52 L 14 91 Room Air 10/22/23 12:00 36.5 C 51 L 17 92 Room Air 10/22/23 11:51 175/81 H 10/22/23 11:51 36.5 C 54 L 19 94 Room Air 10/22/23 11:21 177/72 H 10/22/23 11:21 36.5 C 54 L 18 93 Room Air 10/22/23 11:00 36.5 C 50 L 15 94 Room Air 10/22/23 10:51 168/99 H 10/22/23 10:51 36.6 C 52 L 19 94 Room Air 10/22/23 10:30 Room Air 10/22/23 10:00 36.7 C 52 L 17 90 Room Air 10/22/23 09:51 36.7 C 57 L 18 90 Room Air 10/22/23 09:51 165/72 H 10/22/23 09:21 166/69 H 10/22/23 09:21 36.7 C 56 L 20 90 Room Air 10/22/23 09:00 36.6 C 52 L 18 90 Room Air 10/22/23 08:51 157/74 H 10/22/23 08:51 36.7 C 53 L 20 91 Room Air 10/22/23 08:21 171/69 H 10/22/23 08:20 36.7 C 50 L 19 90 Room Air 10/22/23 08:00 36.7 C 56 L 19 94 Room Air 10/22/23 08:00 49 L 10/22/23 07:52 172/77 H 10/22/23 07:52 36.6 C 55 L 18 92 Room Air 10/22/23 07:21 36.6 C 51 L 18 93 Room Air 10/22/23 07:21 171/72 H 10/22/23 07:00 36.6 C 49 L 21 92 Room Air 10/22/23 03:30 36.4 C L 55 L 19 95 10/22/23 03:29 187/84 H 10/22/23 03:29 36.4 C L 54 L 23 95 PG Care Time/CCT Total # of Minutes Spent Total Time Spent with Patient: Total time spent is greater than 50% in coordination of care (as documented) at patient's floor/unit and/or counseling patient: Coding Level of Care Code 48366 SUB INP/OBS CARE 2/35MIN Diagnoses AMS (altered mental status) R41.82 COVID-19 U07.1 Fall W19.XXXA Encounter type: initial encounter NPH (normal pressure hydrocephalus) G91.2 Acute CVA (cerebrovascular accident) I63.9 Type 2 diabetes mellitus E11.9 Hypothyroidism E03.9 Anxiety F41.9 (3) Fall Encounter type: initial encounter Qualified Code(s): W19.XXXA - Unspecified fall, initial encounter
[2023-10-23] MEDS: CEFEPIME 2,000 MG in SYRINGE 0 ML IV SCH ×4 (00:13→21:49)
[2023-10-23] MEDS: LEVOTHYROXINE SODIUM 88 MCG TABLET PO SCH (05:58)
[2023-10-23] MEDS: FAMOTIDINE 20 MG in SYRINGE 3 ML IV SCH ×2 (06:24→17:01)
[2023-10-23 07:16] LABS: Basophils # (auto) 0.05 K/uL (0.00-0.20); Basophils % (auto) 0.4 %; Eosinophils # (auto) 0.16 K/uL (0.00-0.50); Eosinophils % (auto) 1.2 %; Hematocrit (blood only) 39.4 % (37.0-47.0); Hemoglobin 13.1 g/dl (12.0-16.0); Immature Granulocytes # (auto) 0.25 K/uL (0.01-0.20); Immature Granulocytes % (auto) 1.8 %; Lymphocytes # (auto) 3.46 K/uL (1.20-3.40); Mean Corpuscular Hemoglobin 26.5 pg (25.0-34.0); Mean Corpuscular Hgb Conc 33.2 g/dL (32.0-36.0); Mean Corpuscular Volume 79.8 fL (80.0-100.0); Mean Platelet Volume 10.2 fL (9.4-12.4); Monocytes # (auto) 0.87 K/uL (0.11-0.59); Monocytes % (auto) 6.3 %; Neutrophils # (auto) 9.03 K/uL (1.40-6.50); Neutrophils % (auto) 65.3 %; Platelet Count 421 K/uL (130-400); RDW Coefficient of Variation 13.9 % (11.5-14.5); Red Blood Count 4.94 M/uL (4.20-5.40); White Blood Count 13.82 K/ul (4.8-10.8)
[2023-10-23 07:33] LABS: Albumin Globulin Ratio 0.9 (0.9-2); Albumin Level 3.2 gm/dl (3.4-5.0); BUN Creatinine Ratio 21.7 (10-20); Bilirubin,Total 0.4 mg/dl (0.2-1.0); Calcium 8.5 mg/dl (8.6-10.3); Creatinine Clr Calc Pharmacy 77.4 ml/min; Est GFR (African American) 77.9 ml/min; Est GFR (Non-African American) 67.2 ml/min; Globulin 3.6 gm/dl (2.5-4.0); Potassium 3.5 mmol/L (3.5-5.1); Total Protein 6.8 gm/dl (6.0-8.3)
[2023-10-23] MEDS: INSULIN ASPART PER UNIT CHARGE SC SCH ×4 (07:54→21:47)
[2023-10-23] MEDS: LANTUS PER UNIT CHARGE SQ SCH ×2 (07:55→21:47)
[2023-10-23] MEDS: ATORVASTATIN 40 MG TAB PO SCH (08:14)
[2023-10-23] MEDS: METOPROLOL SUCC 25MG EXT REL TAB PO SCH (08:14)
[2023-10-23] MEDS: ASPIRIN 81 MG ECTAB PO SCH (08:15)
[2023-10-23] MEDS: CITALOPRAM 20 MG TAB PO SCH (08:15)
[2023-10-23] MEDS: ADVANCED PROBIOTIC 1250 MG CAPSULE PO SCH (08:15)
[2023-10-23] MEDS: levETIRAcetam 500 MG TAB PO SCH ×2 (08:16→21:49)
[2023-10-23] MEDS: dexAMETHasone 6 MG in SYRINGE 0 ML IV SCH (12:06)
[2023-10-24] MEDS: FAMOTIDINE 20 MG in SYRINGE 3 ML IV SCH ×2 (05:50→17:34)
[2023-10-24] MEDS: LEVOTHYROXINE SODIUM 88 MCG TABLET PO SCH (05:50)
[2023-10-24] MEDS: INSULIN ASPART PER UNIT CHARGE SC SCH ×3 (07:47→17:21)
[2023-10-24] MEDS: LANTUS PER UNIT CHARGE SQ SCH (07:52)
--- NOTE | 2023-10-24 07:58 | Hospitalist Progress Note ---
Date of Service October 23, 2023 Assessment & Plan (1) AMS (altered mental status): Plan: Encephalopathy with the presence of fever concern for metabolic encephalopathy from infection COVID-positive status, possible gram negaitve or aspiration pnx, and recent [employer] shunt with 16 wbc on LP(PCR: negative) culture pending. REmdesivir/Dexamethasone, stop vanco and flagyl as [employer] shunt/ meningitis appears less likely. continue cefepime for 5 days. 4 blood cultures , doubt meningitis. appreciate inout from [facility] and [facility]. WIll only treat for pneumonia. cannot image mri of shunt here due to non compatable mri magent previous echocardiogram did show abnormality of aortic valve leaflet ARELI was refused by patient this could be completed if required part of her workup during this stay will stop antibiotics subacute CVA-CT of the head wo con on presentation does show "1.1 cm hypodense focus within left basal ganglia which is new since prior head CT. This suggests a subacute to acute infarct.". -no residual deficit -Continue aspirin and statin -Will continue home Pedro (2) COVID-19: Plan: -Positive on presentation with fever and progressive hypoxic respiratory distress patient initiated on remdesivir and dexamethasone. respiratory distress improved/resolved (3) Fall: Plan: -Fell out of bed twice and lost her balance causing her to fall backwards while standing earlier today at [facility] -Likely due to metabolic encephalopathy poa -No acute trauma -Fall precautions ordered (4) NPH (normal pressure hydrocephalus): Plan: -S/P [employer] shunt placement at [facility] approximately 6 weeks ago -Stable on CT head upon presentation, cannot tap shunt here, LP performed 10/19/23 (5) Acute CVA (cerebrovascular accident): Plan: -Suspected on last admission earlier this month -Unsure if CT head findings today are from her suspected CVA last admission or new from discharge -Not a candidate for TNK due to timing of symptoms 48 hours prior -Neurology consult -Continue aspirin and statin for now (6) Type 2 diabetes mellitus: Plan: -Hold metformin -Monitor BSG q6h overnight, goal is 110-160 -Normally takes 30 units Detemir q12h, will start with 10 units lantus BID to avoid hypoglycemia with poor oral intake -Start CF of 50 -DMII diet if she passes dysphagia screen -Adjust regimen as needed (7) Hypothyroidism: Plan: Typically on levothyroxine (8) Anxiety: Plan: -Typically on Wellbutrin and citalopram Admission and Anticipated Discharge Date Admission Date: October 17, 2023 Subjective Patient reports no new symptoms. Review of Systems Review of Systems: All systems reviewed & are unremarkable except as noted in HPI & below Physical Exam Physical Exam: pt is awake and alert, oriented x3 cardiac exam is regular, no easy to hear murmur despite aortic valve abnormality on echo lungs diminished at bases abd is soft and non tender ext without edema neuro, moves all extremity to command Results & Data Results & Data Vital Signs (Past 12 Hours) Vital Signs Temp Pulse Pulse Resp BP Pulse Ox O2 Del Method 10/24/23 07:40 36.7 C 53 L 16 136/72 96 Room Air 10/24/23 07:04 49 L 10/24/23 03:00 36.8 C 52 L 23 146/89 H 91 Room Air 10/23/23 23:00 36.8 C 57 L 15 130/65 91 Room Air 10/23/23 22:04 67 10/23/23 21:30 Room Air PG Care Time/CCT Total # of Minutes Spent Total Time Spent with Patient: Total time spent is greater than 50% in coordination of care (as documented) at patient's floor/unit and/or counseling patient: Coding Level of Care Code 57205 SUB INP/OBS CARE 2/35MIN Diagnoses AMS (altered mental status) R41.82 COVID-19 U07.1 Fall W19.XXXA Encounter type: initial encounter NPH (normal pressure hydrocephalus) G91.2 Acute CVA (cerebrovascular accident) I63.9 Type 2 diabetes mellitus E11.9 Hypothyroidism E03.9 Anxiety F41.9 (3) Fall Encounter type: initial encounter Qualified Code(s): W19.XXXA - Unspecified fall, initial encounter
[2023-10-24] MEDS: ATORVASTATIN 40 MG TAB PO SCH (08:02)
[2023-10-24] MEDS: levETIRAcetam 500 MG TAB PO SCH (08:02)
[2023-10-24] MEDS: ASPIRIN 81 MG ECTAB PO SCH (08:02)
[2023-10-24] MEDS: CITALOPRAM 20 MG TAB PO SCH (08:04)
[2023-10-24] MEDS: ADVANCED PROBIOTIC 1250 MG CAPSULE PO SCH (08:04)
[2023-10-24] MEDS ORDERED: METOPROLOL SUCC 25MG EXT REL TAB PO SCH (09:00)
[2023-10-24] MEDS: CEFEPIME 2,000 MG in SYRINGE 0 ML IV SCH (09:37)
[2023-10-24] MEDS: dexAMETHasone 6 MG in SYRINGE 0 ML IV SCH (11:56)
--- NOTE | 2023-10-24 17:03 | Discharge Summary ---
Date of Service October 24, 2023 Admission HPI Per Admitting Provider Isadora is a 63 year old female with a PMH significant for normal pressure hydrocephalus s/p [employer] shunt at [facility] approximately 6 weeks ago, short-term memory loss, hypothyroidism, DMII, HTN, and recent admission to [facility] for possible CVA who presented to the [facility] ED via EMS from [facility] for increased confusion, fever, and multiple falls today. She was initially noted to be febrile at 38.5C and hypertensive at 193/91 but otherwise stable. Labs were significant for a leukocytosis of 13 with neutrophil predominance of 9.75, initial lactate of 2.1 with repeat of 2.3, mag of 1.5, negative procal, negative UA, and Covid 19 positive. Prior to admission the patient was given 1.5L NSS, ordered an additional 1L NSS, 1gm IV tylenol, 1gm IV mag-sulfate, and a dose of ceftriaxone. At the time of the exam the patient was sitting in bed and tearful but in no acute distress. She states that she is emotional due to the significant amount of medical issues she has been dealing with recently. She remembers her fall earlier today and is currently oriented to person, place, month, and year. When asked, she states that she lost her balance and fell backwards when staring up from her recliner. She denies felling lightheaded or dizzy, changes in vision, hearing, taste, and smell, chest pain, heart palpitations, SOB before or after the fall. She denies hitting her head or losing losing consciousness. She denies any pain after the fall. We discussed code status, she is a full code. I called and spoke to the [facility] in [place]. Staff confirms that she slid out of bed twice today and had one fall while trying to stand. They sent her to the ED as she was febrile and was more confused than normal. They state she was having difficulty remembering what procedure she had performed at [facility] recently, which is why they sent her to be evaluated. They state that she has not been eating or drinking well over the past 48 hours. The patient was recently admitted to [facility] from 10/07-10/12 for strokelike symptoms, slowed dysarthric speech, right upper and lower facial weakness. The patient had no acute findings on initial CT head and CTA Head/neck and could not undergo brain MRI due to her [employer] shunt. Neurology was consulted and believed the patient most likely had an acute/sub-acute infarct based on clinical findings. The patient was started on aspirin, her dose of Atorvastatin was increased, and she was started on BID Keppra. The patient underwent TTE during her admission, Neurology recommended ARELI after TTE revealed sclerotic aortic valve with focal calcifications on the left coronary cusp, vegetation/mass could not be excluded. Per the DC summary, the patient refused a ARELI as she did not believe that she needed one at that time. Please refer to Dr. Cox's attestation for any changes to the treatment plan Principal Diagnosis subacute CVA Discharge Exam pt is awake and alert, oriented x3; speaks slowly cardiac exam is regular, no easy to hear murmur despite aortic valve abnormality on echo lungs diminished at bases abd is soft and non tender ext without edema neuro, moves all extremity to command Discharge Data Allergies Allergy/AdvReac Type Severity Reaction Status Date / Time No Known Allergies Allergy Unknown Verified 10/26/23 10:50 Consultations 10/17/23 19:28 ED Decision to Admit Stat 10/17/23 21:36 Consult Neurology Routine 10/18/23 16:19 Consult Recep Routine 10/19/23 15:03 Consult Infectious Diseases Routine Ordered Studies 10/17/23 16:44 CT head/brain wo con Stat 10/18/23 14:49 CT head/brain wo con Urgent 10/18/23 15:29 CT angio chest PE protocol Urgent 10/19/23 09:50 IR lumbar puncture diagnostic Urgent Hospital Course (1) AMS (altered mental status): Encephalopathy with the presence of fever concern for metabolic encephalopathy from infection COVID-positive status, possible gram negaitve or aspiration pnx, and recent [employer] shunt with 16 wbc on LP(PCR: negative) culture pending. REmdesivir/Dexamethasone, stop vanco and flagyl as [employer] shunt/ meningitis appears less likely. continue cefepime for 5 days. 4 blood cultures , doubt meningitis. appreciate inout from [facility] and [facility]. WIll only treat for pneumonia. cannot image mri of shunt here due to non compatable mri magent previous echocardiogram did show abnormality of aortic valve leaflet ARELI was refused by patient this could be completed if required part of her workup during this stay will stop antibiotics subacute CVA-CT of the head wo con on presentation does show "1.1 cm hypodense focus within left basal ganglia which is new since prior head CT. This suggests a subacute to acute infarct.". -no residual deficit; slow speech from previous admission -Continue aspirin and statin -Will continue home Keppra -will need to continue with speech therapy (2) COVID-19: -Positive on presentation with fever and progressive hypoxic respiratory distress patient initiated on remdesivir and dexamethasone. respiratory distress improved/resolved (3) Fall: -Fell out of bed twice and lost her balance causing her to fall backwards while standing earlier today at [facility] -Likely due to metabolic encephalopathy poa -No acute trauma -Fall precautions ordered (4) NPH (normal pressure hydrocephalus): -S/P [employer] shunt placement at [facility] approximately 6 weeks ago -Stable on CT head upon presentation, cannot tap shunt here, LP performed 10/19/23 (5) Acute CVA (cerebrovascular accident): -Suspected on last admission earlier this month -Unsure if CT head findings today are from her suspected CVA last admission or new from discharge -Not a candidate for TNK due to timing of symptoms 48 hours prior -Neurology consult -Continue aspirin and statin for now (6) Type 2 diabetes mellitus: -Hold metformin -Monitor BSG q6h overnight, goal is 110-160 -Normally takes 30 units Detemir q12h, will start with 10 units lantus BID to avoid hypoglycemia with poor oral intake -Start CF of 50 -DMII diet if she passes dysphagia screen -Adjust regimen as needed (7) Hypothyroidism: Typically on levothyroxine (8) Anxiety: -Typically on Wellbutrin and citalopram Total Time Total Time Spent Total Time Spent (In Minutes): 32 Discharge Plan Discharge Items Patient Disposition: Personal Snf Reason For Visit: COVID 19 POSITIVE, AMS, FEVER, FALLS Discharge Diagnosis: COVID 19 Activity: Resume your previous activity Non-emergency contact: Primary Care Provider Call non-emergency contact if: you have any medication questions Follow-up/Referrals: Jmaila Wood CRNP [Primary Care Provider] - Diet: Carb Consistent or DM2 Diet Comment: minced and moist Addtl Attending Provider Instructions: recommend followup with PCP in 1-2 weeks. Pending Studies at Discharge: No Stand-Alone Forms: My [facility] Skilled Items Patient informed of condition?: Yes DNR: No Discharge Level of Care: Skilled Communicable Disease: Yes Discharge Prognosis: Stable Lines: None Urinary Catheter: No Medications and DC Order Prescriptions: Continued Levemir FlexPen 100 unit/mL (3 mL) Insulin Pen 30 unit SUBCUT Q12 Rx Instructions: take at 8am and 8pm levetiracetam 500 mg tablet 500 mg PO BID Rx Instructions: TAKES 0800 & 1600 levothyroxine 88 mcg tablet 88 mcg PO QAM citalopram 20 mg tablet 20 mg PO QAM metformin 1,000 mg tablet 1,000 mg PO BID Rx Instructions: TAKES 0800 & 2000 acetaminophen [Tylenol] 325 mg Tablet 650 mg PO Q6 PRN (Reason: PAIN/FEVER) cyanocobalamin (vitamin B-12) [Vitamin B-12] 1,000 mcg Tablet 1,000 mcg PO QAM polyethylene glycol 3350 [Miralax] 17 gram powder in packet 17 g PO DAILY PRN (Reason: Constipation) aspirin 81 mg Tablet,Delayed Release (Dr/Ec) 81 mg PO QAM 30 Days Qty: 30 0RF Discontinued bupropion HCl 100 mg tablet 100 mg PO DAILY gabapentin 300 mg capsule 300 mg PO HS metoprolol succinate 25 mg tablet extended release 24 hr 25 mg PO DAILY oxycodone 5 mg tablet 5 mg PO Q6H PRN (Reason: Pain, Severe) No Action tolterodine 2 mg capsule,extended release 24hr 2 mg PO QAM atorvastatin 40 mg tablet 40 mg PO QAM metoprolol succinate 25 mg tablet extended release 24 hr 12.5 mg PO QAM Discharge Orders: Discharge Order (Routine); Ordered 10/24/23 Ordered By: Neville Osborne Admission Data Admit Date/Time: 10/17/23 20:33 Attending Provider: Neville Osborne Admit Provider: Magaly Cox Primary Care Provider: Jamila Wood Other Providers: Magaly Cox; Terrell Peña; Jong Bajwa; Kimberli Raman; Monico Rojas; Yanna Mendoza; Fahad Reinoso; Leia Luis; Anna Smith; Tamara Flores; Farnaz Leblanc; Geeta Brown; Clover Cazares Other Interventions: Discharge Summary Assessment (RN) Last Done: 10/24/23 18:58 Coding Level of Care Code 56527 INP/OBS DISCH >30 MIN Diagnoses AMS (altered mental status) R41.82 COVID-19 U07.1 Fall W19.XXXA Encounter type: initial encounter NPH (normal pressure hydrocephalus) G91.2 Acute CVA (cerebrovascular accident) I63.9 Type 2 diabetes mellitus E11.9 Hypothyroidism E03.9 Anxiety F41.9
[2023-10-25 18:32] LABS: Lyme DNA PCR CSF or Synovial Not Detected (Not Detected); Lyme DNA Source CSF; VDRL Qualitative CSF Nonreactive (Nonreactive)
== END 2023-10-24 20:35 | disposition home or self-care (01) | DRG 177 ==
LOC: ED 16:12 → EDINP 20:33 → SUATTDRO 20:33 → 1E 10-18 17:55 → 2E 10-22 17:43
DX: Z79.82 Long term (current) use of aspirin; E83.42 Hypomagnesemia; J69.0 Pneumonitis due to inhalation of food and vomit; F41.9 Anxiety disorder, unspecified; J15.69 Pneumonia due to other Gram-negative bacteria; I63.9 Cerebral infarction, unspecified; E03.9 Hypothyroidism, unspecified; Z98.2 Presence of cerebrospinal fluid drainage device; E11.9 Type 2 diabetes mellitus without complications; G91.2 (Idiopathic) normal pressure hydrocephalus; F32.A Depression, unspecified; Z79.4 Long term (current) use of insulin; Z79.890 Hormone replacement therapy; E86.0 Dehydration; Z88.5 Allergy status to narcotic agent; J96.01 Acute respiratory failure with hypoxia; R29.6 Repeated falls; G93.41 Metabolic encephalopathy; U07.1 COVID-19

== ENCOUNTER 2023-10-26 08:18 | Inpatient (IN) ==
[2023-10-26] MEDS ORDERED: SODIUM CHLORIDE 0.9% 1,000 ML IV SCH (08:30)
[2023-10-26] MEDS ORDERED: OPTIRAY 320 125ml IV ONE (08:38)
--- NOTE | 2023-10-26 08:51 | Emergency Department Note ---
Impression & Plan Stroke-like episode ADMIT ED Provider Note HPI: History obtained from bedside RN via EMS report. The patient is a 63-year-old female with history of normal pressure hydrocephalus status post BEHAVIORAL HEALTH RN shunt, presents emergency department with a chief complaint of abnormal speech this morning. Patient was reportedly last seen well at 2100 last night and woke up this morning with symptoms of an abnormal speech pattern with word finding difficulty and slurred speech. This reportedly is not the patient's baseline. There was also reported right-sided facial droop which is not appreciable on the patient's arrival. On arrival here to the ED the patient is alert, she is able to respond to my commands appropriately. She does exhibit some slurred speech and word finding difficulty at times. Patient is otherwise hemodynamically stable on arrival ROS: - Per HPI Differential Diagnosis: Acute ischemic stroke, intracranial hemorrhage, BEHAVIORAL HEALTH RN shunt catheter malfunction, hypoglycemia, urinary tract infection, pneumonia, amongst other potential pathologies. *Outpatient medications and allergy history reviewed. PE: General: Alert HEENT: Normocephalic, trachea midline Eyes: Extraocular eye movement is intact, no scleral erythema Pulmonary: Clear to auscultation bilaterally, no wheezing Cardio: Regular rate and rhythm GI: Abdomen is soft to palpation : No suprapubic tenderness MSK: No evidence of trauma or malformation of the extremities, no edema Skin: No evidence of rash Neuro: Alert, slurred speech noted, drift of the bilateral lower extremities with testing against gravity, no facial droop, equal bilateral trestle builder strength Psychiatric: Cooperative INDEPENDENT INTERPRETATIONS: circulator: (As interpreted by myself): - An order was placed for continuous cardiac monitoring - Patient was noted to be in sinus rhythm with a rate of 65 EKG: (As interpreted by myself): Rate: 61 Rhythm: Normal sinus rhythm Intervals: Within normal limits ST changes: No ST elevation Time: 0902 Chest x-ray: (As interpreted by myself): No acute disease Interventions provided in ED: -IV magnesium, IV fluid bolus NIH STROKE SCALE: 1A: Level of consciousness Alert; keenly responsive 0 1B: Ask month and age +2 1C: 'Blink eyes' & 'squeeze hands' Performs both tasks 0 2: Horizontal extraocular movements Normal 0 3: Visual smith No visual loss 0 4: Facial palsy Normal symmetry 0 5A: Left arm motor drift No drift for 10 seconds 0 5B: Right arm motor drift No drift for 10 seconds 0 6A: Left leg motor drift Drift, hits bed +2 6B: Right leg motor drift Drift, hits bed +2 7: Limb Ataxia No ataxia 0 8: Sensation Normal; no sensory loss 0 9: Language/aphasia Normal; no aphasia 0 10: Dysarthria Mild-moderate dysarthria: slurring but can be understood +1 11: Extinction/inattention No abnormality 0 TOTAL NIH SCORE =5 Medical Decision Making: Shortly after the patient arrived IV was established lab work obtained, patient was taken urgently to the CT scanner for CT imaging of the head without contrast and CT angiography. Stroke alert was activated from the field. Patient was last seen well at 2100 last evening, therefore not considered a candidate for thrombolysis. Lab work shows a leukocytosis of 13.56, hemoglobin is normal, platelet count is 464, CMP does not show any critical findings, no evidence of acute kidney injury, magnesium is low at 1.4 which was ordered for IV repletion. Patient was also given IV fluid bolus. Troponin is negative x1, EKG per my interpretation shows normal sinus rhythm without any acute ischemic changes. Chest x-ray per my interpretation does not show any evidence of acute disease. CT imaging of the head does not show any evidence of acute ischemic stroke or large vessel occlusion on angiography. I did discuss all the above findings with the on-call stroke neurologist at [facility], Dr. Romero, who did evaluate the patient via telestroke. He is in agreement that the patient can be admitted at this facility at this time for secondary work-up. No indication for transfer for any emergent interventions given that CT imaging does not show any evidence of large vessel occlusion and the patient is outside the window for tPA. I discussed the above findings with the on-call hospitalist, Dr. Riley, and he is in agreement to admit the patient to the hospital for further management. Consultants/Discussions held with other healthcare providers: -Stroke Neurology, Dr. Romero -Hospitalist, Dr. Riley Disposition discussion held by myself with: -Patient Diagnosis: 1. Strokelike event, acute 2. Transient aphasia, acute 3. Dysarthria, acute 4. History of normal pressure hydrocephalus, status post BEHAVIORAL HEALTH RN shunt Disposition: Admission Les Moreno DO Emergency Medicine Past Med/Surg History Medical History (Updated 10/26/23 @ 12:07 by Les Moreno DO) Vitamin B12 deficiency Dehydration DKA (diabetic ketoacidosis) Nausea & vomiting Diabetic ketoacidosis Surgical History (Updated 09/18/23 @ 00:08 by Claire Herring) No pertinent past surgical history Social History Smoking Status: Unknown if ever smoked Second Hand Exposure: No; Do You Dip or Chew Tobacco: No; Hx Alcohol Use: No Hx Substance Use: No Preferred Language: Swedish Communication Ability: Effective Client Relation Specialist Required: No Beliefs That Will Affect Care: None Current Living Situation: [facility] Current Living Situation Comment: [facility] Feels Safe at Home: Yes Assistive Devices: Walker and Wheelchair Allergies Allergies Allergy/AdvReac Type Severity Reaction Status Date / Time No Known Allergies Allergy Unknown Verified 10/26/23 10:50 Home Meds Home Medications Medication Instructions Recorded Confirmed acetaminophen 325 mg tablet 650 mg PO Q6 PRN PAIN/FEVER 10/07/23 10/26/23 (Tylenol) citalopram 20 mg tablet 20 mg PO QAM 10/07/23 10/26/23 cyanocobalamin (vitamin B-12) 1,000 mcg PO QAM 10/07/23 10/26/23 1,000 mcg tablet (Vitamin B-12) levetiracetam 500 mg tablet 500 mg PO BID 10/07/23 10/26/23 levothyroxine 88 mcg tablet 88 mcg PO QAM 10/07/23 10/26/23 metformin 1,000 mg tablet 1,000 mg PO BID 10/07/23 10/26/23 polyethylene glycol 3350 17 gram 17 g PO DAILY PRN Constipation 10/07/23 10/26/23 oral powder packet (Miralax) insulin detemir U-100 100 unit/mL 30 unit subcut Q12 10/17/23 10/26/23 (3 mL) subcutaneous pen (Levemir FlexPen) atorvastatin 40 mg tablet 40 mg PO QAM 10/26/23 10/26/23 metoprolol succinate 25 mg 12.5 mg PO QAM 10/26/23 10/26/23 tablet,extended release 24 hr tolterodine 2 mg capsule,extended 2 mg PO QAM 10/26/23 10/26/23 release 24 hr Previous Rx's Medication Instructions Recorded aspirin 81 mg tablet,delayed 81 mg PO QAM 30 days #30 tabs 10/12/23 release Results & Data (ED) Vital Signs Vital Signs - 24 hr 10/26/23 08:17 10/26/23 08:55 10/26/23 09:11 Temperature 36.5 C Temperature Source Oral Pulse Rate 61 64 Pulse Rate [Left Apical] Pulse Rhythm Regular Pulse Rhythm [Left Apical] Pulse Strength Normal Pulse Strength [Left Apical] Respiratory Rate 16 Respiratory Effort / Characteristics Non-Labored Spontaneous Respiratory Depth Normal Respiratory Pattern Blood Pressure 157/70 H Blood Pressure [Right Arm] Blood Pressure Mean 99 Blood Pressure Mean [Right Arm] Pulse Oximetry 94 94 Oxygen Delivery Method Room Air Room Air Sepsis Recent Fever Within 48 Hours No Sepsis New/Unexplained Change in Mental Status Yes Sepsis Action Taken by Nursing No Action Required 10/26/23 09:14 10/26/23 09:28 10/26/23 10:08 Temperature Temperature Source Pulse Rate Pulse Rate [Left Apical] 62 64 62 Pulse Rhythm Pulse Rhythm [Left Apical] Regular Regular Regular Pulse Strength Pulse Strength [Left Apical] Normal Normal Normal Respiratory Rate 16 16 16 Respiratory Effort / Characteristics Non-Labored Spontaneous Non-Labored Spontaneous Non-Labored Spontaneous Respiratory Depth Normal Normal Normal Respiratory Pattern Regular Blood Pressure Blood Pressure [Right Arm] 131/68 131/68 121/68 Blood Pressure Mean Blood Pressure Mean [Right Arm] 89 89 85 Pulse Oximetry 95 90 93 Oxygen Delivery Method Room Air Room Air Room Air Sepsis Recent Fever Within 48 Hours Sepsis New/Unexplained Change in Mental Status Sepsis Action Taken by Nursing Laboratory Data 10/26/23 08:45 10/26/23 08:45 Lab Results 10/26/23 10/26/23 10/26/23 Range/Units 08:45 08:50 09:51 WBC 13.56 H (4.8-10.8) K/ul RBC 4.58 (4.20-5.40) M/uL Hgb 12.2 (12.0-16.0) g/dl Hct 37.8 (37.0-47.0) % MCV 82.5 (80.0-100.0) fL MCH 26.6 (25.0-34.0) pg MCHC 32.3 (32.0-36.0) g/dL RDW Std Deviation 43.4 (36.4-46.3) fL RDW Coeff of Nanda 14.7 H (11.5-14.5) % Plt Count 464 H (130-400) K/uL MPV 10.1 (9.4-12.4) fL Immature Gran % (Auto) 3.4 % Neut % (Auto) 57.0 % Lymph % (Auto) 25.8 % [place] % (Auto) 9.7 % Eos % (Auto) 3.6 % Baso % (Auto) 0.5 % Neut # (Auto) 7.72 H (1.40-6.50) K/uL Lymph # (Auto) 3.50 H (1.20-3.40) K/uL [place] # (Auto) 1.32 H (0.11-0.59) K/uL Eos # (Auto) 0.49 (0.00-0.50) K/uL Baso # (Auto) 0.07 (0.00-0.20) K/uL Immature Gran # (Auto) 0.46 H (0.01-0.20) K/uL PT 12.2 H (9.0-12.0) Seconds INR 1.1 (0.9-1.1) APTT 26 (21-31) Seconds PTT Ratio 0.9 Sodium 136 (136-145) mmol/L Potassium 3.5 (3.5-5.1) mmol/L Chloride 104 (98-107) mmol/L Carbon Dioxide 25 (21-32) mmol/L Anion Gap 7 (3-11) BUN 21 (6-23) mg/dl Creatinine 0.96 (0.6-1.2) mg/dl Est Cr Clr Drug Dosing 76.3 ml/min Est GFR ( Amer) 74.0 ml/min Est GFR (Non-Af Amer) 63.8 ml/min BUN/Creatinine Ratio 21.9 H (10-20) Glucose 95 (70-99(Fasting)) mg/dl POC Glucose 94 (70-99) mg/dl Calcium 8.4 L (8.6-10.3) mg/dl Magnesium 1.4 L (1.7-2.4) mg/dl Total Bilirubin 0.4 (0.2-1.0) mg/dl AST 17 (13-39) U/L ALT 24 (7-52) U/L Alkaline Phosphatase 68 (34-104) U/L Troponin I High Sens 6.3 (0-14) pg/ml Total Protein 6.3 (6.0-8.3) gm/dl Albumin 2.9 L (3.4-5.0) gm/dl Globulin 3.4 (2.5-4.0) gm/dl Albumin/Globulin Ratio 0.9 (0.9-2) Urine Color Urine Appearance (Clear) Urine pH (4.5-7.5) Ur Specific [place] (1.000-1.030) Urine Protein (Negative) Urine Glucose (UA) (Negative) Urine Ketones (Negative) Urine Blood (Negative) Urine Nitrite (Negative) Urine Bilirubin (Negative) Urine Urobilinogen (Negative) Ur Leukocyte Esterase (Negative) Urine WBC (Auto) (0-5) /hpf Urine RBC (Auto) (0-4) /hpf U Hyaline Cast (Auto) (0-5) /lpf U Epithel Cells (Auto) (0-5) /lpf Urine Bacteria (Auto) (Negative) Urine Yeast (None Prsent) Adenovirus (PCR) Not Detected (NotDetected) B. pertussis DNA (PCR) Not Detected (NotDetected) B.parapertussis DNA PCR Not Detected (NotDetected) C. pneumoniae DNA (PCR) Not Detected (NotDetected) Coronavirus OC43 (PCR) Not Detected (NotDetected) Coronavirus HKU1 (PCR) Not Detected (NotDetected) Coronavirus 229E (PCR) Not Detected (NotDetected) SARS-CoV-2 (PCR) DETECTED A* (NotDetected) Coronavirus NL63 (PCR) Not Detected (NotDetected) Human Metapneumovir PCR Not Detected (NotDetected) Influenza Type A (PCR) Not Detected (NotDetected) Influenza Type B (PCR) Not Detected (NotDetected) M. pneumoniae (PCR) Not Detected (NotDetected) Parainfluenza 1 (PCR) Not Detected (NotDetected) Parainfluenza 2 (PCR) Not Detected (NotDetected) Parainfluenza 3 (PCR) Not Detected (NotDetected) Parainfluenza 4 (PCR) Not Detected (NotDetected) RSV (PCR) Not Detected (NotDetected) Entero/Rhino (PCR) Not Detected (NotDetected) Blood Type O Negative Antibody Screen NEGATIVE 10/26/23 Range/Units 10:25 WBC (4.8-10.8) K/ul RBC (4.20-5.40) M/uL Hgb (12.0-16.0) g/dl Hct (37.0-47.0) % MCV (80.0-100.0) fL MCH (25.0-34.0) pg MCHC (32.0-36.0) g/dL RDW Std Deviation (36.4-46.3) fL RDW Coeff of Nanda (11.5-14.5) % Plt Count (130-400) K/uL MPV (9.4-12.4) fL Immature Gran % (Auto) % Neut % (Auto) % Lymph % (Auto) % [place] % (Auto) % Eos % (Auto) % Baso % (Auto) % Neut # (Auto) (1.40-6.50) K/uL Lymph # (Auto) (1.20-3.40) K/uL [place] # (Auto) (0.11-0.59) K/uL Eos # (Auto) (0.00-0.50) K/uL Baso # (Auto) (0.00-0.20) K/uL Immature Gran # (Auto) (0.01-0.20) K/uL PT (9.0-12.0) Seconds INR (0.9-1.1) APTT (21-31) Seconds PTT Ratio Sodium (136-145) mmol/L Potassium (3.5-5.1) mmol/L Chloride (98-107) mmol/L Carbon Dioxide (21-32) mmol/L Anion Gap (3-11) BUN (6-23) mg/dl Creatinine (0.6-1.2) mg/dl Est Cr Clr Drug Dosing ml/min Est GFR ( Amer) ml/min Est GFR (Non-Af Amer) ml/min BUN/Creatinine Ratio (10-20) Glucose (70-99(Fasting)) mg/dl POC Glucose (70-99) mg/dl Calcium (8.6-10.3) mg/dl Magnesium (1.7-2.4) mg/dl Total Bilirubin (0.2-1.0) mg/dl AST (13-39) U/L ALT (7-52) U/L Alkaline Phosphatase (34-104) U/L Troponin I High Sens (0-14) pg/ml Total Protein (6.0-8.3) gm/dl Albumin (3.4-5.0) gm/dl Globulin (2.5-4.0) gm/dl Albumin/Globulin Ratio (0.9-2) Urine Color Yellow Urine Appearance Clear (Clear) Urine pH 5.5 (4.5-7.5) Ur Specific [place] > 1.045 H (1.000-1.030) Urine Protein 1+ H (Negative) Urine Glucose (UA) Negative (Negative) Urine Ketones Negative (Negative) Urine Blood 2+ H (Negative) Urine Nitrite Negative (Negative) Urine Bilirubin Negative (Negative) Urine Urobilinogen Negative (Negative) Ur Leukocyte Esterase Negative (Negative) Urine WBC (Auto) 10-30 H (0-5) /hpf Urine RBC (Auto) 10-30 H (0-4) /hpf U Hyaline Cast (Auto) 5-10 H (0-5) /lpf U Epithel Cells (Auto) 20-30 H (0-5) /lpf Urine Bacteria (Auto) Negative (Negative) Urine Yeast Budding A (None Prsent) Adenovirus (PCR) (NotDetected) B. pertussis DNA (PCR) (NotDetected) B.parapertussis DNA PCR (NotDetected) C. pneumoniae DNA (PCR) (NotDetected) Coronavirus OC43 (PCR) (NotDetected) Coronavirus HKU1 (PCR) (NotDetected) Coronavirus 229E (PCR) (NotDetected) SARS-CoV-2 (PCR) (NotDetected) Coronavirus NL63 (PCR) (NotDetected) Human Metapneumovir PCR (NotDetected) Influenza Type A (PCR) (NotDetected) Influenza Type B (PCR) (NotDetected) M. pneumoniae (PCR) (NotDetected) Parainfluenza 1 (PCR) (NotDetected) Parainfluenza 2 (PCR) (NotDetected) Parainfluenza 3 (PCR) (NotDetected) Parainfluenza 4 (PCR) (NotDetected) RSV (PCR) (NotDetected) Entero/Rhino (PCR) (NotDetected) Blood Type Antibody Screen Administered Medications Sodium Chloride (Nss) 1,000 mls @ 125 mls/hr IV .Q8H ROLAND Stop: 11/25/23 08:29 Last Admin: 10/26/23 09:50 Dose: 125 mls/hr Documented By: MICHELE Magnesium Sulfate/Dextrose (Magnesium Sulfate / D5w) 1 gm in 100 mls @ 50 mls/hr IV Q2H ROLAND Stop: 10/26/23 17:29 Last Admin: 10/26/23 11:49 Dose: 50 mls/hr Documented By: BLAYNE Discontinued Medications Ioversol (Optiray 320 125ml) 115 ml IV ONCE ONE Stop: 10/26/23 08:39 Last Admin: 10/26/23 08:39 Dose: 115 ml Documented By: SAEID Imaging Data Radiologist's Impression: Chest X-Ray 10/26/23 08:24 XR chest 1V portable CLINICAL HISTORY: neuro deficit, acute stroke suspected TECHNIQUE: Single frontal radiograph of the chest was obtained. Comparison: Comparison is made to chest radiograph 10/18/2023 FINDINGS: Lines and tubes are stable. The cardiomediastinal silhouette is normal. The lungs are clear. No evidence of pleural effusion or pneumothorax. IMPRESSION: No acute chest disease. ACT 112: Negative or not required by law. Electronically signed by: Luiz Santos M.D. 10/26/2023 9:[address] 10/26/23 08:24 CT SCAN OF THE BRAIN WITHOUT IV CONTRAST CLINICAL HISTORY: Neurological deficit. Stroke like symptoms. COMPARISON STUDY: Prior CT scans of the brain, most recently dated 10/18/2023. TECHNIQUE: Unenhanced axial CT scan of the brain is performed from the vertex to the skull base. A dose lowering technique was utilized adhering to the principles of ALARA. FINDINGS: Brain parenchyma: A right frontal approach ventriculostomy catheter is unchanged in position. The tip terminates in the right lateral ventricle. There is age- related involutional change noting moderate to advanced confluent subcortical and periventricular microangiopathic disease. There is no hemorrhage, mass effect, or evidence of acute territorial ischemia by CT criteria. Chronic lacunar infarcts are seen in the left caudate head in the left basal ganglia. Garcia-white matter differentiation is preserved. No extra-axial fluid collection is seen. Ventricles, sulci, cisterns: Ventriculomegaly is unchanged. See above. Intracranial vasculature: There is atherosclerotic calcification of the cavernous carotid arteries. Calvarium: There is a right frontal ngoc hole. No destructive calvarial lesion is seen. Sinuses and mastoids: There is trace mucosal thickening within the maxillary antra. The remaining visualized paranasal sinuses are clear. The mastoid air cells are well pneumatized. Orbits: The bony orbits are grossly intact. IMPRESSION: 1. There is no hemorrhage, mass effect, or evidence of acute territorial ischemia by CT criteria. No significant change from yesterday. 2. Ventriculomegaly is unchanged, with a ventricular shunt catheter in place. ACT 112: Negative or not required by law. Electronically signed by: Louie Sneed M.D. 10/26/2023 9:20 AM Head CTA 10/26/23 08:24 CT angio head w con CLINICAL HISTORY: neuro deficit, acute stroke suspected TECHNIQUE: CT angiography of the head was performed following intravenous administration of iodinated contrast. Coronal and sagittal MIPS were obtained from the axial data set and were submitted for review. Automated dose lowering techniques and/or adjustment according to patient size were utilized for this examination. All measurements were calculated based on NASCET criteria. CT DOSE: 1304.16 mGy.cm Comparison: None available at the time of this dictation. FINDINGS: CTA Head: A right frontal approach catheter terminates in the right frontal horn, the ventricles are again noted to be enlarged.. The anterior and posterior cerebral circulations are patent. origin of the left posterior cerebral artery is seen. IMPRESSION: 1. No occlusion, hemodynamically significant stenosis, aneurysm, dissection, or arteriovenous malformation in the major intracranial arteries. 2. Right frontal ventriculostomy catheter is seen. Similar appearance of ventriculomegaly. Assessment of stenosis of the internal carotid arteries is based on NASCET criteria. ACT 112: Negative or not required by law. Electronically signed by: Luiz Santos M.D. 10/26/2023 9:05 AM Neck CTA 10/26/23 08:24 CT angio neck with con CLINICAL HISTORY: neuro deficit, acute stroke suspected TECHNIQUE: CT angiography of the neck was performed following intravenous administration of iodinated contrast. Coronal and sagittal MIPS were obtained from the axial data set and were submitted for review. Automated dose lowering techniques and/or adjustment according to patient size were utilized for this examination. All measurements were calculated based on NASCET criteria. Comparison: None available at the time of this dictation. FINDINGS: Lungs and soft tissues are unremarkable. CTA Neck: A 3 vessel aortic arch is shown. There is no significant atherosclerotic plaque in the aortic arch or the origins of the innominate, left common carotid, and left subclavian arteries. There is mild calcified atherosclerotic plaque at the bifurcation of the bilateral common carotid arteries without hemodynamically significant flow stenosis. There is no dissection present. The left vertebral artery is dominant. IMPRESSION: 1. No occlusion, hemodynamically significant stenosis, or dissection in the major cervical arteries. Assessment of stenosis of the internal carotid arteries is based on NASCET criteria. ACT 112: Negative or not required by law. Electronically signed by: Luiz Santos M.D. 10/26/2023 9:22 AM Discharge Plan Visit Data Chief Complaint: Stroke Alert ED Provider: Les Moreno Discharge Problem: Stroke-like episode Forms Stand Alone Forms: [facility] Prescriptions Prescriptions: No Action Levemir FlexPen 100 unit/mL (3 mL) Insulin Pen 30 unit SUBCUT Q12 Rx Instructions: take at 8am and 8pm tolterodine 2 mg capsule,extended release 24hr 2 mg PO QAM atorvastatin 40 mg tablet 40 mg PO QAM metoprolol succinate 25 mg tablet extended release 24 hr 12.5 mg PO QAM levetiracetam 500 mg tablet 500 mg PO BID Rx Instructions: TAKES 0800 & 1600 levothyroxine 88 mcg tablet 88 mcg PO QAM citalopram 20 mg tablet 20 mg PO QAM metformin 1,000 mg tablet 1,000 mg PO BID Rx Instructions: TAKES 0800 & 2000 acetaminophen [Tylenol] 325 mg Tablet 650 mg PO Q6 PRN (Reason: PAIN/FEVER) cyanocobalamin (vitamin B-12) [Vitamin B-12] 1,000 mcg Tablet 1,000 mcg PO QAM polyethylene glycol 3350 [Miralax] 17 gram powder in packet 17 g PO DAILY PRN (Reason: Constipation) aspirin 81 mg Tablet,Delayed Release (Dr/Ec) 81 mg PO QAM 30 Days Qty: 30 0RF Referrals Referrals: Jamila Wood CRNP [Primary Care Provider] -
--- NOTE | 2023-10-26 09:06 | CT Scan Report ---
CT angio head w con CLINICAL HISTORY: neuro deficit, acute stroke suspected TECHNIQUE: CT angiography of the head was performed following intravenous administration of iodinate d contrast. Coronal and sagittal MIPS were obtained from the axial data set and were submitted for re view. Automated dose lowering techniques and/or adjustment according to patient size were utilized f or this examination. All measurements were calculated based on NASCET criteria. CT DOSE: 1304.16 mGy.cm Comparison: None available at the time of this dictation. FINDINGS: CTA Head: A right frontal approach catheter terminates in the right frontal horn, the ventricles are again noted to be enlarged.. The anterior and posterior cerebral circulations are patent. orig in of the left posterior cerebral artery is seen. IMPRESSION: 1. No occlusion, hemodynamically significant stenosis, aneurysm, dissection, or arteriovenous malfor mation in the major intracranial arteries. 2. Right frontal ventriculostomy catheter is seen. Similar appearance of ventriculomegaly. Assessment of stenosis of the internal carotid arteries is based on NASCET criteria. ACT 112: Negative or not required by law. Electronically signed by: Luiz Santos M.D. 10/26/2023 9:05 AM
--- NOTE | 2023-10-26 09:22 | CT Scan Report ---
CT SCAN OF THE BRAIN WITHOUT IV CONTRAST CLINICAL HISTORY: Neurological deficit. Stroke like symptoms. COMPARISON STUDY: Prior CT scans of the brain, most recently dated 10/18/2023. TECHNIQUE: Unenhanced axial CT scan of the brain is performed from the vertex to the skull base. A do se lowering technique was utilized adhering to the principles of ALARA. FINDINGS: Brain parenchyma: A right frontal approach ventriculostomy catheter is unchanged in position. The tip terminates in the right lateral ventricle. There is age-related involutional change noting moderate to advanced confluent subcortical and periventricular microangiopathic disease. There is no hemorrhag e, mass effect, or evidence of acute territorial ischemia by CT criteria. Chronic lacunar infarcts ar e seen in the left caudate head in the left basal ganglia. Garcia-white matter differentiation is prese rved. No extra-axial fluid collection is seen. Ventricles, sulci, cisterns: Ventriculomegaly is unchanged. See above. Intracranial vasculature: There is atherosclerotic calcification of the cavernous carotid arteries. Calvarium: There is a right frontal ngoc hole. No destructive calvarial lesion is seen. Sinuses and mastoids: There is trace mucosal thickening within the maxillary antra. The remaining vis ualized paranasal sinuses are clear. The mastoid air cells are well pneumatized. Orbits: The bony orbits are grossly intact. IMPRESSION: 1. There is no hemorrhage, mass effect, or evidence of acute territorial ischemia by CT criteria. No significant change from yesterday. 2. Ventriculomegaly is unchanged, with a ventricular shunt catheter in place. ACT 112: Negative or not required by law. Electronically signed by: Louie Sneed M.D. 10/26/2023 9:20 AM
--- NOTE | 2023-10-26 09:23 | CT Scan Report ---
CT angio neck with con CLINICAL HISTORY: neuro deficit, acute stroke suspected TECHNIQUE: CT angiography of the neck was performed following intravenous administration of iodinate d contrast. Coronal and sagittal MIPS were obtained from the axial data set and were submitted for re view. Automated dose lowering techniques and/or adjustment according to patient size were utilized f or this examination. All measurements were calculated based on NASCET criteria. Comparison: None available at the time of this dictation. FINDINGS: Lungs and soft tissues are unremarkable. CTA Neck: A 3 vessel aortic arch is shown. There is no significant atherosclerotic plaque in the aor tic arch or the origins of the innominate, left common carotid, and left subclavian arteries. There is mild calcified atherosclerotic plaque at the bifurcation of the bilateral common carotid arteries without hemodynamically significant flow stenosis. There is no dissection present. The left vertebral artery is dominant. IMPRESSION: 1. No occlusion, hemodynamically significant stenosis, or dissection in the major cervical arteries. Assessment of stenosis of the internal carotid arteries is based on NASCET criteria. ACT 112: Negative or not required by law. Electronically signed by: Luiz Santos M.D. 10/26/2023 9:22 AM
--- NOTE | 2023-10-26 09:28 | XRay Report ---
XR chest 1V portable CLINICAL HISTORY: neuro deficit, acute stroke suspected TECHNIQUE: Single frontal radiograph of the chest was obtained. Comparison: Comparison is made to chest radiograph 10/18/2023 FINDINGS: Lines and tubes are stable. The cardiomediastinal silhouette is normal. The lungs are clear. No evide nce of pleural effusion or pneumothorax. IMPRESSION: No acute chest disease. ACT 112: Negative or not required by law. Electronically signed by: Luiz Santos M.D. 10/26/2023 9:26 AM
[2023-10-26 09:37] LABS: Basophils # (auto) 0.07 K/uL (0.00-0.20); Basophils % (auto) 0.5 %; Eosinophils # (auto) 0.49 K/uL (0.00-0.50); Eosinophils % (auto) 3.6 %; Hematocrit (blood only) 37.8 % (37.0-47.0); Hemoglobin 12.2 g/dl (12.0-16.0); Immature Granulocytes # (auto) 0.46 K/uL (0.01-0.20); Immature Granulocytes % (auto) 3.4 %; Lymphocytes % (auto) 25.8 %; Mean Corpuscular Hemoglobin 26.6 pg (25.0-34.0); Mean Corpuscular Hgb Conc 32.3 g/dL (32.0-36.0); Mean Corpuscular Volume 82.5 fL (80.0-100.0); Mean Platelet Volume 10.1 fL (9.4-12.4); Monocytes # (auto) 1.32 K/uL (0.11-0.59); Monocytes % (auto) 9.7 %; Neutrophils # (auto) 7.72 K/uL (1.40-6.50); Platelet Count 464 K/uL (130-400); RDW Coefficient of Variation 14.7 % (11.5-14.5); RDW Standard Deviation 43.4 fL (36.4-46.3); Red Blood Count 4.58 M/uL (4.20-5.40); White Blood Count 13.56 K/ul (4.8-10.8)
[2023-10-26 09:38] LABS: Albumin Globulin Ratio 0.9 (0.9-2); Albumin Level 2.9 gm/dl (3.4-5.0); BUN Creatinine Ratio 21.9 (10-20); Bilirubin,Total 0.4 mg/dl (0.2-1.0); Calcium 8.4 mg/dl (8.6-10.3); Creatinine Clr Calc Pharmacy 76.3 ml/min; Est GFR (Non-African American) 63.8 ml/min; Globulin 3.4 gm/dl (2.5-4.0); Magnesium 1.4 mg/dl (1.7-2.4); Potassium 3.5 mmol/L (3.5-5.1); Total Protein 6.3 gm/dl (6.0-8.3)
[2023-10-26 09:43] LABS: INR 1.1 (0.9-1.1); Partial Thromboplastin Ratio 0.9; Partial Thromboplastin Time 26 Seconds (21-31); Prothrombin Time 12.2 Seconds (9.0-12.0); Troponin I High Sensitivity 6.3 pg/ml (0-14)
--- NOTE | 2023-10-26 10:25 | History & Physical Report ---
Date of Service October 26, 2023 Assessment & Plan (1) Stroke-like symptoms: Plan: Right-sided facial droop, slurred speech, and acute change in cognitive baseline on the morning of 10/26 Last known well was 2100 on 10/25 Hx of [facility] admission 10/17-10/24 for acute/subacute left basal ganglia infarct Head CT on 10/26 revealed NAF, and noted that the ventriculomegaly was unchanged with the shunt catheter in place Head/neck CTA revealed no occlusions/dissections [facility] determined that the patient was not eligible for TNKase; outside the window, and no acute stroke on CT Spoke with [facility] regarding the patient's [employer] shunt, which is not MRI compatible Telestroke recommended repeat CT in 24-48 hours to look for stroke; they recommended we do not make changes to antiplatelet therapy until stroke is definitive Repeat head CT ordered for 1000 on 10/27 Converted all p.o. meds to IV Keep patient n.p.o. until dysphagia screen Aspirin 300mg MI daily while NPO Neurochecks q4h Permissive HTN; treat BP if SBP>220 or DBP>120 Fall precautions Seizure precautions Last echo on 10/08/2023 revealed LVEF of 65% without PFO, ASD, or [id number] intra-arterial shunt PT/OT consulted A.m. CBC, CMP, mag, PT/INR, fasting lipid panel (2) NPH (normal pressure hydrocephalus): Plan: [employer] shunt placed on September [address] on 10/26 Per prior admission notes, [employer] shunt is not MRI compatible Keppra 500 mg p.o. BID --> converted to Keppra 500 mg IV BID Seizure precautions Specialty bed ordered (3) Type 2 diabetes mellitus: Plan: Last A1c was 7.6% on 09/27/2023; no need to repeat an a.m. A1c Glucose 95 on arrival Hold metformin Keep n.p.o. for now with q6h BSG checks Patient normally takes Levemir 30u BID We will convert to Lantus 10u BID while inpatient to avoid hypoglycemia with poor oral intake Loose SSI with target BSG range 110-160mg/dL, CF 50, no carb ratio Patient can be advanced to T2DM diet if she passes dysphagia screen Adjust regimen as needed Pharmacy glycemic consult (4) COVID-19: Plan: COVID + on arrival Patient was also COVID-positive at time of last admission on 10/17; received remdesivir and dexamethasone She was transferred to ICU on 10/19 due to concern for metabolic encephalopathy from COVID infection/concern for aspiration PNA; received with vancomycin, cefepime, Unasyn Clinically, no URI symptoms at time of admission on 10/26; 95% SPO2 on RA Mild leukocytosis at 13.56 with a neutrophil predominance; patient afebrile CXR NAF Isolation precautions (5) Hypomagnesemia: Plan: Magnesium 1.4 on arrival Likely due to poor oral intake Magnesium sulfate 1g IV started in the ED x3 Recheck a.m. mag (6) HTN (hypertension): Plan: Hold metoprolol in the setting of permissive HTN for strokelike symptoms (7) Anxiety: Plan: Hold citalopram (8) Hypothyroidism: Plan: Hold levothyroxine Plan Disposition: Admit to PCU telemetry Full code Keep n.p.o. for now, then reevaluate after dysphagia screen VTE PPx: SCDs (will hold chemical DVT PPx in setting of potential stroke/conversion) History of Present Illness Chief Complaint: Stroke alert Primary Care Provider: MARTI Sweeney Isadora is a 63-year-old female with PMH of normal pressure hydrocephalus, anxiety, depression, HTN, hypothyroidism, T2DM, short-term memory loss, and CVA. She presented via EMS as a stroke alert from [facility] on the morning of 10/26. Last known well 2100 on 10/25. Patient presented with right- sided facial droop, and slurred speech in the ED. Of note, patient had a recent [facility] admission from 10/17 - 10/24 for altered mental status, in which the CT head read as subacute to acute infarct of the left basal ganglia. Today, she is distant, mumbles, and has some difficulty following directions and focusing. She is unable to provide a history given her current state. However, she notes that she thinks she "had a stroke", but was not able to describe her symptoms. Vital stable at time of admission. ED course: NSS 1000 mL ROS: Patient denies fever, chills, night sweats, MOCTEZUMA, dizziness, CP, pleuritic CP, SOB, abdominal pain, N/V/D, urinary symptoms, burning with urination, or numbness and tingling down the legs. Spoke on the phone with nursing staff from [facility]. They reported that the patient had a right facial droop this morning and was unable to take her p.o. meds. She was given a sip of water but it spilled down her face. They noted an acute change in cognitive baseline from when she arrived at [facility] on 10/24. No aspirin was given this morning; last given on the morning of 10/25. The only medication she received this morning was her insulin 30u. Allergies Allergy/AdvReac Type Severity Reaction Status Date / Time No Known Allergies Allergy Unknown Verified 10/26/23 10:50 Home Medications Medication Instructions Recorded Confirmed Type acetaminophen 325 mg tablet 650 mg PO Q6 PRN PAIN/FEVER 10/07/23 10/26/23 History (Tylenol) citalopram 20 mg tablet 20 mg PO QAM 10/07/23 10/26/23 History cyanocobalamin (vitamin B-12) 1,000 mcg PO QAM 10/07/23 10/26/23 History 1,000 mcg tablet (Vitamin B-12) levetiracetam 500 mg tablet 500 mg PO BID 10/07/23 10/26/23 History levothyroxine 88 mcg tablet 88 mcg PO QAM 10/07/23 10/26/23 History metformin 1,000 mg tablet 1,000 mg PO BID 10/07/23 10/26/23 History polyethylene glycol 3350 17 gram 17 g PO DAILY PRN Constipation 10/07/23 10/26/23 History oral powder packet (Miralax) aspirin 81 mg tablet,delayed 81 mg PO QAM 30 days #30 tabs 10/12/23 10/26/23 Rx release insulin detemir U-100 100 unit/mL 30 unit subcut Q12 10/17/23 10/26/23 History (3 mL) subcutaneous pen (Levemir FlexPen) atorvastatin 40 mg tablet 40 mg PO QAM 10/26/23 10/26/23 History metoprolol succinate 25 mg 12.5 mg PO QAM 10/26/23 10/26/23 History tablet,extended release 24 hr tolterodine 2 mg capsule,extended 2 mg PO QAM 10/26/23 10/26/23 History release 24 hr Past Med/Surg History Medical History (Updated 10/26/23 @ 12:07 by Les Moreno DO) Vitamin B12 deficiency Dehydration DKA (diabetic ketoacidosis) Nausea & vomiting Diabetic ketoacidosis Surgical History (Updated 09/18/23 @ 00:08 by Claire Herring) No pertinent past surgical history Social History Smoking Status: Unknown if ever smoked Second Hand Exposure: No; Do You Dip or Chew Tobacco: No; Hx Alcohol Use: No Hx Substance Use: No Preferred Language: Greenlandic Communication Ability: Impaired Communication Ability Comment: confusion Sparker And Patcher Required: No Beliefs That Will Affect Care: None Current Living Situation: Personal Care Facility Current Living Situation Comment: [facility] Feels Safe at Home: Yes Safety Concerns: Feels Safe At This Time Assistive Devices: Walker and Wheelchair Review of Systems Review of Systems: See HPI above Physical Exam Physical Exam: General: Right-sided facial droop; patient appears somewhat confused, distant, and is slow to respond to questions; non-toxic appearing; cooperative; 94% SPO2 on RA HEENT: [employer] shunt site on right upper scalp appears intact/well-healed; no scleral icterus; PERRLA w/ EOMs intact; dry mucus membrane; vision and hearing intact; patient reports sensation is intact bilaterally in the face measured at 3 points via light touch; patient demonstrates ability to protrude and wiggle tongue; she demonstrates ability to lift eyebrows bilaterally, smile, and frown (facial droop does not affect the right forehead) Neck: supple; no lymphadenopathy; trachea midline; patient demonstrates ability to shrug and rotate neck against resistance Skin: warm, dry without signs of tenting; no cyanosis; no rashes, bruising, lesions, or erythema noted CV: chest wall NTP; RRR; S1/S2 normal; no murmurs/rubs/gallops; pulses intact and symmetric at radial, DP, and PT Lungs: no acute respiratory distress; symmetrical chest wall expansion; clear breath sounds across all lung smith w/o adventitious sounds; no wheezing ABD: Soft, NTP; BS present; no rebound/guarding; no ascites; no distention; negative CVA tenderness MSK: no tics or fasciculations; no edema noted in the LEs b/l; +5/5 psychology physician streng th B/L; 4/5 strength in LEs b/l; no unilateral UE/LE deficits appreciated; full active ROM Neuro: Patient is oriented to name/, but not time or location; she occasionally becomes distant and does not respond to questioning; when she does respond she has word finding difficulty; dysarthria; difficulty with following some commands; sensation intact in LEs B/L Results & Data Results & Data Vital Signs (Past 12 Hours) Vital Signs Temp Pulse Pulse Resp BP BP Pulse Ox 10/26/23 10:08 62 16 121/68 93 10/26/23 09:28 64 16 131/68 90 10/26/23 09:14 62 16 131/68 95 10/26/23 09:11 94 10/26/23 08:55 64 10/26/23 08:17 36.5 C 61 16 157/70 H 94 O2 Del Method 10/26/23 10:08 Room Air 10/26/23 09:28 Room Air 10/26/23 09:14 Room Air 10/26/23 09:11 Room Air 10/26/23 08:55 10/26/23 08:17 Room Air Laboratory Results Abnormal lab results 10/26/23 10/26/23 Range/Units 08:45 10:25 WBC 13.56 H (4.8-10.8) K/ul RDW Coeff of Nanda 14.7 H (11.5-14.5) % Plt Count 464 H (130-400) K/uL Neut # (Auto) 7.72 H (1.40-6.50) K/uL Lymph # (Auto) 3.50 H (1.20-3.40) K/uL [place] # (Auto) 1.32 H (0.11-0.59) K/uL Immature Gran # (Auto) 0.46 H (0.01-0.20) K/uL PT 12.2 H (9.0-12.0) Seconds BUN/Creatinine Ratio 21.9 H (10-20) Calcium 8.4 L (8.6-10.3) mg/dl Magnesium 1.4 L (1.7-2.4) mg/dl Albumin 2.9 L (3.4-5.0) gm/dl Ur Specific [place] > 1.045 H (1.000-1.030) Urine Protein 1+ H (Negative) Urine Blood 2+ H (Negative) Diagnostic Findings Chest X-Ray 10/26/23 08:24 XR chest 1V portable CLINICAL HISTORY: neuro deficit, acute stroke suspected TECHNIQUE: Single frontal radiograph of the chest was obtained. Comparison: Comparison is made to chest radiograph 10/18/2023 FINDINGS: Lines and tubes are stable. The cardiomediastinal silhouette is normal. The lungs are clear. No evidence of pleural effusion or pneumothorax. IMPRESSION: No acute chest disease. ACT 112: Negative or not required by law. Electronically signed by: Luiz Santos M.D. 10/26/2023 9:[address] 10/26/23 08:24 CT SCAN OF THE BRAIN WITHOUT IV CONTRAST CLINICAL HISTORY: Neurological deficit. Stroke like symptoms. COMPARISON STUDY: Prior CT scans of the brain, most recently dated 10/18/2023. TECHNIQUE: Unenhanced axial CT scan of the brain is performed from the vertex to the skull base. A dose lowering technique was utilized adhering to the principles of ALARA. FINDINGS: Brain parenchyma: A right frontal approach ventriculostomy catheter is unchanged in position. The tip terminates in the right lateral ventricle. There is age- related involutional change noting moderate to advanced confluent subcortical and periventricular microangiopathic disease. There is no hemorrhage, mass effect, or evidence of acute territorial ischemia by CT criteria. Chronic lacunar infarcts are seen in the left caudate head in the left basal ganglia. Garcia-white matter differentiation is preserved. No extra-axial fluid collection is seen. Ventricles, sulci, cisterns: Ventriculomegaly is unchanged. See above. Intracranial vasculature: There is atherosclerotic calcification of the cavernous carotid arteries. Calvarium: There is a right frontal ngoc hole. No destructive calvarial lesion is seen. Sinuses and mastoids: There is trace mucosal thickening within the maxillary antra. The remaining visualized paranasal sinuses are clear. The mastoid air cells are well pneumatized. Orbits: The bony orbits are grossly intact. IMPRESSION: 1. There is no hemorrhage, mass effect, or evidence of acute territorial ischemia by CT criteria. No significant change from yesterday. 2. Ventriculomegaly is unchanged, with a ventricular shunt catheter in place. ACT 112: Negative or not required by law. Electronically signed by: Louie Sneed M.D. 10/26/2023 9:20 AM Head CTA 10/26/23 08:24 CT angio head w con CLINICAL HISTORY: neuro deficit, acute stroke suspected TECHNIQUE: CT angiography of the head was performed following intravenous administration of iodinated contrast. Coronal and sagittal MIPS were obtained from the axial data set and were submitted for review. Automated dose lowering techniques and/or adjustment according to patient size were utilized for this examination. All measurements were calculated based on NASCET criteria. CT DOSE: 1304.16 mGy.cm Comparison: None available at the time of this dictation. FINDINGS: CTA Head: A right frontal approach catheter terminates in the right frontal horn, the ventricles are again noted to be enlarged.. The anterior and posterior cerebral circulations are patent. origin of the left posterior cerebral artery is seen. IMPRESSION: 1. No occlusion, hemodynamically significant stenosis, aneurysm, dissection, or arteriovenous malformation in the major intracranial arteries. 2. Right frontal ventriculostomy catheter is seen. Similar appearance of ventriculomegaly. Assessment of stenosis of the internal carotid arteries is based on NASCET criteria. ACT 112: Negative or not required by law. Electronically signed by: Luiz Santos M.D. 10/26/2023 9:05 AM Neck CTA 10/26/23 08:24 CT angio neck with con CLINICAL HISTORY: neuro deficit, acute stroke suspected TECHNIQUE: CT angiography of the neck was performed following intravenous administration of iodinated contrast. Coronal and sagittal MIPS were obtained from the axial data set and were submitted for review. Automated dose lowering techniques and/or adjustment according to patient size were utilized for this examination. All measurements were calculated based on NASCET criteria. Comparison: None available at the time of this dictation. FINDINGS: Lungs and soft tissues are unremarkable. CTA Neck: A 3 vessel aortic arch is shown. There is no significant atherosclerotic plaque in the aortic arch or the origins of the innominate, left common carotid, and left subclavian arteries. There is mild calcified atherosclerotic plaque at the bifurcation of the bilateral common carotid arteries without hemodynamically significant flow stenosis. There is no dissection present. The left vertebral artery is dominant. IMPRESSION: 1. No occlusion, hemodynamically significant stenosis, or dissection in the major cervical arteries. Assessment of stenosis of the internal carotid arteries is based on NASCET criteria. ACT 112: Negative or not required by law. Electronically signed by: Luiz Santos M.D. 10/26/2023 9:22 AM Code Status & VTE Plan Code Status Full code VTE Prophylaxis Plan VTE Prophylaxis will be ordered: Yes Supervising Physician Co-Signing Physician Notes Patient seen and examined, chart reviewed, case discussed with Rush Herrera PA-C and I agree with the assessment and plan as above except as otherwise noted Labs and images reviewed Seen at the bedside. Right-sided facial droop, mild dysarthria, and some int ermittent confusion. Strength and sensation distal extremities is intact and symmetrical. Changes noted this morning after going to bed well last night. Patient recently admitted for suspected CVA of the left basal ganglia 10/17 - 10/24. Reviewed with telestroke. Patient is not able to have an MRI at this institution. Patient reportedly is able to get an MRI but requires a machine with a different type of magnet than that is used at this facility. Telestroke is aware, recommended CT in 24-48 hours and would not change antiplatelet therapy unless a new infarct is noted. If acute CVA is noted on repeat CT then antiplatelet switch versus DAPT based on territory involved. Aspirin has been converted to MI, blood pressure medications temporarily held to allow for permissive hypertension with labetalol and on-call as needed. If no CVA is noted on 24-hour repeat CT then 1 can resume normal antihypertensive parameters. Patient does have a history of normal pressure hydrocephalus, shunt appears in place and has no interval change on repeat CT. Agree with assessment and management as above. Patient is also COVID-19 on arrival, she was also positive for this at the end of last month so suspect this is residual positive and patient has no new infectious symptoms, has no fever, and no signs of superimposed pneumonia on admission. PG Care Time/CCT Total # of Minutes Spent Total Time Spent with Patient: Total time spent is greater than 50% in coordination of care (as documented) at patient's floor/unit and/or counseling patient: [place] [address] INT INP/OBS CARE 3/75MIN Patient Type Established History Comprehensive Exam Comprehensive Medical Decision Making High Complexity Diagnoses Stroke-like symptoms R29.90 NPH (normal pressure hydrocephalus) G91.2 Type 2 diabetes mellitus E11.9 COVID-19 U07.1 Hypomagnesemia E83.42 HTN (hypertension) I10 Anxiety F41.9 Hypothyroidism E03.9
[2023-10-26 10:49] LABS: Appearance Urine Clear (Clear); Bacteria Urine Automated Negative (Negative); Bilirubin Urine Negative (Negative); Blood Urine 2+ (Negative); Color Urine Yellow; Epithelial Cell Urine Auto 20-30 /lpf (0-5); Glucose Urine UA Negative (Negative); Ketones Urine Negative (Negative); Leukocyte Esterase Urine Negative (Negative); Nitrite Urine Negative (Negative); Protein Urine 1+ (Negative); Specific Gravity Urine > 1.045 (1.000-1.030); Urobilinogen Urine Negative (Negative); pH Urine 5.5 (4.5-7.5)
[2023-10-26 11:00] LABS: Adenovirus PCR Not Detected (NotDetected); Bordetella parapertussis PCR Not Detected (NotDetected); Bordetella pertussis PCR Not Detected (NotDetected); Chlamydia pneumoniae PCR Not Detected (NotDetected); Coronavirus 229E PCR Not Detected (NotDetected); Coronavirus HKU1 PCR Not Detected (NotDetected); Coronavirus NL63 PCR Not Detected (NotDetected); Coronavirus OC43PCR Not Detected (NotDetected); Human Metapneumovirus PCR Not Detected (NotDetected); Influenza A PCR Not Detected (NotDetected); Influenza B PCR Not Detected (NotDetected); Mycoplasma pneumoniae PCR Not Detected (NotDetected); Parainfluenza Virus 1 PCR Not Detected (NotDetected); Parainfluenza Virus 2 PCR Not Detected (NotDetected); Parainfluenza Virus 3 PCR Not Detected (NotDetected); Parainfluenza Virus 4 PCR Not Detected (NotDetected); Respiratory Syncytial VirusPCR Not Detected (NotDetected); Rhinovirus/Enterovirus PCR Not Detected (NotDetected)
[2023-10-26 11:04] LABS: Coronavirus CoV-2 (COVID19)PCR DETECTED (NotDetected)
[2023-10-26] MEDS ORDERED: levETIRAcetam 500 MG in 0.9 % SODIUM CHLORIDE 100 ML IV ONE (11:31)
[2023-10-26] MEDS: MAGNESIUM SULFATE / D5W 1 GM/100 ML BAG IV SCH ×3 (11:49→16:32)
[2023-10-26] MEDS ORDERED: ASPIRIN 300 MG SUPP PR ONE (12:19)
--- NOTE | 2023-10-26 15:57 | Electrocardiogram Report ---
Test Reason : Blood Pressure : / mmHG Vent. Rate : 061 BPM Atrial Rate : 061 BPM P-R Int : 142 ms QRS Dur : 088 ms QT Int : 442 ms P-R-T Axes : 056 031 039 degrees QTc Int : 444 ms Normal sinus rhythm Normal ECG When compared with ECG of 17-OCT-2023 16:19, Non-specific change in ST segment in Inferior leads Inverted T waves have replaced nonspecific T wave abnormality in Inferior leads Confirmed by Nathan Roldan ([id number]) on 10/26/2023 3:57:00 PM Referred By: [facility] Confirmed By:Nathan Roldan
[2023-10-26] MEDS ORDERED: DEXTROSE 50% 50 ML SYRINGE IV PRN (16:07)
[2023-10-26] MEDS ORDERED: CARBOHYDRATES FOR HYPOGLYCEMIA PO PRN (16:07)
[2023-10-26] MEDS ORDERED: PHARMACY GLYCEMIC MGMT CONSULT PRN (16:07)
[2023-10-26] MEDS ORDERED: PHARMACIST DISCHARGE MED REC CONSULT PRN (16:07)
[2023-10-26] MEDS ORDERED: GLUCOSE 40% GEL 15 GM TUBE PO PRN (16:07)
[2023-10-26] MEDS ORDERED: GLUCOSE 10 TAB/TUBE PO PRN (16:07)
[2023-10-26] MEDS ORDERED: GLUCAGON FOR INJ 1 MG VIAL SQ PRN (16:07)
[2023-10-26] MEDS ORDERED: INSULIN ASPART PER UNIT CHARGE SC SCH (16:30)
[2023-10-26] MEDS: INSULIN ASPART PER UNIT CHARGE SC SCH (18:20)
[2023-10-26] MEDS: levETIRAcetam 500 MG in 0.9 % SODIUM CHLORIDE 100 ML IV SCH (22:04)
[2023-10-26] MEDS: LANTUS PER UNIT CHARGE SQ SCH (22:31)
[2023-10-27] MEDS ORDERED: DEXTROSE 50% 50 ML SYRINGE IV ONE (00:26)
[2023-10-27] MEDS: INSULIN ASPART PER UNIT CHARGE SC SCH ×5 (00:41→20:44)
[2023-10-27 05:19] LABS: Basophils # (auto) 0.05 K/uL (0.00-0.20); Basophils % (auto) 0.4 %; Eosinophils # (auto) 0.43 K/uL (0.00-0.50); Eosinophils % (auto) 3.7 %; Hematocrit (blood only) 38.4 % (37.0-47.0); Hemoglobin 12.2 g/dl (12.0-16.0); Immature Granulocytes # (auto) 0.22 K/uL (0.01-0.20); Immature Granulocytes % (auto) 1.9 %; Lymphocytes % (auto) 29.2 %; Mean Corpuscular Hemoglobin 26.3 pg (25.0-34.0); Mean Corpuscular Hgb Conc 31.8 g/dL (32.0-36.0); Mean Corpuscular Volume 82.8 fL (80.0-100.0); Mean Platelet Volume 9.8 fL (9.4-12.4); Monocytes # (auto) 1.06 K/uL (0.11-0.59); Monocytes % (auto) 9.1 %; Neutrophils # (auto) 6.48 K/uL (1.40-6.50); Neutrophils % (auto) 55.7 %; Platelet Count 383 K/uL (130-400); RDW Coefficient of Variation 14.6 % (11.5-14.5); RDW Standard Deviation 43.3 fL (36.4-46.3); Red Blood Count 4.64 M/uL (4.20-5.40); White Blood Count 11.64 K/ul (4.8-10.8)
[2023-10-27 05:31] LABS: BUN Creatinine Ratio 15.7 (10-20); Calcium 8.4 mg/dl (8.6-10.3); Chol HDL Ratio 3.1 (0-5); Creatinine Clr Calc Pharmacy 88.3 ml/min; Est GFR (African American) 88.2 ml/min; Est GFR (Non-African American) 76.1 ml/min; Potassium 3.9 mmol/L (3.5-5.1)
[2023-10-27 05:38] LABS: INR 1.1 (0.9-1.1); Prothrombin Time 11.8 Seconds (9.0-12.0)
[2023-10-27] MEDS ORDERED: ASPIRIN 300 MG SUPP PR SCH (09:00)
[2023-10-27] MEDS: LANTUS PER UNIT CHARGE SQ SCH ×2 (09:05→20:45)
[2023-10-27] MEDS: levETIRAcetam 500 MG in 0.9 % SODIUM CHLORIDE 100 ML IV SCH (09:05)
--- NOTE | 2023-10-27 10:57 | Pharmacy Report ---
Pharmacy Glycemic Short Note 2 - Date of Service October 27, 2023 - Glycemic Short BSG Results (Last 24 hours): 10/26/23 10/26/23 10/27/23 18:14 23:53 01:08 Glucose POC Glucose 100 H 74 186 H 10/27/23 10/27/23 04:52 06:40 Glucose 120 H POC Glucose 114 H OUTPATIENT ANTIDIABETIC REGIMEN: * Levemir 30 units SQ BID * Metformin 1 gm PO BID HbA1c: 7.6% ASSESSMENT: * 63 y/o F admitted with stroke like symptoms yesterday. She has history of [employer] shunt placement around 6 weeks ago and [facility]. History of Type 2 diabetes managed with basal insulin and Metformin. * Patient has been NPO since yesterday. * Basal insulin 10 units BID ordered last night which is 1/3 of her home dose. * Novolog ordered per provider with loose correction factor. BSGs have been at or near goal and she has not required any bolus insulin. PLAN FOR INPATIENT GLYCEMIC CONTROL: * Hold outpatient oral diabetes medications * Basal insulin * Lantus 10 units SQ BID * Bolus insulin * NovoLog per scale ACHS or Q6hrs while NPO * Goal Range: Low 110 mg/dL - High 160 mg/dL * Correction Factor: 40 mg/dL/unit * Nutritional / Prandial insulin per carb ratio of 1 unit per 12 grams CHO consumed
[2023-10-27] MEDS ORDERED: POLYETHYLENE (MIRALAX) 17 GM PACK PO PRN (11:13)
[2023-10-27] MEDS ORDERED: ACETAMINOPHEN 325 MG TAB PO PRN (11:13)
[2023-10-27] MEDS ORDERED: Nursing to Pharmacy Communication SCH (11:15)
--- NOTE | 2023-10-27 11:41 | CT Scan Report ---
CT OF THE HEAD WITHOUT CONTRAST CLINICAL HISTORY: Repeat Head CT to r/o stroke; can't have MRI COMPARISON STUDY: Head CTs October 17, 2023, October 18, 2023 and October 26, 2023. CTA of the hea d October 26, 2023. CT DOSE: 688.24 mGy.cm TECHNIQUE: Helical axial images of the head were obtained without IV contrast. Automated exposure con trol was utilized for the study. A dose lowering technique was utilized adhering to the principles o f ALARA. FINDINGS: Right frontal ventriculostomy catheter remains in place. The ventricular system is stable. Ventricular dilatation is unchanged. Basal cisterns are patent. There are no extra axial collections. White matter hypodensities are unchanged and favor small vessel disease. No findings are identified to suggest acute dural sinus thrombosis or acute territorial infarct. A 1.1 cm hypodensity within the left basal ganglia is unchanged since CT of October 17, 2023. This is new since head CT of October 08, 2023. The appearance of the brain remains unchanged. There are no calvarial fractures. IMPRESSION: 1. No acute intracranial findings. 2. Stable ventricular dilatation. Right frontal ventriculostomy catheter in place. 3. No change in a 1.1 cm hypodensity within the left basal ganglia, as described above. This favors a subacute infarct. ACT 112: Negative or not required by law. Electronically signed by: Zander Mallory M.D. 10/27/2023 11:40 AM
[2023-10-27] MEDS: ATORVASTATIN 40 MG TAB PO SCH (12:49)
[2023-10-27] MEDS: CITALOPRAM 20 MG TAB PO SCH (12:50)
[2023-10-27] MEDS: METOPROLOL SUCC 25MG EXT REL TAB PO SCH (12:50)
[2023-10-27] MEDS: CYANOCOBALAMIN (B-12) 500 MCG TABLET PO SCH (12:51)
--- NOTE | 2023-10-27 13:27 | Hospitalist Progress Note ---
Date of Service October 27, 2023 Assessment & Plan (1) Stroke-like symptoms: Plan: Presented with right-sided facial droop, slurred speech, and acute change in cognitive baseline on the morning of 10/26 Last known well was 2100 on 10/25 [place] tel[facility]roke determined that the patient was not eligible for TNKase; outside the window, and no acute stroke on CT Spoke with [place] [facility] regarding the patient's FIELD ADJUSTER shunt, which is not MRI compatible Telestroke recommended repeat CT in 24-48 hours to look for stroke; they recommended we do not make changes to antiplatelet therapy until stroke is definitive Hx of [facility] admission 10/17-10/24 for encephalopathy, COVID, aspiration PNA, and ruled out for meningitis Found to have acute/subacute left basal ganglia infarct on head CT during that admission but was admitted a few weeks prior to that for stroke symptoms and had negative head CT at that time-was started on ASA and statin Question if having recrudescence of old stroke symptoms vs seizures? Facial droop resolved but remains with dysarthria and RUE weakness Head CT on 10/26 negative except subacute CVA, and noted that the ventriculomegaly was unchanged with the shunt catheter in place CTA head and neck negative. Prior ECHO with possible valvular vegetation and she declined ARELI--> repeat ECHO here Follow on tele for arrhythmia Change Aspirin 300mg MS daily to 81mg po daily Continue high intensity statin, lipids acceptable Neurochecks q4h Permissive HTN; treat BP if SBP>220 or DBP>120 Fall precautions Seizure precautions PT/OT consulted Consult Neuro for further guidance--> recommends repeating CT head again in another 24 hrs to assess for new stroke (2) NPH (normal pressure hydrocephalus): Plan: FIELD ADJUSTER shunt placed on September [address] on 10/26 Per prior admission notes, FIELD ADJUSTER shunt is not MRI compatible COntinue Keppra 500 mg p.o. BID --> converted to Keppra 500 mg IV BID Seizure precautions Specialty bed ordered (3) Type 2 diabetes mellitus: Plan: Last A1c was 7.6% on 09/27/2023; no need to repeat an a.m. A1c Hold metformin We will convert to Lantus 10u BID while inpatient to avoid hypoglycemia with poor oral intake Loose SSI with target BSG range 110-160mg/dL, CF 50, no carb ratio Patient can be advanced to T2DM diet if she passes dysphagia screen Adjust regimen as needed Pharmacy glycemic consult (4) COVID-19: Plan: COVID + on arrival Patient was also COVID-positive at time of last admission on 10/17; received remdesivir and dexamethasone Clinically, no URI symptoms at time of admission on 10/26; 95% SPO2 on RA Mild leukocytosis at 13.56 with a neutrophil predominance; patient afebrile CXR negative Isolation precautions not needed (5) Hypomagnesemia: Plan: Magnesium 1.4 on arrival Likely due to poor oral intake replaced and now normal (6) HTN (hypertension): Plan: Ok to resume metoprolol as no stroke on repeat head CT (7) Anxiety: Plan: resume home citalopram (8) Hypothyroidism: Plan: resume home levothyroxine TSH here normal Plan Disposition: continued stay on PCU Full code VTE PPx: SCDs Admission and Anticipated Discharge Date Admission Date: October 26, 2023 Subjective Pt slow to answer questions, with dysarthria. No facial droop, passed dysphagia screen and is eating. She is not really able to answer many of my questions. Says she doesn't know why she is here in the hospital. Attempted to call her sister and no answer. Discussed her case with Neurology Tele with NSR, no arrhythmias Physical Exam Constitutional: WD/WN, vitals as above Eyes: PERRL, conjunctivae normal, anicteric sclerae ENMT: external ear and nose normal, oropharynx normal Neck: trachea midline, no thyromegaly Respiratory: normal respiratory effort, lungs clear to auscultation Cardiovascular: RRR, no murmur, no edema Chest (Breasts): Chest: normal inspection of chest Gastrointestinal (Abdomen): normal bowel sounds, soft, nontender, no hepatosplenomegaly Musculoskeletal: Extremities: extremities normal to inspection; no cyanosis and no clubbing Skin: no rashes, warm and dry Neurologic: CN's II-XI intact bilaterally, moves all extremities, + focal motor deficit (4/5 strength in RUE,difficult to test LE strength), awake and + confused Speech / Cognition: + abnormal cognition Psychiatric: Orientation: alert and oriented to person; + not oriented to place and + not oriented to time Results & Data Results & Data Vital Signs (Past 12 Hours) Vital Signs Temp Pulse Pulse Resp BP Pulse Ox O2 Del Method 10/27/23 10:42 60 10/27/23 10:18 37.4 C 59 L 18 144/68 H 96 Room Air 10/27/23 07:46 60 18 142/79 H 99 Room Air 10/27/23 06:45 63 10/27/23 03:28 59 L Laboratory Results CBC, BMP, cholesterol panel, TSH, UA, Ur cx reviewed PG Care Time/CCT Total # of Minutes Spent Total Time Spent with Patient: Total time spent is greater than 50% in coordination of care (as documented) at patient's floor/unit and/or counseling patient: Coding Level of Care Code 67288 SUB INP/OBS CARE 3/50MIN Diagnoses Stroke-like symptoms R29.90 NPH (normal pressure hydrocephalus) G91.2 Type 2 diabetes mellitus E11.9 COVID-19 U07.1 Hypomagnesemia E83.42 HTN (hypertension) I10 Anxiety F41.9 Hypothyroidism E03.9
[2023-10-27] MEDS: levETIRAcetam 500 MG TAB PO SCH (15:48)
--- NOTE | 2023-10-27 16:06 | XCELERA ---
[id number]
[2023-10-28] MEDS: LEVOTHYROXINE SODIUM 88 MCG TABLET PO SCH (05:42)
[2023-10-28 07:43] LABS: Basophils # (auto) 0.05 K/uL (0.00-0.20); Basophils % (auto) 0.5 %; Eosinophils # (auto) 0.37 K/uL (0.00-0.50); Eosinophils % (auto) 3.7 %; Hematocrit (blood only) 35.4 % (37.0-47.0); Hemoglobin 11.4 g/dl (12.0-16.0); Immature Granulocytes # (auto) 0.12 K/uL (0.01-0.20); Immature Granulocytes % (auto) 1.2 %; Lymphocytes # (auto) 2.97 K/uL (1.20-3.40); Lymphocytes % (auto) 29.8 %; Mean Corpuscular Hemoglobin 26.3 pg (25.0-34.0); Mean Corpuscular Hgb Conc 32.2 g/dL (32.0-36.0); Mean Corpuscular Volume 81.6 fL (80.0-100.0); Mean Platelet Volume 9.9 fL (9.4-12.4); Monocytes # (auto) 0.73 K/uL (0.11-0.59); Monocytes % (auto) 7.3 %; Neutrophils # (auto) 5.72 K/uL (1.40-6.50); Neutrophils % (auto) 57.5 %; Platelet Count 363 K/uL (130-400); RDW Coefficient of Variation 14.3 % (11.5-14.5); RDW Standard Deviation 41.5 fL (36.4-46.3); Red Blood Count 4.34 M/uL (4.20-5.40); White Blood Count 9.96 K/ul (4.8-10.8)
[2023-10-28 08:07] LABS: Anion Gap 5 (3-11); BUN Creatinine Ratio 15.2 (10-20); Blood Urea Nitrogen 12 mg/dl (6-23); Calcium 8.4 mg/dl (8.6-10.3); Carbon Dioxide 26 mmol/L (21-32); Chloride 102 mmol/L (98-107); Creatinine Clr Calc Pharmacy 92.2 ml/min; Est GFR (African American) 93.6 ml/min; Est GFR (Non-African American) 80.8 ml/min; Glucose 164 mg/dl (70-99(Fasting)); Sodium 133 mmol/L (136-145)
[2023-10-28] MEDS: INSULIN ASPART PER UNIT CHARGE SC SCH ×4 (09:13→21:03)
[2023-10-28] MEDS: LANTUS PER UNIT CHARGE SQ SCH ×2 (09:14→21:02)
[2023-10-28] MEDS: CITALOPRAM 20 MG TAB PO SCH (09:15)
[2023-10-28] MEDS: levETIRAcetam 500 MG TAB PO SCH (09:15)
[2023-10-28] MEDS: ATORVASTATIN 40 MG TAB PO SCH (09:15)
[2023-10-28] MEDS: ASPIRIN 81 MG ECTAB PO SCH (09:15)
[2023-10-28] MEDS: CYANOCOBALAMIN (B-12) 500 MCG TABLET PO SCH (09:16)
[2023-10-28] MEDS: METOPROLOL SUCC 25MG EXT REL TAB PO SCH (09:19)
--- NOTE | 2023-10-28 09:29 | Neurology Consultation ---
Date of Consultation October 28, 2023 Assessment & Plan (1) Stroke: (2) NPH (normal pressure hydrocephalus): Plan 63-year-old female with a history of normal pressure hydrocephalus diagnosed last October, status postplacement of a MANAGER ARCHITECTURAL shunt at [facility] this past August. Presented with confusion and right hemiparesis on October 08, 2023, unable to have MRI, although ultimately diagnosed with an evolving 1.1 cm left basal ganglia ischemic infarct. Patient subsequently diagnosed with COVID- 19 infection. Has had a lumbar puncture recently as well as consultation with infectious diseases. Does not appear to have meningitis or encephalitis although the possibility of a COVID-related aseptic meningitis was considered previously. Patient readmitted with a recrudescence of her previous strokelike symptoms, consisting of slurred speech, right hemiparesis, notably right facial droop. Patient also exhibits rather slow cognitive processing, she appears fairly a abulic. I also find some evidence of finger anomia, left right confusion on her neurological examination this morning. She is able to name objects and repeat phrases. Speech is quite slowed and she has difficulty following multistep commands. I note that she has been having progressive de lester in cognitive and memory functioning for at least the past year, prior to her diagnosis of normal pressure hydrocephalus. Although she has undergone placement of MANAGER ARCHITECTURAL shunt, I suspect that a significant degree of her cognitive symptoms are related to her hydrocephalus and associated frontal lobe dysfunction. She has also been prescribed levetiracetam for seizure prophylaxis although there is no clinical evidence that she has been having seizures. She had been started on Keppra during an assessment in our emergency department on September 03, 2023. Would recommend tapering off Keppra at this time, would reduce the dosage to 250 mg twice daily for 2 weeks, then stop altogether. Would also recommend obtaining a follow-up noncontrast CT of the head today to reassess for additional evolving acute infarct. (Unable to have brain MRI in our institution given presence of MANAGER ARCHITECTURAL shunt.) Patient may continue with aspirin and atorvastatin. As above, I suspect patient is experiencing a recrudescence of her neurologic deficits related to her subacute 1.1 cm ischemic infarct within the left basal ganglia. However, she also is modestly abulic which I believe is related to frontal lobe dysfunction in the context of her chronic, progressive, normal pressure hydrocephalus. Cognitive symptoms from NPH typically do not respond to shunting. Patient may follow-up in neurology clinic for further assessment of her cognitive impairment. May consider a trial of a cholinesterase inhibitor such as donepezil or possibly memantine. History of Present Illness Reason for Consultation: recurrent stroke symptoms Requesting Physician: Adam Attending Physician: Meggan Medina MD History of Present Illness The patient is a 63-year-old female with a history of normal pressure hydrocephalus diagnosed in October 2022, she subsequently underwent placement of a MANAGER ARCHITECTURAL shunt at [facility] this past August. She had presented with progressive gait dysfunction, recurrent falls, urinary urgency, confusion and memory loss. I saw her again in neurological consultation on October 08, 2023 for acute strokelike symptoms characterized by right hemiparesis and sl owed, dysarthric speech. She was unable to have a brain MRI completed, however, due to the presence of her MANAGER ARCHITECTURAL shunt. She was started on aspirin and her dosage of atorvastatin was increased. [facility] in the context of acute COVID infection, dehydration, and recurrence of strokelike symptoms. At that point in time, there was evidence of an evolv ing left basal ganglia ischemic infarct. There was some concern for possible meningitis and she did have a lumbar puncture completed that was unremarkable, other than a mild elevation in leukocytes. CSF PCR was negative. Patient was seen by infectious diseases on October 21, patient not felt to have meningitis, ventriculitis, mild leukocytosis felt to be related to relatively recent shunt placement, but additionally, in the context of recent COVID with an element of possible aseptic meningitis. Patient presented again to the emergency department on October 26, 2023 with a recurrence of strokelike symptoms, again, with abnormal speech, slurred speech, perhaps some word finding difficulty as well. Noted to have a right facial droop as well. Repeat imaging has been completed. CT a of the head and neck unremarkable. CT head has revealed a 1.1 cm subacute appearing ischemic infarct within the left basal ganglia that is unchanged from previous scans. No hemorrhage or obvious acute process seen. There is a stable right ventriculostomy catheter and persistent hydrocephalus. An echocardiogram revealed normal left ventricular systolic function, no regional wall motion abnormalities, mild LVH, EF 60 to 65%. A previous echocardiogram completed October 08, 2023 suggested the possibility of a mass or vegetation on the aortic valve. This finding was not seen on the most recent echocardiogram, however. Allergies Allergy/AdvReac Type Severity Reaction Status Date / Time No Known Allergies Allergy Unknown Verified 10/26/23 10:50 Home Medications Medication Instructions Recorded Confirmed Type acetaminophen 325 mg tablet 650 mg PO Q6 PRN PAIN/FEVER 10/07/23 10/26/23 History (Tylenol) citalopram 20 mg tablet 20 mg PO QAM 10/07/23 10/26/23 History cyanocobalamin (vitamin B-12) 1,000 mcg PO QAM 10/07/23 10/26/23 History 1,000 mcg tablet (Vitamin B-12) levetiracetam 500 mg tablet 500 mg PO BID 10/07/23 10/26/23 History levothyroxine 88 mcg tablet 88 mcg PO QAM 10/07/23 10/26/23 History metformin 1,000 mg tablet 1,000 mg PO BID 10/07/23 10/26/23 History polyethylene glycol 3350 17 gram 17 g PO DAILY PRN Constipation 10/07/23 10/26/23 History oral powder packet (Miralax) aspirin 81 mg tablet,delayed 81 mg PO QAM 30 days #30 tabs 10/12/23 10/26/23 Rx release insulin detemir U-100 100 unit/mL 30 unit subcut Q12 10/17/23 10/26/23 History (3 mL) subcutaneous pen (Levemir FlexPen) atorvastatin 40 mg tablet 40 mg PO QAM 10/26/23 10/26/23 History metoprolol succinate 25 mg 12.5 mg PO QAM 10/26/23 10/26/23 History tablet,extended release 24 hr tolterodine 2 mg capsule,extended 2 mg PO QAM 10/26/23 10/26/23 History release 24 hr Patient History Medical History (Updated 10/28/23 @ 09:53 by Melvin Calvillo MD) Stroke-like symptoms Vitamin B12 deficiency Dehydration DKA (diabetic ketoacidosis) Nausea & vomiting Diabetic ketoacidosis Surgical History (Updated 10/28/23 @ 00:09 by Claire Herring) No pertinent past surgical history Social History Smoking Status: Unknown if ever smoked Second Hand Exposure: No; Do You Dip or Chew Tobacco: No; Hx Alcohol Use: No Hx Substance Use: No Preferred Language: Nepali Communication Ability: Impaired Communication Ability Comment: confusion 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 Beliefs That Will Affect Care: None Current Living Situation: Personal Care Facility Current Living Situation Comment: [facility] Feels Safe at Home: Yes Safety Concerns: Feels Safe At This Time Assistive Devices: Walker Review of Systems Constitutional: no fever and no chills Eyes: no blind spots and no diplopia Ear, Nose, Mouth, Throat: no hearing loss Respiratory: no cough and no dyspnea Cardiovascular: no chest pain and no palpitations Gastrointestinal: no nausea and no vomiting Genitourinary: no dysuria Musculoskeletal: no neck pain and no myalgia Integumentary: no rash and no lesions Neurologic: as per Subjective / HPI, + localized weakness and + confusion; no tremor(s), no abnormal movements and no headache(s) Psychiatric: no depression and no anxiety Hematologic / Lymphatic: no easy bleeding and no easy bruising Exam (Neuro) Constitutional: well developed and well nourished; no acute distress Eyes: normal visual smith by confrontation, PERRL and EOM intact bilaterally; no nystagmus Neurologic: Oriented to:: Person and Place; negative Time Cognitive Function: negative Attention, Concentration, Calculations, Thought Initiation or Cognitive Speed Cortical Function: Motor Apraxia and Right/Left Disorientation Memory: Remote Intact; negative Short Term Intact Attention: negative Span Intact or Concentration Intact Language: Naming Objects and Repeating Phrases Speech Fluency: Dysarthria, Dysfluency and Slowed Speech Aphasia: negative Aphasia Fund of Knowledge: Vocabulary; negative Current Events Cranial Nerves: Normal II, III, IV, , V, VIII, IX, X, XI and XII; Abnorm VII (right facial droop) Motor Strength: Hemiparesis (face/arm, mild) Laterality: Right Motor Tone: Normal Lower Extremities and Normal Upper Extremities Muscle Bulk/Involuntary Movements: No Involuntary Movements; negative Muscle Atrophy Sensation: Light Touch Intact, Pain/Temperature Intact and Proprioception Intact Coordination: Finger-Nose Abnormal and Heel-Reynoso Abnormal; negative Dysdiadochokinesia Deep Tendon Reflexes: Rt Triceps: 2+, Lt Triceps: 2+, Rt Biceps: 3+, Lt Biceps: 2+, Rt Brachioradialis: 2+, Lt Brachioradialis: 2+, Rt Patellar: 2+, Lt Patellar: 1+, Rt Ankle: 1+ and Lt Ankle: 1+ Special Tests: Babinski Present (right) Results & Data Vital Signs (Past 12 Hours) Vital Signs Temp Pulse Pulse Resp BP Pulse Ox O2 Del Method 10/28/23 08:51 36.8 C 59 L 16 185/81 H 96 Room Air 10/28/23 02:59 36.6 C 61 18 151/77 H 96 Room Air 10/28/23 02:48 58 L 10/27/23 23:14 36.5 C 60 18 147/82 H 93 Room Air Laboratory Results WBC 9.96, hemoglobin 11.4, hematocrit 35.4, platelet count 363, sodium 133, potassium 3.9, BUN 12, creatinine 0.79, glucose 164, calcium 8.4, magnesium 2.0, triglycerides 126, cholesterol 104, LDL 45, HDL 34 CSF analysis from October 19, 2023 reviewed. CSF clear, colorless, no xanthochromia, CSF WBC 17, RBC 10, glucose 143, protein 33.3, meningoencephalitis PCR negative. Diagnostic Findings CT of the head including CTA of the head and neck are as described in the HPI, I independently reviewed these images. Echocardiogram results are as described in the HPI. Coding Level of Care Code 40410 INT INP/OBS CARE 3/75MIN Diagnoses Stroke I63.9 NPH (normal pressure hydrocephalus) G91.2 Time Spent (min) 85
--- NOTE | 2023-10-28 11:08 | CT Scan Report ---
CT head/brain wo con CLINICAL HISTORY: 63 years-old Female with f/u for new CVA. Acute strokelike symptoms TECHNIQUE: Multiple axial CT images of the head were obtained without contrast. A dose lowering tech nique was utilized adhering to the principles of ALARA. CT DOSE: 1250.21 mGy.cm COMPARISON: 10/27/2023, 10/17/2023. FINDINGS: No acute intracranial hemorrhage, midline shift, intracranial mass, acute territorial ischemia or abn ormal extra-axial collection. Stable 1.1 cm hypodensity within the left lentiform nucleus. Involution al changes with chronic microvascular ischemic disease. Stable ventricular dilation with unchanged po sitioning of the right frontal approach ventriculostomy catheter. Stable hypodensity within the left brachium pontis on image 9 series 4. The calvarium is intact. The paranasal sinuses, mastoid air cells, and middle ear cavities are clear . IMPRESSION: 1. No acute intracranial hemorrhage, midline shift or acute territorial infarct. 2. Unchanged 1.1 cm hypodense focus within the left lentiform nucleus suggestive of a subacute infarc t. 3. Chronic findings as above. ACT 112: Negative or not required by law. The above report was generated using voice recognition software. It may contain grammatical, syntax o r spelling errors. Electronically signed by: Efrain Gant M.D. 10/28/2023 11:06 AM
--- NOTE | 2023-10-28 12:10 | Pharmacy Report ---
Pharmacy Glycemic Short Note 2 - Date of Service October 28, 2023 - Glycemic Short BSG Results (Last 24 hours): 10/27/23 10/27/23 10/28/23 16:23 20:02 07:13 Glucose POC Glucose 160 H 135 H 166 H 10/28/23 10/28/23 07:15 11:06 Glucose 164 H POC Glucose 223 H OUTPATIENT ANTIDIABETIC REGIMEN: * Levemir 30 units SQ BID * Metformin 1 gm PO BID HbA1c: 7.6% ASSESSMENT: 10/28: * Patient received 20 units basal and 4 units bolus insulin yesterday. BSGs yesterday were [phone] mg/dl. * Fasting BSG elevated today at 166 mg/dl. Pre-lunch BSG trended up to 223 mg/dl. * Basal dose increased starting tonight to 15 units BID which is 50% of home dose. This may need adjusted further up tomorrow. * Novolog parameters tightened with lunch today. 10/27: * 63 y/o F admitted with stroke like symptoms yesterday. 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 History of Type 2 diabetes managed with basal insulin and Metformin. * Patient has been NPO since yesterday. * Basal insulin 10 units BID ordered last night which is 1/3 of her home dose. * Novolog ordered per provider with loose correction factor. BSGs have been at or near goal and she has not required any bolus insulin. PLAN FOR INPATIENT GLYCEMIC CONTROL: * Hold outpatient oral diabetes medications * Basal insulin * Lantus 15 units SQ BID * Bolus insulin * NovoLog per scale ACHS or Q6hrs while NPO * Goal Range: Low 110 mg/dL - High 140 mg/dL * Correction Factor: 20 mg/dL/unit * Nutritional / Prandial insulin per carb ratio of 1 unit per 8 grams CHO consumed
--- NOTE | 2023-10-28 12:35 | Pharmacy Report ---
- Date of Service October 28, 2023 - Pharmacy CVA/TIA Medication Review Medications to Prevent Stroke handout has been added to the patients discharge packet. Antiplatelet(s) * Aspirin 81 mg daily Cholesterol * High intensity statin: atorvastatin 40 mg daily DVT Prophylaxis * SCD knee Therapeutic Anticoagulation * No history of Afib/Aflutter noted Type 2 Diabetes * Patient has T2DM, but per Dr. Medina, a diabetes medication with proven CVD benefit will be deferred to their outpatient provider due to familiarity with risks/benefits of such therapies. "Medications to prevent stroke" handout has already been added to the patient's discharge packet, which instructs the patient to follow up with their outpatient provider to evaluate which diabetes medication with proven CVD benefit is best for them
--- NOTE | 2023-10-28 16:18 | Hospitalist Progress Note ---
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, which is not MRI compatible Telestroke recommended repeat CT in 24-48 hours to look for stroke; they recommended we do not make changes to antiplatelet therapy until stroke is definitive Hx of [facility] admission 10/17-10/24 for encephalopathy, COVID, aspiration PNA, and ruled out for meningitis Found to have acute/subacute left basal ganglia infarct on head CT during that admission but was admitted a few weeks prior to that for stroke symptoms and had negative head CT at that time-was started on ASA and statin Head CT on 10/26 negative except subacute CVA, and noted that the ventriculomegaly was unchanged with the shunt catheter in place CTA head and neck negative. Prior ECHO with possible valvular vegetation and she declined ARELI--> repeat ECHO here now normal Head CT repeated again on 10/28 again only with same subacute stroke as previous and left basal ganglia Appreciate neurology consultation Likely having recrudescence of old stroke symptoms. Facial droop resolved but remains with dysarthria and RUE weakness but improved from previous Neuro recommends tapering off Keprra--> 250mg po bid x 1 week then stop f/u Neuro clinic locally as well as with her NS at [place] as planned next week Follow on tele for arrhythmia-none so far Cont ASA 81mg po daily Continue high intensity statin, lipids acceptable Given she has DM2 and stroke, should add on SGLT-2 or GLP-1 as outpt-defer to PCP given cost, may need prior auth etc. Neuro checks q4h Control BP-may need to add on another med Fall precautions Seizure precautions PT/OT consulted (2) NPH (normal pressure hydrocephalus): Plan: BOW MAKING MACHINE OPERATOR shunt placed on September [address] on 10/26 Per prior admission notes, BOW MAKING MACHINE OPERATOR shunt is not MRI compatible Specialty bed ordered has f/u next week planned with NS (3) Type 2 diabetes mellitus: Plan: Last A1c was 7.6% on 09/27/2023; no need to repeat an a.m. A1c Hold metformin COntinue Lantus and Novolog Pharmacy glycemic consult Add on SGLT-2 or GLP-1 as outpt (4) COVID-19: Plan: COVID + on arrival Patient was also COVID-positive at time of last admission on 10/17; received remdesivir and dexamethasone Clinically, no URI symptoms at time of admission on 10/26; 95% SPO2 on RA Mild leukocytosis at 13.56 with a neutrophil predominance; patient afebrile CXR negative Isolation precautions not needed (5) Hypomagnesemia: Plan: Magnesium 1.4 on arrival Likely due to poor oral intake replaced and now normal (6) HTN (hypertension): Plan: Blood pressures are not well-controlled. No permissive hypertension needed as stroke is subacute Continue metoprolol Consider adding on a second agent (7) Anxiety: Plan: Continue home citalopram (8) Hypothyroidism: Plan: continue home levothyroxine TSH here normal Plan Disposition: continued stay on PCU,medically stable for discharge but awaiting rehab placement Discussed her care with her sister on the phone on 10/28 Full code VTE PPx: SCDs Admission and Anticipated Discharge Date Admission Date: October 26, 2023 Subjective Patient much improved today, less lethargic and a bit more interactive, strength improved throughout. She is eating and drinking. Telemetry with normal sinus rhythm with rates in the 50s and 60s Physical Exam Constitutional: WD/WN, vitals as above Neck: trachea midline, no thyromegaly Respiratory: normal respiratory effort, lungs clear to auscultation Cardiovascular: RRR, no murmur, no edema Chest (Breasts): Chest: normal inspection of chest Gastrointestinal (Abdomen): normal bowel sounds, soft, nontender, no hepatosplenomegaly Musculoskeletal: Extremities: extremities normal to inspection; no cyanosis and no clubbing Skin: no rashes, warm and dry Neurologic: CN's II-XI intact bilaterally, moves all extremities, + focal motor deficit (4+/5 strength in RUE, 5/5 throughout otherwise) and awake Speech / Cognition: + abnormal speech (Dysarthria) Psychiatric: Orientation: alert and oriented to person; + not oriented to place and + not oriented to time Results & Data Results & Data Vital Signs (Past 12 Hours) Vital Signs Temp Pulse Pulse Resp BP Pulse Ox O2 Del Method 10/28/23 11:05 36.7 C 58 L 16 185/78 H 97 Room Air 10/28/23 09:00 Room Air 10/28/23 08:51 36.8 C 59 L 16 185/81 H 96 Room Air 10/28/23 08:00 59 L Laboratory Results CBC, BMP reviewed Urine culture reviewed PG Care Time/CCT Total # of Minutes Spent Total Time Spent with Patient: Total time spent is greater than 50% in coordination of care (as documented) at patient's floor/unit and/or counseling patient: Coding Level of Care Code 45642 SUB INP/OBS CARE 3/50MIN Diagnoses Stroke-like symptoms R29.90 NPH (normal pressure hydrocephalus) G91.2 Type 2 diabetes mellitus E11.9 COVID-19 U07.1 Hypomagnesemia E83.42 HTN (hypertension) I10 Anxiety F41.9 Hypothyroidism E03.9
[2023-10-28] MEDS: levETIRAcetam 250 MG TAB PO SCH (17:05)
[2023-10-29] MEDS: LEVOTHYROXINE SODIUM 88 MCG TABLET PO SCH (06:06)
[2023-10-29 09:14] LABS: BUN Creatinine Ratio 13.6 (10-20); Calcium 8.5 mg/dl (8.6-10.3); Creatinine Clr Calc Pharmacy 83.4 ml/min; Est GFR (African American) 82.2 ml/min; Est GFR (Non-African American) 70.9 ml/min; Magnesium 1.4 mg/dl (1.7-2.4); Potassium 3.9 mmol/L (3.5-5.1)
[2023-10-29] MEDS: INSULIN ASPART PER UNIT CHARGE SC SCH ×4 (09:16→20:54)
[2023-10-29] MEDS: ATORVASTATIN 40 MG TAB PO SCH (09:37)
[2023-10-29] MEDS: levETIRAcetam 250 MG TAB PO SCH ×2 (09:37→16:15)
[2023-10-29] MEDS: ASPIRIN 81 MG ECTAB PO SCH (09:37)
[2023-10-29] MEDS: CITALOPRAM 20 MG TAB PO SCH (09:38)
[2023-10-29] MEDS: LANTUS PER UNIT CHARGE SQ SCH ×2 (09:38→20:55)
[2023-10-29] MEDS: CYANOCOBALAMIN (B-12) 500 MCG TABLET PO SCH (09:38)
[2023-10-29] MEDS: METOPROLOL SUCC 25MG EXT REL TAB PO SCH (09:38)
[2023-10-29] MEDS: MAGNESIUM SULFATE / D5W 1 GM/100 ML BAG IV SCH ×3 (10:06→14:30)
--- NOTE | 2023-10-29 17:22 | Hospitalist Progress Note ---
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, which is not MRI compatible Telestroke recommended repeat CT in 24-48 hours to look for stroke Hx of hospital admission 10/17-10/24 for encephalopathy, COVID, aspiration PNA, and ruled out for meningitis with lumbar puncture Found to have acute/subacute left basal ganglia infarct on head CT during that admission Was previously admitted a few weeks prior to that for stroke symptoms but had a negative head CT at that time-was started on ASA and statin for suspicion of stroke Head CT on 10/26 negative except subacute CVA 1.1 cm in the left basal ganglia; noted that the ventriculomegaly was unchanged with the shunt catheter in place CTA head and neck negative. Prior ECHO with possible valvular vegetation and she declined ARELI--> repeat ECHO here now normal Head CT repeated again on 10/28 again only with same subacute stroke as previous Appreciate neurology consultation-likely having recrudescence of old stroke symptoms. Facial droop very minimally present but remains with dysarthria, abulia, and RUE weakness but improved from previous Neuro recommends tapering off Keppra--> 250mg po bid x 1 week then stop f/u Neuro clinic locally as well as with her NS at [place] as planned next week Follow on tele for arrhythmia-none so far. Recommend 30-day cardiac event monitor to look for occult atrial fibrillation/flutter Cont ASA 81mg po daily, high intensity statin-lipids are acceptable Given she has DM2 and stroke, should add on SGLT-2 or GLP-1 as outpt-defer to PCP given cost, may need prior auth etc. 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 Joseph-sister request that records/discharge summary from this admission be faxed to Dr. Joseph after discharge (3) Type 2 diabetes mellitus: Plan: Last A1c was 7.6% on 09/27/2023 Hold metformin COntinue Lantus and Novolog Pharmacy glycemic consult Recommend adding on SGLT-2 or GLP-1 as outpt given history of stroke and diabetes (4) COVID-19: Plan: COVID + on arrival Patient was also COVID-positive at time of last admission on 10/17; received remdesivir and dexamethasone Clinically, no URI symptoms at time of admission on 10/26; 95% SPO2 on RA Mild leukocytosis at 13.56 with a neutrophil predominance; patient afebrile CXR negative Isolation precautions not needed (5) Hypomagnesemia: Plan: Magnesium 1.4 on arrival Likely due to poor oral intake replaced and had resolved but low again today Give 3 g of IV magnesium Follow level in the morning (6) HTN (hypertension): Plan: Blood pressures remain elevated at times. No permissive hypertension needed as stroke is subacute Continue metoprolol Consider adding on a second agent if persistently elevated (7) Anxiety: Plan: Continue home citalopram (8) Hypothyroidism: Plan: continue home levothyroxine TSH here normal Plan Disposition: continued stay on PCU,medically stable for discharge but awaiting rehab placement Discussed her care with her sister on the phone on 10/28 Full code VTE PPx: SCDs Admission and Anticipated Discharge Date Admission Date: October 26, 2023 Subjective Patient denies any problems. Is eating and drinking, has not been out of bed today. She does ask if her sister is coming to visit. Telemetry with sinus bradycardia and normal sinus rhythm with rates in the 50s to 60s Physical Exam Constitutional: WD/WN, vitals as above Neck: trachea midline, no thyromegaly Respiratory: normal respiratory effort, lungs clear to auscultation Cardiovascular: RRR, no murmur, no edema Chest (Breasts): Chest: normal inspection of chest Gastrointestinal (Abdomen): normal bowel sounds, soft, nontender, no h epatosplenomegaly Musculoskeletal: Extremities: extremities normal to inspection; no cyanosis and no clubbing Skin: no rashes, warm and dry Neurologic: awake Speech / Cognition: + abnormal speech (Dysarthria, slow to speak) Psychiatric: Orientation: alert, oriented to person, oriented to place, oriented to time (To year and month) and cooperative Results & Data Results & Data Vital Signs (Past 12 Hours) Vital Signs Temp Pulse Pulse Resp BP Pulse Ox O2 Del Method 10/29/23 14:57 36.6 C 66 18 135/70 93 Room Air 10/29/23 12:04 36.5 C 63 18 132/82 98 Room Air 10/29/23 08:00 36.5 C 75 18 184/82 H 92 Room Air 10/29/23 07:29 65 Laboratory Results BMP, magnesium reviewed PG Care Time/CCT Total # of Minutes Spent Total Time Spent with Patient: Total time spent is greater than 50% in coordination of care (as documented) at patient's floor/unit and/or counseling patient: Coding Level of Care Code 49416 SUB INP/OBS CARE 2/35MIN Diagnoses History of CVA (cerebrovascular accident) Z86.73 NPH (normal pressure hydrocephalus) G91.2 Type 2 diabetes mellitus E11.9 COVID-19 U07.1 Hypomagnesemia E83.42 HTN (hypertension) I10 Anxiety F41.9 Hypothyroidism E03.9
[2023-10-30] MEDS: LEVOTHYROXINE SODIUM 88 MCG TABLET PO SCH (05:47)
[2023-10-30 08:21] LABS: Basophils # (auto) 0.05 K/uL (0.00-0.20); Basophils % (auto) 0.5 %; Eosinophils % (auto) 1.8 %; Hematocrit (blood only) 37.3 % (37.0-47.0); Hemoglobin 12.3 g/dl (12.0-16.0); Immature Granulocytes # (auto) 0.06 K/uL (0.01-0.20); Immature Granulocytes % (auto) 0.6 %; Lymphocytes # (auto) 2.82 K/uL (1.20-3.40); Mean Corpuscular Hemoglobin 26.8 pg (25.0-34.0); Mean Corpuscular Volume 81.3 fL (80.0-100.0); Mean Platelet Volume 10.1 fL (9.4-12.4); Monocytes # (auto) 0.64 K/uL (0.11-0.59); Monocytes % (auto) 5.9 %; Neutrophils # (auto) 7.06 K/uL (1.40-6.50); Neutrophils % (auto) 65.2 %; Platelet Count 357 K/uL (130-400); RDW Coefficient of Variation 14.9 % (11.5-14.5); Red Blood Count 4.59 M/uL (4.20-5.40); White Blood Count 10.83 K/ul (4.8-10.8)
[2023-10-30] MEDS: LANTUS PER UNIT CHARGE SQ SCH ×2 (08:30→21:24)
[2023-10-30] MEDS: INSULIN ASPART PER UNIT CHARGE SC SCH ×4 (08:31→21:24)
[2023-10-30] MEDS: levETIRAcetam 250 MG TAB PO SCH ×2 (08:32→17:02)
[2023-10-30] MEDS: CITALOPRAM 20 MG TAB PO SCH (08:33)
[2023-10-30] MEDS: ATORVASTATIN 40 MG TAB PO SCH (08:33)
[2023-10-30] MEDS: CYANOCOBALAMIN (B-12) 500 MCG TABLET PO SCH (08:33)
[2023-10-30] MEDS: ASPIRIN 81 MG ECTAB PO SCH (08:33)
[2023-10-30] MEDS: METOPROLOL SUCC 25MG EXT REL TAB PO SCH (08:34)
[2023-10-30 08:40] LABS: BUN Creatinine Ratio 17.3 (10-20); Calcium 8.8 mg/dl (8.6-10.3); Est GFR (African American) 90.9 ml/min; Est GFR (Non-African American) 78.4 ml/min; Magnesium 1.9 mg/dl (1.7-2.4)
--- NOTE | 2023-10-30 16:55 | Hospitalist Progress Note ---
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 Prior ECHO with possible valvular vegetation and she declined ARELI--> repeat ECHO here now normal Hx of hospital admission 10/17-10/24 for encephalopathy, COVID, aspiration PNA, and ruled out for meningitis with lumbar puncture Found to have acute/subacute left basal ganglia infarct on head CT during that admission Was previously admitted a few weeks prior to that for stroke symptoms but had a negative head CT at that time-was started on ASA and statin for suspicion of stroke Appreciate neurology consultation-likely having recrudescence of old stroke symptoms. Facial droop very minimally present but remains with dysarthria, abulia, and RUE weakness but improved from previous Neuro recommends tapering off Keppra--> 250mg po bid x 1 week then stop f/u Neuro clinic locally as well as with her NS at [place] as planned next week Follow on tele for arrhythmia-none so far. Recommend 30-day cardiac event monitor to look for occult atrial fibrillation/flutter Cont ASA 81mg po daily, high intensity statin-lipids are acceptable Given she has DM2 and stroke, should add on SGLT-2 or GLP-1 as outpt-defer to PCP given cost, may need prior auth etc. Continue neuro checks Control BP-may need to add on another med if persistently elevated Fall precautions Seizure precautions PT/OT consulted-recommend rehab Nash catheter to be discontinued in the morning-it was placed on 10/18/2023 during previous ICU stay and for some reason was never removed. There is no men tion of urinary retention and previous progress notes. 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 Joseph-sister request that records/discharge summary from this admission be faxed to Dr. Joseph after discharge (3) Type 2 diabetes mellitus: Plan: Last A1c was 7.6% on 09/27/2023 Hold metformin Continue Lantus and Novolog Pharmacy glycemic consult Recommend adding on SGLT-2 or GLP-1 as outpt given history of stroke and diabetes (4) COVID-19: Plan: COVID + on arrival Patient was also COVID-positive at time of last admission on 10/17; received remdesivir and dexamethasone Clinically, asymptomatic now, not hypoxic, patient afebrile CXR negative Isolation precautions not needed (5) Hypomagnesemia: Plan: Replaced and resolved (6) HTN (hypertension): Plan: Blood pressures remain elevated at times. No permissive hypertension needed as stroke is subacute Continue metoprolol Consider adding on a second agent if persistently elevated (7) Anxiety: Plan: Continue home citalopram (8) Hypothyroidism: Plan: continue home levothyroxine TSH here normal Plan Disposition: continued stay on PCU for arrhythmia monitoring while awaiting placement,medically stable for discharge but awaiting rehab placement Discussed her care with her sister on the phone on 10/28 Full code VTE PPx: SCDs, add on Lovenox given prolonged stay Admission and Anticipated Discharge Date Admission Date: October 26, 2023 Subjective Patient has no complaints. Eating and drinking, mentating at her baseline. Nash catheter remains in place and after much research through the chart, it was determined that it was placed when she was transferred to the ICU on October 18 and has not yet been removed.'s unclear why it remains in place. Telemetry with normal sinus rhythm with rates in the 60s to 70s Physical Exam Constitutional: WD/WN, vitals as above Neck: trachea midline, no thyromegaly Respiratory: normal respiratory effort, lungs clear to auscultation Cardiovascular: RRR, no murmur, no edema Chest (Breasts): Chest: normal inspection of chest Gastrointestinal (Abdomen): normal bowel sounds, soft, nontender, no hepatosplenomegaly Musculoskeletal: Extremities: extremities normal to inspection; no cyanosis and no clubbing Skin: no rashes, warm and dry Neurologic: + focal motor deficit (4+/5 strength in RUE, 5/5 throughout otherwise) and awake Speech / Cognition: + abnormal speech (Dysarthria, slow to speak) and + abnormal cognition Psychiatric: Orientation: alert, oriented to person, oriented to place, oriented to time (To year and month) and cooperative Genitourinary: Nash catheter in place Results & Data Results & Data Vital Signs (Past 12 Hours) Vital Signs Temp Pulse Pulse Resp BP Pulse Ox O2 Del Method 10/30/23 14:44 36.7 C 69 18 137/80 95 Room Air 10/30/23 11:47 36.7 C 64 18 144/84 H 94 Room Air 10/30/23 07:32 69 10/30/23 07:28 36.9 C 67 18 131/80 94 Room Air Laboratory Results CBC, BMP, magnesium reviewed Urine culture reviewed PG Care Time/CCT Total # of Minutes Spent Total Time Spent with Patient: Total time spent is greater than 50% in coordination of care (as documented) at patient's floor/unit and/or counseling patient: Coding Level of Care Code 68874 SUB INP/OBS CARE 2/35MIN Diagnoses History of CVA (cerebrovascular accident) Z86.73 NPH (normal pressure hydrocephalus) G91.2 Type 2 diabetes mellitus E11.9 COVID-19 U07.1 Hypomagnesemia E83.42 HTN (hypertension) I10 Anxiety F41.9 Hypothyroidism E03.9
[2023-10-30] MEDS: ENOXAPARIN INJ 40 MG/0.4 ML SYR SQ SCH (21:23)
[2023-10-31] MEDS: LEVOTHYROXINE SODIUM 88 MCG TABLET PO SCH (05:44)
[2023-10-31] MEDS: INSULIN ASPART PER UNIT CHARGE SC SCH ×4 (08:28→21:00)
[2023-10-31] MEDS: LANTUS PER UNIT CHARGE SQ SCH ×2 (08:28→20:59)
[2023-10-31] MEDS: levETIRAcetam 250 MG TAB PO SCH ×2 (08:29→17:04)
[2023-10-31] MEDS: CITALOPRAM 20 MG TAB PO SCH (08:29)
[2023-10-31] MEDS: ATORVASTATIN 40 MG TAB PO SCH (08:29)
[2023-10-31] MEDS: ASPIRIN 81 MG ECTAB PO SCH (08:29)
[2023-10-31] MEDS: CYANOCOBALAMIN (B-12) 500 MCG TABLET PO SCH (08:30)
[2023-10-31] MEDS: METOPROLOL SUCC 25MG EXT REL TAB PO SCH (08:30)
--- NOTE | 2023-10-31 12:18 | Pharmacy Report ---
Pharmacy Glycemic Short Note 2 - Date of Service October 31, 2023 - Glycemic Short BSG Results (Last 24 hours): 10/30/23 10/30/23 10/31/23 16:17 20:06 07:26 POC Glucose 102 H 149 H 169 H 10/31/23 11:16 POC Glucose 153 H OUTPATIENT ANTIDIABETIC REGIMEN: * Levemir 30 units SQ BID * Metformin 1 gm PO BID HbA1c: 7.6% ASSESSMENT: 10/31 * BSGs yesterday were [phone] mg/dL. Patient received 49 units of insulin (30 units of basal and 19 units of bolus). * Fasting today is 169 mg/dL. Increase basal slightly to 15 units BID. * BSGs controlled throughout day so continue Novolog. 10/28: * Patient received 20 units basal and 4 units bolus insulin yesterday. BSGs yesterday were [phone] mg/dl. * Fasting BSG elevated today at 166 mg/dl. Pre-lunch BSG trended up to 223 mg/dl. * Basal dose increased starting tonight to 15 units BID which is 50% of home dose. This may need adjusted further up tomorrow. * Novolog parameters tightened with lunch today. 10/27: * 63 y/o F admitted with stroke like symptoms yesterday. She has history of RIGGER UP shunt placement around 6 weeks ago [facility]. History of Type 2 diabetes managed with basal insulin and Metformin. * Patient has been NPO since yesterday. * Basal insulin 10 units BID ordered last night which is 1/3 of her home dose. * Novolog ordered per provider with loose correction factor. BSGs have been at or near goal and she has not required any bolus insulin. PLAN FOR INPATIENT GLYCEMIC CONTROL: * Hold outpatient oral diabetes medications * Basal insulin * Lantus 18 units SQ BID * Bolus insulin * NovoLog per scale ACHS or Q6hrs while NPO * Goal Range: Low 110 mg/dL - High 140 mg/dL * Correction Factor: 20 mg/dL/unit * Nutritional / Prandial insulin per carb ratio of 1 unit per 8 grams CHO consumed
--- NOTE | 2023-10-31 14:32 | Hospitalist Progress Note ---
Date of Service October 31, 2023 Assessment & Plan (1) History of CVA (cerebrovascular accident): Plan: Presented with right-sided facial droop, slurred speech, and acute change in cognitive baseline on the morning of 10/26. Per teleneurology, she did not receive thrombolytics. Neurology consultation and recommendations appreciated. Keppra is being weaned off. Status post recent placement of ventriculoperitoneal shunt from NPH. 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 CTA head and neck negative. TTE suggested possible valvular vegetation but she declined ARELI--> repeat ECHO here now normal. Hx of hospital admission 10/17-10/24 for encephalopathy, COVID, aspiration PNA, and ruled out for meningitis with lumbar puncture Found to have acute/subacute left basal ganglia infarct on head CT during that admission . Was previously admitted a few weeks prior to that for stroke symptoms but had a negative head CT at that time-was started on ASA and statin for suspicion of stroke (2) NPH (normal pressure hydrocephalus): Plan: SOIL SCIENCE TEACHER shunt placed on September 01. Stable series of head CT scans completed. (3) Type 2 diabetes mellitus: Plan: ADA diet. Metformin is on hold. Sliding scale coverage for now. (4) COVID-19: Plan: COVID + per swab on arrival. Recent history of COVID positivity. She does not actively have a COVID infection. Isolation precautions not needed (5) Hypomagnesemia: Plan: Replaced and resolved (6) HTN (hypertension): Plan: Stable. Continue metoprolol (7) Anxiety: Plan: Stable. Continue citalopram (8) Hypothyroidism: Plan: Stable. Continue levothyroxine. TSH normal Plan [facility] November 01. I highly encourage [facility] if IPR is denied. The patient is considering. Admission and Anticipated Discharge Date Admission Date: October 26, 2023 Subjective Alert and oriented. No new problems. Neurology has recommended tapering off Keppra and applying a 30-day cardiac event monitor at the time of discharge. Serial head CT scans are stable. Nash catheter will be discontinued today. If she is denied [facility], then in my opinion she needs SNF placement. Both OT and PT recommend rehab placement. Review of Systems 2 Review of Systems: Constitutional-no fever or chills ENT- no blurred vision, no double vision, no epistaxis, no sore throat Respiratory- no cough, no wheezing, no shortness of breath Cardiac- no palpitations, no chest pain, no syncope GI- no nausea, vomiting, diarrhea, melena, hematochezia - no urinary retention, no urinary incontinence, no dysuria, no hematuria Musculoskeletal- no joint pain, no muscle tenderness Skin- no bruising, no rashes, no pruritus Neuro- no isolated weakness, no paresthesia, no weakness Psych- no depression, no anxiety Physical Exam 2 Physical Exam: General-alert and oriented x3, no fevers, no chills HEENT-head atraumatic and normocephalic, pupils equal and reactive to light, extraocular muscles intact Neck-no lymphadenopathy or thyromegaly, trachea midline Chest-clear to auscultation percussion. No rales wheezing or rhonchi Cardiac-regular rate and rhythm, normal S1 and S2, no murmurs Abdomen-normal bowel sounds, nontender, no hepatosplenomegaly Extremities-no cyanosis, clubbing, or edema Neuro-mild right facial droop noted. Mild left hemiparesis Psych-normal affect, normal mood Results & Data Results & Data Vital Signs (Past 12 Hours) Vital Signs Temp Pulse Pulse Pulse Resp BP BP 10/31/23 10:03 36.3 C L 62 18 147/76 H 10/31/23 08:06 36.5 C 61 16 133/80 10/31/23 07:27 62 10/31/23 03:51 148/83 H 10/31/23 03:00 35.8 C L 63 16 170/83 H Pulse Ox O2 Del Method 10/31/23 10:03 94 Room Air 10/31/23 08:06 97 Room Air 10/31/23 07:27 10/31/23 03:51 10/31/23 03:00 95 Room Air Laboratory Results 10/30/23 07:44 10/30/23 07:44 PG Care Time/CCT Total # of Minutes Spent Total Time Spent with Patient: Total time spent is greater than 50% in coordination of care (as documented) at patient's floor/unit and/or counseling patient: Coding Level of Care Code 63768 SUB INP/OBS CARE 3/50MIN Diagnoses History of CVA (cerebrovascular accident) Z86.73 NPH (normal pressure hydrocephalus) G91.2 Type 2 diabetes mellitus E11.9 COVID-19 U07.1 Hypomagnesemia E83.42 HTN (hypertension) I10 Anxiety F41.9 Hypothyroidism E03.9
[2023-10-31] MEDS: ENOXAPARIN INJ 40 MG/0.4 ML SYR SQ SCH (20:59)
[2023-11-01] MEDS: LEVOTHYROXINE SODIUM 88 MCG TABLET PO SCH (06:00)
[2023-11-01] MEDS: LANTUS PER UNIT CHARGE SQ SCH (08:44)
[2023-11-01] MEDS: INSULIN ASPART PER UNIT CHARGE SC SCH ×3 (08:44→17:27)
[2023-11-01] MEDS: ASPIRIN 81 MG ECTAB PO SCH (08:45)
[2023-11-01] MEDS: levETIRAcetam 250 MG TAB PO SCH ×2 (08:45→17:03)
[2023-11-01] MEDS: CITALOPRAM 20 MG TAB PO SCH (08:46)
[2023-11-01] MEDS: CYANOCOBALAMIN (B-12) 500 MCG TABLET PO SCH (08:46)
[2023-11-01] MEDS: ATORVASTATIN 40 MG TAB PO SCH (08:46)
[2023-11-01] MEDS: METOPROLOL SUCC 25MG EXT REL TAB PO SCH (08:47)
--- NOTE | 2023-11-01 12:14 | Hospitalist Progress Note ---
Date of Service November 01, 2023 Assessment & Plan (1) History of CVA (cerebrovascular accident): Plan: Presented with right-sided facial droop, slurred speech, and acute change in cognitive baseline on the morning of 10/26. Per teleneurology, she did not receive thrombolytics. Neurology consultation and recommendations appreciated. Keppra is being weaned off. Status post recent placement of ventriculoperitoneal shunt from [facility]. The PRESSFITTER shunt is preventing MRI examination. CTA head and neck negative. TTE suggested possible valvular vegetation but she declined ARELI--> repeat ECHO here now normal. Hx of hospital admission 10/17-10/24 for encephalopathy, COVID, aspiration PNA, and ruled out for meningitis with lumbar puncture Found to have acute/subacute left basal ganglia infarct on head CT during that admission . Was previously admitted a few weeks prior to that for stroke symptoms but had a negative head CT at that time-was started on ASA and statin for suspicion of stroke (2) NPH (normal pressure hydrocephalus): Plan: PRESSFITTER shunt placed on September 01. Stable series of head CT scans completed. (3) Type 2 diabetes mellitus: Plan: ADA diet. Metformin is on hold. Will resume at discharge. Sliding scale coverage for now. (4) COVID-19: Plan: COVID + per swab on arrival. Recent history of COVID positivity. She does not actively have a COVID infection. Isolation precautions not needed (5) Hypomagnesemia: Plan: Replaced and resolved (6) HTN (hypertension): Plan: Stable. Continue metoprolol (7) Anxiety: Plan: Stable. Continue citalopram (8) Hypothyroidism: Plan: Stable. Continue levothyroxine. TSH normal Plan Hopeful discharge to [facility] when arrangements are finalized. I highly encourage discharge to correction facility for rehab if IPR is denied. The patient is considering. Admission and Anticipated Discharge Date Admission Date: October 26, 2023 Subjective Alert and oriented. No new problems. Awaiting IPR placement. Review of Systems 2 Review of Systems: Constitutional-no fever or chills ENT- no blurred vision, no double vision, no epistaxis, no sore throat Respiratory- no cough, no wheezing, no shortness of breath Cardiac- no palpitations, no chest pain, no syncope GI- no nausea, vomiting, diarrhea, melena, hematochezia - no urinary retention, no urinary incontinence, no dysuria, no hematuria Musculoskeletal- no joint pain, no muscle tenderness Skin- no bruising, no rashes, no pruritus Neuro- no isolated weakness, no paresthesia, no weakness Psych- no depression, no anxiety Physical Exam 2 Physical Exam: General-alert and oriented x3, no fevers, no chills HEENT-head atraumatic and normocephalic, pupils equal and reactive to light, extraocular muscles intact Neck-no lymphadenopathy or thyromegaly, trachea midline Chest-clear to auscultation percussion. No rales wheezing or rhonchi Cardiac-regular rate and rhythm, normal S1 and S2, no murmurs Abdomen-normal bowel sounds, nontender, no hepatosplenomegaly Extremities-no cyanosis, clubbing, or edema Neuro-mild right facial droop noted. Mild left hemiparesis Psych-normal affect, normal mood Results & Data Results & Data Vital Signs (Past 12 Hours) Vital Signs Temp Pulse Resp BP BP Pulse Ox O2 Del Method 11/01/23 10:33 36.3 C L 81 17 118/79 93 Room Air 11/01/23 07:10 36.3 C L 66 18 144/84 H 95 Room Air 11/01/23 02:48 36.6 C 65 18 137/74 96 Room Air Laboratory Results 10/30/23 07:44 10/30/23 07:44 PG Care Time/CCT Total # of Minutes Spent Total Time Spent with Patient: Total time spent is greater than 50% in coordination of care (as documented) at patient's floor/unit and/or counseling patient: Coding Level of Care Code 85039 SUB INP/OBS CARE 2/35MIN Diagnoses History of CVA (cerebrovascular accident) Z86.73 NPH (normal pressure hydrocephalus) G91.2 Type 2 diabetes mellitus E11.9 COVID-19 U07.1 Hypomagnesemia E83.42 HTN (hypertension) I10 Anxiety F41.9 Hypothyroidism E03.9
--- NOTE | 2023-11-01 15:11 | Discharge Summary ---
Date of Service November 01, 2023 Admission HPI Per Admitting Provider Isadora is a 63-year-old female with PMH of normal pressure hydrocephalus, anxiety, depression, HTN, hypothyroidism, T2DM, short-term memory loss, and CVA. She presented via EMS as a stroke alert from [facility] on the morning of 10/26. Last known well 2100 on 10/25. Patient presented with right- sided facial droop, and slurred speech in the ED. Of note, patient had a recent [facility] admission from 10/17 - 10/24 for altered mental status, in which the CT head read as subacute to acute infarct of the left basal ganglia. Today, she is distant, mumbles, and has some difficulty following directions and focusing. She is unable to provide a history given her current state. However, she notes that she thinks she "had a stroke", but was not able to describe her symptoms. Vital stable at time of admission. ED course: NSS 1000 mL ROS: Patient denies fever, chills, night sweats, MOCTEZUMA, dizziness, CP, pleuritic CP, SOB, abdominal pain, N/V/D, urinary symptoms, burning with urination, or numbnes s and tingling down the legs. Spoke on the phone with nursing staff from [facility]. They reported that the patient had a right facial droop this morning and was unable to take her p.o. meds. She was given a sip of water but it spilled down her face. They noted an acute change in cognitive baseline from when she arrived at [facility] on 10/24. No aspirin was given this morning; last given on the morning of 10/25. The only medication she received this morning was her insulin 30u. Principal Diagnosis Recent CVA with recurrent strokelike symptoms, hypomagnesemia Discharge Exam General-alert and oriented x3, no fevers, no chills HEENT-head atraumatic and normocephalic, pupils equal and reactive to light, extraocular muscles intact Neck-no lymphadenopathy or thyromegaly, trachea midline Chest-clear to auscultation percussion. No rales wheezing or rhonchi Cardiac-regular rate and rhythm, normal S1 and S2, no murmurs Abdomen-normal bowel sounds, nontender, no hepatosplenomegaly Extremities-no cyanosis, clubbing, or edema Neuro-mild right facial droop noted. Mild left hemiparesis Psych-normal affect, normal mood Discharge Data Allergies Allergy/AdvReac Type Severity Reaction Status Date / Time No Known Allergies Allergy Unknown Verified 10/26/23 10:50 Consultations 10/26/23 10:23 ED Decision to Admit Stat 10/27/23 13:32 Consult Neurology Routine Ordered Studies 10/26/23 08:24 CT angio head w con Stat CT angio neck with con Stat CT head/brain wo con Stat 10/27/23 10:00 CT head/brain wo con DAILY 10/28/23 10:00 CT head/brain wo con Routine Hospital Course (1) History of CVA (cerebrovascular accident): Presented with right-sided facial droop, slurred speech, and acute change in cognitive baseline on the morning of 10/26. Per teleneurology, she did not receive thrombolytics. Neurology consultation and recommendations appreciated. Keppra is being weaned off. Status post recent placement of ventriculoperitoneal shunt from [facility]. The FLAME BURNER shunt is preventing MRI examin ation. CTA head and neck negative. TTE suggested possible valvular vegetation but she declined ARELI--> repeat ECHO here now normal. Hx of hospital admission 10/17-10/24 for encephalopathy, COVID, aspiration PNA, and ruled out for meningitis with lumbar puncture Found to have acute/subacute left basal ganglia infarct on head CT during that admission . Was previously admitted a few weeks prior to that for stroke symptoms but had a negative head CT at that time-was started on ASA and statin for suspicion of stroke (2) NPH (normal pressure hydrocephalus): FLAME BURNER shunt placed on September 01. Stable series of head CT scans completed. (3) Type 2 diabetes mellitus: ADA diet. Metformin is on hold. Will resume at discharge. Sliding scale coverage for now. (4) COVID-19: COVID + per swab on arrival. Recent history of COVID positivity. She does not actively have a COVID infection. Isolation precautions not needed (5) Hypomagnesemia: Replaced and resolved (6) HTN (hypertension): Stable. Continue metoprolol (7) Anxiety: Stable. Continue citalopram (8) Hypothyroidism: Stable. Continue levothyroxine. TSH normal Plan Hopeful discharge to [facility] when arrangements are finalized. I highly encourage discharge to intermediate facility for rehab if IPR is denied. The patient is considering. Total Time Total Time Spent Total Time Spent (In Minutes): 45 minutes Discharge Plan Discharge Items Patient Disposition: Transfer Inpatient Rehab Fac Reason For Visit: CVA R/O Discharge Diagnosis: Recent CVA with recurrent strokelike symptoms, hypomagnesemia Activity: Resume your previous activity Non-emergency contact: Primary Care Provider Call non-emergency contact if: you have any medication questions and your symptoms worsen Follow-up/Referrals: Jamila Wood CRNP [Primary Care Provider] - Diet: Carb Consistent or DM2 and Heart Healthy Addtl Attending Provider Instructions: See primary care provider soon as possible after discharge from [facility] Pending Studies at Discharge: No Stand-Alone Forms: My [facility], Medications to Prevent Stroke Skilled Items Patient informed of condition?: Yes DNR: Yes Discharge Level of Care: Acute rehab Communicable Disease: No Discharge Prognosis: Stable Lines: None Urinary Catheter: No Medications and DC Order Prescriptions: Continued Levemir FlexPen 100 unit/mL (3 mL) Insulin Pen 30 unit SUBCUT Q12 Rx Instructions: take at 8am and 8pm tolterodine 2 mg capsule,extended release 24hr 2 mg PO QAM atorvastatin 40 mg tablet 40 mg PO QAM metoprolol succinate 25 mg tablet extended release 24 hr 12.5 mg PO QAM levetiracetam 500 mg tablet 500 mg PO BID Rx Instructions: TAKES 0800 & 1600 levothyroxine 88 mcg tablet 88 mcg PO QAM citalopram 20 mg tablet 20 mg PO QAM metformin 1,000 mg tablet 1,000 mg PO BID Rx Instructions: TAKES 0800 & 2000 acetaminophen [Tylenol] 325 mg Tablet 650 mg PO Q6 PRN (Reason: PAIN/FEVER) cyanocobalamin (vitamin B-12) [Vitamin B-12] 1,000 mcg Tablet 1,000 mcg PO QAM polyethylene glycol 3350 [Miralax] 17 gram powder in packet 17 g PO DAILY PRN (Reason: Constipation) aspirin 81 mg Tablet,Delayed Release (Dr/Ec) 81 mg PO QAM 30 Days Qty: 30 0RF Discharge Orders: Discharge Order (Routine); Ordered 11/01/23 Ordered By: Carlos Reyes Admission Data Admit Date/Time: 10/26/23 11:10 Attending Provider: Amy,Carlos R. Admit Provider: Jarrell Riley Primary Care Provider: Jamila Wood Other Providers: Jarrell Riley; Melvin Calvillo; [facility] Coding Level of Care Code 98030 INP/OBS DISCH >30 MIN Diagnoses History of CVA (cerebrovascular accident) Z86.73 NPH (normal pressure hydrocephalus) G91.2 Type 2 diabetes mellitus E11.9 COVID-19 U07.1 Hypomagnesemia E83.42 HTN (hypertension) I10 Anxiety F41.9 Hypothyroidism E03.9
== END 2023-11-01 19:15 | DRG 56 ==
LOC: ED 08:18 → SUATTDRO 11:10 → EDINP 11:10 → 2S 10-27 09:56